=== PATIENT | male | born 1970 | race Caucasian/White ===

== ENCOUNTER 2020-03-27 16:06 | Emergency (ER) | payer OTHER, SELFPAY ==
--- NOTE | ~2020-03-27 | CT_ITS ---
EXAMINATION: CT abdomen pelvis w con EXAM DATE: 03/27/2020 17:38 INDICATION: Epigastric pain. Prostate cancer. TECHNIQUE: Spiral CT of the abdomen and pelvis was performed following intravenous injection of 100 m L Omnipaque 350. Axial, coronal and sagittal images were reviewed. The dose-length product (DLP) fo r this examination was 920.62 mGy-cm. The exposure was tailored according to patient size (auto mA e xposure control), and iterative reconstruction (ASIR) was used as additional dose reduction technique . There is no prior study for comparison. FINDINGS: There is mild inflammation adjacent to the duodenum, most likely peptic ulcer disease. Panc reatitis less likely. Hepatic steatosis, hepatomegaly. Spleen, adrenal glands are unremarkable. Panc reas is unremarkable. Gallbladder is unremarkable. No biliary obstruction. Portal and splenic vein s are patent. Kidneys enhance symmetrically. There is no hydronephrosis. Patient has likely had p rostatectomy. The bladder is unremarkable. There is no retroperitoneal or pelvic lymphadenopathy. There is mild scattered arteriosclerotic disease. The appendix is normal. The stomach and small bowel are unremarkable. There is expected amount of c olonic stool. No free intraperitoneal gas. The heart is normal in size. There are no pericardial or pleural effusions. The lung bases are unremarkable. There are no osteoblastic or osteolytic les ions identified. Corpora implants. IMPRESSION: 1. Mild fat stranding centered around duodenum, probably peptic ulcer disease. No perforation. 2. Hepatomegaly, hepatic steatosis. Reviewed, dictated and finalized at location A.
[2020-03-27 16:08] VITALS: BP 125/86; PULSE 103; RESP 18; TEMP 36.1; O2SAT 100
--- NOTE | 2020-03-27 16:32 | ED.ABDPAIN ---
HPI - Abdominal Pain General Chief Complaint: Abdominal Pain Stated Complaint: abdominal pain Time Seen by Provider: 03/27/20 16:13 Source: RN notes reviewed History of Present Illness HPI narrative: Patient presents emergency department from home for abdominal pain. Patient states that pain began 3 days ago. The pain is located in the upper mid abdomen described as sharp and stabbing associated with nausea and vomiting. Denies any fevers or chills chest pain shortness of breath diarrhea or any other symptoms. States he does have mesh in this area from previous hernia repair. States he did take Advil at home today for pain with minimal relief Related Data Allergies Allergy/AdvReac Type Severity Reaction Status Date / Time No Known Allergies Allergy Unverified 12/26/18 15:49 Review of Systems Review of Systems: Narrative: Gen.: Denies fevers or chills ENT: Denies congestion Respiratory: Denies shortness of breath or cough CV: Denies chest pain or palpitations GI: See HPI denies burning, urgency, frequency or hematuria Musculoskeletal: Denies back pain or muscle pain Neuro: Denies numbness, tingling, weakness or focal weakness Skin: Denies rash Except as documented, all other systems reviewed and negative [facility] Past Medical History Medical History (Updated 03/27/20 @ 18:27 by Felice Mendez DO) Hypertension Prostate cancer Psoriasis Surgical History Surgical History (Updated 03/27/20 @ 16:33 by Felice Mendez DO) History of hernia repair Social History Social History Smoking status: Former smoker Smoking end date: 11/05/11 Exam Narrative: Exam Narrative: APPEARANCE: No acute distress, nontoxic, resting in bed HEENT: Normocephalic, atraumatic, OMM RESPIRATORY: No respiratory distress, clear to auscultation bilaterally with no rhonchi wheezing or rales CARDIOVASCULAR: RRR s murmur ABDOMINAL: Soft, nondistended, tender palpation in epigastric and right upper quadrant, no tenderness left upper quadrant, right lower quadrant left lower quadrant, no rebound or guarding MUSCULOSKELETAl: Moves all extremities. No clubbing, cyanosis or edema. NEURO: Awake and alert. Following commands, speech normal, no focal deficits SKIN:: Warm, dry. Normal Color PSYCHIATRIC: Normal affect/mood Course Course Emergency Course: Discussed with Dr. Rohith Inman presentation work-up agrees with plan for discharge follow-up as an outpatient reason starting patient on Protonix Patient states that they are feeling much better at this time. States abdominal pain has resolved. Repeat abdominal exam shows the patient's abdomen to be soft and nontender. Discussed with patient results of workup and diagnosis. Discussed need for follow-up with primary care physician, reasons to return to the emergency department in proper use of medication. Patient understands and agrees to current treatment plan Vital Signs Vital signs: Vital Signs Temperature 96.9 F L 03/27/20 16:08 Pulse Rate 103 H 03/27/20 16:08 Respiratory Rate 18 03/27/20 16:08 Blood Pressure 125/86 03/27/20 16:08 Pulse Oximetry 100 03/27/20 16:08 Temperature 96.9 F L 03/27/20 16:08 Pulse Rate 70 03/27/20 18:19 Respiratory Rate 15 03/27/20 18:19 Blood Pressure 125/89 03/27/20 18:19 Pulse Oximetry 100 03/27/20 18:19 MDM - Abdominal Pain Lab Data Result diagrams: 03/27/20 16:51 03/27/20 16:51 Labs: Lab Results 03/27/20 03/27/20 03/27/20 Range/Units 16:51 16:51 16:51 WBC 7.4 (4.5-10.0) K/mm3 RBC 3.29 L (4.6-6.20) M/mm3 Hgb 11.6 L (14.0-18.0) g/dL Hct 33.8 L (42.0-52.0) % MCV 102.7 H (80-100) fl MCH 35.3 H (26-34) pg MCHC 34.3 (32-36) g/dl RDW 15.6 H (11.5-14.5) % Plt Count 133 L (150-375) k/mm3 MPV 9.8 (7.4-10.4) fl Immature Gran % (Auto) 0.3 (0-0.5) % Neut % (Auto) 80.1 H (45.5-
[2020-03-27] MEDS: SODIUM CHLORIDE 0.9% IV 1,000 ML 999 ML IV CONT (16:53)
[2020-03-27] MEDS: ONDANSETRON INJ 4 MG/2 ML VIAL IV PUSH (16:54)
[2020-03-27 16:57] LABS: Basophils Percent Auto 0.4 % (0.2-1.2); Eosinophils Percent Auto 0.1 % (0-4.4); Hematocrit 33.8 % (42.0-52.0); Hemoglobin 11.6 g/dL (14.0-18.0); Immature Granulocyte Absolute 0.02 K/mm3 (0.00-0.031); Immature Granulocyte Percent A 0.3 % (0-0.5); Lymphocytes Absolute Auto 0.82 K/mm3 (0.9-3.2); Mean Corpuscular HGB Conc 34.3 g/dl (32-36); Mean Corpuscular Hemoglobin 35.3 pg (26-34); Mean Corpuscular Volume 102.7 fl (80-100); Mean Platelet Volume 9.8 fl (7.4-10.4); Monocytes Absolute Auto 0.6 K/mm3 (0.1-0.6); Monocytes Percent Auto 8.1 % (2.6-8.5); Neutrophils Percent Auto 80.1 % (45.5-73.1); Platelet Count Result 133 k/mm3 (150-375); Red Blood Count 3.29 M/mm3 (4.6-6.20); Red Cell Distribution Width 15.6 % (11.5-14.5); White Blood Count 7.4 K/mm3 (4.5-10.0)
[2020-03-27 17:09] LABS: Lipase 178 U/L (23-300)
[2020-03-27 17:10] LABS: Alanine Aminotransferase 36 U/L (4-50); Albumin Level 4.1 g/dL (3.5-5.1); Alkaline Phosphatase 309 U/L (38-126); Aspartate Amino Transferase 228 U/L (17-59); Bilirubin,Total 2.1 mg/dL (0.2-1.3); Blood Urea Nitrogen 22 mg/dL (9-20); Calcium 9.4 mg/dL (8.4-10.2); Carbon Dioxide 29 mmol/L (22-30); Chloride 102 mmol/L (98-107); Estimated CRCL calculation 68 ml/min; Estimated Glomerular Filt Rate 50; Glucose 106 mg/dL (75-110); Potassium 4.1 mmol/L (3.4-5.0); Sodium 142 mmol/L (137-145)
[2020-03-27 18:19] VITALS: BP 125/89; PULSE 70; RESP 15; O2SAT 100
[2020-03-27 18:26] LABS: Add Urine Microscopic? YES; Appearance Urine Clear (Clear); Bacteria Urine Trace /hpf; Bilirubin Urine 1+ (Negative); Blood Urine Negative (Negative); Color Urine Amber (Yellow); Glucose Urine UA Negative (Negative); Hyaline Casts Urine 20-29 /lpf; Ketones Urine Trace mg/dL (Negative); Leukocyte Esterase Ur Negative LEU/UL (Negative); Mucus Urine Rare /lpf; Nitrate Urine Negative (Negative); Protein Urine 2+ mg/dL (Negative); RBC Urine 0-2 /hpf (0-2); Squamous Epithelial Cell Urine Rare /hpf (Few)
[2020-03-27 18:27] LABS: Specific Grav Ur 1.036 (1.001-1.035)
[2020-03-27] MEDS: PANTOPRAZOLE SODIUM IV 40 MG VIAL IV PUSH (18:28)
== END 2020-03-27 18:56 | disposition home or self-care (01) ==
PROVIDERS: Emergency Provider Emergency Medicine; PCP Emergency Medicine
DX: K29.80 Duodenitis without bleeding (principal); N28.9 Disorder of kidney and ureter, unspecified; I10 Essential (primary) hypertension; Z85.46 Personal history of malignant neoplasm of prostate; Z87.891 Personal history of nicotine dependence; K76.0 Fatty (change of) liver, not elsewhere classified; R16.0 Hepatomegaly, not elsewhere classified
CPT/HCPCS: 36415; 74177; 80053; 81001; 83690; 85025; 96365; 96375; 99284; A9270; C9113; J0131; J2405; J7030; Q9967

== ENCOUNTER 2020-05-15 01:39 | Outpatient (CLI) | payer OTHER, SELFPAY ==
[2020-05-15 18:08] LABS: SARS-CoV-2 RNA PCR Negative
== END 2020-05-15 01:40 | disposition home or self-care (01) ==
LOC: ANHCOVIDDT 01:39
PROVIDERS: PCP Emergency Medicine; Visit Provider Internal Medicine Gastroenterology
DX: Z01.812 Encounter for preprocedural laboratory examination (principal); Z11.59 Encounter for screening for other viral diseases
CPT/HCPCS: 87635; C9803; U0003

== ENCOUNTER 2020-05-18 03:00 | Day surgery (SDC) | payer OTHER, SELFPAY ==
[2020-05-14 13:57] VITALS: BMI 29.0
[2020-05-18 06:16] VITALS: BP 125/82; PULSE 134; RESP 16; TEMP 36.8; O2SAT 98; BMI 28.5
[2020-05-18] MEDS: LACTATED RINGERS 1,000 ML 150 ML IV CONT (06:34)
--- NOTE | 2020-05-18 06:50 | P.PNAN_ITS ---
Anes - Initial Pre Proc Eval Procedure: Operation Date: 05/18/20 07:30 Proposed Procedures p Esophagogastroduodenoscopy & Screening Colonoscopy - Henry Newberry MD Date/Time: 05/18/20 06:50 Surgeon: Henry Vigil MD Pre Op Diagnosis: Ulcer/ Neoplasm Screening Patient Data Age: 50 Gender: M Height: 6 ft 1 in Weight: 98.2 kg Last Vital Signs Temp 36.8 C 05/18/20 06:16 Pulse 134 H 05/18/20 06:16 Resp 16 05/18/20 06:16 BP 125/82 05/18/20 06:16 Pulse Ox 98 05/18/20 06:16 Allergies Allergy/AdvReac Type Severity Reaction Status Date / Time No Known Allergies Allergy Verified 05/18/20 06:15 Home Medications Medication Instructions Recorded Confirmed Type lisinopril 40 mg tablet 40 mg PO DAILY #90 tablet 09/29/19 05/14/20 Rx amlodipine 10 mg tablet 10 mg PO DAILY #90 tablet 02/20/20 05/14/20 Rx pantoprazole 40 mg tablet,delayed 40 mg PO QAM #30 tablet 04/26/20 05/14/20 Rx release peg 3350-electrolytes 236 240 ml PO Q10M #4000 ml 05/12/20 Rx gram-22.74 gram-6.74 gram-5.86 gram solution hydrochlorothiazide 25 mg PO DAILY 05/14/20 05/14/20 History metoprolol succinate 100 mg PO DAILY 05/14/20 05/14/20 History secukinumab [Cosentyx Pen (2 Pens)] 150 mg SUBCUT MONTHLY 05/14/20 05/14/20 History Patient hx anesthesia problems: other (h/o difficult intubation at [facility] and [facility] in 2019-visited by anesthesiologist post-op) Family hx anesthesia problems: none PMFSH Past Medical History Medical History Alcohol abuse Alcoholic liver disease Colon cancer screening Elevated liver enzymes Hypertension Peptic ulcer disease Prostate cancer Psoriasis Surgical History Surgical History History of hernia repair History of penile implant History of prostate surgery Family History Family History Mother Hepatitis Social History Social History Smoking status: Former smoker Smoking end date: 11/05/11 Anes - Eval Final PreProcedure Day of Procedure 05/18/20 06:50 Patient weight: overweight Heart: regular rate and rhythm Lungs: clear to auscultation Airway: Mallampati scale class III Neurological: alert and oriented Last oral intake: >/= 8 hours ASA classification: III Emergent: no Anesthetic plan: proceed Anesthesia type and monitoring: general GIVS and standard monitoring Informed Consent: The patient's anesthetic plan and its attendant risks and benefits were discussed with the patient/family/POA. Questions were solicited and answers provided to the satisfaction of the patient/family/POA.
--- NOTE | 2020-05-18 07:39 | PM.HPGS ---
History of Present Illness History of Present Illness Consent: Risks, benefits, and alternatives have been discussed and questions answered. Patient agrees to proceed with procedure. Chief complaint: Ulcer/ Neoplasm Screening Narrative: Ken Aquino is a 50 year old male with abnormal duodenum by ct scan, also screening colon cancer Review of Systems Constitutional: Constitutional: Denies headache(s) and Denies weakness Eyes: Eyes: Denies blurry vision ENT: Reports Normal hearing present, Denies headache(s) and Denies neck pain Cardiovascular: Cardiovascular: Denies chest pain and Denies dyspnea Respiratory: Respiratory: Denies dyspnea Gastrointestinal: Gastrointestinal: Reports no additional gastrointestinal complaints Genitourinary: Genitourinary: Denies dysuria Musculoskeletal: Musculoskeletal: Denies neck pain Integumentary/Breasts: Skin/Breast: Denies dry skin Neurologic: Reports Normal hearing present, Denies headache(s) and Denies weakness Psychiatric: Psychiatric: Denies anxiety Endocrine: Endocrine: Denies change in body appearance Hematologic/Lymphatic: Hematologic/Lymphatic: Denies easy bleeding Allergic/Immunologic: Allergic/Immunologic: Denies urticaria PMFSH Past Medical History Medical History Alcohol abuse Alcoholic liver disease Colon cancer screening Elevated liver enzymes Hypertension Peptic ulcer disease Prostate cancer Psoriasis Surgical History Surgical History History of hernia repair History of penile implant History of prostate surgery Family History Family History Mother Hepatitis Social History Social History Smoking status: Former smoker Smoking end date: 11/05/11 Meds Home Medications and Allergies Home Medications Medication Instructions Recorded Confirmed Type lisinopril 40 mg tablet 40 mg PO DAILY #90 tablet 09/29/19 05/14/20 Rx amlodipine 10 mg tablet 10 mg PO DAILY #90 tablet 02/20/20 05/14/20 Rx pantoprazole 40 mg tablet,delayed 40 mg PO QAM #30 tablet 04/26/20 05/14/20 Rx release peg 3350-electrolytes 236 240 ml PO Q10M #4000 ml 05/12/20 Rx gram-22.74 gram-6.74 gram-5.86 gram solution hydrochlorothiazide 25 mg PO DAILY 05/14/20 05/14/20 History metoprolol succinate 100 mg PO DAILY 05/14/20 05/14/20 History secukinumab [Cosentyx Pen (2 Pens)] 150 mg SUBCUT MONTHLY 05/14/20 05/14/20 History Allergies Allergy/AdvReac Type Severity Reaction Status Date / Time No Known Allergies Allergy Verified 05/18/20 06:15 Vital Signs Vital Signs - 24 hr 05/18/20 06:16 Temperature 98.2 F Pulse Rate 134 H Respiratory Rate 16 Blood Pressure 125/82 Pulse Oximetry 98 Exam Const: General: comfortable and no acute distress HENMT: General nose exam: Normal nares present Eyes: General: appearance normal, both eyes and all related structures Neck: Neck: no JVD Resp: Auscultation: clear to auscultation bilaterally Cardio: Rate: regular rate Rhythm: regular rhythm GI: Inspection: non-distended GI Palp: Yes Soft to palpation Skin: General skin exam: normal color Neuro: General: gait normal Speech: normal speech Extrem: General: normal to inspection Psych: Mental Status: mental status grossly normal Assessment and Plan Assessment and plan (1) Peptic ulcer disease: Code(s): K27.9 - Peptic ulcer, site unspecified, unspecified as acute or chronic, without hemorrhage or perforation Status: Acute Assessment and Plan: will assess with egd, consider bx, better with ppi (2) Alcohol abuse: Code(s): F10.10 - Alcohol abuse, uncomplicated Status: Acute (3) Elevated liver enzymes: Code(s): R74.8 - Abnormal levels of other serum enzymes Status: Acute (4) Colon
[2020-05-18] MEDS: BENZOCAINE (*SP) 60 ML SPRAY CAN (HURRICAINE) 1 SPRAY MUCOUS MEM (07:41)
[2020-05-18 08:21] VITALS: BP 111/79; PULSE 104; RESP 23; O2SAT 99
[2020-05-18 08:31] VITALS: BP 125/83; PULSE 106; RESP 23; O2SAT 99
[2020-05-18 08:44] VITALS: BP 126/92; PULSE 103; RESP 23; O2SAT 99
== END 2020-05-18 09:04 | disposition home or self-care (01) ==
PROVIDERS: PCP Emergency Medicine; Visit Provider Internal Medicine Gastroenterology
PROC: 0DJ08ZZ Inspection of Upper Intestinal Tract, Via Natural or Artificial Opening Endoscopic (ICD-10-PCS; CPT 43235; principal; 2020-05-18 07:30)
DX: Z12.11 Encounter for screening for malignant neoplasm of colon (principal); D12.2 Benign neoplasm of ascending colon; D12.4 Benign neoplasm of descending colon; D12.3 Benign neoplasm of transverse colon; K63.5 Polyp of colon; K64.8 Other hemorrhoids; K64.4 Residual hemorrhoidal skin tags; K29.50 Unspecified chronic gastritis without bleeding; Z87.11 Personal history of peptic ulcer disease; K70.9 Alcoholic liver disease, unspecified; F10.10 Alcohol abuse, uncomplicated; I10 Essential (primary) hypertension; L40.9 Psoriasis, unspecified; Z85.46 Personal history of malignant neoplasm of prostate; Z87.891 Personal history of nicotine dependence
CPT/HCPCS: 45380; 45385; 45381; 43239; 87635; 88305; C9803; J2704; J7120; U0003

== ENCOUNTER 2020-12-01 17:22 | Inpatient (IN) | payer BC, SELFPAY ==
[2020-12-01] VITALS (19 sets, daily range): BP systolic 103–123; BP diastolic 46–64; PULSE 97–114; RESP 16–27; TEMP 36.1–37.1; O2SAT 97–100; BMI 29.6; BMI 29.5
--- NOTE | ~2020-12-01 | XR_ITS ---
XR chest 2V DATE: 12/01/2020 17:58 INDICATION: Hypotension, weakness TECHNIQUE: AP and lateral views COMPARISON: 12/26/2018 CT pulmonary scan 12/26/2018 portable AP chest FINDINGS: Normal heart size. No hilar or mediastinal enlargement. No pulmonary infiltrate or consolid ation, pleural effusion or pulmonary vascular congestion or pneumothorax. IMPRESSION: No active cardiopulmonary disease Reviewed, dictated and finalized at location A. 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
--- NOTE | 2020-12-01 17:30 | ECG_ITS ---
Measurements Intervals [place] Rate: 100 P: 20 OH: 158 QRS: 19 QRSD: 104 T: 29 QT: 409 QTc: 528 Interpretive Statements SINUS TACHYCARDIA INCOMPLETE RIGHT BUNDLE BRANCH BLOCK DELAYED PRECORDIAL R/S TRANSITION BORDERLINE T WAVE ABNORMALITY- INFERIOR LEADS BORDERLINE ECG Electronically Signed On 12-01-2020 18:21:58 [employer] SUPERINTENDENT by Darren Carson D.O.
--- NOTE | 2020-12-01 17:35 | ED.WEAKNESS ---
HPI - Weakness General Chief complaint: Weakness Stated complaint: low BP Time Seen by Provider: 12/01/20 17:35 History of Present Illness HPI Narrative: 50 yo male w/ h/o alcoholic liver disease, duodenal ulcer presents to the ED for light headedness. He has been feeling light headed continuously for the past 2 days. worse upon standing. Associated with low blood pressure. 90s/40s at home. He is on blood pressure medications. He has noted occasional dark stools, no shan blood. No fever, chills, chest pain, palpitations. Related Data Allergies Allergy/AdvReac Type Severity Reaction Status Date / Time No Known Allergies Allergy Verified 12/01/20 17:29 Review of Systems Review of Systems: All systems reviewed & are unremarkable except as noted in HPI and below Constitutional: Constitutional: Denies chills, Reports fatigue, Denies fever(s) and Reports weakness ENT: Denies dizziness Cardiovascular: Cardiovascular: Denies chest pain Respiratory: Respiratory: Denies dyspnea Gastrointestinal: Gastrointestinal: Denies abdominal pain, Denies diarrhea, Denies nausea and Denies vomiting Musculoskeletal: Musculoskeletal: Denies back pain Neurologic: Reports dizziness, Denies syncope and Denies focal weakness [facility] Past Medical History Medical History Alcohol abuse Alcoholic liver disease Colon cancer screening Elevated liver enzymes Gastritis History of colon polyps Hypertension Peptic ulcer disease Prostate cancer Psoriasis Surgical History Surgical History History of hernia repair History of penile implant History of prostate surgery Family History Family History Mother Hepatitis Social History Social History Smoking status: Former smoker Smoking end date: 11/05/11 Gender identity (if verbalized by the patient): Male Exam Const: General: no acute distress, alert and ill appearing Orientation/consciousness: patient oriented x3 HENMT: Head: normal to inspection Eyes: Conjunctivae: conjunctival abnormality bilateral conjunctival icterus Resp: Effort & Inspection: normal respiratory effort Auscultation: clear to auscultation bilaterally Cardio: Rate: tachycardic Rhythm: regular rhythm GI: GI Palp: Yes Soft to palpation and No Tenderness to palpation present (GI) Skin: General skin exam: jaundice and pallor Neuro: General: patient oriented x3, moves all extremities, no focal motor deficits and CN's II-XI intact bilaterally Speech: normal speech Extrem: General: normal to inspection and no edema Course Vital Signs Vital signs: Vital Signs Temperature 36.4 C 12/01/20 17:26 Pulse Rate 105 H 12/01/20 17:26 Respiratory Rate 16 12/01/20 17:26 Blood Pressure 103/46 L 12/01/20 17:26 Pulse Oximetry 99 12/01/20 17:26 Temperature 36.4 C 12/01/20 17:26 Pulse Rate 105 H 12/01/20 17:26 Respiratory Rate 16 12/01/20 17:26 Blood Pressure 103/46 L 12/01/20 17:26 Pulse Oximetry 99 12/01/20 17:26 MDM - Weakness MDM Narrative Medical decision making narrative: H/H very low. Most likely upper GI bleed. Case discussed with Dr. Em. He will consult on the patient and likely do EGD tomorrow. Differential Diagnosis Differential diagnosis: Likely anemia, dehydration and other (upper GI bleed) Medical Records Attestation: I reviewed the patient's medical records. Lab Data Attestation: I reviewed the patient's lab results. Result diagrams: 12/01/20 17:38 12/01/20 17:38 Labs: Lab Results 12/01/20 12/01/20 12/01/20 Range/Units 17:37 17:37 17:38 WBC 7.6 (4.5-10.0) K/mm3 RBC 2.02 L (4.6-6.20) M/mm3 Hgb 4.0 L* D (14.0-18.0) g/dL Hct 14.3 L* (42.0-52.0) % MCV 70.8 L (80-100) fl M
[2020-12-01 17:45] LABS: Basophils Percent Auto 0.1 % (0.2-1.2); Eosinophils Absolute Auto 0.1 K/mm3 (0-0.3); Eosinophils Percent Auto 0.9 % (0-4.4); Immature Granulocyte Absolute 0.07 K/mm3 (0.00-0.031); Immature Granulocyte Percent A 0.9 % (0-0.5); Lymphocytes Absolute Auto 1.04 K/mm3 (0.9-3.2); Lymphocytes Percent Auto 13.8 % (18.3-44.2); Mean Corpuscular Hemoglobin 19.8 pg (26-34); Mean Corpuscular Volume 70.8 fl (80-100); Mean Platelet Volume 9.4 fl (7.4-10.4); Monocytes Absolute Auto 0.6 K/mm3 (0.1-0.6); Monocytes Percent Auto 8.1 % (2.6-8.5); Neutrophils Absolute Auto 5.8 K/mm3 (1.3-6.7); Neutrophils Percent Auto 76.2 % (45.5-73.1); Platelet Count Result 247 k/mm3 (150-375); Red Blood Count 2.02 M/mm3 (4.6-6.20); Red Cell Distribution Width 18.3 % (11.5-14.5); White Blood Count 7.6 K/mm3 (4.5-10.0)
[2020-12-01 17:51] LABS: Hematocrit 14.3 % (42.0-52.0)
[2020-12-01 17:52] LABS: Hypochromasia 2+ (NORMAL); Platelet Estimate Adequate (Adequate)
[2020-12-01 17:53] LABS: Ovalocytes 1+ (NORMAL); Target Cells 1+ (NORMAL); Tear Drop Cells 1+ (NORMAL)
[2020-12-01 17:56] LABS: Alanine Aminotransferase 14 U/L (4-50); Albumin Level 3.4 g/dL (3.5-5.1); Alkaline Phosphatase 130 U/L (38-126); Anion Gap 7 mmol/L (8-16); Aspartate Amino Transferase 52 U/L (17-59); Bilirubin,Total 0.6 mg/dL (0.2-1.3); Blood Urea Nitrogen 19 mg/dL (9-20); Calcium 8.3 mg/dL (8.4-10.2); Carbon Dioxide 24 mmol/L (22-30); Chloride 105 mmol/L (98-107); Estimated CRCL calculation 89 ml/min; Estimated Glomerular Filt Rate > 60; Glucose 135 mg/dL (75-110); Sodium 136 mmol/L (137-145)
[2020-12-01 18:07] LABS: INR 1.3; Prothrombin Time 16.8 Seconds (11.1-14.7)
[2020-12-01] MEDS: SODIUM CHLORIDE 0.9% IV 1,000 ML 999 ML IV CONT (18:07)
[2020-12-01] MEDS: PANTOPRAZOLE SODIUM IV 40 MG VIAL IV PUSH (18:07)
[2020-12-01 18:08] LABS: Partial Thromboplastin Time 37.1 SECONDS (22.3-36.8)
[2020-12-01 18:31] LABS: Ammonia < 9 umol/L (9-30)
[2020-12-01 18:35] LABS: Lactic Acid Reflex 2.7 mmol/L (0.7-2.1)
[2020-12-01] MEDS: SODIUM CHLORIDE 0.9% IV 250 ML 30 ML IV CONT (18:50)
--- NOTE | 2020-12-01 19:28 | PC.NURSE ---
Report received from Emily Driscoll RN, to continue care. Pt has 1st unit PRBC's infusing. Pt reports is comfortable and denies needs at present. Urinal given in attempt to void. Awaiting bed assignment.
[2020-12-01] MEDS: LACTATED RINGERS 1,000 ML 125 ML IV CONT (20:23)
--- NOTE | 2020-12-01 21:04 | ADMGEN ---
This patient, Ken Aquino, was admitted to IMU Room 206-01, pt arrived at approximately 2103. Patient/family oriented to hospital policies and general routines including ID bracelet, bed and alarms, visiting hours, pain management, procedures, bathroom and other care routines, personal items, smoking policy, room service/diet, and visiting hours. Information on how to activate the Rapid Response Team has been discussed. Patient/Family are encouraged to report perceived risks to care and to ask questions if they do not understand what they are told or what they should do. Received report from WALTER Rutledge.
[2020-12-01 21:18] LABS: Reflex Lactic Acid Yes or No Add Lactic
[2020-12-01 21:31] LABS: Add Urine Microscopic? NO; Appearance Urine Clear (Clear); Bilirubin Urine Negative (Negative); Blood Urine Negative (Negative); Color Urine Straw (Yellow); Glucose Urine UA Negative (Negative); Ketones Urine Negative (Negative); Leukocyte Esterase Ur Negative LEU/UL (Negative); Nitrate Urine Negative (Negative); Protein Urine Negative (Negative); Urobilinogen Urine Negative mg/dL (<2.0)
--- NOTE | 2020-12-01 21:51 | PM.IMHP ---
H&P: HPI History of Present Illness Date/Time: 12/01/20 23:15 Chief Complaint: lightheaded and low blood pressures Narrative: Ken Aquino is a 50 year old male with a past medical history of alcohol abuse, gastritis and alcoholic hepatitis who presented to the ER due to feeling lightheaded for 2 days the patient reports that he is more lightheaded with standing. He denies dizziness He did note some low blood pressures at home as low as 90/40. He has noted some dark stools but no hematemesis or hematochezia. He denies any hematuria. he has noticed that his stools have been darker in color for the last several days. He denies obvious melena. He denies any abdominal pain. He has been short of breath the noticing is heart rate increasing slightly with activity. He denies any palpitations, orthopnea or lower extremity edema. He reports eating a iron rich diet. He reports that he quit drinking alcohol 5-6 months ago. Prior to quitting he drank a half of a 5th a day. he does occasionally have some hematuria ever since he had his prostatectomy in 2011. Usually his hematuria self limited. He has not had any hematuria in quite some time. Review of Systems Review of Systems: Narrative: 12 systems were reviewed with pertinent positives and negatives per HPI. Except as documented in the HPI, all other systems were reviewed and are negative. [facility] Past Medical History Medical History (Updated 12/02/20 @ 07:38 by Malena Amador DO) Alcohol abuse Alcoholic liver disease Gastritis Hearing loss Left ear started December 2018 History of colon polyps Hypertension Peptic ulcer disease Prostate cancer Psoriasis Psoriatic arthritis Surgical History Surgical History (Updated 12/01/20 @ 22:07 by Malena Amador DO) History of colonoscopy 05/2020 internal external hemorrhoids noted History of esophagogastroduodenoscopy (EGD) Performed by Dr. Vigil 05/2020 demonstrated, NO VARICES History of hernia repair History of penile implant Performed by Dr. Lucero June 2019 History of radical prostatectomy July 2012 in [place] due to prostate cancer with positive pelvic lymph nodes followed by radiation therapy and 3 years of Lupron completed in 2014 Family History Family History (Updated 12/02/20 @ 07:32 by Malena Amador DO) Mother Hepatitis A In good health Father In good health Dementia Sibling In good health Social History Social History (Updated 12/02/20 @ 07:36 by Malena Amador DO) Social History: He is . He has 1 daughter. He has a 20 pack per year smoking history and quit smoking at age 42. He lives in a multi generation home with his mother father and brother. Primary care physician: Dr. Yousif Mixon Code status: Full code Smoking packs per day: 1 Smoking cigarettes per day: 20.0 Years smoked: 20 Smoking pack-years: 20.00 Smoking status: Former smoker Tobacco type: cigarettes Smoking end date: 11/05/11 Alcohol intake: never Substance use: never Gender identity (if verbalized by the patient): Male Spiritual care concerns: No Meds Home Medications and Allergies Home Medications Medication Instructions Recorded Confirmed Type amlodipine 10 mg tablet 10 mg PO DAILY #90 tablet 07/13/20 12/01/20 Rx lisinopril 40 mg tablet 40 mg PO DAILY #90 tablet 07/13/20 12/01/20 Rx hydrochlorothiazide 25 mg PO DAILY 12/01/20 12/01/20 History metoprolol succinate 100 mg PO DAILY 12/01/20 12/01/20 History pantoprazole 40 mg PO DAILY 12/01/20 12/01/20 History Allergies Allergy/AdvReac Type Severity Reaction Status Date / Time No Known Allergies Allergy Verified 12/01/20 17:29 Vital Signs Vital Signs - 24 hr 12/01/20 17:26 12/01/20 18:52 12/01/20 18:53 Temperature 97.6 F 98.5 F Pulse Rate 105 H 97 98 Respiratory Rate 16 22 H 20 Blood Pressure 103/46 L 104/58 L Pulse Oximetry 99 100 100 12/01/20 19:10 12/01
[2020-12-01 22:01] LABS: Lactic Acid 1.7 mmol/L (0.7-2.1)
[2020-12-01] MEDS: TUBING, BLOOD PLUM PUMP TUBING 1 EACH XX (23:47)
[2020-12-01] MEDS: SODIUM CHLORIDE 0.9% IV 250 ML 50 ML (23:47)
[2020-12-02] VITALS (24 sets, daily range): BP systolic 89–124; BP diastolic 45–74; PULSE 87–107; RESP 12–20; TEMP 36–36.9; O2SAT 97–100; BMI 30.3
[2020-12-02] MEDS: diphenhydrAMINE HCl INJ 50 MG/ML VIAL 25 MG IV PUSH (02:00)
[2020-12-02] MEDS: LACTATED RINGERS 1,000 ML 125 ML IV CONT ×4 (02:05→14:00)
[2020-12-02 04:01] LABS: Hematocrit 21.9 % (42.0-52.0); Mean Corpuscular HGB Conc 30.6 g/dl (32-36); Mean Corpuscular Hemoglobin 22.9 pg (26-34); Mean Platelet Volume 9.1 fl (7.4-10.4); Platelet Count Result 213 k/mm3 (150-375); Red Blood Count 2.92 M/mm3 (4.6-6.20); Red Cell Distribution Width 19.9 % (11.5-14.5); White Blood Count 7.8 K/mm3 (4.5-10.0)
[2020-12-02 04:21] LABS: Anion Gap 5 mmol/L (8-16); Blood Urea Nitrogen 12 mg/dL (9-20); Calcium 8.5 mg/dL (8.4-10.2); Carbon Dioxide 24 mmol/L (22-30); Chloride 108 mmol/L (98-107); Estimated CRCL calculation 110 ml/min; Estimated Glomerular Filt Rate > 60; Glucose 121 mg/dL (75-110); Magnesium 1.9 mg/dL (1.6-2.3); Potassium 3.6 mmol/L (3.4-5.0); Sodium 137 mmol/L (137-145)
[2020-12-02 04:26] LABS: Hemoglobin 6.7 g/dL (14.0-18.0)
[2020-12-02] MEDS: TUBING, BLOOD PLUM PUMP TUBING 1 EACH XX (06:38)
[2020-12-02] MEDS: SODIUM CHLORIDE 0.9% IV 250 ML 30 ML IV CONT (06:38)
--- NOTE | 2020-12-02 08:36 | PM.IMPN ---
Progress Note: A&P Assessment and Plan (1) Anemia: Qualifiers: Other causes of anemia: acute posthemorrhagic Code(s): D64.9 - Anemia, unspecified Status: Acute Assessment and Plan: Profound anemia upon arrival; now Hgb 6.7 and receiving his 4th u pRBC. Likely due to upper GI bleed. No reports of hematochezia or melena since arrival. Dr. Inman has been consulted and patient notes he may go for scope around noon today. The patient does have a history of moderate gastritis noted on EGD May 2020. He does not have a history of esophageal varices. Trend H&H Transfuse PRN Await EGD results Await further rec from GI Monitor closely (2) QT prolongation: Code(s): R94.31 - Abnormal electrocardiogram [ECG] [EKG] Status: Acute Assessment and Plan: The patient's EKG in December of 2018 demonstrated a QTC of 479. His QTC currently is 528. He is not on any medications that could cause QT prolongation. He is being monitored on telemetry Will consider repeat EKG later in hospital course (3) Alcoholic liver disease: Code(s): K70.9 - Alcoholic liver disease, unspecified Status: Acute Assessment and Plan: Patient's LFTs have normalized since he has quit drinking. Monitor Subjective Date/time seen: 12/02/20 08:36 Interval history: Patient is a 50 year old male with a past medical history of alcohol abuse, gastritis and alcoholic hepatitis who is seen in follow up for profound blood loss anemia assumed to be due to upper GI bleed. Patient states he feels somewhat better today noting, I'd feel better if I'd get some sleep and something to eat . His SOB and dizziness has improved. Notes some mild diffuse abd cramping. Otherwise no complaints. Denies f/c/s, cp/palpitations, cough, n/v, current hematochezia/melena, dysuria, hematuria, cloudy urine, calf pain/swelling. Review of Systems Review of Systems: All systems reviewed & are unremarkable except as noted in HPI and below Exam Narrative: Exam Narrative: General: Patient resting on left side in bed in no acute distress; initially sleeping, but easily arousable with verbal stimuli. HEENT: Normocephalic, EOMI, oral mucosa dry Cardiovascular: Rate and rhythm are regular. No notable murmur, rub, or gallop. Respiratory: Lungs clear to auscultation all wiley. Non-labored breathing. Abdomen: Soft, non-tender, non-distended, bowel sounds present. Extremities: Peripheral pulses intact. No edema. NTTP b/l calves Neuro: No focal neurological deficits. Speech is clear. Objective Data Vital Signs Vital Signs: Last Vital Signs Temp 98.5 F 12/02/20 07:27 Pulse 102 H 12/02/20 07:27 Resp 20 12/02/20 07:27 BP 114/60 12/02/20 07:27 Pulse Ox 97 12/02/20 07:27 Intake/Output Intake/Output: Intake & Output 11/29/20 11/30/20 12/01/20 12/02/20 23:59 23:59 23:59 23:59 Intake Total 1600 2350 Output Total 800 1750 Balance 800 600 Meds/Results Medications: Active Medications Generic Name Dose Route Start Last Admin Trade Name Freq PRN Reason Stop Dose Admin Lactated Ringer's 1,000 mls @ 125 mls/hr 12/01/20 18:30 12/02/20 06:37 Lr - Lactated Ringers Iv IV CONT 125 mls/hr .Q8H SUZAN Administration Sodium Chloride 250 mls @ 30 mls/hr 12/02/20 04:44 12/02/20 06:38 Normal Saline Iv IV CONT 12/02/20 13:03 30 mls/hr .[id number] STA Administration Lisinopril 40 mg 12/02/20 09:00 Lisinopril 20 Mg Tablet PO DAILY SUZAN Metoprolol Succinate 100 mg 12/02/20 09:00 Metoprolol Succinate Ext Rel 100 Mg Tabcr PO DAILY SUZAN Pantoprazole Sodium 40 mg 12/02/20 09:00 Pantoprazole Sodium Iv 40 Mg Vial IV PUSH BID [facility] Radiology Results: ITS Impressions Chest X-Ray 12/01/20 18:01 IMPRESSION: No active cardiopulmonary disease
[2020-12-02] MEDS: METOPROLOL SUCCINATE EXT REL 100 MG TABCR PO (09:25)
--- NOTE | 2020-12-02 09:42 | WPDGICN ---
Assessment and Plan Assessment and plan (1) Acute upper GI bleed: Code(s): K92.2 - Gastrointestinal hemorrhage, unspecified Status: Acute Assessment and Plan: will proceed with EGD, he has been using nsaid's because arthritis pain continue with iv protonix probably bleeding ulcer but also history of liver disease however last egd did not find varices (2) Melena: Code(s): K92.1 - Melena Status: Acute Assessment and Plan: with upper gib and symptomatic anemia blood transfusion, egd today (3) Acute blood loss anemia: Code(s): D62 - Acute posthemorrhagic anemia Status: Acute Assessment and Plan: he is getting blood now, monitor hb (4) Alcoholic liver disease: Code(s): K70.9 - Alcoholic liver disease, unspecified Status: Acute Assessment and Plan: he is not longer drinking alcohol liver enzymes normal today probably cirrhosis (phg in recent egd) (5) Psoriasis: Code(s): L40.9 - Psoriasis, unspecified Status: Acute Assessment and Plan: using biologics but also pain, has been using nsaid's (6) NSAID long-term use: Code(s): Z79.1 - intermediate (current) use of non-steroidal anti-inflammatories (NSAID) Status: Acute Assessment and Plan: probably contributing to his gib GI Consult Note Consult date/time: 12/02/20 09:42 Reason for consult: gib, melena HPI: Ken Aquino is a 50 year old male who alcohol abuse and alcoholic liver disease (claims that he has been abstinent for few months) who is known to me, EGD showed moderate PHG without varices using pantoprazole, no ulcers and colonoscopy with large TA polyp removed after submucosal injection and hemorrhoids with recommendations to repeat in 3 years. He also had prostate cancer with radical prostatectomy and radiation therapy, and psoriasis arthritis using skyrizi but last few weeks has been taking nsaid's in daily basis because arthritis pain. He is here after noted dark stools, feeling lightheaded with generalized fatigue. Blood work showed anemia with hb 4 (last year 11.5), inr 1.3, liver enzymes normal. Admitted to floor and given 4 units of blood transfusion. Denies vomiting. Review of Systems Constitutional: Constitutional: Reports fatigue and Reports lethargy Eyes: Eyes: Reports no additional eye complaints ENT: Reports system reviewed and no additional complaints, except as documented Cardiovascular: Cardiovascular: Reports lightheadedness Respiratory: Respiratory: Denies cough Gastrointestinal: Gastrointestinal: Reports melena Genitourinary: Genitourinary: Denies urinary incontinence Musculoskeletal: Musculoskeletal: Reports arthralgias Integumentary/Breasts: Skin/Breast: Reports rash (psoriasis on treatment) Neurologic: Denies confusion Psychiatric: Psychiatric: Denies behavioral changes [facility] Past Medical History Medical History (Updated 12/02/20 @ 09:55 by Henry Vigil MD) Acute blood loss anemia Alcohol abuse Alcoholic liver disease Gastritis Hearing loss Left ear started December 2018 History of colon polyps Hypertension Melena NSAID long-term use Peptic ulcer disease Prostate cancer Psoriasis Psoriatic arthritis Surgical History Surgical History (Updated 12/01/20 @ 22:07 by Malena Amador DO) History of colonoscopy 05/2020 internal external hemorrhoids noted History of esophagogastroduodenoscopy (EGD) Performed by Dr. Vigil 05/2020 demonstrated, NO VARICES History of hernia repair History of penile implant Performed by Dr. Lucero June 2019 History of radical prostatectomy July 2012 in [place] due to prostate cancer with positive pelvic lymph nodes followed by radiation therapy and 3 years of Lupron completed in 2014 Family History Family History (Updated 12/02/20 @ 07:32 by Malena Amador DO) Mother Hepatitis A In good health Father In good health Dementia Si
--- NOTE | 2020-12-02 10:59 | WPDANESEPP ---
Anes - Eval Pre Procedure Procedure: Operation Date: 12/02/20 15:00 Proposed Procedures p Esophagogastroduodenoscopy - Henry Vigil MD Date/Time: 12/02/20 10:59 Pre Op Diagnosis: Upper GI bleed, Anemia Patient Data Age: 50 Gender: M Height: 1.85 m Weight: 104.3 kg Last Vital Signs Temp 36.9 C 12/02/20 10:13 Pulse 90 12/02/20 10:13 Resp 20 12/02/20 10:13 BP 122/72 12/02/20 10:13 Pulse Ox 98 12/02/20 10:13 Allergies Allergy/AdvReac Type Severity Reaction Status Date / Time No Known Allergies Allergy Verified 12/02/20 10:08 Home Medications Medication Instructions Recorded Confirmed Type amlodipine 10 mg tablet 10 mg PO DAILY #90 tablet 07/13/20 12/01/20 Rx lisinopril 40 mg tablet 40 mg PO DAILY #90 tablet 07/13/20 12/01/20 Rx hydrochlorothiazide 25 mg PO DAILY 12/01/20 12/01/20 History metoprolol succinate 100 mg PO DAILY 12/01/20 12/01/20 History pantoprazole 40 mg PO DAILY 12/01/20 12/01/20 History Laboratory Tests 12/01/20 12/01/20 12/01/20 17:37 17:37 17:38 WBC 7.6 K/mm3 K/mm3 (4.5-10.0) RBC 2.02 M/mm3 L M/mm3 (4.6-6.20) Hgb 4.0 g/dL L* D g/dL (14.0-18.0) Hct 14.3 % L* % (42.0-52.0) MCV 70.8 fl L fl (80-100) MCH 19.8 pg L pg (26-34) MCHC 28.0 g/dl L g/dl (32-36) RDW 18.3 % H % (11.5-14.5) Plt Count 247 k/mm3 D k/mm3 (150-375) MPV 9.4 fl fl (7.4-10.4) Immature Gran % (Auto) 0.9 % H % (0-0.5) Neut % (Auto) 76.2 % H % (45.5-73.1) Lymph % (Auto) 13.8 % L % (18.3-44.2) [place] % (Auto) 8.1 % % (2.6-8.5) Eos % (Auto) 0.9 % % (0-4.4) Baso % (Auto) 0.1 % L % (0.2-1.2) Lymph # (Auto) 1.04 K/mm3 K/mm3 (0.9-3.2) [place] # (Auto) 0.6 K/mm3 K/mm3 (0.1-0.6) Eos # (Auto) 0.1 K/mm3 K/mm3 (0-0.3) Baso # (Auto) 0.0 K/mm3 K/mm3 (0.0-0.1) Abs Immat Gran (auto) 0.07 K/mm3 H K/mm3 (0.00-0.031) Absolute Neuts (auto) 5.8 K/mm3 K/mm3 (1.3-6.7) Absolute Nucleated RBC 0.0 K/mm3 K/mm3 (0.0-0.012) Nucleated RBC % 0.0 % % (0.0-0.2) Platelet Estimate Adequate (Adequate) Hypochromasia 2+ (NORMAL) Target Cells 1+ (NORMAL) Tear Drop Cells 1+ (NORMAL) Ovalocytes 1+ (NORMAL) PT 16.8 Seconds H Seconds (11.1-14.7) INR 1.3 APTT 37.1 SECONDS H SECONDS (22.3-36.8) Sodium Potassium Chloride Carbon Dioxide Anion Gap BUN Creatinine Estim Creat Clear Calc Estimated GFR Glucose Lactic Acid Calcium Magnesium Total Bilirubin AST ALT Alkaline Phosphatase Ammonia Total Protein Albumin Urine Color Urine Appearance Urine pH Ur Specific [place] Urine Protein Urine Glucose (UA) Urine Ketones Ur Blood (Man) Urine Nitrate Urine Bilirubin Urine Urobilinogen Leukocyte Esterase Rfl Blood Type A Positive Antibody Screen Negative Crossmatch See Detail 12/01/20 12/01/20 12/01/20 17:38 18:06 18:12 WBC RBC Hgb Hct MCV MCH MCHC RDW Plt Count MPV Immature Gran % (Auto) Neut % (Auto) Lymph % (Auto) [place] % (Auto) Eos % (Auto) Baso % (Auto) Lymph # (Auto) [place] # (Auto) Eos # (Auto) Bas
--- NOTE | 2020-12-02 11:12 | WPDANESEPPF ---
Anes - Initial Pre Proc Eval Procedure: Operation Date: 12/02/20 15:00 Proposed Procedures p Esophagogastroduodenoscopy - Henry Vigil MD Date/Time: 12/02/20 11:12 Surgeon: Juan Diego Cunningham PA-C Pre Op Diagnosis: Upper GI bleed, Anemia Patient Data Age: 50 Gender: M Height: 6 ft 1 in Weight: 104.3 kg Last Vital Signs Temp 98.5 F 12/02/20 10:13 Pulse 90 12/02/20 10:13 Resp 20 12/02/20 10:13 BP 122/72 12/02/20 10:13 Pulse Ox 98 12/02/20 10:13 Allergies Allergy/AdvReac Type Severity Reaction Status Date / Time No Known Allergies Allergy Verified 12/02/20 10:08 Home Medications Medication Instructions Recorded Confirmed Type amlodipine 10 mg tablet 10 mg PO DAILY #90 tablet 07/13/20 12/01/20 Rx lisinopril 40 mg tablet 40 mg PO DAILY #90 tablet 07/13/20 12/01/20 Rx hydrochlorothiazide 25 mg PO DAILY 12/01/20 12/01/20 History metoprolol succinate 100 mg PO DAILY 12/01/20 12/01/20 History pantoprazole 40 mg PO DAILY 12/01/20 12/01/20 History Laboratory Tests 12/01/20 12/01/20 12/01/20 17:37 17:37 17:38 WBC 7.6 K/mm3 K/mm3 (4.5-10.0) RBC 2.02 M/mm3 L M/mm3 (4.6-6.20) Hgb 4.0 g/dL L* D g/dL (14.0-18.0) Hct 14.3 % L* % (42.0-52.0) MCV 70.8 fl L fl (80-100) MCH 19.8 pg L pg (26-34) MCHC 28.0 g/dl L g/dl (32-36) RDW 18.3 % H % (11.5-14.5) Plt Count 247 k/mm3 D k/mm3 (150-375) MPV 9.4 fl fl (7.4-10.4) Immature Gran % (Auto) 0.9 % H % (0-0.5) Neut % (Auto) 76.2 % H % (45.5-73.1) Lymph % (Auto) 13.8 % L % (18.3-44.2) [place] % (Auto) 8.1 % % (2.6-8.5) Eos % (Auto) 0.9 % % (0-4.4) Baso % (Auto) 0.1 % L % (0.2-1.2) Lymph # (Auto) 1.04 K/mm3 K/mm3 (0.9-3.2) [place] # (Auto) 0.6 K/mm3 K/mm3 (0.1-0.6) Eos # (Auto) 0.1 K/mm3 K/mm3 (0-0.3) Baso # (Auto) 0.0 K/mm3 K/mm3 (0.0-0.1) Abs Immat Gran (auto) 0.07 K/mm3 H K/mm3 (0.00-0.031) Absolute Neuts (auto) 5.8 K/mm3 K/mm3 (1.3-6.7) Absolute Nucleated RBC 0.0 K/mm3 K/mm3 (0.0-0.012) Nucleated RBC % 0.0 % % (0.0-0.2) Platelet Estimate Adequate (Adequate) Hypochromasia 2+ (NORMAL) Target Cells 1+ (NORMAL) Tear Drop Cells 1+ (NORMAL) Ovalocytes 1+ (NORMAL) PT 16.8 Seconds H Seconds (11.1-14.7) INR 1.3 APTT 37.1 SECONDS H SECONDS (22.3-36.8) Sodium Potassium Chloride Carbon Dioxide Anion Gap BUN Creatinine Estim Creat Clear Calc Estimated GFR Glucose Lactic Acid Calcium Magnesium Total Bilirubin AST ALT Alkaline Phosphatase Ammonia Total Protein Albumin Urine Color Urine Appearance Urine pH Ur Specific [place] Urine Protein Urine Glucose (UA) Urine Ketones Ur Blood (Man) Urine Nitrate Urine Bilirubin Urine Urobilinogen Leukocyte Esterase Rfl Blood Type A Positive Antibody Screen Negative Crossmatch See Detail 12/01/20 12/01/20 12/01/20 17:38 18:06 18:12 WBC RBC Hgb Hct MCV MCH MCHC RDW Plt Count MPV Immature Gran % (Auto) Neut % (Auto) Lymph % (Auto) [place] % (Auto) Eos % (Auto) Baso % (Auto) Lymph # (Auto) [place] # (Auto)
[2020-12-02] MEDS: BENZOCAINE (*SP) 60 ML SPRAY CAN (HURRICAINE) 1 SPRAY MUCOUS MEM (11:41)
[2020-12-02 13:22] LABS: Hematocrit 24.9 % (42.0-52.0); Hemoglobin 7.7 g/dL (14.0-18.0)
[2020-12-02 17:55] LABS: Hematocrit 25.8 % (42.0-52.0)
[2020-12-02] MEDS: PANTOPRAZOLE SODIUM IV 40 MG VIAL IV PUSH (18:23)
[2020-12-03] VITALS: PULSE 103
[2020-12-03 00:36] VITALS: PULSE 102
[2020-12-03] MEDS: LACTATED RINGERS 1,000 ML 125 ML IV CONT (01:14)
[2020-12-03 04:00] VITALS: PULSE 97
[2020-12-03 04:01] VITALS: BP 114/62; PULSE 96; RESP 18; TEMP 36.8; O2SAT 97
[2020-12-03 04:55] LABS: Hematocrit 23.6 % (42.0-52.0); Hemoglobin 7.2 g/dL (14.0-18.0); Mean Corpuscular HGB Conc 30.5 g/dl (32-36); Mean Corpuscular Volume 75.4 fl (80-100); Mean Platelet Volume 9.3 fl (7.4-10.4); Platelet Count Result 221 k/mm3 (150-375); Red Blood Count 3.13 M/mm3 (4.6-6.20); Red Cell Distribution Width 19.9 % (11.5-14.5); White Blood Count 7.6 K/mm3 (4.5-10.0)
[2020-12-03 05:15] LABS: Anion Gap 1 mmol/L (8-16); Blood Urea Nitrogen 11 mg/dL (9-20); Calcium 8.4 mg/dL (8.4-10.2); Carbon Dioxide 24 mmol/L (22-30); Chloride 113 mmol/L (98-107); Estimated CRCL calculation 123 ml/min; Estimated Glomerular Filt Rate > 60; Glucose 86 mg/dL (75-110); Magnesium 1.8 mg/dL (1.6-2.3); Potassium 3.8 mmol/L (3.4-5.0); Sodium 138 mmol/L (137-145)
[2020-12-03 08:00] VITALS: BP 131/79; PULSE 106; PULSE 110; RESP 20; TEMP 36.4; O2SAT 100
--- NOTE | 2020-12-03 08:09 | WPDGIPROGNO ---
Progress Note: A&P Assessment and Plan (1) Acute blood loss anemia: Code(s): D62 - Acute posthemorrhagic anemia Status: Acute Assessment and Plan: hb 7.2, denies any more blood transfusion I wonder if PHG can explain ongoing anemia but also will set up a small bowel capsule endoscopy as outpatient to make sure no other source of bleeding start on non-selective b-kristi and consider to repeat EGD in about 3 months to reassess again (2) Melena: Code(s): K92.1 - Melena Status: Acute Assessment and Plan: denies any now, try to avoid nsaid's (3) Alcoholic liver disease: Code(s): K70.9 - Alcoholic liver disease, unspecified Status: Acute Assessment and Plan: denies any more alcohol (4) Elevated liver enzymes: Code(s): R74.8 - Abnormal levels of other serum enzymes Status: Acute (5) Portal hypertensive gastropathy: Code(s): K76.6 - Portal hypertension; K31.89 - Other diseases of stomach and duodenum Status: Acute Assessment and Plan: found by egd Subjective Date/time seen: 12/03/20 08:09 Interval history: denies any more melena, no abdominal pain and feeling better after blood transfusion Review of Systems Review of Systems: All systems reviewed & are unremarkable except as noted in HPI and below Exam Const: General: comfortable and no acute distress HENMT: General nose exam: Normal nares present Eyes: General: appearance normal, both eyes and all related structures Neck: Neck: no JVD Resp: Auscultation: clear to auscultation bilaterally Cardio: Rate: regular rate Rhythm: regular rhythm GI: Inspection: non-distended GI Palp: Yes Soft to palpation Skin: General skin exam: normal color Neuro: General: gait normal Speech: normal speech Extrem: General: normal to inspection Psych: Mental Status: mental status grossly normal Objective Data Vital Signs Vital Signs: Vital Signs - 24 hr 12/02/20 09:18 12/02/20 09:25 12/02/20 10:00 Temperature 98.1 F Pulse Rate 103 H 103 H 94 Respiratory Rate 16 Blood Pressure 116/74 Pulse Oximetry 98 12/02/20 10:13 12/02/20 11:51 12/02/20 12:00 Temperature 98.5 F Pulse Rate 90 91 Respiratory Rate 20 15 Blood Pressure 122/72 89/45 L Pulse Oximetry 98 99 98 12/02/20 12:01 12/02/20 12:11 12/02/20 12:21 Temperature Pulse Rate 87 91 91 Respiratory Rate 19 19 19 Blood Pressure 94/55 L 104/62 102/61 Pulse Oximetry 98 99 99 12/02/20 13:47 12/02/20 14:00 12/02/20 16:00 Temperature 97.7 F Pulse Rate 90 96 97 Respiratory Rate 12 Blood Pressure 114/65 Pulse Oximetry 100 98 12/02/20 18:00 12/02/20 20:00 12/02/20 20:49 Temperature 97.2 F L Pulse Rate 106 H 90 97 Respiratory Rate 18 Blood Pressure 124/65 Pulse Oximetry 100 12/03/20 00:00 12/03/20 00:36 12/03/20 04:00 Temperature Pulse Rate 103 H 102 H 97 Respiratory Rate Blood Pressure Pulse Oximetry 12/03/20 04:01 Temperature 98.2 F Pulse Rate 96 Respiratory Rate 18 Blood Pressure 114/62 Pulse Oximetry 97 Intake/Output Intake/Output: Intake & Output 11/30/20 12/01/20 12/02/20 12/03/20 23:59 23:59 23:59 23:59 Intake Total 1600 5240 616 Output Total 800 2975 675 Balance 800 2265 -59 Meds/Results Medications: Active Medications Generic Name Dose Route Start Last Admin Trade Name Freq PRN Reason Stop Dose Admin Lactated Ringer's 1,000 mls @ 125 mls/hr 12/02/20 17:25 12/03/20 04:48 Lr - Lactated Ringers Iv IV CONT 125 mls/hr .Q8H SUZAN Infusion Lisinopril 40 mg 12/02/20 09:00 12/02/20 09:23 Lisinopril 20 Mg Tablet PO Not Given DAILY SUZAN Nadolol 20 mg 12/03/20 09:00 Nadolol 20 Mg Tablet PO QAM SUZAN Pantoprazole Sodium 40 mg 12/02/20 09:00 12/02/20 18:23 Pantoprazole Sodium Iv 40 Mg Vial IV PUSH 40 mg BID SUZAN Administration Radiology Results: ITS Impressions Chest X-Ray
[2020-12-03 08:16] VITALS: PULSE 105
[2020-12-03] MEDS: lisinopriL 20 MG TABLET 40 MG PO (08:16)
[2020-12-03] MEDS: nadoloL 20 MG TABLET PO (08:16)
[2020-12-03] MEDS: PANTOPRAZOLE SODIUM IV 40 MG VIAL IV PUSH (08:16)
[2020-12-03] MEDS: ACETAMINOPHEN 325 MG TABLET 650 MG PO (08:23)
--- NOTE | 2020-12-03 08:38 | PM.DS ---
DS: Admitting Diagnosis Admitting Diagnosis Admitting Diagnosis: profound anemia, suspected GIB DS: Discharge Diagnosis Discharge Diagnosis (1) Anemia: Qualifiers: Other causes of anemia: acute posthemorrhagic Code(s): D64.9 - Anemia, unspecified Status: Acute Assessment and Plan: Profound anemia upon arrival; now Hgb 7.2 after receiving his 4 u pRBC since arrival; stable. Likely due to upper GI bleed. No reports of hematochezia or melena since arrival. Dr. Inman has been consulted; EGD on 12/02 showed phg and possible watermelon stomach but no signs of active bleeding. Okay for discharge from GI standpoint. The patient does have a history of moderate gastritis noted on EGD May 2020. He does not have a history of esophageal varices. Trend H&H on 12/06 as an outpatient Discharge home today Protonix BID Avoid NSAIDS F/u with Dr. Inman in 3 months for repeat EGD (2) QT prolongation: Code(s): R94.31 - Abnormal electrocardiogram [ECG] [EKG] Status: Acute Assessment and Plan: The patient's EKG in December of 2018 demonstrated a QTC of 479. His QTC currently is 528. He is not on any medications that could cause QT prolongation. he was monitored on Tele. No electrolyte abnormalities Discharge today with f/u with PCP (3) Alcoholic liver disease: Code(s): K70.9 - Alcoholic liver disease, unspecified Status: Acute Assessment and Plan: Patient's LFTs have normalized since he has quit drinking. F/u with GI/PCP DS: Summary Hospital Course Reason for hospitalization: Anemia likely 2/2 upper GIB Hospital Course: Date of arrival: 12/01/20 Date of discharge: 12/03/20 Patient is a 50 year old male with a past medical history of alcohol abuse, gastritis and alcoholic hepatitis who presented to the ER on 12/01 due to feeling lightheaded for 2 days the patient reports that he is more lightheaded with standing. While in the ED, Hgb was found to be 4.0. He had [address] Vigil was consulted from the ED. GIB was suspected. Patient admitted under this setting. Please see H&P for further details. Patient was admitted to the hospitalist service for further management/treatment. Patient was transfused 4 u pRBC total overnight and Hgb karin to 7.7 and was relatively stable at 7.2 on day of discharge. He was started on BID PPI. He underwent an EGD on 12/[address] Inman which showed findings suggestive of portal hypertensive gastropathy with possible watermelon stomach; no signs of active bleeding. He was okay for discharge from GI standpoint after his beta kristi was changed to nadolol. He was given script for BID protonix. NSAIDs and alcohol were to be avoided. He was to have EGD in 3 months to reassess. Incidentally, he was found to have evidence of QT prolongation on EKG on arrival to hospital; he was not on any medications that induces QT prolongation and he was to follow up with his PCP in regards to this. He was to follow up with his PCP and GI after discharge. He was to repeat his H&H on 12/06 to trend his hemoglobin. Patient agreeable and comfortable with plan for discharge. Patient hemodynamically stable and in improved condition for discharge on 12/03 Status at Discharge Overall status at discharge: patient is progressing back to baseline Time Spent with Patient Time attestation: Total time spent providing and/or coordinating discharge services: Time spent: Greater than 30 minutes Exam Narrative: Exam Narrative: General: Patient resting on left side in bed in no acute distress; initially sleeping, but easily arousable with verbal stimuli. HEENT: Normocephalic, EOMI, oral mucosa moist Cardiovascular: tachycardic and rhythm is regular. No notable murmur, rub, or gallop. Sinus rhythm on Tele, appear
--- NOTE | 2020-12-03 09:20 | WPDANESPN ---
Anes - Prog Note Post-Op Date/Time: 12/03/20 09:20 Cardiovascular status: normal Respiratory status: normal Airway patency: baseline Mental status: baseline Vital Signs: Last Vital Signs Temp 36.4 C 12/03/20 08:00 Pulse 105 H 12/03/20 08:16 Resp 20 12/03/20 08:00 BP 131/79 12/03/20 08:00 Pulse Ox 100 12/03/20 08:00 Pain Score (VAS): 0 I/O: Intake & Output 12/02/20 12/03/20 12/03/20 23:59 07:59 15:59 Intake Total 1240 616 240 Output Total 825 675 Balance 415 -59 240 Laboratory Tests 12/03/20 04:23 12/03/20 04:23 12/02/20 12/02/20 12/03/20 13:17 17:46 04:23 WBC 7.6 RBC 3.13 L Hgb 7.7 L 8.0 L 7.2 L Hct 24.9 L 25.8 L 23.6 L MCV 75.4 L MCH 23.0 L MCHC 30.5 L RDW 19.9 H Plt Count 221 MPV 9.3 Sodium Potassium Chloride Carbon Dioxide Anion Gap BUN Creatinine Estim Creat Clear Calc Estimated GFR Glucose Calcium Magnesium 12/03/20 04:23 WBC RBC Hgb Hct MCV MCH MCHC RDW Plt Count MPV Sodium 138 Potassium 3.8 Chloride 113 H Carbon Dioxide 24 Anion Gap 1 L BUN 11 Creatinine 0.80 Estim Creat Clear Calc 123 Estimated GFR > 60 Glucose 86 Calcium 8.4 Magnesium 1.8 Post-procedural complaints: none Patient Feedback: Patient satisfied with anesthetic care.
== END 2020-12-03 09:58 | disposition home or self-care (01) | DRG 378 ==
LOC: ANHED 18:18 → ANHIMU 23:30
PROVIDERS: Internal Medicine; Internal Medicine Gastroenterology; Physician Assistant; Admitting Provider Family Medicine; Emergency Provider Emergency Medicine; PCP Emergency Medicine; Visit Provider Physician Assistant
PROC: 0DJ08ZZ Inspection of Upper Intestinal Tract, Via Natural or Artificial Opening Endoscopic (ICD-10-PCS; CPT 43235; principal; 2020-12-02 15:00)
DX: K92.1 Melena (principal); D62 Acute posthemorrhagic anemia; K76.6 Portal hypertension; K31.89 Other diseases of stomach and duodenum; K29.70 Gastritis, unspecified, without bleeding; K70.10 Alcoholic hepatitis without ascites; K70.9 Alcoholic liver disease, unspecified; F10.11 Alcohol abuse, in remission; R94.31 Abnormal electrocardiogram [ECG] [EKG]; R74.8 Abnormal levels of other serum enzymes; G47.33 Obstructive sleep apnea (adult) (pediatric); I10 Essential (primary) hypertension; L40.50 Arthropathic psoriasis, unspecified; H91.90 Unspecified hearing loss, unspecified ear; Z79.1 Long term (current) use of non-steroidal anti-inflammatories (NSAID); Z79.899 Other long term (current) drug therapy; Z85.46 Personal history of malignant neoplasm of prostate; Z86.010 Personal history of colon polyps; Z87.891 Personal history of nicotine dependence
CPT/HCPCS: 36415; 36430; 71046; 80048; 80053; 81003; 82140; 83605; 83735; 85014; 85018; 85025; 85027; 85610; 85730; 86850; 86900; 86901; 86923; 93005; 96374; 99285; A9270; C9113; J1200; J2704; J3480; J7030; J7050; J7120; P9016

== ENCOUNTER 2020-12-06 11:44 | Outpatient (CLI) | payer BC, SELFPAY ==
[2020-12-06 12:33] LABS: Hematocrit 25.4 % (42.0-52.0); Hemoglobin 7.6 g/dL (14.0-18.0)
== END 2020-12-06 11:45 | disposition home or self-care (01) ==
LOC: ANHLAB 11:45
PROVIDERS: PCP Emergency Medicine; Visit Provider Physician Assistant
DX: D64.9 Anemia, unspecified (principal)
CPT/HCPCS: 36415; 85014; 85018

== ENCOUNTER 2020-12-29 06:07 | Outpatient (CLI) | payer BC, SELFPAY ==
--- NOTE | 2020-12-29 06:31 | SUR.OPER ---
Patient brought to GI Lab. Instructions for patient undergoing Capsule Endoscopy reviewed with patient. Consent form signed. Sensor array applied to patient's abdomen and connected to recorded. Patient swallowed capsule with 8 ozs of water infused with Simethicone. Patient instructed they may have clear liquids at 8:30 this AM and eat or drink at 10:30 this AM. Patient instructed to return to GI Lab at 1500 this afternoon for removal of recording device and to call [phone] or to return to the hospital if any nausea and vomiting or abdominal pain is experienced.
== END 2020-12-29 06:08 | disposition home or self-care (01) ==
LOC: ANHENDO 06:08
PROVIDERS: PCP Emergency Medicine; Visit Provider Internal Medicine Gastroenterology
PROC: 0DJ07ZZ Inspection of Upper Intestinal Tract, Via Natural or Artificial Opening (ICD-10-PCS; CPT 91110; principal; 2020-12-29 07:00)
DX: K92.2 Gastrointestinal hemorrhage, unspecified (principal)
CPT/HCPCS: 91110

== ENCOUNTER 2021-01-18 13:50 | Observation (INO) | payer BC, SELFPAY ==
[2021-01-18] VITALS (11 sets, daily range): BP systolic 100–123; BP diastolic 50–69; PULSE 90–102; RESP 16–18; TEMP 36.2–36.4; O2SAT 96–100; BMI 28.0
--- NOTE | ~2021-01-18 | US_ITS ---
EXAMINATION: US abdomen limited EXAM DATE: 01/19/2021 09:09 INDICATION: Hepatomegaly and hepatic steatosis on prior CT 2019. Evaluate liver and spleen. Prostate cancer. TECHNIQUE: Multiple grayscale and Doppler images of the abdomen right upper quadrant were obtained (b y a technologist who performed the scan) and subsequently reviewed. Correlation is made to CT abdomen pelvis from 03/27/2020. FINDINGS: The pancreatic head and body are normal in appearance. The pancreatic tail is not visualized. A jesica er measurement of 21.5 cm was obtained, enlarged. There is mildly lobular liver contour which could i ndicate cirrhosis. There are no focal liver lesions identified. There is no evidence of intrahepat ic biliary duct dilation. Portal venous flow was seen in the hepatopedal, normal direction and has n ormal Doppler waveform. No right-sided hydronephrosis. Common bile duct measures 5-6 mm, which is normal. The gallbladder wall is normal in thickness, with expected amount of distention. No sonographic evidence of pericholecystic fluid. There is cholelith iasis. The gallbladder is contracted which probably is causing the wall to be mildly thickened. The re are multiple small gallstones. Spleen measures 19.2 x 5.9 cm, moderately enlarged. IMPRESSION: 1. Hepatosplenomegaly. Probable cirrhosis. 2. Normal portal venous flow direction. Reviewed, dictated and finalized at location A.
[2021-01-18 14:28] LABS: Basophils Percent Auto 0.5 % (0.2-1.2); Eosinophils Absolute Auto 0.1 K/mm3 (0-0.3); Hematocrit 22.1 % (42.0-52.0); Immature Granulocyte Absolute 0.03 K/mm3 (0.00-0.031); Immature Granulocyte Percent A 0.5 % (0-0.5); Lymphocytes Absolute Auto 1.27 K/mm3 (0.9-3.2); Mean Corpuscular HGB Conc 29.4 g/dl (32-36); Mean Corpuscular Hemoglobin 22.3 pg (26-34); Mean Corpuscular Volume 75.7 fl (80-100); Mean Platelet Volume 8.4 fl (7.4-10.4); Monocytes Absolute Auto 0.4 K/mm3 (0.1-0.6); Monocytes Percent Auto 5.8 % (2.6-8.5); Neutrophils Absolute Auto 4.3 K/mm3 (1.3-6.7); Neutrophils Percent Auto 70.2 % (45.5-73.1); Platelet Count Result 242 k/mm3 (150-375); Red Blood Count 2.92 M/mm3 (4.6-6.20); White Blood Count 6.1 K/mm3 (4.5-10.0)
[2021-01-18 14:38] LABS: INR 1.3; Partial Thromboplastin Time 39.5 SECONDS (22.3-36.8); Prothrombin Time 16.4 Seconds (11.1-14.7)
[2021-01-18 14:43] LABS: Alanine Aminotransferase 15 U/L (4-50); Albumin Level 3.9 g/dL (3.5-5.1); Alkaline Phosphatase 119 U/L (38-126); Anion Gap 10 mmol/L (8-16); Aspartate Amino Transferase 51 U/L (17-59); Bilirubin,Total 0.6 mg/dL (0.2-1.3); Blood Urea Nitrogen 15 mg/dL (9-20); Calcium 9.2 mg/dL (8.4-10.2); Carbon Dioxide 23 mmol/L (22-30); Chloride 109 mmol/L (98-107); Estimated CRCL calculation 124 ml/min; Estimated Glomerular Filt Rate > 60; Glucose 140 mg/dL (75-110); Potassium 3.7 mmol/L (3.4-5.0); Sodium 142 mmol/L (137-145)
[2021-01-18 14:51] LABS: Hemoglobin 6.5 g/dL (14.0-18.0)
[2021-01-18 14:52] LABS: Anisocytosis 1+ (NORMAL); Hypochromasia 1+ (NORMAL); Platelet Estimate Adequate (Adequate)
[2021-01-18 14:53] LABS: Ovalocytes 1+ (NORMAL); Target Cells 1+ (NORMAL)
--- NOTE | 2021-01-18 16:38 | ED.GENADULT ---
HPI - General Adult General Chief complaint: Recheck/Abnormal Lab/Rx Stated complaint: abnormal h&h Time Seen by Provider: 01/18/21 16:18 Source: patient Mode of arrival: ambulatory Limitations: no limitations History of Present Illness HPI narrative: 50-year-old with a history of hypertension, prostate CA , water melon stomach which was diagnosed on 221 by capsule endoscopy by Dr. Inman here with complaints of low hemoglobin. Patient states that he was seen his primary doctor glucose lab work was called this morning to go to the emergency room as his hemoglobin was 6.7 patient presently complains of weakness. He denies any chest pain, shortness of breath. He has occasional bright red blood per rectum. Onset (ago): day(s) (1) Related Data Home Medications Medication Instructions Recorded Confirmed hydrochlorothiazide 25 mg PO DAILY 12/01/20 12/01/20 Allergies Allergy/AdvReac Type Severity Reaction Status Date / Time No Known Allergies Allergy Verified 12/02/20 10:08 Review of Systems Review of Systems: All systems reviewed & are unremarkable except as noted in HPI and below Constitutional: Constitutional: Reports no additional constitutional complaints Eyes: Eyes: Reports no additional eye complaints ENT: Reports system reviewed and no additional complaints, except as documented Cardiovascular: Cardiovascular: Reports no additional cardiovascular complaints Respiratory: Respiratory: Reports no additional respiratory complaints Gastrointestinal: Gastrointestinal: Reports as per HPI Musculoskeletal: Musculoskeletal: Reports no additional musculoskeletal complaints Neurologic: Reports system reviewed and no additional complaints, except as documented [facility] Past Medical History Medical History Acute blood loss anemia Alcohol abuse Alcoholic liver disease Gastritis Hearing loss Left ear started December 2018 History of colon polyps HLD (hyperlipidemia) Hypertension Melena NSAID long-term use DEBRA (obstructive sleep apnea) Peptic ulcer disease Portal hypertensive gastropathy Prostate cancer Psoriasis Psoriatic arthritis Surgical History Surgical History History of colonoscopy 05/2020 internal external hemorrhoids noted History of esophagogastroduodenoscopy (EGD) Performed by Dr. Vigil 05/2020 demonstrated, NO VARICES History of hernia repair History of penile implant Performed by Dr. Lucero June 2019 History of radical prostatectomy July 2012 in [place] due to prostate cancer with positive pelvic lymph nodes followed by radiation therapy and 3 years of Lupron completed in 2014 Family History Family History Mother Hepatitis A In good health Father In good health Dementia Sibling In good health Social History Social History Social History: He is . He has 1 daughter. He has a 20 pack per year smoking history and quit smoking at age 42. He lives in a multi generation home with his mother father and brother. Primary care physician: Dr. Yousif Mixon Code status: Full code Smoking packs per day: 1 Smoking cigarettes per day: 20.0 Years smoked: 20 Smoking pack-years: 20.00 Smoking status: Former smoker Tobacco type: cigarettes Smoking end date: 11/05/11 Alcohol intake: never Substance use: never Gender identity (if verbalized by the patient): Male Spiritual care concerns: No Exam Narrative: Exam Narrative: GENERAL: Well-appearing, well-nourished, and in no acute distress. HEAD: Normocephalic, atraumatic. EYES: PERRLA and EOMI. NECK: Supple. CHEST: Clear to auscultation. No respiratory distress. HEART: Regular rate and rhythm. No murmur heard. Normal peripheral pulses. ABDOMEN: Soft, nontender,
--- NOTE | 2021-01-18 18:03 | ADMGEN ---
This patient, Ken Aquino, was admitted to Medical Room 341-01. Patient/family oriented to hospital policies and general routines including ID bracelet, bed and alarms, visiting hours, pain management, procedures, bathroom and other care routines, personal items, smoking policy, room service/diet, and visiting hours. Information on how to activate the Rapid Response Team has been discussed. Patient/Family are encouraged to report perceived risks to care and to ask questions if they do not understand what they are told or what they should do.
[2021-01-18] MEDS: SODIUM CHLORIDE 0.9% IV 250 ML 30 ML IV CONT ×2 (18:07→23:11)
[2021-01-18] MEDS: SODIUM CHLORIDE 0.9% IV 1,000 ML 75 ML IV CONT (18:08)
--- NOTE | 2021-01-18 20:06 | PM.IMHP ---
H&P: HPI History of Present Illness Date/Time: 01/18/21 20:06 Chief Complaint: anemia Narrative: 50-year-old with a history of hypertension, prostate CA s/p prostatectomy and hormonal therapy presents from PCP office with abnormal labs noting severe anemia down to 6.5. He reports no symptoms rleated to this. no blood in stool no nausea, vomiing, abodminal pain, fever, chills. He was in here with smilar symptoms last month and had EGD, colonosocpy and capsule study done. He was noted to have water melon stomach. Dr. Inman was consulted at that time. NO sob, chest pain. Review of Systems Constitutional: Constitutional: Denies excessive sweating, Denies fatigue, Denies headache(s) and Denies weakness ENT: Denies headache(s), Denies lip swelling, Denies epistaxis, Denies nasal congestion, Denies nasal discharge and Denies neck pain Cardiovascular: Cardiovascular: Denies chest pain, Denies diaphoresis, Denies lightheadedness, Denies palpitations, Denies dyspnea and Denies dyspnea on exertion Respiratory: Respiratory: Denies cough, Denies dyspnea and Denies dyspnea on exertion Gastrointestinal: Gastrointestinal: Denies abdominal pain, Denies constipation, Denies diarrhea, Denies nausea and Denies vomiting Genitourinary: Genitourinary: Denies dysuria, Denies flank pain and Denies nocturia Musculoskeletal: Musculoskeletal: Denies abnormal gait, Denies back pain and Denies neck pain Integumentary/Breasts: Skin/Breast: Denies dry skin and Denies rash Neurologic: Denies Abnormal speech present, Denies abnormal gait, Denies behavioral changes, Denies confusion, Denies headache(s) and Denies weakness Psychiatric: Psychiatric: Denies anxiety, Denies behavioral changes and Denies confusion Endocrine: Endocrine: Denies cold intolerance, Denies excessive sweating, Denies fatigue, Denies heat intolerance and Denies palpitations Hematologic/Lymphatic: Hematologic/Lymphatic: Denies easy bleeding and Denies lymphadenopathy Allergic/Immunologic: Allergic/Immunologic: Denies urticaria and Denies lip swelling PMFSH Past Medical History Medical History Acute blood loss anemia Alcohol abuse Alcoholic liver disease Gastritis Hearing loss Left ear started December 2018 History of colon polyps HLD (hyperlipidemia) Hypertension Melena NSAID long-term use DEBRA (obstructive sleep apnea) Peptic ulcer disease Portal hypertensive gastropathy Prostate cancer Psoriasis Psoriatic arthritis Surgical History Surgical History History of colonoscopy 05/2020 internal external hemorrhoids noted History of esophagogastroduodenoscopy (EGD) Performed by Dr. Vigil 05/2020 demonstrated, NO VARICES History of hernia repair History of penile implant Performed by Dr. Lucero June 2019 History of radical prostatectomy July 2012 in [place] due to prostate cancer with positive pelvic lymph nodes followed by radiation therapy and 3 years of Lupron completed in 2014 Family History Family History Mother Hepatitis A In good health Father In good health Dementia Sibling In good health Social History Social History Social History: He is . He has 1 daughter. He has a 20 pack per year smoking history and quit smoking at age 42. He lives in a multi generation home with his mother father and brother. Primary care physician: Dr. Yousif Mixon Code status: Full code Smoking packs per day: 1 Smoking cigarettes per day: 20.0 Years smoked: 20 Smoking pack-years: 20.00 Smoking status: Former smoker Alcohol intake: never Substance use: never Gender identity (if verbalized by the patient): Male Spiritual care concerns: No Meds Home Medications and Allergies Home Medications Medi
[2021-01-18] MEDS: oxyCODONE/ACETAMINOPHEN (*CRX) 5-325 MG TABLET 1 TABLET PO (20:50)
[2021-01-18] MEDS: LACTATED RINGERS 1,000 ML 75 ML IV CONT (20:51)
[2021-01-18 21:45] LABS: Hematocrit 22.9 % (42.0-52.0)
[2021-01-18 21:47] LABS: Hemoglobin 6.7 g/dL (14.0-18.0)
[2021-01-19] VITALS (12 sets, daily range): BP systolic 93–121; BP diastolic 22–76; PULSE 89–105; RESP 16–20; TEMP 36.1–36.7; O2SAT 96–100
[2021-01-19 04:09] LABS: Basophils Percent Auto 0.4 % (0.2-1.2); Eosinophils Absolute Auto 0.3 K/mm3 (0-0.3); Eosinophils Percent Auto 3.1 % (0-4.4); Hematocrit 23.4 % (42.0-52.0); Hemoglobin 7.2 g/dL (14.0-18.0); Lymphocytes Absolute Auto 1.98 K/mm3 (0.9-3.2); Lymphocytes Percent Auto 19.1 % (18.3-44.2); Mean Corpuscular HGB Conc 30.8 g/dl (32-36); Mean Corpuscular Hemoglobin 24.4 pg (26-34); Mean Corpuscular Volume 79.3 fl (80-100); Mean Platelet Volume 8.4 fl (7.4-10.4); Monocytes Absolute Auto 0.9 K/mm3 (0.1-0.6); Neutrophils Percent Auto 67.4 % (45.5-73.1); Platelet Count Result 207 k/mm3 (150-375); Red Blood Count 2.95 M/mm3 (4.6-6.20); Red Cell Distribution Width 20.1 % (11.5-14.5); White Blood Count 10.4 K/mm3 (4.5-10.0)
[2021-01-19 04:23] LABS: Anion Gap 6 mmol/L (8-16); Blood Urea Nitrogen 19 mg/dL (9-20); Calcium 8.2 mg/dL (8.4-10.2); Carbon Dioxide 23 mmol/L (22-30); Chloride 110 mmol/L (98-107); Estimated CRCL calculation 110 ml/min; Estimated Glomerular Filt Rate > 60; Glucose 98 mg/dL (75-110); Potassium 4.2 mmol/L (3.4-5.0); Sodium 139 mmol/L (137-145)
[2021-01-19 04:39] LABS: Anisocytosis 2+ (NORMAL); Hypochromasia 2+ (NORMAL); Platelet Estimate Adequate (Adequate)
[2021-01-19 04:40] LABS: Atypical Lymphocytes Present
--- NOTE | 2021-01-19 08:52 | WPDANESEPPF ---
Anes - Initial Pre Proc Eval Procedure: Operation Date: 01/19/21 15:30 Proposed Procedures p Esophagogastroduodenoscopy - Henry Vigil MD Date/Time: 01/19/21 08:52 Surgeon: Cornelio Waddell MD Pre Op Diagnosis: GI loss Anemia Patient Data Age: 50 Gender: M Height: 1.85 m Weight: 96.5 kg Last Vital Signs Temp 36.2 C L 01/19/21 08:00 Pulse 92 01/19/21 08:00 Resp 20 01/19/21 08:00 BP 106/61 01/19/21 08:00 Pulse Ox 97 01/19/21 08:00 Allergies Allergy/AdvReac Type Severity Reaction Status Date / Time No Known Allergies Allergy Verified 01/19/21 14:16 Home Medications Medication Instructions Recorded Confirmed Type amlodipine 10 mg tablet 10 mg PO DAILY #90 tablet 07/13/20 01/18/21 Rx lisinopril 40 mg tablet 40 mg PO DAILY #90 tablet 07/13/20 01/18/21 Rx hydrochlorothiazide 25 mg PO DAILY 12/01/20 01/18/21 History pantoprazole 40 mg PO Q12H #60 tablet 12/03/20 01/18/21 Rx oxycodone-acetaminophen 5 mg-325 1 tablet PO Q6H PRN #30 tablet 12/17/20 01/18/21 Rx mg tablet nadolol 20 mg tablet See Rx Instructions .ROUTE 01/17/21 01/18/21 Rx .COMPLEX #90 tablet Laboratory Tests 01/18/21 01/18/21 01/18/21 14:14 14:14 14:14 WBC 6.1 K/mm3 K/mm3 (4.5-10.0) RBC 2.92 M/mm3 L M/mm3 (4.6-6.20) Hgb 6.5 g/dL L* g/dL (14.0-18.0) Hct 22.1 % L % (42.0-52.0) MCV 75.7 fl L fl (80-100) MCH 22.3 pg L pg (26-34) MCHC 29.4 g/dl L g/dl (32-36) RDW 21.0 % H % (11.5-14.5) Plt Count 242 k/mm3 k/mm3 (150-375) MPV 8.4 fl fl (7.4-10.4) Immature Gran % (Auto) 0.5 % % (0-0.5) Neut % (Auto) 70.2 % % (45.5-73.1) Lymph % (Auto) 21.0 % % (18.3-44.2) Ferry % (Auto) 5.8 % % (2.6-8.5) Eos % (Auto) 2.0 % % (0-4.4) Baso % (Auto) 0.5 % % (0.2-1.2) Lymph # (Auto) 1.27 K/mm3 K/mm3 (0.9-3.2) Ferry # (Auto) 0.4 K/mm3 K/mm3 (0.1-0.6) Eos # (Auto) 0.1 K/mm3 K/mm3 (0-0.3) Baso # (Auto) 0.0 K/mm3 K/mm3 (0.0-0.1) Abs Immat Gran (auto) 0.03 K/mm3 K/mm3 (0.00-0.031) Absolute Neuts (auto) 4.3 K/mm3 K/mm3 (1.3-6.7) Absolute Nucleated RBC 0.0 K/mm3 K/mm3 (0.0-0.012) Nucleated RBC % 0.0 % % (0.0-0.2) Atypical Lymphocytes Platelet Estimate Adequate (Adequate) Hypochromasia 1+ (NORMAL) Anisocytosis 1+ (NORMAL) Target Cells 1+ (NORMAL) Ovalocytes 1+ (NORMAL) PT 16.4 Seconds H Seconds (11.1-14.7) INR 1.3 APTT 39.5 SECONDS H SECONDS (22.3-36.8) Sodium 142 mmol/L mmol/L (137-145) Potassium 3.7 mmol/L mmol/L (3.4-5.0) Chloride 109 mmol/L H mmol/L (98-107) Carbon Dioxide 23 mmol/L mmol/L (22-30) Anion Gap 10 mmol/L mmol/L (8-16) BUN 15 mg/dL mg/dL (9-20) Creatinine 0.70 mg/dL mg/dL (0.7-1.3) Estim Creat Clear Calc 124 ml/min ml/min Estimated GFR > 60 (59 - ) Glucose 140 mg/dL H mg/dL (75-110) Calcium 9.2 mg/dL mg/dL (8.4-10.2) Total Bilirubin 0.6 mg/dL mg/dL (0.2-1.3) AST 51 U/L U/L (17-59) ALT 15 U/L U/L (4-50) Alkaline Phosphatase 119 U/L U/L (38-126) Total Protein 7.0 g/dL g/dL (6.3-8.2) Albumin 3.9 g/dL g/dL (3.5-5.1) Blood Type Antibody Screen Crossmatch 01/18/21 01/18/21 01/19/21 14:14 21:37 03:58 WBC 10.4 K/mm3 H K/mm3 (4.5-10.0) RBC 2.95 M/mm3 L M/mm3 (4.6-6.20) Hgb 6.7 g/dL L* g/dL 7.2 g/dL L g/dL (14.0-18.0) (14.0-18.0) Hct 22.9 % L % 23.4 % L % (42.0-52.0) (42.0-52.0) MCV 79.3 fl L fl (80-100) MCH 24.4 pg L D pg (26
--- NOTE | 2021-01-19 12:40 | PM.IMPN ---
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 of non-steroidal anti-inflammatories (NSAID) Status: Acute Assessment and Plan: Avoid NSAID use (4) Alcohol abuse: Code(s): F10.10 - Alcohol abuse, uncomplicated Status: Acute Assessment and Plan: The patient has been abstinent Continue to encourage abstinence (5) Alcoholic liver disease: Code(s): K70.9 - Alcoholic liver disease, unspecified Status: Acute Assessment and Plan: Continue to monitor No alcohol intake recently (6) Elevated liver enzymes: Code(s): R74.8 - Abnormal levels of other serum enzymes Status: Acute Assessment and Plan: Likely secondary to chronic liver disease secondary to alcohol abuse Continue to monitor (7) Hypertension: Code(s): I10 - Essential (primary) hypertension Status: Acute Assessment and Plan: On the lower side as patient presented with severe anemia Hold in antihypertensive medications for the time being Resume as needed needed Subjective Date/time seen: 01/19/21 12:40 I FEEL JUST FINE Review of Systems Review of Systems: Narrative: Patient presented to emergency room after he was found to have abnormal hemoglobin level on routine lab work that was done through his primary care physician's office he was found to have a hemoglobin level of 6.5 and was told to come to emergency room. Constitutional: Comments: Weight loss intentional of roughly 45 pounds Cardiovascular: Comments: No chest pain, no PND, no orthopnea, no leg swelling. Respiratory: Comments: No cough no sputum production no shortness of breath no hemoptysis Gastrointestinal: Comments: No nausea, no vomiting, no diarrhea, no abdominal pain, no hematemesis, no hematochezia, no melena. Musculoskeletal: Comments: No muscle or joint pain Integumentary/Breasts: Comments: Generalized pallor Neurologic: Comments: No sensorimotor deficit Hematologic/Lymphatic: Comments: No bruising, no petechiae, no purpura. Exam Narrative: Exam Narrative: Lying in bed in no acute distress Const: General: cooperative, healthy appearing, comfortable, alert, awake and Physically active Nutritional Appearance: well nourished Orientation/consciousness: patient oriented x3 HENMT: Head: normal to inspection and normocephalic Ears: hearing grossly normal bilaterally General nose exam: Normal external nose present Face and sinus: normal facial exam Eyes: General: appearance normal, both eyes and all related structures Pupils: Equal, round and reactive pupils present EOM: EOMs intact bilaterally Neck: Neck: no lymphadenopathy, supple and no JVD Resp: Effort & Inspection: normal respiratory effort and able to speak in complete sentences Auscultation: clear to auscultation bilaterally Cardio: Jugular venous distension: no JVD Rate: regular rate Rhythm: regular rhythm GI: Inspection: normal to inspection GI Palp: Yes Soft to palpation and Yes No hepatosplenomegaly present Skin: Lesions: no lesions Rashes: no rashes Neuro: General: patient oriented x3 and CN's II-XI intact bilaterally Cranial nerves: Yes CN's II-XII intact bilaterally and Yes Equal, round and reactive pupils present Cognition (Neuro): normal cognition Speech: normal speech Gait exam (Neuro): Normal gait present Motor exam (neuro): 5/5 motor strength present throughout Extrem: General: no joint enlargement and no pedal edema Objective Data Vital Signs Vital Signs: Vital Signs -
[2021-01-19] MEDS: LACTATED RINGERS 1,000 ML 75 ML IV CONT (13:51)
[2021-01-19] MEDS: LACTATED RINGERS 1,000 ML 150 ML IV CONT (14:23)
--- NOTE | 2021-01-19 15:58 | WPDGICN ---
Assessment and Plan Assessment and plan (1) Gastric antral vascular ectasia (watermelon stomach): Code(s): K31.819 - Angiodysplasia of stomach and duodenum without bleeding Status: Acute Assessment and Plan: probably cause of gib, will proceed with egd now and probably will need treatment monitor for signs of bleeding (2) Portal hypertensive gastropathy: Code(s): K76.6 - Portal hypertension; K31.89 - Other diseases of stomach and duodenum Status: Acute (3) Acute blood loss anemia: Code(s): D62 - Acute posthemorrhagic anemia Status: Acute Assessment and Plan: transfuse and monitor cbc (4) Acute upper GI bleed: Code(s): K92.2 - Gastrointestinal hemorrhage, unspecified Status: Acute Assessment and Plan: medical treatment, more recommendations after egd (5) Alcoholic liver disease: Code(s): K70.9 - Alcoholic liver disease, unspecified Status: Acute Assessment and Plan: he is not longer drinking GI Consult Note Consult date/time: 01/19/21 15:58 Reason for consult: acute blood loss anemia, cirrhosis HPI: Ken Aquino is a 50 year old male who is known to me, former alcoholic with cirrhosis, previous EGD showed moderate PHG without varices using pantoprazole, no ulcers and colonoscopy with large TA polyp removed after submucosal injection and hemorrhoids with recommendations to repeat in 3 years. He also had prostate cancer with radical prostatectomy and radiation therapy, and psoriasis arthritis using skyrizi. Recent hospitalization with acute anemia that required blood transfusion, EGD showed possible watermelon stomach then had a recent capsule endoscopy as outpatient that found hematin in stomach consistent with upper gib, I called patient to discuss findings and we were going to set up EGD as outpatient however he denies any more melena or signs of bleeding but had repeat blood work by his pcp that showed again hb 6.5, admitted to hospital for blood transfusion and egd evaluation. Review of Systems Constitutional: Constitutional: Denies headache(s) and Denies weakness Eyes: Eyes: Denies blurry vision ENT: Reports Normal hearing present, Denies headache(s) and Denies neck pain Cardiovascular: Cardiovascular: Denies chest pain and Denies dyspnea Respiratory: Respiratory: Denies dyspnea Gastrointestinal: Gastrointestinal: Reports no additional gastrointestinal complaints Genitourinary: Genitourinary: Denies dysuria Musculoskeletal: Musculoskeletal: Denies neck pain Integumentary/Breasts: Skin/Breast: Denies dry skin Neurologic: Reports Normal hearing present, Denies headache(s) and Denies weakness Psychiatric: Psychiatric: Denies anxiety Endocrine: Endocrine: Denies change in body appearance Hematologic/Lymphatic: Hematologic/Lymphatic: Denies easy bleeding Allergic/Immunologic: Allergic/Immunologic: Denies urticaria PMFSH Past Medical History Medical History Acute blood loss anemia Alcohol abuse Alcoholic liver disease Gastritis Hearing loss Left ear started December 2018 History of colon polyps HLD (hyperlipidemia) Hypertension Melena NSAID long-term use DEBRA (obstructive sleep apnea) Peptic ulcer disease Portal hypertensive gastropathy Prostate cancer Psoriasis Psoriatic arthritis Surgical History Surgical History History of colonoscopy 05/2020 internal external hemorrhoids noted History of esophagogastroduodenoscopy (EGD) Performed by Dr. Vigil 05/2020 demonstrated, NO VARICES History of hernia repair History of penile implant Performed by Dr. Lucero June 2019 History of radical prostatectomy July 2012 in [place] due to prostate cancer with positive pelvic lymph nodes followed by radiation therapy and 3 years of Lupron completed in 2014 Family History Family History (Reviewe
[2021-01-19] MEDS: BENZOCAINE (*SP) 60 ML SPRAY CAN (HURRICAINE) 1 SPRAY MUCOUS MEM (16:01)
--- NOTE | 2021-01-19 16:45 | PC.NURSE ---
Pt returned from GI lab per cindy.
[2021-01-19] MEDS: nadoloL 20 MG TABLET PO (17:06)
[2021-01-19] MEDS: amLODIPine BESYLATE 5 MG TABLET 10 MG PO (17:07)
--- NOTE | 2021-01-19 17:12 | PM.DS ---
DS: Admitting Diagnosis Admitting Diagnosis Admitting Diagnosis: 1) Portal hypertensive gastropathy: (2) Acute blood loss anemia: (3) History of colon polyps: (4) Alcohol abuse: DS: Discharge Diagnosis Discharge Diagnosis (1) Portal hypertensive gastropathy: Code(s): K76.6 - Portal hypertension; K31.89 - Other diseases of stomach and duodenum Status: Acute Assessment and Plan: On Nadolol (2) NSAID long-term use: Code(s): Z79.1 - MCC (current) use of non-steroidal anti-inflammatories (NSAID) Status: Acute Assessment and Plan: Stopped (3) Acute blood loss anemia: Code(s): D62 - Acute posthemorrhagic anemia Status: Acute Assessment and Plan: S/p EGD (4) Alcohol abuse: Code(s): F10.10 - Alcohol abuse, uncomplicated Status: Acute Assessment and Plan: Abstinent (5) Alcoholic liver disease: Code(s): K70.9 - Alcoholic liver disease, unspecified Status: Acute Assessment and Plan: Follow up in the outpatient setting. DS: Summary Hospital Course Reason for hospitalization: Abnormal lab. Hospital Course: 50-year-old with a past medical history of portal hypertension, prostate CA s/p prostatectomy and hormonal therapy presented from PCP office with abnormal labs noting severe anemia down to 6.5. He denied any symptoms was in his usual state of health. no blood in stool no nausea, vomiting, abdominal pain, fever, chills, no BRBPR, no melena, no hematemesis. He had an EGD just about a week ago. Patient was admitted for observation to [facility]. Received 1 unit of PRBC's Consults: 1-GI Procedures: EGD Non significant findings when compared to previous recently done EGD. Patient was discharged home, will follow up in the outpatient setting. Time Spent with Patient Time attestation: Total time spent providing and/or coordinating discharge services: Exam Narrative: Exam Narrative: Lying in bed Const: General: healthy appearing, comfortable, alert and awake Nutritional Appearance: well nourished Orientation/consciousness: patient oriented x3 HENMT: Head: normocephalic Ears: hearing grossly normal bilaterally General nose exam: Normal external nose present Face and sinus: normal facial exam Eyes: General: appearance normal, both eyes and all related structures Pupils: Equal, round and reactive pupils present EOM: EOMs intact bilaterally Neck: Neck: no lymphadenopathy, supple and no JVD Resp: Effort & Inspection: normal respiratory effort and able to speak in complete sentences Auscultation: clear to auscultation bilaterally Cardio: Jugular venous distension: no JVD Rate: regular rate Rhythm: regular rhythm GI: GI Palp: Yes Soft to palpation and Yes No hepatosplenomegaly present Skin: General skin exam: pallor Rashes: no rashes Neuro: General: patient oriented x3 and CN's II-XI intact bilaterally Cranial nerves: Yes CN's II-XII intact bilaterally and Yes Equal, round and reactive pupils present Cognition (Neuro): normal cognition Speech: normal speech Motor exam (neuro): 5/5 motor strength present throughout Extrem: General: no pedal edema DS: Data Data Completed and Pending Labs on day of discharge: Labs from last 24 hours 01/19/21 01/19/21 01/18/21 03:58 03:58 21:37 WBC 10.4 H RBC 2.95 L Hgb 7.2 L 6.7 L* Hct 23.4 L 22.9 L MCV 79.3 L MCH 24.4 L D MCHC 30.8 L RDW 20.1 H Plt Count 207 MPV 8.4 Immature Gran % (Auto) 1.0 H Neut % (Auto) 67.4 Lymph % (Auto) 19.1 Long % (Auto) 9.0 H Eos % (Auto) 3.1 Baso % (Auto) 0.4 Lymph # (Auto) 1.98 Long # (Auto) 0.9 H Eos # (Auto) 0.3 Baso # (Auto) 0.0 Abs Immat Gran (auto) 0.10 H Absolute Neuts (auto) 7.0 H Absolute Nucleated RBC 0.0 Nucleated RBC % 0.0 Atypical Lymphocytes Present Platelet Estimate Adequate Hypochromasia 2+ Anisoc
--- NOTE | 2021-01-19 18:38 | PC.NURSE ---
Pt had drove himself to hospital, advised to have someone pick him at discharge due to the EGD that he had earlier in the day.
== END 2021-01-19 18:40 | disposition home or self-care (01) ==
LOC: ANHED 16:43 → ANH3MED 20:12
PROVIDERS: Emergency Medicine; Internal Medicine; Internal Medicine Gastroenterology; Admitting Provider Family Medicine; Emergency Provider Family Medicine; PCP Emergency Medicine; Visit Provider Internal Medicine
PROC: 0DJ08ZZ Inspection of Upper Intestinal Tract, Via Natural or Artificial Opening Endoscopic (ICD-10-PCS; CPT 43235; principal; 2021-01-19 15:30)
DX: K76.6 Portal hypertension (principal); K31.89 Other diseases of stomach and duodenum; K92.2 Gastrointestinal hemorrhage, unspecified; D62 Acute posthemorrhagic anemia; K70.9 Alcoholic liver disease, unspecified; K31.819 Angiodysplasia of stomach and duodenum without bleeding; F10.10 Alcohol abuse, uncomplicated; G47.33 Obstructive sleep apnea (adult) (pediatric); I10 Essential (primary) hypertension; R16.2 Hepatomegaly with splenomegaly, not elsewhere classified; R74.8 Abnormal levels of other serum enzymes; Z79.1 Long term (current) use of non-steroidal anti-inflammatories (NSAID); Z90.79 Acquired absence of other genital organ(s); Z85.46 Personal history of malignant neoplasm of prostate; Z87.891 Personal history of nicotine dependence
CPT/HCPCS: 43270; 36415; 36430; 76705; 80048; 80053; 85014; 85018; 85025; 85610; 85730; 86850; 86900; 86901; 86923; 96361; 96365; 96366; 99285; A9270; C9113; G0378; G0379; J2704; J7030; J7050; J7060; J7120; P9016

== ENCOUNTER 2021-02-02 07:35 | Outpatient (RCR) | payer BC, SELFPAY ==
[2021-02-01 10:56] LABS: Hematocrit 26.3 % (42.0-52.0); Hemoglobin 7.7 g/dL (14.0-18.0)
[2021-02-02] VITALS (10 sets, daily range): BP systolic 94–108; BP diastolic 60–66; PULSE 85–98; RESP 16–18; TEMP 36–36.5; O2SAT 99–100
[2021-02-02] MEDS: diphenhydrAMINE HCl CAP 25 MG CAPSULE PO (08:04)
[2021-02-02] MEDS: FUROSEMIDE INJ 40 MG/4 ML VIAL 20 MG IV PUSH ×2 (11:05→14:25)
== END 2021-05-02 23:59 | disposition home or self-care (01) ==
LOC: ANHCPCTRAN 07:35
PROVIDERS: PCP Emergency Medicine; Visit Provider Emergency Medicine
DX: D62 Acute posthemorrhagic anemia (principal); K92.2 Gastrointestinal hemorrhage, unspecified
CPT/HCPCS: 36415; 36430; 85014; 85018; 86850; 86900; 86901; 86923; 96374; A9270; J1940; P9016

== ENCOUNTER 2021-02-28 13:44 | Outpatient (CLI) | payer BC, SELFPAY ==
[2021-02-28 14:49] LABS: Hematocrit 31.3 % (42.0-52.0); Hemoglobin 9.5 g/dL (14.0-18.0); Mean Corpuscular HGB Conc 30.4 g/dl (32-36); Mean Corpuscular Hemoglobin 25.6 pg (26-34); Mean Corpuscular Volume 84.4 fl (80-100); Platelet Count Result 218 k/mm3 (150-375); Red Blood Count 3.71 M/mm3 (4.6-6.20); Red Cell Distribution Width 19.6 % (11.5-14.5); White Blood Count 5.6 K/mm3 (4.5-10.0)
[2021-02-28 14:58] LABS: INR 1.3; Prothrombin Time 16.5 Seconds (11.1-14.7)
[2021-02-28 15:01] LABS: Alanine Aminotransferase 15 U/L (4-50); Albumin Level 4.1 g/dL (3.5-5.1); Alkaline Phosphatase 111 U/L (38-126); Anion Gap 8 mmol/L (8-16); Aspartate Amino Transferase 56 U/L (17-59); Bilirubin,Total 0.5 mg/dL (0.2-1.3); Blood Urea Nitrogen 26 mg/dL (9-20); Calcium 9.4 mg/dL (8.4-10.2); Carbon Dioxide 22 mmol/L (22-30); Chloride 111 mmol/L (98-107); Estimated Glomerular Filt Rate > 60; Glucose 111 mg/dL (75-110); Potassium 3.9 mmol/L (3.4-5.0); Sodium 141 mmol/L (137-145)
== END 2021-02-28 13:45 | disposition home or self-care (01) ==
PROVIDERS: PCP Emergency Medicine; Visit Provider Internal Medicine Gastroenterology
DX: K70.9 Alcoholic liver disease, unspecified (principal); R74.8 Abnormal levels of other serum enzymes
CPT/HCPCS: 36415; 80053; 85027; 85610

== ENCOUNTER → 2021-03-05 01:43 | Outpatient (CLI) | payer BC, SELFPAY ==
[2021-03-05 19:17] LABS: SARS-CoV-2 RNA PCR Negative
== END ==
PROVIDERS: PCP Emergency Medicine; Visit Provider Internal Medicine Gastroenterology
DX: Z01.812 Encounter for preprocedural laboratory examination (principal); Z20.822 Contact with and (suspected) exposure to COVID-19
CPT/HCPCS: C9803; U0003; U0005

== ENCOUNTER 2021-03-09 00:43 | Day surgery (SDC) | payer BC, SELFPAY ==
[2021-02-24 15:06] VITALS: BMI 28.4
[2021-03-09 07:57] VITALS: BP 107/63; PULSE 83; RESP 18; TEMP 36.5; O2SAT 100
[2021-03-09] MEDS: LACTATED RINGERS 1,000 ML 150 ML IV CONT (08:01)
--- NOTE | 2021-03-09 08:13 | WPDANESEPPF ---
Anes - Initial Pre Proc Eval Procedure: Operation Date: 03/09/21 09:15 Proposed Procedures p Esophagogastroduodenoscopy - Henry Vigil MD Date/Time: 03/09/21 08:13 Surgeon: Henry Vigil MD Pre Op Diagnosis: anemia Patient Data Age: 51 Gender: M Height: 6 ft 1 in Weight: 102.4 kg Last Vital Signs Temp 36.5 C 03/09/21 07:57 Pulse 83 03/09/21 07:57 Resp 18 03/09/21 07:57 BP 107/63 03/09/21 07:57 Pulse Ox 100 03/09/21 07:57 Allergies Allergy/AdvReac Type Severity Reaction Status Date / Time No Known Allergies Allergy Verified 03/09/21 07:55 Home Medications Medication Instructions Recorded Confirmed Type lisinopril 40 mg tablet 40 mg PO DAILY #90 tablet 07/13/20 03/09/21 Rx amlodipine 10 mg tablet 10 mg PO DAILY #90 tablet 01/25/21 03/09/21 Rx hydrochlorothiazide 25 mg tablet 25 mg PO DAILY #90 tablet 01/25/21 03/09/21 Rx pantoprazole 40 mg tablet,delayed See Rx Instructions .ROUTE 02/15/21 03/09/21 Rx release .COMPLEX #90 tablet nadolol [Corgard] See Rx Instructions .ROUTE .COMPLEX 02/24/21 03/09/21 History Patient hx anesthesia problems: none Family hx anesthesia problems: none PMFSH Past Medical History Medical History Acute blood loss anemia Alcohol abuse Alcoholic liver disease Gastric antral vascular ectasia (watermelon stomach) Gastritis Hearing loss Left ear started December 2018 History of colon polyps HLD (hyperlipidemia) Hypertension Melena NSAID long-term use DEBRA (obstructive sleep apnea) Peptic ulcer disease Portal hypertensive gastropathy Prostate cancer Psoriasis Psoriatic arthritis Surgical History Surgical History History of colonoscopy 05/2020 internal external hemorrhoids noted History of esophagogastroduodenoscopy (EGD) Performed by Dr. Vigil 05/2020 demonstrated, NO VARICES History of hernia repair History of penile implant Performed by Dr. Lucero June 2019 History of radical prostatectomy July 2012 in [place] due to prostate cancer with positive pelvic lymph nodes followed by radiation therapy and 3 years of Lupron completed in 2015 Family History Family History Mother Hepatitis A In good health Father In good health Dementia Sibling In good health Social History Social History Social History: He is . He has 1 daughter. He has a 20 pack per year smoking history and quit smoking at age 42. He lives in a multi generation home with his mother father and brother. Primary care physician: Dr. Yousif Mixon Code status: Full code Smoking packs per day: 1 Smoking cigarettes per day: 20.0 Years smoked: 20 Smoking pack-years: 20.00 Smoking status: Former smoker Alcohol intake: never Substance use: never Substance use type: does not use Living arrangements: with family Gender identity (if verbalized by the patient): Male Spiritual care concerns: No Anes - Eval Final PreProcedure Day of Procedure 03/09/21 08:13 Patient weight: overweight Heart: regular rate and rhythm Lungs: clear to auscultation Airway: Mallampati scale class II Neurological: alert and oriented Last oral intake: >/= 8 hours ASA classification: III Emergent: no Anesthetic plan: proceed Anesthesia type and monitoring: general GIVS and standard monitoring Informed Consent: The patient's anesthetic plan and its attendant risks and benefits were discussed with the patient/family/POA. Questions were solicited and answers provided to the satisfaction of the patient/family/POA.
--- NOTE | 2021-03-09 08:38 | WPDHPUPDATE1 ---
History and Physical Update Update Date/Time: 03/09/21 08:38 History and Physical has been reviewed, including an updated exam of the patient. There are NO changes in the patient's condition. Risks, benefits, and alternatives have been discussed and questions answered. Patient agrees to proceed with procedure.
[2021-03-09 08:57] VITALS: BP 81/51; PULSE 79; RESP 18; O2SAT 100
[2021-03-09 09:07] VITALS: BP 99/58; PULSE 81; RESP 18; O2SAT 100
[2021-03-09 09:16] VITALS: BP 100/65; PULSE 76; RESP 18; O2SAT 100
== END 2021-03-09 09:34 | disposition home or self-care (01) ==
PROVIDERS: PCP Emergency Medicine; Visit Provider Internal Medicine Gastroenterology
PROC: 0DJ08ZZ Inspection of Upper Intestinal Tract, Via Natural or Artificial Opening Endoscopic (ICD-10-PCS; CPT 43235; principal; 2021-03-09 09:15)
DX: D50.0 Iron deficiency anemia secondary to blood loss (chronic) (principal); K31.819 Angiodysplasia of stomach and duodenum without bleeding; K29.70 Gastritis, unspecified, without bleeding; K76.6 Portal hypertension; K70.9 Alcoholic liver disease, unspecified; K31.89 Other diseases of stomach and duodenum; I10 Essential (primary) hypertension; E78.5 Hyperlipidemia, unspecified; G47.33 Obstructive sleep apnea (adult) (pediatric); L40.50 Arthropathic psoriasis, unspecified; L40.9 Psoriasis, unspecified; Z87.11 Personal history of peptic ulcer disease; Z79.1 Long term (current) use of non-steroidal anti-inflammatories (NSAID); Z85.46 Personal history of malignant neoplasm of prostate; Z85.89 Personal history of malignant neoplasm of other organs and systems; Z92.3 Personal history of irradiation; Z87.891 Personal history of nicotine dependence
CPT/HCPCS: 43270; J2704; J7120

== ENCOUNTER → 2021-05-26 10:30 | Outpatient (CLI) | payer BC, SELFPAY ==
--- NOTE | ~2021-05-26 | XR_ITS ---
XR pelvis 1-2V DATE: 05/26/2021 11:49 INDICATION: Low back pain TECHNIQUE: AP pelvis COMPARISON: None FINDINGS: Status post ventral abdominal wall mesh repair. Degenerative disc disease of moderately severe degree is noted at L3-4. Limited evaluation of the lum bar spine. No pelvic fracture or bone destruction. The pubic symphysis and sacroiliac joints are intact. Implantable penile prosthesis. IMPRESSION: No pelvic fracture or bone destruction Degenerative disc disease of moderately severe degree is noted at L3-4. Limited evaluation of the lum bar spine. Reviewed, dictated and finalized at location [facility]. IMPRESSION: No pelvic fracture or bone destruction Degenerative disc disease of moderately severe degree is noted at L3-4. Limited evaluation of the lumbar spine.
--- NOTE | ~2021-05-26 | XR_ITS ---
XR_CERV2-3V_CR DATE: 05/26/2021 11:49 INDICATION: Neck pain TECHNIQUE: Standing AP, open-mouth, odontoid, lateral views COMPARISON: 01/14/2019 cervical spine FINDINGS: There is straightening of the cervical spine. C1 and C2 are normally aligned and the odontoid process is intact. No fracture, locked facet or prevertebral soft tissue swelling. There is 4.7 mm anterolisthesis at C4-5. There is moderate prominent loss of interspace height and mild anterior spurring at C5-6. There is mild loss of interspace height at C4-5 and mild loss of interspace height and anterior spurr ing at C6-7. There is uncovertebral joint spurring at C4-5, C5-6 and C6-7. IMPRESSION: Straightening of the cervical spine. 4.7 mm anterolisthesis at C4-5, compared to 2 mm on 01/14/2019 Moderate degenerative disc disease at C5-6 and to a lesser extent C4-5 and C6-7 Uncovertebral joint spurring at C4-5 through C6-7 Reviewed, dictated and finalized at [facility]. Reviewed, dictated and finalized at location [facility].
== END ==
PROVIDERS: PCP Family Medicine; Visit Provider Family Medicine
DX: C61 Malignant neoplasm of prostate (principal); M51.36 Other intervertebral disc degeneration, lumbar region; M50.323 Other cervical disc degeneration at C6-C7 level; M50.322 Other cervical disc degeneration at C5-C6 level
CPT/HCPCS: 72040; 72170

== ENCOUNTER 2021-06-15 07:03 | Day surgery (SDC) | payer BC, SELFPAY ==
[2021-06-15 09:47] VITALS: BP 126/64; PULSE 100; RESP 20; TEMP 36.2; O2SAT 100; BMI 31.1
[2021-06-15] MEDS: LACTATED RINGERS 1,000 ML 150 ML IV CONT (10:04)
--- NOTE | 2021-06-15 10:17 | WPDANESEPPF ---
Anes - Initial Pre Proc Eval Procedure: Operation Date: 06/15/21 11:00 Proposed Procedures p Esophagogastroduodenoscopy - Henry Vigil MD Date/Time: 06/15/21 10:17 Surgeon: Henry Vigil MD Pre Op Diagnosis: gastric angiodysplasia Patient Data Age: 51 Gender: M Height: 1.85 m Weight: 106.9 kg Last Vital Signs Temp 36.2 C L 06/15/21 09:47 Pulse 100 06/15/21 09:47 Resp 20 06/15/21 09:47 BP 126/64 06/15/21 09:47 Pulse Ox 100 06/15/21 09:47 Allergies Allergy/AdvReac Type Severity Reaction Status Date / Time No Known Allergies Allergy Verified 06/15/21 09:45 Home Medications Medication Instructions Recorded Confirmed Type lisinopril 40 mg tablet 40 mg PO DAILY #90 tablet 07/13/20 06/02/21 Rx amlodipine 10 mg tablet 10 mg PO DAILY #90 tablet 01/25/21 06/02/21 Rx hydrochlorothiazide 25 mg tablet 25 mg PO DAILY #90 tablet 01/25/21 06/02/21 Rx pantoprazole 40 mg tablet,delayed See Rx Instructions .ROUTE 02/15/21 06/02/21 Rx release .COMPLEX #90 tablet nadolol [Corgard] See Rx Instructions .ROUTE .COMPLEX 02/24/21 06/02/21 History oxycodone 5 mg tablet 5 mg PO Q6H PRN #100 tablet 05/24/21 06/02/21 Rx risankizumab-rzaa 150 mg/mL 150 mg SUBCUT ONCE 05/24/21 06/02/21 History subcutaneous pen injector Patient hx anesthesia problems: none Family hx anesthesia problems: none PMFSH Past Medical History Medical History Acute blood loss anemia Alcohol abuse Alcoholic liver disease Gastric antral vascular ectasia (watermelon stomach) Gastritis Hearing loss Left ear started December 2018 History of colon polyps HLD (hyperlipidemia) Hypertension Melena NSAID long-term use DEBRA (obstructive sleep apnea) Peptic ulcer disease Portal hypertensive gastropathy Prostate cancer Psoriasis Psoriatic arthritis Psoriatic arthritis Watermelon stomach Surgical History Surgical History History of colonoscopy 05/2020 internal external hemorrhoids noted History of esophagogastroduodenoscopy (EGD) Performed by Dr. Vigil 05/2020 demonstrated, NO VARICES History of hernia repair History of penile implant Performed by Dr. Lucero June 2019 History of radical prostatectomy July 2012 in [place] due to prostate cancer with positive pelvic lymph nodes followed by radiation therapy and 3 years of Lupron completed in 2014 Family History Family History Mother Hepatitis A In good health Father In good health Dementia Sibling In good health Social History Social History Social History: He is . He has 1 daughter. He has a 20 pack per year smoking history and quit smoking at age 42. He lives in a multi generation home with his mother father and brother. Smoking packs per day: 1 Smoking cigarettes per day: 20.0 Years smoked: 20 Smoking pack-years: 20.00 Smoking status: Former smoker Tobacco type: cigarettes Second hand tobacco smoke exposure: No Alcohol intake: former Alcohol use details: no alcohol x 1 year Substance use: never Substance use type: does not use Gender identity (if verbalized by the patient): Male Spiritual care concerns: No Anes - Eval Final PreProcedure Day of Procedure 06/15/21 10:17 Patient weight: obese Heart: regular rate and rhythm Lungs: clear to auscultation Airway: Mallampati scale class II Neurological: alert and oriented Last oral intake: >/= 8 hours ASA classification: III Emergent: no Anesthetic plan: proceed Anesthesia type and monitoring: general GIVS and standard monitoring Informed Consent: The patient's anesthetic plan and its attendant risks and benefits were discussed with the patient/family/POA. Questions were solicited and answers provided to
--- NOTE | 2021-06-15 10:53 | PM.HPGS ---
History of Present Illness History of Present Illness Consent: Risks, benefits, and alternatives have been discussed and questions answered. Patient agrees to proceed with procedure. Chief complaint: gastric angiodysplasia Narrative: Ken Aquino is a 51 year old male with nodular GAVE and LORI, treated 3 months ago with APC, here to reassess Review of Systems Constitutional: Constitutional: Denies headache(s) and Denies weakness Eyes: Eyes: Denies blurry vision ENT: Reports Normal hearing present, Denies headache(s) and Denies neck pain Cardiovascular: Cardiovascular: Denies chest pain and Denies dyspnea Respiratory: Respiratory: Denies dyspnea Gastrointestinal: Gastrointestinal: Reports no additional gastrointestinal complaints Genitourinary: Genitourinary: Denies dysuria Musculoskeletal: Musculoskeletal: Denies neck pain Integumentary/Breasts: Skin/Breast: Denies dry skin Neurologic: Reports Normal hearing present, Denies headache(s) and Denies weakness Psychiatric: Psychiatric: Denies anxiety Endocrine: Endocrine: Denies change in body appearance Hematologic/Lymphatic: Hematologic/Lymphatic: Denies easy bleeding Allergic/Immunologic: Allergic/Immunologic: Denies urticaria PMF Past Medical History Medical History Acute blood loss anemia Alcohol abuse Alcoholic liver disease Gastric antral vascular ectasia (watermelon stomach) Gastritis Hearing loss Left ear started December 2018 History of colon polyps HLD (hyperlipidemia) Hypertension Melena NSAID long-term use DEBRA (obstructive sleep apnea) Peptic ulcer disease Portal hypertensive gastropathy Prostate cancer Psoriasis Psoriatic arthritis Psoriatic arthritis Watermelon stomach Surgical History Surgical History History of colonoscopy 05/2020 internal external hemorrhoids noted History of esophagogastroduodenoscopy (EGD) Performed by Dr. Vigil 05/2020 demonstrated, NO VARICES History of hernia repair History of penile implant Performed by Dr. Lucero June 2019 History of radical prostatectomy July 2012 in [place] due to prostate cancer with positive pelvic lymph nodes followed by radiation therapy and 3 years of Lupron completed in 2014 Family History Family History Mother Hepatitis A In good health Father In good health Dementia Sibling In good health Social History Social History Social History: He is . He has 1 daughter. He has a 20 pack per year smoking history and quit smoking at age 42. He lives in a multi generation home with his mother father and brother. Smoking packs per day: 1 Smoking cigarettes per day: 20.0 Years smoked: 20 Smoking pack-years: 20.00 Smoking status: Former smoker Tobacco type: cigarettes Second hand tobacco smoke exposure: No Alcohol intake: former Alcohol use details: no alcohol x 1 year Substance use: never Substance use type: does not use Gender identity (if verbalized by the patient): Male Spiritual care concerns: No Meds Home Medications and Allergies Home Medications Medication Instructions Recorded Confirmed Type lisinopril 40 mg tablet 40 mg PO DAILY #90 tablet 07/13/20 06/02/21 Rx amlodipine 10 mg tablet 10 mg PO DAILY #90 tablet 01/25/21 06/02/21 Rx hydrochlorothiazide 25 mg tablet 25 mg PO DAILY #90 tablet 01/25/21 06/02/21 Rx pantoprazole 40 mg tablet,delayed See Rx Instructions .ROUTE 02/15/21 06/02/21 Rx release .COMPLEX #90 tablet nadolol [Corgard] See Rx Instructions .ROUTE .COMPLEX 02/24/21 06/02/21 History oxycodone 5 mg tablet 5 mg PO Q6H PRN #100 tablet 05/24/21 06/02/21 Rx risankizumab-rzaa 150 mg/mL 150 mg SUBCUT ONCE 05/24/21 06/02/21 History subcutaneous pen injector Conner
[2021-06-15 11:10] VITALS: BP 98/56; PULSE 86; RESP 18; O2SAT 100
[2021-06-15 11:20] VITALS: BP 98/61; PULSE 86; RESP 18; O2SAT 100
[2021-06-15 11:30] VITALS: BP 106/70; PULSE 84; RESP 16; O2SAT 100
== END 2021-06-15 11:48 | disposition home or self-care (01) ==
PROVIDERS: PCP Family Medicine; Visit Provider Internal Medicine Gastroenterology
PROC: 0DJ08ZZ Inspection of Upper Intestinal Tract, Via Natural or Artificial Opening Endoscopic (ICD-10-PCS; CPT 43235; principal; 2021-06-15 11:00)
DX: K31.819 Angiodysplasia of stomach and duodenum without bleeding (principal); D50.0 Iron deficiency anemia secondary to blood loss (chronic); K76.6 Portal hypertension; K31.89 Other diseases of stomach and duodenum; I10 Essential (primary) hypertension; E78.5 Hyperlipidemia, unspecified; G47.33 Obstructive sleep apnea (adult) (pediatric); K70.9 Alcoholic liver disease, unspecified; K27.9 Peptic ulcer, site unspecified, unspecified as acute or chronic, without hemorrhage or perforation; L40.9 Psoriasis, unspecified; Z85.46 Personal history of malignant neoplasm of prostate; Z87.891 Personal history of nicotine dependence
CPT/HCPCS: 43270; J2704; J7120

== ENCOUNTER 2021-09-16 01:49 | Day surgery (SDC) | payer BC, SELFPAY ==
[2021-09-01 14:06] VITALS: BMI 30.5
[2021-09-16 07:02] VITALS: BP 111/53; PULSE 95; RESP 16; TEMP 36.9; O2SAT 100; BMI 30.7
[2021-09-16] MEDS: LACTATED RINGERS 1,000 ML 150 ML IV CONT (07:17)
--- NOTE | 2021-09-16 07:36 | WPDANESEPPF ---
Anes - Initial Pre Proc Eval Procedure: Operation Date: 09/16/21 08:00 Proposed Procedures p Esophagogastroduodenoscopy - Henry Vigil MD Date/Time: 09/16/21 07:36 Surgeon: Henry Vigil MD Pre Op Diagnosis: gastric angioectasia K31.819 Patient Data Age: 51 Gender: M Height: 1.85 m Weight: 105.6 kg Last Vital Signs Temp 36.9 C 09/16/21 07:02 Pulse 95 09/16/21 07:02 Resp 16 09/16/21 07:02 BP 111/53 L 09/16/21 07:02 Pulse Ox 100 09/16/21 07:02 Allergies Allergy/AdvReac Type Severity Reaction Status Date / Time No Known Allergies Allergy Verified 09/16/21 07:01 Home Medications Medication Instructions Recorded Confirmed Type amlodipine 10 mg tablet 10 mg PO DAILY #90 tablet 01/25/21 09/16/21 Rx nadolol [Corgard] See Rx Instructions .ROUTE .COMPLEX 02/24/21 09/16/21 History risankizumab-rzaa 150 mg/mL 150 mg SUBCUT ONCE 05/24/21 09/16/21 History subcutaneous pen injector pantoprazole 40 mg tablet,delayed See Rx Instructions .ROUTE 08/12/21 09/16/21 Rx release .COMPLEX #90 tablet hydrochlorothiazide 25 mg PO EVERY OTHER DAY 09/01/21 09/16/21 History lisinopril 10 mg PO DAILY 09/01/21 09/16/21 History Patient hx anesthesia problems: none Family hx anesthesia problems: none Results Review: All pre-operative results and documents have been reviewed as part of the pre-operative evaluation. [facility] Past Medical History Medical History Acute blood loss anemia Alcohol abuse Alcoholic liver disease Gastric antral vascular ectasia (watermelon stomach) Gastritis Hearing loss Left ear started December 2018 History of colon polyps HLD (hyperlipidemia) Hypertension Melena NSAID long-term use DEBRA (obstructive sleep apnea) Peptic ulcer disease Portal hypertensive gastropathy Prostate cancer Psoriasis Psoriatic arthritis Psoriatic arthritis Watermelon stomach Surgical History Surgical History History of colonoscopy 05/2020 internal external hemorrhoids noted History of esophagogastroduodenoscopy (EGD) Performed by Dr. Vigil 05/2020 demonstrated, NO VARICES History of hernia repair History of penile implant Performed by Dr. Lucero June 2019 History of radical prostatectomy July 2012 in [place] due to prostate cancer with positive pelvic lymph nodes followed by radiation therapy and 3 years of Lupron completed in 2014 Family History Family History Mother Hepatitis A In good health Father In good health Dementia Sibling In good health Social History Social History Social History: He is . He has 1 daughter. He has a 20 pack per year smoking history and quit smoking at age 42. He lives in a multi generation home with his mother father and brother. Smoking packs per day: 1 Smoking cigarettes per day: 20.0 Years smoked: 20 Smoking pack-years: 20.00 Tobacco type: cigarettes Second hand tobacco smoke exposure: No Alcohol intake: former Alcohol use details: no alcohol x 1 year Substance use: never Substance use type: does not use Living arrangements: with family Gender identity (if verbalized by the patient): Male Sexual Orientation (if Verbalized by the Patient): Straight or Heterosexual Spiritual care concerns: No Anes - Eval Final PreProcedure Day of Procedure 09/16/21 07:36 Patient weight: obese Heart: regular rate and rhythm Lungs: clear to auscultation Airway: Mallampati scale class II Neurological: alert and oriented Last oral intake: >/= 8 hours ASA classification: III Emergent: no Anesthetic plan: proceed Anesthesia type and monitoring: general GIVS and standard monitoring Results Review: All pre-operative results and documents have been revie
[2021-09-16 08:10] VITALS: BP 87/54; PULSE 87; RESP 21; O2SAT 97
[2021-09-16 08:20] VITALS: BP 84/56; PULSE 84; RESP 21; O2SAT 99
[2021-09-16 08:30] VITALS: BP 97/58; PULSE 85; RESP 23; O2SAT 98
[2021-09-16 08:40] VITALS: BP 107/61; PULSE 82; RESP 18; O2SAT 98
== END 2021-09-16 08:55 | disposition home or self-care (01) ==
PROVIDERS: PCP Family Medicine; Visit Provider Internal Medicine Gastroenterology
PROC: 0DJ08ZZ Inspection of Upper Intestinal Tract, Via Natural or Artificial Opening Endoscopic (ICD-10-PCS; CPT 43235; principal; 2021-09-16 08:00)
DX: K31.819 Angiodysplasia of stomach and duodenum without bleeding (principal); D50.0 Iron deficiency anemia secondary to blood loss (chronic); L40.9 Psoriasis, unspecified; K76.9 Liver disease, unspecified; K70.9 Alcoholic liver disease, unspecified; K76.6 Portal hypertension; K29.60 Other gastritis without bleeding; E78.5 Hyperlipidemia, unspecified; I10 Essential (primary) hypertension; G47.33 Obstructive sleep apnea (adult) (pediatric); K31.89 Other diseases of stomach and duodenum; F17.210 Nicotine dependence, cigarettes, uncomplicated; E66.9 Obesity, unspecified; Z68.30 Body mass index [BMI] 30.0-30.9, adult
CPT/HCPCS: 43270; J2001; J2704; J7120

== ENCOUNTER 2021-09-23 16:27 | Observation (INO) | payer BC, SELFPAY ==
[2021-09-23] VITALS (11 sets, daily range): BP systolic 118–130; BP diastolic 57–83; PULSE 83–101; RESP 14–22; TEMP 36.7–37.2; O2SAT 97–100; BMI 31.6
[2021-09-23 17:21] LABS: Basophils Percent Auto 0.4 % (0.2-1.2); Eosinophils Absolute Auto 0.1 K/mm3 (0-0.3); Eosinophils Percent Auto 2.7 % (0-4.4); Immature Granulocyte Absolute 0.02 K/mm3 (0.00-0.031); Immature Granulocyte Percent A 0.4 % (0-0.5); Lymphocytes Percent Auto 15.2 % (18.3-44.2); Mean Corpuscular HGB Conc 25.8 g/dl (32-36); Mean Platelet Volume 9.3 fl (7.4-10.4); Monocytes Absolute Auto 0.5 K/mm3 (0.1-0.6); Monocytes Percent Auto 9.5 % (2.6-8.5); Neutrophils Absolute Auto 3.8 K/mm3 (1.3-6.7); Neutrophils Percent Auto 71.8 % (45.5-73.1); Platelet Count Result 198 k/mm3 (150-375); Red Cell Distribution Width 20.9 % (11.5-14.5); White Blood Count 5.3 K/mm3 (4.5-10.0)
[2021-09-23 17:32] LABS: Alanine Aminotransferase 11 U/L (4-50); Albumin Level 3.9 g/dL (3.5-5.1); Alkaline Phosphatase 108 U/L (38-126); Anion Gap 10 mmol/L (8-16); Aspartate Amino Transferase 31 U/L (17-59); Bilirubin,Total 0.4 mg/dL (0.2-1.3); Blood Urea Nitrogen 17 mg/dL (9-20); Calcium 9.1 mg/dL (8.4-10.2); Carbon Dioxide 22 mmol/L (22-30); Chloride 109 mmol/L (98-107); Estimated CRCL calculation 111 ml/min; Estimated Glomerular Filt Rate > 60; Glucose 111 mg/dL (65-110); INR 1.3; Partial Thromboplastin Time 36.1 SECONDS (22.3-36.8); Potassium 3.8 mmol/L (3.4-5.0); Prothrombin Time 16.1 Seconds (11.1-14.7); Sodium 141 mmol/L (137-145)
--- NOTE | 2021-09-23 17:32 | ED.RECABL ---
HPI - Recheck/Abnormal Lab/Rx General Chief Complaint: Recheck/Abnormal Lab/Rx Stated Complaint: low hemoglobin Time Seen by Provider: 09/23/21 17:16 Source: patient Mode of arrival: ambulatory Limitations: no limitations History of Present Illness HPI narrative: Patient is a 51-year-old male due to low hemoglobin, 5.1 . Patient states that he has a history of anemia due to upper GI bleed secondary to gastric angiodysplasia. 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 Inman this past Sunday, had an upper endoscopy done with cauterization. Patient states that his hemoglobin 5 to 6 weeks ago was 6.9 and was rechecked this past Sunday by his produce service team member was down to 5.1 and that is why he was sent here. Patient denies any chest pain, shortness of breath, abdominal pain, nausea, vomiting or diarrhea. Patient denies any blood in his stool. Patient denies any hematemesis. Patient currently has no symptoms at this time. Patient states that he is mildly short of breath on exertion at times but it is nothing new. Related Data Home Medications Medication Instructions Recorded Confirmed nadolol [Corgard] See Rx Instructions .ROUTE .COMPLEX 02/24/21 09/16/21 risankizumab-rzaa 150 mg/mL 150 mg SUBCUT ONCE 05/24/21 09/16/21 subcutaneous pen injector hydrochlorothiazide 25 mg PO EVERY OTHER DAY 09/01/21 09/16/21 lisinopril 10 mg PO DAILY 09/01/21 09/16/21 amlodipine 09/23/21 09/23/21 lisinopril 09/23/21 nadolol 09/23/21 pantoprazole PO 09/23/21 Allergies Allergy/AdvReac Type Severity Reaction Status Date / Time No Known Allergies Allergy Verified 09/16/21 07:01 Review of Systems Review of Systems: All systems reviewed & are unremarkable except as noted in HPI and below Constitutional: Constitutional: Denies body ache(s), Denies chills, Denies excessive sweating, Denies fatigue, Denies fever(s), Denies headache(s), Denies lethargy, Denies malaise, Denies weakness and Denies weight loss Eyes: Eyes: Denies blurry vision, Denies change in vision and Denies loss of vision ENT: Denies dizziness, Denies ear discharge, Denies headache(s), Denies lip swelling, Denies epistaxis, Denies nasal congestion, Denies neck pain, Denies throat swelling and Denies tongue swelling Cardiovascular: Cardiovascular: Denies chest pain, Denies chest pain at rest, Denies chest pain with activity, Denies diaphoresis, Denies rapid heart rate, Denies edema, Denies irregular heart rhythm, Denies lightheadedness, Denies palpitations, Denies dyspnea and Denies dyspnea on exertion Respiratory: Respiratory: Denies chest congestion, Denies cough, Denies hemoptysis, Denies dyspnea and Denies dyspnea on exertion Gastrointestinal: Gastrointestinal: Denies abdominal pain, Denies melena, Denies hematochezia, Denies diarrhea, Denies nausea, Denies vomiting and Denies hematemesis Musculoskeletal: Musculoskeletal: Denies abnormal gait, Denies deformity, Denies joint swelling, Denies limited range of motion, Denies neck pain and Denies numbness Neurologic: Denies Abnormal speech present, Denies abnormal gait, Denies confusion, Denies dizziness, Denies headache(s), Denies focal weakness, Denies loss of vision, Denies numbness, Denies Other visual disturbances, Denies Sensory deficit (Neuro) and Denies weakness Psychiatric: Psychiatric: Denies confusion, Denies depression, Denies auditory hallucinations, Denies homicidal ideation and Denies suicidal ideation Endocrine: Endocrine: Denies cold intolerance, Denies excessive sweating, Denies fatigue, Denies heat intolerance and Denies palpitations Hematologic/Lymphatic: Hematologic/Lymphatic: Denies easy bleeding and Denies easy bruising Allergic/Immunologic: Allergic/Immunologic: Denies lip swelling, Denies throat swelling and Denies tongue swelling PMFSH Past Medical History Medical History Acute blood loss anemia Alcohol abuse Alcoholic liver dise
[2021-09-23 17:44] LABS: Hemoglobin 4.8 g/dL (14.0-18.0)
[2021-09-23 17:45] LABS: Hematocrit 18.6 % (42.0-52.0)
[2021-09-23 17:46] LABS: Platelet Estimate Adequate (Adequate)
[2021-09-23 17:50] LABS: Hypochromasia 2+ (NORMAL)
[2021-09-23 17:51] LABS: Ovalocytes 1+ (NORMAL)
[2021-09-23 17:53] LABS: Anisocytosis 3+ (NORMAL)
[2021-09-23 17:54] LABS: Acanthocytes 1+ (NORMAL)
[2021-09-23] MEDS: diphenhydrAMINE HCl INJ 50 MG/ML VIAL 25 MG IV PUSH (19:31)
[2021-09-23] MEDS: ACETAMINOPHEN 325 MG TABLET 650 MG PO (19:31)
[2021-09-23] MEDS: SODIUM CHLORIDE 0.9% IV 250 ML 30 ML IV CONT (19:33)
--- NOTE | 2021-09-23 20:30 | ADMGEN ---
This patient, Ken Aquino, was admitted to 2 Medical Room 260-. Patient/family oriented to hospital policies and general routines including ID bracelet, bed and alarms, visiting hours, pain management, procedures, bathroom and other care routines, personal items, smoking policy, room service/diet, and visiting hours. Information on how to activate the Rapid Response Team has been discussed. Patient/Family are encouraged to report perceived risks to care and to ask questions if they do not understand what they are told or what they should do.
[2021-09-23] MEDS: SODIUM CHLORIDE 0.9% IV 250 ML 30 ML (21:50)
--- NOTE | 2021-09-23 21:54 | PM.IMHP ---
H&P: HPI History of Present Illness Date/Time: 09/23/21 21:54 This is a 51-year-old male patient who is a recovering alcoholic. The patient stated he has not drink any alcohol in the last 18 months. The patient has a history of alcoholic liver disease and he has had several EGDs performed by Dr. Inman for gave with APC cauterization. Patient's hemoglobin is typically somewhere between 6 and 7. He has had low iron studies. He was referred to Hematology/Oncology for iron infusions that he has not followed up with them as of yet. The patient denies any nausea vomiting. He has not noticed any black stool or had any hematemesis. Patient has worked all week and has not had any complaints. He continues to take his pantoprazole. He continues to take his nadolol daily for Phg. The patient had an EGD on 09/16/2021 the patient was found have multiple angio ectasias that were present in the atrium and there was oozing noted from 1 lesions. the visualization was consistent with nodular Gave watermelon stomach APC treatment was successful. Dr. Inman was notified that the patient was in the emergency room. It was reported to the ED provider that the patient may be able to be discharged to home after his 2nd transfusion. I had this discussion with the patient and I explained that he may be discharged if his hemoglobin is above . today's H&H is 4.8 and 18.6. the patient was typed and cross-matched and 2 units of packed red blood cells have been ordered. The patient stated that he is mildly short of breath with exertion but that is nothing new to him. He does not feel any dizziness or any chest pain. The patient was given Benadryl and Tylenol prior to his transfusion. The patient is being admitted for short-stay summary. The patient will be discharged if his hemoglobin is greater than 7. This is a short stay summary on the date of service of 09/23/2029. Chief Complaint: Abnormal lab work low hemoglobin Review of Systems Review of Systems: All systems reviewed & are unremarkable except as noted in HPI and below Constitutional: Constitutional: Reports as per HPI and Reports no additional constitutional complaints Eyes: Eyes: Reports as per HPI and Reports no additional eye complaints ENT: Reports system reviewed and no additional complaints, except as documented and Reports Normal hearing present Cardiovascular: Cardiovascular: Reports no additional cardiovascular complaints Respiratory: Respiratory: Reports no additional respiratory complaints and Reports no additional respiratory complaints Gastrointestinal: Gastrointestinal: Reports as per HPI and Reports no additional gastrointestinal complaints Musculoskeletal: Musculoskeletal: Reports no additional musculoskeletal complaints Integumentary/Breasts: Skin/Breast: Reports system reviewed and no additional complaints, except as docu and Reports as per HPI Neurologic: Reports system reviewed and no additional complaints, except as documented, Reports as per HPI and Reports Normal hearing present Psychiatric: Psychiatric: Reports no additional psychiatric complaints and Reports as per HPI Endocrine: Endocrine: Reports no additional endocrine complaints Hematologic/Lymphatic: Hematologic/Lymphatic: Reports no additional hematologic/lymphatic complaints Allergic/Immunologic: Allergic/Immunologic: Reports no additional allergic/immunologic complaints [facility] Past Medical History Medical History (Updated 09/23/21 @ 22:07 by Janee Pastor NP) Acute blood loss anemia Alcohol abuse Alcoholic liver disease 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 DEBRA (obstructive sleep apnea) P
[2021-09-23] MEDS: amLODIPine BESYLATE 5 MG TABLET 10 MG PO (22:47)
[2021-09-23] MEDS: nadoloL 20 MG TABLET PO (22:47)
[2021-09-24] VITALS: PULSE 92
[2021-09-24 00:10] VITALS: BP 113/64; PULSE 92; RESP 20; TEMP 36.9; O2SAT 98
[2021-09-24 01:22] LABS: Hematocrit 26.3 % (42.0-52.0)
[2021-09-24 01:29] LABS: Hemoglobin 7.2 g/dL (14.0-18.0)
== END 2021-09-24 01:45 | disposition home or self-care (01) ==
LOC: ANHED 18:38 → ANH2MED 19:49
PROVIDERS: Nurse Practitioner; Admitting Provider Family Medicine; Emergency Provider Emergency Medicine; PCP Family Medicine; Visit Provider Family Medicine
DX: D64.9 Anemia, unspecified (principal); K31.819 Angiodysplasia of stomach and duodenum without bleeding; K70.9 Alcoholic liver disease, unspecified; I10 Essential (primary) hypertension; G47.33 Obstructive sleep apnea (adult) (pediatric); L40.50 Arthropathic psoriasis, unspecified; E78.5 Hyperlipidemia, unspecified; K76.6 Portal hypertension; K31.89 Other diseases of stomach and duodenum; Z85.46 Personal history of malignant neoplasm of prostate; Z92.3 Personal history of irradiation; Z87.891 Personal history of nicotine dependence; F10.21 Alcohol dependence, in remission
CPT/HCPCS: 36415; 36430; 80053; 85014; 85018; 85025; 85610; 85730; 86850; 86900; 86901; 86920; 96374; 99285; A9270; G0378; J1200; J7050; P9016

== ENCOUNTER 2021-10-11 07:56 | Outpatient (CLI) | payer BC, SELFPAY ==
--- NOTE | ~2021-10-11 | US_ITS ---
EXAMINATION: US right upper quadrant DATE: 10/11/2021 08:19 INDICATION: Alcoholic liver disease TECHNIQUE: Multiple grayscale and Doppler ultrasound images of the abdomen were obtained. COMPARISON: 01/19/2021 FINDINGS: Bowel gas obscures visualization of the pancreas. The visualized portions of the pancreas a re unremarkable. The liver demonstrates increased echogenicity and heterogeneous echotexture. There i s subtle nodularity of the liver surface. Hepatomegaly is noted. Normal hepatopetal flow in the main portal vein. The gallbladder is normal with no abnormal wall thickening, pericholecystic fluid or sto eboni. The normal common bile duct measures 6 mm. There was no sonographic Starks sign. IMPRESSION: 1. Subtle nodularity of the liver surface, consistent with cirrhosis. Reviewed, dictated and finalized at location A. N OPERATOR
== END 2021-10-11 07:57 | disposition home or self-care (01) ==
LOC: ANHIMG 07:59
PROVIDERS: PCP Family Medicine; Visit Provider Nurse Practitioner Family
DX: K70.9 Alcoholic liver disease, unspecified (principal)
CPT/HCPCS: 76705

== ENCOUNTER 2021-11-12 11:34 | Outpatient (CLI) | payer BC, SELFPAY ==
[2021-11-12 11:55] LABS: Basophils Percent Auto 0.6 % (0.2-1.2); Eosinophils Absolute Auto 0.2 K/mm3 (0-0.3); Eosinophils Percent Auto 2.9 % (0-4.4); Hematocrit 25.6 % (42.0-52.0); Immature Granulocyte Absolute 0.01 K/mm3 (0.00-0.031); Immature Granulocyte Percent A 0.2 % (0-0.5); Lymphocytes Absolute Auto 0.74 K/mm3 (0.9-3.2); Lymphocytes Percent Auto 14.1 % (18.3-44.2); Mean Corpuscular Hemoglobin 17.8 pg (26-34); Monocytes Absolute Auto 0.5 K/mm3 (0.1-0.6); Monocytes Percent Auto 9.4 % (2.6-8.5); Neutrophils Absolute Auto 3.8 K/mm3 (1.3-6.7); Neutrophils Percent Auto 72.8 % (45.5-73.1); Platelet Count Result 226 k/mm3 (150-375); Red Blood Count 3.88 M/mm3 (4.6-6.20); Red Cell Distribution Width 23.6 % (11.5-14.5); White Blood Count 5.2 K/mm3 (4.5-10.0)
[2021-11-12 12:05] LABS: Alanine Aminotransferase 12 U/L (4-50); Albumin Level 4.3 g/dL (3.5-5.1); Alkaline Phosphatase 124 U/L (38-126); Anion Gap 12 mmol/L (8-16); Aspartate Amino Transferase 34 U/L (17-59); Bilirubin,Total 0.7 mg/dL (0.2-1.3); Blood Urea Nitrogen 15 mg/dL (9-20); Calcium 9.3 mg/dL (8.4-10.2); Carbon Dioxide 22 mmol/L (22-30); Chloride 106 mmol/L (98-107); Estimated Glomerular Filt Rate > 60; Glucose 118 mg/dL (65-110); Potassium 4.4 mmol/L (3.4-5.0); Sodium 140 mmol/L (137-145); Uric Acid 7.4 mg/dL (3.5-8.5)
[2021-11-12 12:17] LABS: Iron 27 ug/dL (49-181)
[2021-11-12 12:25] LABS: Hemoglobin 6.9 g/dL (14.0-18.0)
[2021-11-12 12:26] LABS: Percent Iron Saturation 6 % (20-50)
[2021-11-12 12:57] LABS: Vitamin B12 > 1000.0 pg/mL (239-931)
== END 2021-11-12 11:35 | disposition home or self-care (01) ==
PROVIDERS: PCP Family Medicine; Visit Provider Nurse Practitioner Gerontology
DX: D50.0 Iron deficiency anemia secondary to blood loss (chronic) (principal); G89.29 Other chronic pain; M54.50 Low back pain, unspecified
CPT/HCPCS: 36415; 80053; 82607; 83540; 83550; 84550; 85025

== ENCOUNTER 2021-11-19 11:21 | Outpatient (CLI) | payer BC, SELFPAY ==
[2021-11-19 12:39] LABS: Basophils Percent Auto 0.6 % (0.2-1.2); Eosinophils Absolute Auto 0.1 K/mm3 (0-0.3); Eosinophils Percent Auto 2.4 % (0-4.4); Immature Granulocyte Absolute 0.01 K/mm3 (0.00-0.031); Immature Granulocyte Percent A 0.2 % (0-0.5); Immature Platelet Fraction Pct 2.7 % (0.9-11.2); Lymphocytes Absolute Auto 0.87 K/mm3 (0.9-3.2); Lymphocytes Percent Auto 16.2 % (18.3-44.2); Mean Corpuscular HGB Conc 26.4 g/dl (32-36); Mean Corpuscular Hemoglobin 17.4 pg (26-34); Monocytes Absolute Auto 0.6 K/mm3 (0.1-0.6); Monocytes Percent Auto 10.4 % (2.6-8.5); Neutrophils Absolute Auto 3.8 K/mm3 (1.3-6.7); Neutrophils Percent Auto 70.2 % (45.5-73.1); Platelet Count Result 271 k/mm3 (150-375); Red Blood Count 3.79 M/mm3 (4.6-6.20); Red Cell Distribution Width 22.6 % (11.5-14.5); Reticulocyte Hemoglobin Conten 16.6 pg (28.2-35.7); Reticulocyte Percent 1.02 % (0.7-4.3); Reticulocytes Absolute 0.04 B/L (32.2-175.7); White Blood Count 5.4 K/mm3 (4.5-10.0)
[2021-11-19 12:59] LABS: Iron 16 ug/dL (49-181)
[2021-11-19 13:01] LABS: Alanine Aminotransferase 11 U/L (4-50); Albumin Level 4.2 g/dL (3.5-5.1); Alkaline Phosphatase 113 U/L (38-126); Anion Gap 10 mmol/L (8-16); Aspartate Amino Transferase 33 U/L (17-59); Bilirubin,Total 0.5 mg/dL (0.2-1.3); Blood Urea Nitrogen 15 mg/dL (9-20); Calcium 9.1 mg/dL (8.4-10.2); Carbon Dioxide 23 mmol/L (22-30); Chloride 106 mmol/L (98-107); Estimated Glomerular Filt Rate > 60; Glucose 103 mg/dL (65-110); Lactate Dehydrogenase 428 U/L (313-618); Potassium 4.2 mmol/L (3.4-5.0); Sodium 139 mmol/L (137-145)
[2021-11-19 13:08] LABS: Percent Iron Saturation 4 % (20-50)
[2021-11-19 13:28] LABS: Hemoglobin 6.6 g/dL (14.0-18.0)
[2021-11-19 13:31] LABS: Hypochromasia 2+ (NORMAL); Platelet Estimate Adequate (Adequate)
[2021-11-19 13:35] LABS: Ferritin 4.09 ng/mL (11.1-264)
[2021-11-19 13:54] LABS: Vitamin B12 > 1000.0 pg/mL (239-931)
[2021-11-24 10:18] LABS: Methylmalonic Acid 127 nmol/L (87-318)
== END 2021-11-19 11:22 | disposition home or self-care (01) ==
PROVIDERS: PCP Family Medicine; Visit Provider Internal Medicine Hematology & Oncology
DX: D64.9 Anemia, unspecified (principal)
CPT/HCPCS: 36415; 80053; 82607; 82728; 83540; 83550; 83615; 83921; 85025; 85046; 85055

== ENCOUNTER 2022-03-25 12:00 | Outpatient (CLI) | payer BC, SELFPAY ==
[2022-03-25 13:15] LABS: Hemoglobin A1C 5.7 % (<5.7)
[2022-03-25 13:44] LABS: Prostate Specific Antigen 1.2 ng/mL (< OR = 4.0)
== END 2022-03-25 12:01 | disposition home or self-care (01) ==
LOC: ANHLAB 12:03
PROVIDERS: PCP Family Medicine; Visit Provider Urology
DX: C61 Malignant neoplasm of prostate (principal)
CPT/HCPCS: 36415; 83036; 84153

== ENCOUNTER 2022-04-04 11:11 | Outpatient (CLI) | payer BC, SELFPAY ==
[2022-04-04 12:34] LABS: Hematocrit 24.8 % (42.0-52.0)
[2022-04-04 13:21] LABS: Hemoglobin 6.8 g/dL (14.0-18.0)
== END 2022-04-04 11:12 | disposition home or self-care (01) ==
LOC: ANHLAB 11:13
PROVIDERS: PCP Family Medicine; Visit Provider Urology
DX: C61 Malignant neoplasm of prostate (principal)
CPT/HCPCS: 36415; 85014; 85018

== ENCOUNTER 2022-05-05 07:54 | Outpatient (RCR) | payer BC, SELFPAY ==
[2022-05-05] VITALS (8 sets, daily range): BP systolic 122–136; BP diastolic 68–77; PULSE 82–94; RESP 16–18; TEMP 36.6–36.8; O2SAT 92–97
[2022-05-05] MEDS: ACETAMINOPHEN 325 MG TABLET 650 MG PO (08:33)
[2022-05-05] MEDS: SODIUM CHLORIDE 0.9% IV 250 ML 30 ML IV CONT (08:45)
[2022-05-05] MEDS: FUROSEMIDE INJ 40 MG/4 ML VIAL 20 MG IV PUSH (11:31)
== END 2022-08-03 23:59 | disposition home or self-care (01) ==
LOC: ANHCPCTRAN 07:54
PROVIDERS: PCP Family Medicine; Visit Provider Internal Medicine Hematology & Oncology
DX: D64.9 Anemia, unspecified (principal)
CPT/HCPCS: 36415; 36430; 86850; 86900; 86901; 86920; 96374; A9270; J1940; J7050; P9016

== ENCOUNTER 2022-09-08 15:50 | Outpatient (CLI) | payer BC, SELFPAY ==
[2022-09-08 16:13] LABS: Basophils Percent Auto 0.8 % (0.2-1.2); Eosinophils Absolute Auto 0.1 K/mm3 (0-0.3); Eosinophils Percent Auto 1.7 % (0-4.4); Hematocrit 37.8 % (42.0-52.0); Hemoglobin 12.3 g/dL (14.0-18.0); Immature Granulocyte Absolute 0.02 K/mm3 (0.00-0.031); Immature Granulocyte Percent A 0.4 % (0-0.5); Lymphocytes Absolute Auto 0.78 K/mm3 (0.9-3.2); Lymphocytes Percent Auto 14.9 % (18.3-44.2); Mean Corpuscular HGB Conc 32.5 g/dl (32-36); Mean Corpuscular Hemoglobin 27.4 pg (26-34); Mean Corpuscular Volume 84.2 fl (80-100); Mean Platelet Volume 9.1 fl (7.4-10.4); Monocytes Absolute Auto 0.6 K/mm3 (0.1-0.6); Monocytes Percent Auto 10.5 % (2.6-8.5); Neutrophils Absolute Auto 3.8 K/mm3 (1.3-6.7); Neutrophils Percent Auto 71.7 % (45.5-73.1); Platelet Count Result 154 k/mm3 (150-375); Red Blood Count 4.49 M/mm3 (4.6-6.20); Red Cell Distribution Width 15.9 % (11.5-14.5); White Blood Count 5.3 K/mm3 (4.5-10.0)
[2022-09-08 16:24] LABS: Alanine Aminotransferase 23 U/L (6-50); Albumin Level 4.5 g/dL (3.5-5.1); Alkaline Phosphatase 144 U/L (38-126); Anion Gap 11 mmol/L (8-16); Aspartate Amino Transferase 64 U/L (17-59); Bilirubin,Total 0.7 mg/dL (0.2-1.3); Blood Urea Nitrogen 22 mg/dL (9-20); Calcium 8.7 mg/dL (8.4-10.2); Carbon Dioxide 27 mmol/L (22-30); Chloride 101 mmol/L (98-107); Cholesterol 238 mg/dL (0-200); Estimated Glomerular Filt Rate > 60; Glucose 117 mg/dL (65-110); HDL Direct 50 mg/dL; Potassium 4.1 mmol/L (3.4-5.0); Sodium 139 mmol/L (137-145); Triglycerides 177 mg/dL (<150)
[2022-09-08 16:35] LABS: LDL Cholesterol Direct 139 mg/dL
[2022-09-08 17:08] LABS: Iron 46 ug/dL (49-181)
[2022-09-08 17:19] LABS: Percent Iron Saturation 10 % (20-50)
== END 2022-09-08 15:51 | disposition home or self-care (01) ==
LOC: ANHLAB 15:52
PROVIDERS: PCP Family Medicine; Visit Provider Nurse Practitioner Gerontology
DX: K31.819 Angiodysplasia of stomach and duodenum without bleeding (principal); I10 Essential (primary) hypertension; D63.8 Anemia in other chronic diseases classified elsewhere
CPT/HCPCS: 36415; 80053; 80061; 83540; 83550; 85025

== ENCOUNTER 2022-11-22 09:14 | Outpatient (CLI) | payer OTHER, SELFPAY ==
[2022-11-22 10:42] LABS: Basophils Absolute Auto 0.1 K/mm3 (0.0-0.1); Basophils Percent Auto 0.7 % (0.2-1.2); Eosinophils Absolute Auto 0.1 K/mm3 (0-0.3); Eosinophils Percent Auto 0.7 % (0-4.4); Hemoglobin 10.7 g/dL (14.0-18.0); Immature Granulocyte Absolute 0.02 K/mm3 (0.00-0.031); Immature Granulocyte Percent A 0.3 % (0-0.5); Lymphocytes Absolute Auto 0.77 K/mm3 (0.9-3.2); Mean Corpuscular HGB Conc 29.7 g/dl (32-36); Mean Corpuscular Hemoglobin 24.2 pg (26-34); Mean Corpuscular Volume 81.3 fl (80-100); Monocytes Absolute Auto 0.6 K/mm3 (0.1-0.6); Monocytes Percent Auto 8.3 % (2.6-8.5); Neutrophils Absolute Auto 5.5 K/mm3 (1.3-6.7); Nucleated Red Blood Cells Perc 0.4 % (0.0-0.2); Platelet Count Result 172 k/mm3 (150-375); Red Blood Count 4.43 M/mm3 (4.6-6.20)
[2022-11-22 10:56] LABS: Alanine Aminotransferase 43 U/L (6-50); Albumin Level 4.6 g/dL (3.5-5.1); Alkaline Phosphatase 154 U/L (38-126); Anion Gap 9 mmol/L (8-16); Aspartate Amino Transferase 165 U/L (17-59); Bilirubin,Total 1.6 mg/dL (0.2-1.3); Blood Urea Nitrogen 17 mg/dL (9-20); Calcium 9.4 mg/dL (8.4-10.2); Carbon Dioxide 27 mmol/L (22-30); Chloride 100 mmol/L (98-107); Estimated Glomerular Filt Rate > 60; Glucose 107 mg/dL (65-110); Potassium 4.2 mmol/L (3.4-5.0); Sodium 136 mmol/L (137-145)
== END 2022-11-22 09:15 | disposition home or self-care (01) ==
LOC: ANHLAB 09:15
PROVIDERS: PCP Family Medicine; Visit Provider Nurse Practitioner Gerontology
DX: R50.9 Fever, unspecified (principal); D64.9 Anemia, unspecified
CPT/HCPCS: 36415; 80053; 84443; 85025

== ENCOUNTER 2022-11-24 17:09 | Outpatient (CLI) | payer OTHER, SELFPAY ==
--- NOTE | ~2022-11-24 | CT_ITS ---
EXAMINATION: CT abdomen pelvis wo con DATE: 11/24/2022 17:38 INDICATION: Fever. Abdominal distention. Jaundice. TECHNIQUE: Computed tomography (CT) of the abdomen and pelvis was performed without intravenous contr ast. Automated exposure control and iterative reconstruction technique were employed. The dose-length product was 1249.19 mGy-cm. COMPARISON: CT abdomen and pelvis 03/27/2020 FINDINGS: The visualized portions of the lung bases demonstrate minimal atelectasis. No pleural effus ion. The heart size is normal. No pericardial effusion. The liver demonstrates surface nodularity, co nsistent with cirrhosis. There are gallstones in the gallbladder, which is normal in size. There is m ild splenomegaly. There is a splenorenal portacaval shunt. The pancreas, adrenal glands, and left kid rony are normal. There is a 2.3 cm cyst in right kidney. There are changes of ventral hernia repair. A penile prosthesis is noted. There is diverticulosis of the colon without evidence of diverticulitis. The appendix is normal. There are no dilated loops of bowel. There are paraumbilical and paraesophag eal varices. There are no pathologically enlarged lymph nodes. There is no free intraperitoneal fluid . There is severe lumbar spondylosis. IMPRESSION: 1. Cirrhosis of the liver with portal venous hypertension. Reviewed, dictated and finalized at location A. LE CATCHER
== END 2022-11-24 17:10 | disposition home or self-care (01) ==
PROVIDERS: PCP Family Medicine; Visit Provider Nurse Practitioner Gerontology
DX: R50.9 Fever, unspecified (principal); R74.8 Abnormal levels of other serum enzymes; R14.0 Abdominal distension (gaseous); R63.0 Anorexia; K31.819 Angiodysplasia of stomach and duodenum without bleeding; D64.9 Anemia, unspecified; K74.69 Other cirrhosis of liver; K76.6 Portal hypertension
CPT/HCPCS: 74176

== ENCOUNTER 2022-11-30 09:49 | Day surgery (SDC) | payer OTHER, SELFPAY ==
--- NOTE | 2022-11-30 10:25 | SUR.PREOP ---
Yi from the office said that his insurance does not need pre authorization for the change in doctors- from [facility] to [facility].
[2022-11-30 10:40] VITALS: BP 113/65; PULSE 72; RESP 18; TEMP 36.2; O2SAT 99; BMI 31.4
--- NOTE | 2022-11-30 10:57 | PM.HPGS ---
History of Present Illness History of Present Illness Consent: Risks, benefits, and alternatives have been discussed and questions answered. Patient agrees to proceed with procedure. Chief complaint: angioectasia Narrative: Ken Aquino is a 52 year old male was referred for EGD because of anemia thought to be due to blood loss. His hemoglobin was down to 6.6 this past summer but had come up to 12.3 in September. Is now 10.7. He has a history of alcohol abuse And recently was found to have cirrhosis on CT scan. Also, he was found on endoscopy 2 years ago to have gastric antral vascular Ectasia. He was advised to come back in 3 months for follow-up treatment but never did so. Also he had been seeing Hematology but had not followed up with them for a while.. 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 DEBRA (obstructive sleep apnea) Peptic ulcer disease Portal hypertensive gastropathy Prostate cancer Psoriasis Psoriatic arthritis Psoriatic arthritis Watermelon stomach Surgical History Surgical History H/O rectal polypectomy History of colonoscopy 05/2020 internal external hemorrhoids noted History of esophagogastroduodenoscopy (EGD) Performed by Dr. Vigil 05/2020 demonstrated, NO VARICES History of hernia repair History of penile implant Performed by Dr. Lucero June 2019 History of radical prostatectomy July 2012 in [place] due to prostate cancer with positive pelvic lymph nodes followed by radiation therapy and 3 years of Lupron completed in 2014 Family History Family History Mother In good health Hepatitis A Hypertension Father In good health Dementia Sibling In good health Social History Social History Social History: He is . He has 1 daughter. He has a 20 pack per year smoking history and quit smoking at age 42. He lives in a multi generation home with his mother father and brother. 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 the patient does not have a durable power document review attorney for healthcare. code status full code Smoking packs per day: 1 Smoking cigarettes per day: 20.0 Years smoked: 20 Smoking pack-years: 20.00 Smoking status: Current every day smoker Tobacco type: e-cigarettes/vaping Second hand tobacco smoke exposure: No Alcohol intake: former Alcohol use details: socially Substance use: never Substance use type: does not use Living arrangements: alone Occupation/Education: occupation Gender identity (if verbalized by the patient): Male Sexual Orientation (if Verbalized by the Patient): Straight or Heterosexual Spiritual care concerns: No Meds Home Medications and Allergies Home Medications Medication Instructions Recorded Confirmed Type risankizumab-rzaa 150 mg/mL See Rx Instructions .Route .COMPLEX 05/24/21 11/30/22 History subcutaneous pen injector (Jolanta) pantoprazole 40 mg tablet,delayed 40 mg PO DAILY 09/23/21 11/30/22 History release amlodipine 10 mg tablet 10 mg PO DAILY #90 tabs 08/28/22 11/30/22 Rx hydrochlorothiazide 25 mg tablet 25 mg PO QAM #90 tabs 10/12/22 11/30/22 Rx lisin
[2022-11-30] MEDS: LACTATED RINGERS 1,000 ML 150 ML IV CONT (11:00)
--- NOTE | 2022-11-30 11:03 | WPDANESEPPF ---
Anes - Initial Pre Proc Eval Procedure: Operation Date: 11/30/22 11:30 Proposed Procedures p Esophagogastroduodenoscopy - eGoff Blount MD Date/Time: 11/30/22 11:03 Surgeon: Geoff Blount MD Pre Op Diagnosis: angioectasia Patient Data Age: 52 Gender: M Height: 1.85 m Weight: 108.1 kg Last Vital Signs Temp 97.2 F L 11/30/22 10:40 Pulse 72 11/30/22 10:40 Resp 18 11/30/22 10:40 BP 113/65 11/30/22 10:40 Pulse Ox 99 11/30/22 10:40 O2 Del Method Room Air 11/30/22 10:40 Allergies Allergy/AdvReac Type Severity Reaction Status Date / Time No Known Allergies Allergy Verified 11/30/22 10:47 Home Medications Medication Instructions Recorded Confirmed Type risankizumab-rzaa 150 mg/mL See Rx Instructions .Route .COMPLEX 05/24/21 11/30/22 History subcutaneous pen injector (Jolanta) pantoprazole 40 mg tablet,delayed 40 mg PO DAILY 09/23/21 11/30/22 History release amlodipine 10 mg tablet 10 mg PO DAILY #90 tabs 08/28/22 11/30/22 Rx hydrochlorothiazide 25 mg tablet 25 mg PO QAM #90 tabs 10/12/22 11/30/22 Rx lisinopril 10 mg tablet 10 mg PO DAILY #90 tabs 10/12/22 11/30/22 Rx nadolol 20 mg tablet 20 mg PO DAILY 11/21/22 11/30/22 History oxycodone 5 mg tablet 5 mg PO Q6H PRN pain #90 tabs 11/25/22 11/30/22 Rx Patient hx anesthesia problems: none Family hx anesthesia problems: none Results Review: All pre-operative results and documents have been reviewed as part of the pre-operative evaluation. 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 DEBRA (obstructive sleep apnea) Peptic ulcer disease Portal hypertensive gastropathy Prostate cancer Psoriasis Psoriatic arthritis Psoriatic arthritis Watermelon stomach Surgical History Surgical History H/O rectal polypectomy History of colonoscopy 05/2020 internal external hemorrhoids noted History of esophagogastroduodenoscopy (EGD) Performed by Dr. Vigil 05/2020 demonstrated, NO VARICES History of hernia repair History of penile implant Performed by Dr. Lucero June 2019 History of radical prostatectomy July 2012 in [place] due to prostate cancer with positive pelvic lymph nodes followed by radiation therapy and 3 years of Lupron completed in 2014 Family History Family History Mother In good health Hepatitis A Hypertension Father In good health Dementia Sibling In good health Social History Social History Social History: He is . He has 1 daughter. He has a 20 pack per year smoking history and quit smoking at age 42. He lives in a multi generation home with his mother father and brother. 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 the patient does not have a durable power compliance attorney for healthcare. code status full code Smoking packs per day: 1 Smoking cigarettes per day: 20.0 Years smoked: 20 Smoking pack-years: 20.00 Smoking status: Current every day smoker Tobacco type: e-cigarettes/vaping Second hand tobacco smoke exposure: No Alcohol intake: former Alcohol use details: socially Substance use: never Substance use type: does not use Living arrangements: alone Occupation/Education: occupation Gender identity (if verbalized by the patient): Male Sexual Orientation (if Verbalized by t
[2022-11-30 11:50] VITALS: BP 82/49; PULSE 74; RESP 15; O2SAT 96
[2022-11-30 12:00] VITALS: BP 104/66; PULSE 84; RESP 17; O2SAT 96
[2022-11-30 12:10] VITALS: BP 116/76; PULSE 75; RESP 17; O2SAT 98
== END 2022-11-30 12:25 | disposition home or self-care (01) ==
LOC: ANHENDO 12:34
PROVIDERS: PCP Family Medicine; Visit Provider Internal Medicine Gastroenterology
PROC: 0DJ08ZZ Inspection of Upper Intestinal Tract, Via Natural or Artificial Opening Endoscopic (ICD-10-PCS; CPT 43235; principal; 2022-11-30 11:30)
DX: D50.9 Iron deficiency anemia, unspecified (principal); K31.819 Angiodysplasia of stomach and duodenum without bleeding; K31.7 Polyp of stomach and duodenum; K70.9 Alcoholic liver disease, unspecified; I10 Essential (primary) hypertension; E78.5 Hyperlipidemia, unspecified; K76.6 Portal hypertension; K31.89 Other diseases of stomach and duodenum; L40.50 Arthropathic psoriasis, unspecified; G47.33 Obstructive sleep apnea (adult) (pediatric); Z87.11 Personal history of peptic ulcer disease; Z79.891 Long term (current) use of opiate analgesic; Z85.46 Personal history of malignant neoplasm of prostate; Z92.3 Personal history of irradiation; F17.290 Nicotine dependence, other tobacco product, uncomplicated
CPT/HCPCS: 43239; 43270; 43251; 87081; 88305; J2704; J7120

== ENCOUNTER 2023-03-03 07:44 | Outpatient (CLI) | payer OTHER, SELFPAY ==
[2023-03-03 08:11] LABS: Basophils Percent Auto 0.7 % (0.2-1.2); Eosinophils Absolute Auto 0.1 K/mm3 (0-0.3); Eosinophils Percent Auto 1.8 % (0-4.4); Hematocrit 31.6 % (42.0-52.0); Hemoglobin 9.6 g/dL (14.0-18.0); Immature Granulocyte Absolute 0.01 K/mm3 (0.00-0.031); Immature Granulocyte Percent A 0.2 % (0-0.5); Lymphocytes Absolute Auto 0.71 K/mm3 (0.9-3.2); Lymphocytes Percent Auto 15.6 % (18.3-44.2); Mean Corpuscular HGB Conc 30.4 g/dl (32-36); Mean Corpuscular Hemoglobin 21.7 pg (26-34); Mean Corpuscular Volume 71.3 fl (80-100); Mean Platelet Volume 9.3 fl (7.4-10.4); Monocytes Absolute Auto 0.4 K/mm3 (0.1-0.6); Neutrophils Absolute Auto 3.3 K/mm3 (1.3-6.7); Neutrophils Percent Auto 72.7 % (45.5-73.1); Platelet Count Result 140 k/mm3 (150-375); Red Blood Count 4.43 M/mm3 (4.6-6.20); Red Cell Distribution Width 19.3 % (11.5-14.5); White Blood Count 4.6 K/mm3 (4.5-10.0)
[2023-03-03 08:30] LABS: Alanine Aminotransferase 42 U/L (6-50); Albumin Level 4.3 g/dL (3.5-5.1); Alkaline Phosphatase 151 U/L (38-126); Anion Gap 10 mmol/L (8-16); Aspartate Amino Transferase 172 U/L (17-59); Bilirubin,Total 0.9 mg/dL (0.2-1.3); Blood Urea Nitrogen 13 mg/dL (9-20); Calcium 9.1 mg/dL (8.4-10.2); Carbon Dioxide 24 mmol/L (22-30); Chloride 103 mmol/L (98-107); Estimated Glomerular Filt Rate > 60; Glucose 111 mg/dL (65-110); Potassium 3.6 mmol/L (3.4-5.0); Sodium 137 mmol/L (137-145)
[2023-03-03 08:49] LABS: Influenza A QL RT-PCR Negative (Negative); Influenza B QL RT-PCR Negative (Negative); RSV RNA, RT-PCR Negative (Negative); SARS-CoV-2 RNA PCR Negative (Negative)
[2023-03-03 09:55] LABS: Anisocytosis 1+ (NORMAL); Ovalocytes 1+ (NORMAL); Platelet Estimate Decreased (Adequate); Schistocytes None Seen (NORMAL)
== END 2023-03-03 07:45 | disposition home or self-care (01) ==
LOC: ANHLAB 07:45
PROVIDERS: PCP Family Medicine; Referring Provider Physician Assistant; Visit Provider Family Medicine
DX: D64.9 Anemia, unspecified (principal); K31.819 Angiodysplasia of stomach and duodenum without bleeding; K74.60 Unspecified cirrhosis of liver; R74.8 Abnormal levels of other serum enzymes; D50.9 Iron deficiency anemia, unspecified; J02.9 Acute pharyngitis, unspecified; Z20.822 Contact with and (suspected) exposure to COVID-19
CPT/HCPCS: 36415; 80053; 85025; 87637

== ENCOUNTER 2023-03-16 07:58 | Emergency (ER) | payer OTHER, SELFPAY ==
[2023-03-16] VITALS (23 sets, daily range): BP systolic 103–143; BP diastolic 65–89; PULSE 87–98; RESP 15–28; TEMP 36.9; O2SAT 94–100
--- NOTE | ~2023-03-16 | CT_ITS ---
EXAMINATION: CT brain wo con DATE: 03/16/2023 09:39 INDICATION: History of cancer. Dizziness and lightheadedness. TECHNIQUE: Computed tomography (CT) of the head was performed without intravenous contrast. The dose- length product was 681.00 mGy-cm. Automated exposure control and iterative reconstruction technique w ere employed. COMPARISON: None FINDINGS: There is a 1.2 x 1.0 cm hyperdense mass, likely extra-axial in the right parietal location, image 42. No ventriculomegaly or midline shift. Basilar cisterns are patent. Normal marin-white diffe rentiation. There is mucosal thickening of the maxillary sinuses, left greater than right. Mastoids a re pneumatized. No depressed skull fractures. IMPRESSION: 1. Hyperdense 1.2 cm right parietal mass, likely extra-axial. Differential diagnosis includes meningi duane and metastatic disease. Primary malignancy less favored. Recommend correlation with CT or MRI wit hout and with contrast. Reviewed, dictated and finalized at location B. IMPRESSION: 1. Hyperdense 1.2 cm right parietal mass, likely extra-axial. Differential diag nosis includes meningioma and metastatic disease. Primary malignancy less favor ed. Recommend correlation with CT or MRI without and with contrast.
--- NOTE | ~2023-03-16 | CT_ITS ---
EXAMINATION: CTA brain DATE: 03/16/2023 11:00 INDICATION: 1.2 cm right parietal mass TECHNIQUE: Computed tomographic angiography (CTA) of the head was performed with 100 mL Omnipaque-350 intravenous contrast. Volume-rendered and maximum intensity projection 3D reconstructions of the int racranial arteries were created by the technologist on a separate workstation. Automated exposure con trol and iterative reconstruction technique were employed. The dose-length product was 630.69 mGy-cm. COMPARISON: None. FINDINGS: Small amount of nonhemodynamically significant atherosclerotic plaque at the bilateral carotid siphon s. There is no hemodynamically significant stenosis in the vertebral, basilar and internal carotid ar teries. Vertebral arteries are codominant. There are no aneurysms identified. Both A1 and P1 segment s are patent. Cerebral arborization appears symmetric. There is enhancement of the previous noted 1.2 cm relatively high attenuation extra-axial mass in the right parietal region. No evident feeding ves jacqui identified. No other abnormally enhancing brain lesions. IMPRESSION: 1. 1.2 cm enhancing extra-axial mass in the right parietal lesion with relatively high attenuation on precontrast imaging which would be most consistent with and statistically most likely to represent a meningioma. If the patient has a known known history of prior cancer, the differential would also in clude metastatic disease. 2. Normal CT angiogram of the cerebral arteries with no evident aneurysm or hemodynamically significa nt stenosis. Reviewed, dictated and finalized at location A. IMPRESSION: 1. 1.2 cm enhancing extra-axial mass in the right parietal lesion with relative ly high attenuation on precontrast imaging which would be most consistent with and statistically most likely to represent a meningioma. If the patient has a k nown known history of prior cancer, the differential would also include metasta tic disease. 2. Normal CT angiogram of the cerebral arteries with no evident aneurysm or hem odynamically significant stenosis.
--- NOTE | 2023-03-16 08:29 | ECG_ITS ---
Measurements Intervals [place] Rate: 89 P: 24 NC: 159 QRS: 11 QRSD: 89 T: 12 QT: 376 QTc: 458 Interpretive Statements SINUS RHYTHM BORDERLINE T WAVE ABNORMALITY- INFERIOR LEADS BORDERLINE ECG COMPARED TO ECG 12/01/2020 17:40:27 SINUS RHYTHM NOW PRESENT Electronically Signed On 03-16-2023 8:33:52 CDT by Darren Carson D.O.
[2023-03-16 09:04] LABS: Basophils Percent Auto 0.5 % (0.2-1.2); Eosinophils Absolute Auto 0.1 K/mm3 (0-0.3); Eosinophils Percent Auto 0.7 % (0-4.4); Hematocrit 32.3 % (42.0-52.0); Hemoglobin 9.7 g/dL (14.0-18.0); Immature Granulocyte Absolute 0.02 K/mm3 (0.00-0.031); Immature Granulocyte Percent A 0.3 % (0-0.5); Lymphocytes Absolute Auto 0.61 K/mm3 (0.9-3.2); Lymphocytes Percent Auto 8.1 % (18.3-44.2); Mean Corpuscular Volume 69.8 fl (80-100); Mean Platelet Volume 9.1 fl (7.4-10.4); Monocytes Absolute Auto 0.7 K/mm3 (0.1-0.6); Neutrophils Absolute Auto 6.1 K/mm3 (1.3-6.7); Neutrophils Percent Auto 81.4 % (45.5-73.1); Platelet Count Result 178 k/mm3 (150-375); Red Blood Count 4.63 M/mm3 (4.6-6.20); Red Cell Distribution Width 19.6 % (11.5-14.5); White Blood Count 7.5 K/mm3 (4.5-10.0)
[2023-03-16] MEDS: SODIUM CHLORIDE 0.9% IV 1,000 ML 999 ML IV CONT ×2 (09:09→12:38)
[2023-03-16 09:11] LABS: Alanine Aminotransferase 46 U/L (6-50); Albumin Level 4.4 g/dL (3.5-5.1); Alkaline Phosphatase 172 U/L (38-126); Anion Gap 11 mmol/L (8-16); Aspartate Amino Transferase 182 U/L (17-59); Bilirubin,Total 1.6 mg/dL (0.2-1.3); Blood Urea Nitrogen 10 mg/dL (9-20); Calcium 9.2 mg/dL (8.4-10.2); Carbon Dioxide 25 mmol/L (22-30); Chloride 98 mmol/L (98-107); Estimated CRCL calculation 137 ml/min; Estimated Glomerular Filt Rate > 60; Glucose 127 mg/dL (65-110); Lactic Acid Reflex 1.6 mmol/L (0.7-2.0); Lipase 206 U/L (23-300); Potassium 3.8 mmol/L (3.4-5.0); Sodium 134 mmol/L (137-145)
--- NOTE | 2023-03-16 09:36 | ED.GENADULT ---
HPI - General Adult General Chief complaint: Dizziness Stated complaint: lightheaded/tingling Time Seen by Provider: 03/16/23 08:02 History of Present Illness HPI narrative: 53-year-old male presented to the emergency department for evaluation of lightheaded and dizziness. Patient states symptoms have been ongoing for the last few days. Patient states he has been working hard the last few days and suspects he may be dehydrated. Patient denies any current chest pain or shortness of breath. Patient denies any abdominal pain nausea vomiting or diarrhea. Patient denies any blood in the stool denies any pain with urination. Patient does have a prior history of prostate cancer approximately 11 years ago. Related Data Home Medications Medication Instructions Recorded Confirmed risankizumab-rzaa 150 mg/mL See Rx Instructions .Route .COMPLEX 05/24/21 01/23/23 subcutaneous pen injector (Skyrizi) pantoprazole 40 mg tablet,delayed 40 mg PO DAILY 09/23/21 01/23/23 release Allergies Allergy/AdvReac Type Severity Reaction Status Date / Time No Known Allergies Allergy Verified 03/16/23 08:43 Review of Systems Review of Systems: All systems reviewed & are unremarkable except as noted in HPI and below PMFSH Past Medical History Medical History Acute blood loss anemia Alcohol abuse Alcoholic liver disease 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 DEBRA (obstructive sleep apnea) Peptic ulcer disease Portal hypertensive gastropathy Prostate cancer Psoriasis Psoriatic arthritis Psoriatic arthritis Watermelon stomach Surgical History Surgical History H/O rectal polypectomy History of colonoscopy 05/2020 internal external hemorrhoids noted History of esophagogastroduodenoscopy (EGD) Performed by Dr. Vigil 05/2020 demonstrated, NO VARICES History of hernia repair History of penile implant Performed by Dr. Lucero June 2019 History of radical prostatectomy July 2012 in [place] due to prostate cancer with positive pelvic lymph nodes followed by radiation therapy and 3 years of Lupron completed in 2014 Family History Family History Mother In good health Hepatitis A Hypertension Father In good health Dementia Sibling In good health Social History Social History Social History: He is . He has 1 daughter. He has a 20 pack per year smoking history and quit smoking at age 42. He lives in a multi generation home with his mother father and brother. 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 the patient does not have a durable power real estate associate attorney for healthcare. code status full code Smoking packs per day: 1 Smoking cigarettes per day: 20.0 Years smoked: 20 Smoking pack-years: 20.00 Smoking status: Former smoker Tobacco type: cigarettes Second hand tobacco smoke exposure: No Smoking end date: 08/04/11 Alcohol intake: former Substance use: never Substance use type: does not use Lack of Transportation: No Lack of Food: Never True Current Housing: I Have Housing Concerned About Future Housing: No Difficulty Paying Gas/Electric Bills: No Difficulty Paying for Meds: No Currently Unemployed: No Education: Decline to Answer Difficulty w/ Childcare or Family Care: No Living arrangements: with family Additional living arrangements comments: Pt daughter lives with him. Occupation/Education: occupation
[2023-03-16 09:47] LABS: Anisocytosis 1+ (NORMAL); Hypochromasia 1+ (NORMAL); Ovalocytes 1+ (NORMAL); Platelet Estimate Adequate (Adequate); Schistocytes None Seen (NORMAL)
[2023-03-16 10:27] LABS: Appearance Urine Clear (Clear); Bilirubin Urine Negative (Negative); Blood Urine Negative (Negative); Color Urine Dark Yellow (Yellow); Glucose Urine UA Negative (Negative); Ketones Urine 1+ mg/dL (Negative); Leukocyte Esterase Ur Negative LEU/UL (Negative); Nitrate Urine Negative (Negative); Protein Urine Negative (Negative); Specific Grav Ur 1.016 (1.001-1.035); pH Urine 7.5 (5.0-9.0)
[2023-03-16 10:30] LABS: Add Urine Microscopic? NO
--- NOTE | 2023-03-16 11:10 | PC.NURSE ---
Report received from Sabine WATSON at this time
== END 2023-03-16 13:46 | disposition home or self-care (01) ==
PROVIDERS: Emergency Provider Emergency Medicine; PCP Family Medicine
DX: E86.0 Dehydration (principal); R42 Dizziness and giddiness; E78.5 Hyperlipidemia, unspecified; I10 Essential (primary) hypertension; G47.33 Obstructive sleep apnea (adult) (pediatric); Z87.11 Personal history of peptic ulcer disease; L40.50 Arthropathic psoriasis, unspecified; K31.819 Angiodysplasia of stomach and duodenum without bleeding; K76.6 Portal hypertension; K70.9 Alcoholic liver disease, unspecified; K31.89 Other diseases of stomach and duodenum; Z85.46 Personal history of malignant neoplasm of prostate; Z90.79 Acquired absence of other genital organ(s); Z92.3 Personal history of irradiation; Z87.891 Personal history of nicotine dependence; R94.31 Abnormal electrocardiogram [ECG] [EKG]; G93.9 Disorder of brain, unspecified
CPT/HCPCS: 36415; 70450; 70496; 80053; 81003; 83605; 83690; 85025; 93005; 96360; 96361; 99284; J7030; Q9967

== ENCOUNTER 2023-04-16 07:55 | Outpatient (CLI) | payer OTHER, SELFPAY ==
--- NOTE | ~2023-04-16 | US_ITS ---
US abdomen limited INDICATION: Abnormal laboratory studies. PROCEDURE: Realtime right upper abdominal ultrasound. COMPARISON: CT dated 11/24/2022 and ultrasound dated 10/11/2021 FINDINGS: The pancreas is normal without focal mass or pancreatic ductal dilation. Liver echotexture is increased and diffusely heterogeneous. Liver surface is nodular, compatible with cirrhosis. Ther e is normal directional flow in the portal vein. There is gallbladder sludge. Common bile duct measures 5 mm. No sonographic Starks's sign. IMPRESSION: 1: Gallbladder sludge. 2: Cirrhosis of the liver. Reviewed, dictated and finalized at location []
== END 2023-04-16 07:56 | disposition home or self-care (01) ==
LOC: ANHIMG 07:57
PROVIDERS: PCP Family Medicine; Visit Provider Nurse Practitioner
DX: R79.89 Other specified abnormal findings of blood chemistry (principal); K74.60 Unspecified cirrhosis of liver; R74.8 Abnormal levels of other serum enzymes; D50.9 Iron deficiency anemia, unspecified
CPT/HCPCS: 76705

== ENCOUNTER 2023-04-24 00:38 | Day surgery (SDC) | payer OTHER, SELFPAY ==
[2023-04-19 09:30] VITALS: BMI 31.1
[2023-04-24 10:36] VITALS: BMI 30.1
[2023-04-24 10:39] VITALS: BP 104/62; PULSE 103; RESP 20; TEMP 36.5; O2SAT 97
[2023-04-24] MEDS: LACTATED RINGERS 1,000 ML 150 ML IV CONT (10:50)
--- NOTE | 2023-04-24 10:56 | PM.HPGS ---
History of Present Illness History of Present Illness Consent: Risks, benefits, and alternatives have been discussed and questions answered. Patient agrees to proceed with procedure. Chief complaint: hx colon polyps,Unspecified cirrhosis of liver Narrative: Ken Aquino is a 53 year old male with cirrhosis and known karma with nodular GAVE that has required several EGD with apc treatment, last colonoscopy 2019 with several polyps. Review of Systems Constitutional: Constitutional: Denies headache(s) and Denies weakness Eyes: Eyes: Denies blurry vision ENT: Reports Normal hearing present, Denies headache(s) and Denies neck pain Cardiovascular: Cardiovascular: Denies chest pain and Denies dyspnea Respiratory: Respiratory: Denies dyspnea Gastrointestinal: Gastrointestinal: Reports no additional gastrointestinal complaints Genitourinary: Genitourinary: Denies dysuria Musculoskeletal: Musculoskeletal: Denies neck pain Integumentary/Breasts: Skin/Breast: Denies dry skin Neurologic: Reports Normal hearing present, Denies headache(s) and Denies weakness Psychiatric: Psychiatric: Denies anxiety Endocrine: Endocrine: Denies change in body appearance Hematologic/Lymphatic: Hematologic/Lymphatic: Denies easy bleeding Allergic/Immunologic: Allergic/Immunologic: Denies urticaria PMFSH Past Medical History Medical History (Updated 03/21/23 @ 12:54 by Marleny Cat APRN) Acute blood loss anemia Alcohol abuse Alcoholic liver disease Elevated LFTs 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 DEBRA (obstructive sleep apnea) Peptic ulcer disease Portal hypertension Portal hypertensive gastropathy Prostate cancer Psoriasis Psoriatic arthritis Psoriatic arthritis Watermelon stomach Surgical History Surgical History H/O rectal polypectomy History of colonoscopy 05/2020 internal external hemorrhoids noted History of esophagogastroduodenoscopy (EGD) Performed by Dr. Vigil 05/2020 demonstrated, NO VARICES History of hernia repair History of penile implant Performed by Dr. Lucero June 2019 History of radical prostatectomy July 2012 in [place] due to prostate cancer with positive pelvic lymph nodes followed by radiation therapy and 3 years of Lupron completed in 2014 Family History Family History Mother In good health Hepatitis A Hypertension Father In good health Dementia Sibling In good health Social History Social History Social History: He is . He has 1 daughter. He has a 20 pack per year smoking history and quit smoking at age 42. He lives in a multi generation home with his mother father and brother. 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 the patient does not have a durable power ip technology transactions attorney for healthcare. code status full code Smoking packs per day: 1 Smoking cigarettes per day: 20.0 Years smoked: 20 Smoking pack-years: 20.00 Smoking status: Former smoker Tobacco type: cigarettes Second hand tobacco smoke exposure: No Smoking end date: 08/04/11 Alcohol intake: former Substance use: never Substance use type: does not use Lack of Transportation: No Lack of Food: Never True Current Housing: I Have Housing Concerned About Future Housing: No Difficulty Paying Gas/Electric Bills: No Difficulty Paying for Meds: No Currently Unemployed: No Education: Decline to Answer Difficulty w/ Childcare or Family Care: No Beatrice
--- NOTE | 2023-04-24 10:59 | WPDANESEPPF ---
Anes - Initial Pre Proc Eval Procedure: Operation Date: 04/24/23 12:30 Proposed Procedures p Esophagogastroduodenoscopy & Colonoscopy - Henry Vigil MD Date/Time: 04/24/23 10:59 Surgeon: Henry Vigil MD Pre Op Diagnosis: hx colon polyps,Unspecified cirrhosis of liver Patient Data Age: 53 Gender: M Height: 1.85 m Weight: 103.6 kg Last Vital Signs Temp 97.7 F 04/24/23 10:39 Pulse 103 H 04/24/23 10:39 Resp 20 04/24/23 10:39 BP 104/62 04/24/23 10:39 Pulse Ox 97 04/24/23 10:39 O2 Del Method Room Air 04/24/23 10:39 Allergies Allergy/AdvReac Type Severity Reaction Status Date / Time No Known Allergies Allergy Verified 04/19/23 09:29 Home Medications Medication Instructions Recorded Confirmed Type risankizumab-rzaa 150 mg/mL See Rx Instructions .Route .COMPLEX 05/24/21 04/24/23 History subcutaneous pen injector (Jolanta) pantoprazole 40 mg tablet,delayed 40 mg PO DAILY 09/23/21 04/24/23 History release amlodipine 10 mg tablet 10 mg PO DAILY #90 tabs 01/12/23 04/24/23 Rx hydrochlorothiazide 25 mg tablet 25 mg PO QAM #90 tabs 01/12/23 04/24/23 Rx lisinopril 10 mg tablet 10 mg PO DAILY #90 tabs 01/23/23 04/24/23 Rx nadolol 20 mg tablet 20 mg PO DAILY #90 tabs 01/23/23 04/24/23 Rx oxycodone 5 mg tablet 5 mg PO Q6H PRN pain #90 tabs 04/17/23 04/24/23 Rx Patient hx anesthesia problems: none Family hx anesthesia problems: none Results Review: All pre-operative results and documents have been reviewed as part of the pre-operative evaluation. 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 DEBRA (obstructive sleep apnea) Peptic ulcer disease Portal hypertension Portal hypertensive gastropathy Prostate cancer Psoriasis Psoriatic arthritis Psoriatic arthritis Watermelon stomach Surgical History Surgical History H/O rectal polypectomy History of colonoscopy 05/2020 internal external hemorrhoids noted History of esophagogastroduodenoscopy (EGD) Performed by Dr. Vigil 05/2020 demonstrated, NO VARICES History of hernia repair History of penile implant Performed by Dr. Lucero June 2019 History of radical prostatectomy July 2012 in [place] due to prostate cancer with positive pelvic lymph nodes followed by radiation therapy and 3 years of Lupron completed in 2014 Family History Family History Mother In good health Hepatitis A Hypertension Father In good health Dementia Sibling In good health Social History Social History Social History: He is . He has 1 daughter. He has a 20 pack per year smoking history and quit smoking at age 42. He lives in a multi generation home with his mother father and brother. 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 the patient does not have a durable power corporate attorney for healthcare. code status full code Smoking packs per day: 1 Smoking cigarettes per day: 20.0 Years smoked: 20 Smoking pack-years: 20.00 Smoking status: Former smoker Tobacco type: cigarettes Second hand tobacco smoke exposure: No Smoking end date: 08/04/11 Alcohol intake: former Substance use: never Substance use type: does not use Lack of Transportation: No Lack of Food: Never True Current Housing:
[2023-04-24] MEDS: BENZOCAINE (*SP) 60 ML SPRAY CAN (HURRICAINE) 1 SPRAY MUCOUS MEM (11:14)
--- NOTE | 2023-04-24 11:15 | SUR.OPER ---
EGD end 1111 COLONOSCOPY START 1114
[2023-04-24 11:36] VITALS: BP 102/59; PULSE 85; RESP 17; O2SAT 98
[2023-04-24 11:46] VITALS: BP 114/67; PULSE 89; RESP 16; O2SAT 98
[2023-04-24 11:56] VITALS: BP 115/69; PULSE 87; RESP 18; O2SAT 97
== END 2023-04-24 12:14 | disposition home or self-care (01) ==
PROVIDERS: PCP Family Medicine; Visit Provider Internal Medicine Gastroenterology
PROC: 0DJ08ZZ Inspection of Upper Intestinal Tract, Via Natural or Artificial Opening Endoscopic (ICD-10-PCS; CPT 43235; principal; 2023-04-24 12:30)
DX: Z12.11 Encounter for screening for malignant neoplasm of colon (principal); D17.5 Benign lipomatous neoplasm of intra-abdominal organs; Z86.010 Personal history of colon polyps; K70.30 Alcoholic cirrhosis of liver without ascites; K31.819 Angiodysplasia of stomach and duodenum without bleeding; D50.9 Iron deficiency anemia, unspecified; I10 Essential (primary) hypertension; E78.5 Hyperlipidemia, unspecified; G47.33 Obstructive sleep apnea (adult) (pediatric); L40.50 Arthropathic psoriasis, unspecified; L40.9 Psoriasis, unspecified; D49.89 Neoplasm of unspecified behavior of other specified sites; K76.6 Portal hypertension; K31.89 Other diseases of stomach and duodenum; Z79.620 Long term (current) use of immunosuppressive biologic; Z79.891 Long term (current) use of opiate analgesic; Z85.46 Personal history of malignant neoplasm of prostate; Z92.3 Personal history of irradiation; Z87.891 Personal history of nicotine dependence; E66.9 Obesity, unspecified; Z68.30 Body mass index [BMI] 30.0-30.9, adult
CPT/HCPCS: 45378; J2704; J7120

== ENCOUNTER 2023-07-24 07:44 | Outpatient (CLI) | payer OTHER, SELFPAY ==
[2023-07-24 08:21] LABS: Basophils Percent Auto 0.9 % (0.2-1.2); Eosinophils Absolute Auto 0.1 K/mm3 (0-0.3); Eosinophils Percent Auto 2.7 % (0-4.4); Hematocrit 35.1 % (42.0-52.0); Immature Granulocyte Absolute 0.01 K/mm3 (0.00-0.031); Immature Granulocyte Percent A 0.2 % (0-0.5); Lymphocytes Absolute Auto 0.94 K/mm3 (0.9-3.2); Lymphocytes Percent Auto 21.3 % (18.3-44.2); Mean Corpuscular HGB Conc 31.3 g/dl (32-36); Mean Corpuscular Hemoglobin 23.2 pg (26-34); Mean Corpuscular Volume 73.9 fl (80-100); Mean Platelet Volume 9.8 fl (7.4-10.4); Monocytes Absolute Auto 0.4 K/mm3 (0.1-0.6); Monocytes Percent Auto 9.3 % (2.6-8.5); Neutrophils Absolute Auto 2.9 K/mm3 (1.3-6.7); Neutrophils Percent Auto 65.6 % (45.5-73.1); Platelet Count Result 187 k/mm3 (150-375); Red Blood Count 4.75 M/mm3 (4.6-6.20); Red Cell Distribution Width 20.2 % (11.5-14.5); White Blood Count 4.4 K/mm3 (4.5-10.0)
[2023-07-24 08:23] LABS: Appearance Urine Clear (Clear); Bilirubin Urine Negative (Negative); Blood Urine Negative (Negative); Color Urine Yellow (Yellow); Glucose Urine UA Negative (Negative); Ketones Urine Negative (Negative); Leukocyte Esterase Ur Negative LEU/UL (Negative); Nitrate Urine Negative (Negative); Protein Urine Negative (Negative); Specific Grav Ur 1.019 (1.001-1.035); pH Urine 6.5 (5.0-9.0)
[2023-07-24 08:39] LABS: Add Urine Microscopic? NO
[2023-07-24 08:43] LABS: Alanine Aminotransferase 19 U/L (6-50); Albumin Level 4.2 g/dL (3.5-5.1); Alkaline Phosphatase 98 U/L (38-126); Anion Gap 9 mmol/L (8-16); Aspartate Amino Transferase 48 U/L (17-59); Bilirubin,Total 0.8 mg/dL (0.2-1.3); Blood Urea Nitrogen 15 mg/dL (9-20); Calcium 9.3 mg/dL (8.4-10.2); Carbon Dioxide 27 mmol/L (22-30); Chloride 102 mmol/L (98-107); Estimated Glomerular Filt Rate > 60; Glucose 108 mg/dL (65-110); Potassium 3.1 mmol/L (3.4-5.0); Sodium 138 mmol/L (137-145)
[2023-07-24 08:57] LABS: Iron 53 ug/dL (49-181)
[2023-07-24 09:01] LABS: Anisocytosis 1+ (NORMAL); Hypochromasia 1+ (NORMAL); Microcytosis 1+ (NORMAL); Platelet Estimate Adequate (Adequate); Schistocytes None Seen (NORMAL)
[2023-07-24 09:07] LABS: Percent Iron Saturation 12 % (20-50)
== END 2023-07-24 07:45 | disposition home or self-care (01) ==
LOC: ANHLAB 07:45
PROVIDERS: PCP Family Medicine; Visit Provider Physician Assistant
DX: K55.20 Angiodysplasia of colon without hemorrhage (principal); D64.9 Anemia, unspecified; K31.819 Angiodysplasia of stomach and duodenum without bleeding; R35.0 Frequency of micturition
CPT/HCPCS: 36415; 80053; 81003; 82607; 83540; 83550; 85025

== ENCOUNTER 2023-10-02 02:40 | Day surgery (SDC) | payer OTHER, SELFPAY ==
[2023-09-12 15:10] VITALS: BMI 28.5
--- NOTE | 2023-10-01 09:29 | SUR.PREOP ---
Patient called regarding upcoming procedure. Reviewed preop instructions, appointment times, and procedure prep.
[2023-10-02 11:30] VITALS: BP 124/74; PULSE 80; RESP 18; TEMP 36.2; O2SAT 99
[2023-10-02] MEDS: LACTATED RINGERS 1,000 ML 150 ML IV CONT (11:39)
--- NOTE | 2023-10-02 11:44 | WPDANESEPPF ---
Anes - Initial Pre Proc Eval Procedure: Operation Date: 10/02/23 13:00 Proposed Procedures p Esophagogastroduodenoscopy EGD - Henry Vigil MD Date/Time: 10/02/23 11:44 Surgeon: Henry Vigil MD Pre Op Diagnosis: GAVE (watermelon stomach) Patient Data Age: 53 Gender: M Height: 1.85 m Weight: 104.8 kg Last Vital Signs Temp 97.1 F L 10/02/23 11:30 Pulse 80 10/02/23 11:30 Resp 18 10/02/23 11:30 BP 124/74 10/02/23 11:30 Pulse Ox 99 10/02/23 11:30 O2 Del Method Room Air 10/02/23 11:30 Allergies Allergy/AdvReac Type Severity Reaction Status Date / Time No Known Allergies Allergy Verified 10/02/23 11:28 Home Medications Medication Instructions Recorded Confirmed Type risankizumab-rzaa 150 mg/mL See Rx Instructions .Route .COMPLEX 05/24/21 09/17/23 History subcutaneous pen injector (Jolanta) nadolol 20 mg tablet 20 mg PO DAILY #90 tabs 01/23/23 09/17/23 Rx amlodipine 10 mg tablet 10 mg PO DAILY #90 tabs 07/23/23 09/17/23 Rx hydrochlorothiazide 25 mg tablet 25 mg PO QAM #90 tabs 07/23/23 09/17/23 Rx lisinopril 10 mg tablet 10 mg PO DAILY #90 tabs 08/23/23 09/17/23 Rx oxycodone 5 mg tablet 5 mg PO Q6H PRN pain #90 tabs 08/27/23 09/17/23 Rx cetirizine 10 mg tablet (Zyrtec) 10 mg PO DAILY 09/12/23 09/17/23 History Patient hx anesthesia problems: none Family hx anesthesia problems: none Results Review: All pre-operative results and documents have been reviewed as part of the pre-operative evaluation. 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 DEBRA (obstructive sleep apnea) Peptic ulcer disease Portal hypertension Portal hypertensive gastropathy Prostate cancer Psoriasis Psoriatic arthritis Psoriatic arthritis Watermelon stomach Surgical History Surgical History H/O rectal polypectomy History of colonoscopy 05/2020 internal external hemorrhoids noted History of esophagogastroduodenoscopy (EGD) Performed by Dr. Vigil 05/2020 demonstrated, NO VARICES History of hernia repair History of penile implant Performed by Dr. Lucero June 2019 History of radical prostatectomy July 2012 in [place] due to prostate cancer with positive pelvic lymph nodes followed by radiation therapy and 3 years of Lupron completed in 2014 Family History Family History Mother In good health Hepatitis A Hypertension Father In good health Dementia Sibling In good health Social History Social History Social History: He is . He has 1 daughter. He has a 20 pack per year smoking history and quit smoking at age 42. He lives in a multi generation home with his mother father and brother. 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 code status full code Smoking packs per day: 1 Smoking cigarettes per day: 20.0 Years smoked: 20 Smoking pack-years: 20.00 Smoking status: Former smoker Tobacco type: cigarettes Second hand tobacco smoke exposure: No Smoking end date: 08/04/11 Alcohol intake: former Substance use: never Substance use type: marijuana Lack of Transportation: No Lack of Food: Never True Current Housing: I Have Housing
--- NOTE | 2023-10-02 12:23 | PM.HPGS ---
History of Present Illness History of Present Illness Consent: Risks, benefits, and alternatives have been discussed and questions answered. Patient agrees to proceed with procedure. Chief complaint: GAVE (watermelon stomach) Narrative: Ken Aquino is a 53 year old male with cirrhosis and chronic anemia with GAVE treated in the past multiple times with APC, h/h stable Review of Systems Constitutional: Constitutional: Denies headache(s) and Denies weakness Eyes: Eyes: Denies blurry vision ENT: Reports Normal hearing present, Denies headache(s) and Denies neck pain Cardiovascular: Cardiovascular: Denies chest pain and Denies dyspnea Respiratory: Respiratory: Denies dyspnea Gastrointestinal: Gastrointestinal: Reports no additional gastrointestinal complaints Genitourinary: Genitourinary: Denies dysuria Musculoskeletal: Musculoskeletal: Denies neck pain Integumentary/Breasts: Skin/Breast: Denies dry skin Neurologic: Reports Normal hearing present, Denies headache(s) and Denies weakness Psychiatric: Psychiatric: Denies anxiety Endocrine: Endocrine: Denies change in body appearance Hematologic/Lymphatic: Hematologic/Lymphatic: Denies easy bleeding Allergic/Immunologic: Allergic/Immunologic: Denies urticaria PMFSH Past Medical History Medical History (Updated 09/17/23 @ 10:16 by Marleny Cat APRN) Acute blood loss anemia Alcohol abuse Alcoholic liver disease Elevated LFTs Gallbladder sludge 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 DEBRA (obstructive sleep apnea) Peptic ulcer disease Portal hypertension Portal hypertensive gastropathy Prostate cancer Psoriasis Psoriatic arthritis Psoriatic arthritis Watermelon stomach Surgical History Surgical History H/O rectal polypectomy History of colonoscopy 05/2020 internal external hemorrhoids noted History of esophagogastroduodenoscopy (EGD) Performed by Dr. Vigil 05/2020 demonstrated, NO VARICES History of hernia repair History of penile implant Performed by Dr. Lucero June 2019 History of radical prostatectomy July 2012 in [place] due to prostate cancer with positive pelvic lymph nodes followed by radiation therapy and 3 years of Lupron completed in 2014 Family History Family History Mother In good health Hepatitis A Hypertension Father In good health Dementia Sibling In good health Social History Social History Social History: He is . He has 1 daughter. He has a 20 pack per year smoking history and quit smoking at age 42. He lives in a multi generation home with his mother father and brother. 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 the patient does not have a durable power criminal attorney for healthcare. code status full code Smoking packs per day: 1 Smoking cigarettes per day: 20.0 Years smoked: 20 Smoking pack-years: 20.00 Smoking status: Former smoker Tobacco type: cigarettes Second hand tobacco smoke exposure: No Smoking end date: 08/04/11 Alcohol intake: former Substance use: never Substance use type: marijuana Lack of Transportation: No Lack of Food: Never True Current Housing: I Have Housing Concerned About Future Housing: No Difficulty Paying Gas/Electric Bills: No Difficulty Paying for Meds: No Currently Unemployed: No Education: Decline to Answer Difficulty w/ Childcare or Family Care: No Living arrangements: with family
[2023-10-02] MEDS: BENZOCAINE (*SP) 60 ML SPRAY CAN (HURRICAINE) 1 SPRAY MUCOUS MEM (12:26)
[2023-10-02 12:36] VITALS: BP 98/62; PULSE 76; RESP 17; O2SAT 97
[2023-10-02 12:46] VITALS: BP 99/68; PULSE 78; RESP 19; O2SAT 96
[2023-10-02 13:01] VITALS: BP 99/68; PULSE 76; RESP 17; O2SAT 95
== END 2023-10-02 13:05 | disposition home or self-care (01) ==
PROVIDERS: PCP Family Medicine; Visit Provider Internal Medicine Gastroenterology
PROC: 0DJ08ZZ Inspection of Upper Intestinal Tract, Via Natural or Artificial Opening Endoscopic (ICD-10-PCS; CPT 43235; principal; 2023-10-02 13:00)
DX: K31.819 Angiodysplasia of stomach and duodenum without bleeding (principal); E78.5 Hyperlipidemia, unspecified; I10 Essential (primary) hypertension; D64.9 Anemia, unspecified; G47.33 Obstructive sleep apnea (adult) (pediatric); K74.60 Unspecified cirrhosis of liver; L40.9 Psoriasis, unspecified; E66.9 Obesity, unspecified; Z68.30 Body mass index [BMI] 30.0-30.9, adult; F12.90 Cannabis use, unspecified, uncomplicated; Z87.891 Personal history of nicotine dependence; Z79.891 Long term (current) use of opiate analgesic; Z79.85 Long-term (current) use of injectable non-insulin antidiabetic drugs; Z86.010 Personal history of colon polyps; Z85.46 Personal history of malignant neoplasm of prostate
CPT/HCPCS: 43255; J2704; J7120

== ENCOUNTER 2023-10-11 09:56 | Outpatient (CLI) | payer OTHER, SELFPAY ==
--- NOTE | ~2023-10-11 | US_ITS ---
US abdomen limited INDICATION: Anemia. Cirrhosis. PROCEDURE: Realtime right upper abdominal ultrasound. COMPARISON: No prior studies for comparison. FINDINGS: The pancreas is normal without focal mass or pancreatic ductal dilation. Liver echotexture is increased and somewhat heterogeneous, consistent with fatty infiltration. There is nodularity to the liver surface, compatible with cirrhosis No focal hepatic masses. There is reversal flow in the portal vein, suspicious for portal hypertension. There are gallstones. Mild gallbladder wall thickening. Common bile duct measures 4 mm. No sonograp hic Starks's sign. IMPRESSION: 1: Cirrhosis of the liver with reversal of portal venous flow, consistent with portal hypertension. 2: Gallstones with gallbladder wall thickening. Reviewed, dictated and finalized at location L. ART DIRECTOR
== END 2023-10-11 09:57 | disposition home or self-care (01) ==
LOC: ANHIMG 09:58
PROVIDERS: PCP Family Medicine; Visit Provider Nurse Practitioner
DX: K55.20 Angiodysplasia of colon without hemorrhage (principal); R79.89 Other specified abnormal findings of blood chemistry; K74.60 Unspecified cirrhosis of liver; D64.9 Anemia, unspecified; K82.4 Cholesterolosis of gallbladder
CPT/HCPCS: 76705

== ENCOUNTER 2023-11-29 09:15 | Outpatient (CLI) | payer OTHER, SELFPAY ==
[2023-11-29 09:48] LABS: Hematocrit 42.5 % (42.0-52.0); Hemoglobin 13.6 g/dL (14.0-18.0); Mean Corpuscular Hemoglobin 27.9 pg (26-34); Mean Corpuscular Volume 87.1 fl (80-100); Mean Platelet Volume 9.8 fl (7.4-10.4); Platelet Count Result 124 k/mm3 (150-375); Red Blood Count 4.88 M/mm3 (4.6-6.20); Red Cell Distribution Width 18.6 % (11.5-14.5); White Blood Count 4.8 K/mm3 (4.5-10.0)
[2023-11-29 09:58] LABS: Alanine Aminotransferase 29 U/L (6-50); Albumin Level 3.8 g/dL (3.5-5.1); Alkaline Phosphatase 143 U/L (38-126); Anion Gap 9 mmol/L (8-16); Aspartate Amino Transferase 117 U/L (17-59); Bilirubin,Total 1.7 mg/dL (0.2-1.3); Blood Urea Nitrogen 13 mg/dL (9-20); Calcium 8.7 mg/dL (8.4-10.2); Carbon Dioxide 24 mmol/L (22-30); Chloride 107 mmol/L (98-107); Cholesterol 172 mg/dL (0-200); Estimated Glomerular Filt Rate > 60; Glucose 103 mg/dL (65-110); HDL Direct 39 mg/dL; Potassium 4.2 mmol/L (3.4-5.0); Sodium 140 mmol/L (137-145); Triglycerides 67 mg/dL (<150)
[2023-11-29 10:02] LABS: Iron 67 ug/dL (49-181)
[2023-11-29 10:09] LABS: LDL Cholesterol Direct 112 mg/dL
[2023-11-29 10:12] LABS: Percent Iron Saturation 19 % (20-50)
== END 2023-11-29 09:16 | disposition home or self-care (01) ==
PROVIDERS: PCP Family Medicine; Referring Provider Internal Medicine Hematology & Oncology; Visit Provider Family Medicine
DX: E78.2 Mixed hyperlipidemia (principal); I10 Essential (primary) hypertension; D50.9 Iron deficiency anemia, unspecified; K55.20 Angiodysplasia of colon without hemorrhage; D64.9 Anemia, unspecified
CPT/HCPCS: 36415; 80053; 80061; 82728; 83540; 83550; 85027

== ENCOUNTER 2024-02-22 10:46 | Outpatient (CLI) | payer OTHER, SELFPAY ==
--- NOTE | ~2024-02-22 | US_ITS ---
EXAMINATION: US soft tissue groin RT DATE: 02/22/2024 11:53 INDICATION: Right inguinal mass with pain. TECHNIQUE: Multiple grayscale and Doppler ultrasound images of the right groin were obtained. COMPARISON: None FINDINGS: There is a small right inguinal hernia. IMPRESSION: 1. Small right inguinal hernia. Reviewed, dictated and finalized at location E.
== END 2024-02-22 10:47 ==
PROVIDERS: PCP Family Medicine; Visit Provider Family Medicine
DX: K40.90 Unilateral inguinal hernia, without obstruction or gangrene, not specified as recurrent (principal)
CPT/HCPCS: 76882

== ENCOUNTER 2024-02-22 10:49 | Outpatient (CLI) | payer OTHER, SELFPAY ==
--- NOTE | ~2024-02-22 | US_ITS ---
Limited Abdominal Sonogram: Real-time sonographic imaging of the right upper quadrant was performed. Clinical History: Hepatic cirrhosis Findings: The liver appears heterogeneous, with no evidence of mass lesion or bile duct dilatation. Main portal vein demonstrates hepatofugal flow. The gallbladder is well distended, and contains tiny layering gallstones. The common bile duct measures 4 mm. The visualized pancreas, aorta, and IVC are unremarkable. Impression: Heterogeneous hepatic echotexture could reflect fatty infiltration or other chronic liver disease. Hepatofugal flow in the main portal vein is indicative of underlying portal hypertension. Cholelithiasis. Reviewed, dictated and finalized at location . Impression: Heterogeneous hepatic echotexture could reflect fatty infiltration or other chr onic liver disease. Hepatofugal flow in the main portal vein is indicative of underlying portal hyp ertension. Cholelithiasis.
== END 2024-02-22 10:50 ==
PROVIDERS: PCP Family Medicine; Visit Provider Nurse Practitioner
DX: K74.60 Unspecified cirrhosis of liver (principal); K80.20 Calculus of gallbladder without cholecystitis without obstruction
CPT/HCPCS: 76705

== ENCOUNTER 2024-02-22 11:47 | Outpatient (CLI) | payer OTHER, SELFPAY ==
[2024-02-22 12:43] LABS: Basophils Percent Auto 0.6 % (0.2-1.2); Eosinophils Absolute Auto 0.1 K/mm3 (0-0.3); Hematocrit 43.1 % (42.0-52.0); Hemoglobin 14.7 g/dL (14.0-18.0); Immature Granulocyte Absolute 0.01 K/mm3 (0.00-0.031); Immature Granulocyte Percent A 0.2 % (0-0.5); Lymphocytes Absolute Auto 0.62 K/mm3 (0.9-3.2); Lymphocytes Percent Auto 12.8 % (18.3-44.2); Mean Corpuscular HGB Conc 34.1 g/dl (32-36); Mean Corpuscular Hemoglobin 30.9 pg (26-34); Mean Corpuscular Volume 90.7 fl (80-100); Mean Platelet Volume 10.1 fl (7.4-10.4); Monocytes Absolute Auto 0.4 K/mm3 (0.1-0.6); Monocytes Percent Auto 8.4 % (2.6-8.5); Neutrophils Absolute Auto 3.7 K/mm3 (1.3-6.7); Platelet Count Result 146 k/mm3 (150-375); Red Blood Count 4.75 M/mm3 (4.6-6.20); Red Cell Distribution Width 16.5 % (11.5-14.5); White Blood Count 4.9 K/mm3 (4.5-10.0)
[2024-02-22 12:54] LABS: Alanine Aminotransferase 62 U/L (6-50); Albumin Level 4.3 g/dL (3.5-5.1); Alkaline Phosphatase 147 U/L (38-126); Anion Gap 9 mmol/L (4-12); Aspartate Amino Transferase 205 U/L (17-59); Blood Urea Nitrogen 10 mg/dL (9-20); Calcium 9.1 mg/dL (8.4-10.2); Carbon Dioxide 22 mmol/L (22-30); Chloride 110 mmol/L (98-107); Estimated Glomerular Filt Rate > 60; Glucose 102 mg/dL (65-110); INR 1.3; Potassium 4.1 mmol/L (3.4-5.0); Sodium 141 mmol/L (137-145)
[2024-02-25 07:39] LABS: Alpha Fetoprotein Tumor Marker 4.1 ng/mL (<6.1)
== END 2024-02-22 11:48 | disposition home or self-care (01) ==
LOC: ANHLAB 11:50
PROVIDERS: PCP Family Medicine; Visit Provider Nurse Practitioner
DX: K74.60 Unspecified cirrhosis of liver (principal)
CPT/HCPCS: 36415; 80053; 82105; 85025; 85610; 86480

== ENCOUNTER 2024-02-22 11:52 | Outpatient (CLI) | payer OTHER, SELFPAY ==
[2024-02-26 13:44] LABS: NIL 0.01 IU/mL; Quantiferon TB Plus, 1T NEGATIVE (NEGATIVE)
== END 2024-02-22 11:53 | disposition home or self-care (01) ==
LOC: ANHLAB 11:53
PROVIDERS: PCP Family Medicine; Visit Provider Dermatology
DX: L40.0 Psoriasis vulgaris (principal)
CPT/HCPCS: 36415; 86480

== ENCOUNTER 2024-03-15 11:21 | Outpatient (CLI) | payer OTHER, SELFPAY ==
[2024-03-15 12:05] LABS: INR 1.3; Prothrombin Time 16.4 Seconds (11.1-14.7)
[2024-03-15 12:06] LABS: Partial Thromboplastin Time 35.7 Seconds (22.3-36.8)
== END 2024-03-15 11:22 | disposition home or self-care (01) ==
LOC: ANHLAB 11:23
PROVIDERS: PCP Family Medicine; Visit Provider Anesthesiology
DX: K70.30 Alcoholic cirrhosis of liver without ascites (principal); Z01.818 Encounter for other preprocedural examination
CPT/HCPCS: 36415; 85610; 85730

== ENCOUNTER 2024-03-17 01:44 | Day surgery (SDC) | payer OTHER, SELFPAY ==
[2024-03-14 10:22] VITALS: BMI 28.4
--- NOTE | 2024-03-14 10:30 | PC.NURSE ---
Report to the Outpatient Waiting Room, entrance under the green pavilion located off [facility], at time _1000_ on date _[id number]_. Planned Procedure Time: _1200_. Time changes happen often and if your time is changed the preop area will call you the afternoon before. - You and your visitor will be asked to self-screen and do not enter if you have any COVID symptoms. - A mask is optional within the hospital at this time. Patients may have clear liquids (water, carbonated beverages, clear teas, apple juice) until 3 hours prior to surgery with a maximum of 20 ounces. - No food from midnight until time of surgery Take the following medications with a SIP of water the morning of surgery: __Amlodipine and Nadolol__If needed may use pain medication____ DO NOT STOP ANY OF YOUR OTHER PRESCRIPTION MEDICATIONS PRIOR TO SURGERY ?EXCEPT THE FOLLOWING Medications to discontinue per physician None Date to take last dose Please no make-up, nail nigerien, hairspray, perfume, deodorant, or body powder the day of surgery. No jewelry (including any body piercings) or valuables the day of surgery, leave them at home. Please take a shower or bath the night before, or the morning of, surgery with an antibacterial soap. Wear comfortable, loose fitting clothing. - Jewelry must be removed prior to entering the operating room. Rings and piercings that are not removed may be cut off. - The hospital will not accept responsibility for valuables. - Please leave all valuables, including medications, at home the day of surgery. If you are going home after surgery, a licensed local [place] truck driver must drive you home. - NO public transportation without another adult if you receive anesthesia. - We recommend that an adult stay with you for 24 hours following discharge. - We also recommend that you do not drive, make important decision, drink alcoholic beverages, or take any drugs that were not prescribed by your health care provider for at least 24 hours after your discharge time. Follow any additional instructions given to you from your surgeon. If you or anyone in your household have experienced Covid symptoms in the past week, please notify your surgeon or the nurse liaison at the phone number below for possible testing. Telephone instructions given to ___Darren__and asked if any additional questions and then verbalized understanding. Patient advised to call surgeon office or pre surgery nurse liaison [phone] if any additional questions.
[2024-03-17] VITALS (10 sets, daily range): BP systolic 126–155; BP diastolic 68–98; PULSE 68–82; RESP 12–20; TEMP 36.4–36.9; O2SAT 92–100
[2024-03-17] MEDS: KETOROLAC 15 MG/ML VIAL (*BKC) IV PUSH ×2 (11:16→13:34)
[2024-03-17] MEDS: ACETAMINOPHEN 500 MG TABLET 1000 MG PO (11:16)
--- NOTE | 2024-03-17 11:24 | WPDHPUPDATE1 ---
History and Physical Update Update Date/Time: 03/17/24 11:24 History and Physical has been reviewed, including an updated exam of the patient. There are NO changes in the patient's condition. Risks, benefits, and alternatives have been discussed and questions answered. Patient agrees to proceed with procedure.
--- NOTE | 2024-03-17 11:43 | WPDANESEPPF ---
Anes - Initial Pre Proc Eval Procedure: Operation Date: 03/17/24 12:00 Proposed Procedures p Open Right Inguinal Hernia Repair with Mesh - Ruel Platt MD Date/Time: 03/17/24 11:43 Surgeon: Ruel Platt MD Pre Op Diagnosis: Reducible right Inguinal Hernia Patient Data Age: 54 Gender: M Height: 1.85 m Weight: 97 kg Last Vital Signs Temp 98.4 F 03/17/24 10:30 Pulse 80 03/17/24 10:30 Resp 18 03/17/24 10:30 BP 136/83 03/17/24 10:30 Pulse Ox 100 03/17/24 10:30 O2 Del Method Room Air 03/17/24 10:30 Allergies Allergy/AdvReac Type Severity Reaction Status Date / Time No Known Allergies Allergy Verified 03/17/24 11:15 Home Medications Medication Instructions Recorded Confirmed Type amlodipine 10 mg tablet 10 mg PO DAILY #90 tabs 07/23/23 03/17/24 Rx cetirizine 10 mg tablet (Zyrtec) 10 mg PO DAILY 09/12/23 03/17/24 History lisinopril 10 mg tablet 10 mg PO DAILY #90 tabs 01/15/24 03/17/24 Rx nadolol 20 mg tablet 20 mg PO DAILY #90 tabs 01/15/24 03/17/24 Rx guselkumab 100 mg/mL subcutaneous 100 mg subcut ONCE 02/19/24 03/17/24 History auto-injector (Tremfya) oxycodone 5 mg tablet 5 mg PO Q6H PRN pain #90 tabs 03/04/24 03/17/24 Rx Patient hx anesthesia problems: none Family hx anesthesia problems: none Results Review: All pre-operative results and documents have been reviewed as part of the pre-operative evaluation. 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 DEBRA (obstructive sleep apnea) Peptic ulcer disease Portal hypertension Portal hypertensive gastropathy Prostate cancer Psoriasis Psoriatic arthritis Psoriatic arthritis Watermelon stomach Surgical History Surgical History (Updated 03/05/24 @ 15:15 by Priyanka Cunha [facility]) H/O rectal polypectomy History of colonoscopy 05/2020 internal external hemorrhoids noted History of esophagogastroduodenoscopy (EGD) Performed by Dr. Vigil 05/2020 demonstrated, NO VARICES History of hernia repair History of penile implant Performed by Dr. Lucero June 2019 History of radical prostatectomy July 2012 in [place] due to prostate cancer with positive pelvic lymph nodes followed by radiation therapy and 3 years of Lupron completed in 2014 Family History Family History Mother In good health Hepatitis A Hypertension Father In good health Dementia Sibling In good health Social History Social History (Updated 03/05/24 @ 14:32 by Maribeth Suresh MA) Social History: He is . He has 1 daughter. He has a 20 pack per year smoking history and quit smoking at age 42. He lives in a multi generation home with his mother father and brother. 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 code status full code Smoking packs per day: 1 Smoking cigarettes per day: 20.0 Years smoked: 20 Smoking pack-years: 20.00 Smoking status: Former smoker Tobacco type: cigarettes and e-cigarettes/vaping Second hand tobacco smoke exposure: No Smoking end date: 03/14/12 Alcohol intake: current Drinks per week: 7 Substance use: never Substance use type: marijuana Other substance usage details: gummies cbd to sleep Do You Feel Safe in your Home?: Yes Lack of Transportation: No Lack of Food: Never True Sanam
[2024-03-17] MEDS: ceFAZolin 2 GM/D5W 50 ML 2 GM/50 ML BAG IVPB (12:04)
[2024-03-17] MEDS: BUPivacaine HCL 0.5% PF 30 ML VIAL 20 ML INFILTRATE (13:09)
[2024-03-17] MEDS: LIDO 1%/EPINEPHRINE 1:100,000 20 ML VIAL INFILTRATE (13:10)
[2024-03-17] MEDS: LACTATED RINGERS 1,000 ML 30 ML IV CONT (14:04)
--- NOTE | 2024-03-17 14:10 | W.PM.PROC2 ---
Procedure Note - Detailed Date of Procedure 03/17/24 Pre-op Diagnosis Reducible right Inguinal Hernia Post-op Diagnosis Same Procedure Performed Open right inguinal hernia repair with [facility] mesh Surgeon Ruel Platt MD Heart Nurse [facility] Anest[facility] General Indications Patient is a 54-year-old gentleman who presents with pain in the right groin region associated the right groin bulge. On examination he has a reducible right inguinal hernia. Presents now for an elective open right inguinal hernia repair with mesh. Findings Moderate-sized reducible indirect right inguinal hernia. Description of Procedure After informed consent was obtained patient brought to the operating room placed supine position and general LMA anesthesia was administered. The bilateral abdomen and lower groin regions were then prepped and draped usual sterile fashion. Time-out was then performed correctly identifying the patient as well as procedure to be performed. Site marking was verified he was given perioperative IV antibiotics. I then made a transverse incision just about 2 fingerbreadths above the right pubic tubercle. Dissection then carried down through subcu tissue electrocautery and the Beatriz's fascia was then divided electrocautery. The external oblique aponeurosis was encountered the external ring was identified. Subcutaneous tissue was dissected off the external oblique aponeurosis. I then incised the external oblique aponeurosis along the direction of his fibers. This done with a scalpel. Then utilizing electrocautery I opened the external oblique aponeurosis and out through the external ring. I further the external oblique aponeurosis from the surrounding cremasteric muscle fibers with blunt finger and electrocautery dissection. I then encircled the spermatic cord at the pubic tubercle blunt finger dissection and placed a [place] drain around it to aid with retraction. I then further divided cremasteric muscle fibers of further mobilized the cord. Looking at the floor of the inguinal canal there is no evidence of direct inguinal defect. I then explored the cord by dividing some of the cremasteric muscle fibers and identified an indirect inguinal hernia sac. The hernia sac was dissected free of the surrounding structures and the vas deferens and testicular vessels were preserved without injury. Hernia sac was then dissected all the little of the internal ring and then reduced back into the preperitoneal space. With retractors in the dilated internal ring I dissected out the home myopectineal orifice deep to the inferior epigastric vessels. I then chose a large piece of Ultrapro hernia system mesh for the repair. The underlay portion of mesh was placed to the dilated internal ring into the preperitoneal space deep to the inferior epigastric vessels. Delay patch was then spread out to cover the whole pectineal orifice. The connecting cylindrical portion of mesh came out through the dilated internal ring and then the overlay patch was secured over the floor of the inguinal canal. There was a patch was secured to the tissues at the pubic tubercle with interrupted 2-0 Vicryl sutures. A slit was then cut nearly passed a common cord structures and the edge of the patch were reapproximated around the cord lies interrupted 2-0 Vicryl sutures. Additional interrupted 2-0 Vicryl sutures were then used to secure the medial edge of the overlay patch to the internal oblique muscle fibers. Laterally the overlay patch secured to the shelving edge of the external oblique aponeurosis utilizing interrupted 2-0 Vicryl sutures. The anal canal was irrigated sterile saline solution hemostasis was excellent. The only passed in a very nicely without any tension. I then closed the external oblique aponeurosis utilizing a running 3-0 Vicryl suture. The external ring was recreated left widely patent. I irrigated incision 1 last time and then injected with 1% lidoca
[2024-03-17] MEDS: oxyCODONE HCL (*CRX) 5 MG TAB IR PO (15:17)
== END 2024-03-17 17:00 | disposition home or self-care (01) ==
PROVIDERS: PCP Family Medicine; Visit Provider Surgery
PROC: (CPT 49505; principal; 2024-03-17 12:00)
DX: K40.90 Unilateral inguinal hernia, without obstruction or gangrene, not specified as recurrent (principal); I10 Essential (primary) hypertension; E78.5 Hyperlipidemia, unspecified; D62 Acute posthemorrhagic anemia; G47.33 Obstructive sleep apnea (adult) (pediatric); K70.30 Alcoholic cirrhosis of liver without ascites; F10.10 Alcohol abuse, uncomplicated; K31.819 Angiodysplasia of stomach and duodenum without bleeding; Z79.891 Long term (current) use of opiate analgesic; Z98.890 Other specified postprocedural states; Z96.0 Presence of urogenital implants; Z87.891 Personal history of nicotine dependence; Z86.010 Personal history of colon polyps; Z92.3 Personal history of irradiation; Z85.46 Personal history of malignant neoplasm of prostate
CPT/HCPCS: 49505; 36415; 85610; 85730; A9270; C1781; J0690; J1100; J1885; J2250; J3010; J7120

== ENCOUNTER 2024-08-20 08:29 | Outpatient (CLI) | payer OTHER, SELFPAY ==
[2024-08-20 09:43] LABS: Basophils Percent Auto 0.5 % (0.2-1.2); Eosinophils Absolute Auto 0.1 K/mm3 (0-0.3); Eosinophils Percent Auto 2.3 % (0-4.4); Hematocrit 41.2 % (42.0-52.0); Hemoglobin 14.4 g/dL (14.0-18.0); Immature Granulocyte Absolute 0.02 K/mm3 (0.00-0.031); Immature Granulocyte Percent A 0.3 % (0-0.5); Lymphocytes Absolute Auto 1.19 K/mm3 (0.9-3.2); Lymphocytes Percent Auto 19.4 % (18.3-44.2); Mean Corpuscular Hemoglobin 30.4 pg (26-34); Mean Corpuscular Volume 87.1 fl (80-100); Mean Platelet Volume 10.5 fl (7.4-10.4); Monocytes Absolute Auto 0.4 K/mm3 (0.1-0.6); Monocytes Percent Auto 7.2 % (2.6-8.5); Neutrophils Absolute Auto 4.3 K/mm3 (1.3-6.7); Neutrophils Percent Auto 70.3 % (45.5-73.1); Platelet Count Result 166 k/mm3 (150-375); Red Blood Count 4.73 M/mm3 (4.6-6.20); Red Cell Distribution Width 14.1 % (11.5-14.5); White Blood Count 6.1 K/mm3 (4.5-10.0)
[2024-08-20 09:52] LABS: INR 1.3; Prothrombin Time 16.6 Seconds (11.1-14.7)
[2024-08-20 10:23] LABS: Alanine Aminotransferase 15 U/L (6-50); Albumin Level 3.7 g/dL (3.5-5.1); Alkaline Phosphatase 90 U/L (38-126); Anion Gap 9 mmol/L (4-12); Aspartate Amino Transferase 43 U/L (17-59); Bilirubin,Total 0.7 mg/dL (0.2-1.3); Blood Urea Nitrogen 14 mg/dL (9-20); Calcium 9.4 mg/dL (8.4-10.2); Carbon Dioxide 22 mmol/L (22-30); Chloride 110 mmol/L (98-107); Estimated Glomerular Filt Rate > 60; Glucose 95 mg/dL (65-110); Potassium 3.9 mmol/L (3.4-5.0); Sodium 141 mmol/L (137-145)
[2024-08-22 10:54] LABS: Alpha Fetoprotein Tumor Marker 2.9 ng/mL (<6.1)
== END 2024-08-20 08:30 | disposition home or self-care (01) ==
LOC: ANHLAB 08:34
PROVIDERS: PCP Family Medicine; Visit Provider Nurse Practitioner
DX: K74.60 Unspecified cirrhosis of liver (principal)
CPT/HCPCS: 36415; 80053; 82105; 85025; 85610

== ENCOUNTER 2024-09-04 09:45 | Outpatient (CLI) | payer OTHER, SELFPAY ==
[2024-09-04 10:58] LABS: Alanine Aminotransferase 19 U/L (6-50); Alkaline Phosphatase 90 U/L (38-126); Aspartate Amino Transferase 56 U/L (17-59); Bilirubin,Total 1.2 mg/dL (0.2-1.3)
[2024-09-08 15:29] LABS: PSA, Free >17.0 ng/mL; PSA, Total 46.7 ng/mL (< OR = 4.0); Percent Free Prostate Spec Ag NOT CALCULATED % (calc) (>25)
== END 2024-09-04 09:46 | disposition home or self-care (01) ==
PROVIDERS: PCP Family Medicine
DX: K74.60 Unspecified cirrhosis of liver (principal); C61 Malignant neoplasm of prostate; C77.2 Secondary and unspecified malignant neoplasm of intra-abdominal lymph nodes
CPT/HCPCS: 36415; 80076; 84153; 84154

== ENCOUNTER 2024-12-06 09:32 | Outpatient (CLI) | payer OTHER, SELFPAY ==
--- OUTSIDE RECORDS SUMMARY | 2024-12-06 09:39 | XMS_ITS | Clinical Summary ---
Author Organization [facility] Address [address] [place] [address] Care Team Providers Care Boring Machine Set Up Operator Jig Name Role Phone Felice Schmitt MD Unavailable [phone] Jesse Griggs MD Unavailable [phone] Unknown, Notinfile Primary Care Provider Unavail able Allergies No known active allergies Medications amLODIPine (NORVASC) 10 mg tablet daily. Active calcium carbonate-vit palacios D3 1,500 mg (600mg elemental) -800 unit per tablet daily Active lisinopril (PRINIVIL,ZES TRIL) 40 mg tablet daily. Active cyanocobalami n, vitamin B-12, 1,000 mcg tablet extended release daily Active vitamin E (AQUASOL E) 400 unit capsule daily Active metoprolol (LOPRESSOR) 50 mg tablet Take 1 tablet (50 mg total) by mouth daily Active cetirizine (ZyrTEC) 10 mg tablet Take 1 tablet (10 mg total) by mouth as needed Active oxyCODONE (ROXICODONE) 5 mg immediate release tabletIndicat ions:Pain Take 1 tablet (5 mg total) by mouth every 4 (four) hours as needed for pain 20 tablet 019 Active COSENTYX PEN, 2 PENS, pen injector INJECT TWO PENS SUBCUTANEOUSLY EVERY 4 WEEKS. REFRIGERATE. ALLOW 15 TO30 MINUTES AT ROOM TEMP PRIOR TO ADMINISTRATION. 2 pen 3 019 Active nadoloL (CORGARD) 20 mg tablet Take 1 tablet (20 mg total) by mouth every morning 021 Active bimekizumab-b kzx (BIMZELX SUBQ) Inject 150 mg under the skin Active enzalutamide (XTANDI) 80 mg tabletIndicat ions:Primary malignant neoplasm of prostate (HCC) Take 2 tablets (160 mg total) by mouth daily Take with or without food at the same time each day. Do not crush, break, or dissolve. Swallow tablet whole. 60 tablet 5 025 2024 Active risankizumab- rzaa (Skyrizi) 150 mg/mL pen injector Inject under the skin Active hydroCHLOROth iazide (HYDRODIURIL) 25 mg tablet daily 2024 Discontinued(T herapy completed) sulfamethoxaz ole-trimethop rim (BACTRIM,Jul) 400-80 mg per tablet Take 1 tablet by mouth daily 7 tablet 019 2024 Discontinued oxyCODONE-santiago taminophen (PERCOCET) 5-325 mg per tablet Take by mouth every 6 (six) hours as needed [address] (PROTONIX) 40 mg EC tablet Take 1 tablet (40 mg total) by mouth every morning 021 2024 Discontinued bicalutamide (CASODEX) 50 mg tablet Take 1 tablet (50 mg total) by mouth daily To start day after PET scan 30 tablet 024 2024 Discontinued Active Problems Problem Noted Date Diagnosed Date Renal mass 11/18/2024 Umbilical hernia without obstruction and without gangrene 05/10/2019 Meningioma 05/06/2019 Brain mass 05/06/2019 Sudden left hearing loss 01/31/2019 Assessment & Plan (01/31/2019 10:49 AM CDT): Check MRI to r/o retrocochlear pathology. IT dex done once- just outside typical window. RTC 2 mos with repeat audio- briefly discussed BAHA, CROS, CI. Gross hematuria 04/29/2018 Hypertension 03/21/2017 ED (erectile dysfunction) of organic origin 03/05 Primary malignant neoplasm of prostate 7 Cancer Staging:Pathologic stage from 09/30/2024:Stage IV(T3b, N1, cM0, PSA: 20 or greater, Jia 8-10) - Signed by Jesse Griggs MD on 09/30/2024 Psoriatic arthritis 03/07/2017 Resolved Problems Problem Noted Date Diagnosed Date Resolved Date Post-operative state 07/22/2019 019 Erectile dysfunction due to diseases classified elsewhere 05/26/2019 09/09/2019 Overview (05/26/2019): Added automatically from request for surgery [id number] IRINEO (acute kidney injury) 10/23/2018 Acute renal failure superimp osed on chronic kidney disease 04/29/2018 09/09/2019 Encounters Date Type Department Care Team Description 12/04/2024 Orders Only [facility] [address] [place] [address] Office [facility] [address] [place] [phone] Felice Schmitt MD Gross hematuria (Primary Dx); Prostate cancer (HCC) 11/18/2024 Telephone [facility] [address] [place] [address] [place] [phone] Peyton Hauser 11/13/2024 2:00 PM DEPUTY CLERK OF COURT Office Visit [facility] [address] [place] [phone] Jesse Griggs MD Primary malignant neoplasm of prostate (HCC); Prostate cancer (HCC) 11/13/2024 1:15 PM DEPUTY CLERK OF COURT Lab [facility] - Lab Collection [address] [facility] Floor 5 [place] [address] Primary malignant neoplasm of prostate (HCC); Prostate cancer (HCC) 11/13/2024 1:00 PM DEPUTY CLERK OF COURT Lab [facility] Lab [facility] [address] [place] [address] Primary malignant neoplasm of prostate (HCC); Prostate cancer (HCC) 11/11/2024 Telephone [facility] [address] [place] [address] Jany Powell RMA 11/06/2024 Telephone [facility] [address] [place] [address] Deya Powell CPhT 11/04/2024 Orders Only [facility] [address] [place] [phone] Jerri Jones Primary malignant neoplasm of prostate (HCC) (Primary Dx) 11/03/2024 Orders Only [facility] [address] [place] [phone] Jesse Griggs MD 10/23/2024 2:00 PM DEPUTY CLERK OF COURT Infusion [facility]fusion [address] [facility] [address] [place] [address] Primary malignant neoplasm of prostate (HCC) (Primary Dx) 10/17/2024 Orders Only [facility] [address] [place] [phone] Jesse Griggs MD 10/07/2024 12:39 PM DEPUTY CLERK OF COURT - 10/07/2024 11:59 PM DEPUTY CLERK OF COURT Hospital Encounter [facility] [address] [place] [phone] Discharge Disposition: Discharge to home or self care 10/07/2024 12:39 PM DEPUTY CLERK OF COURT - 10/07/2024 11:59 PM DEPUTY CLERK OF COURT Hospital Encounter [facility]) [address] [place] [phone] Prostate cancer (HCC) Discharge Disposition: Discharge to home or self care 09/30/2024 2:00 PM DEPUTY CLERK OF COURT Lab [address] [address] Primary malignant neoplasm of prostate (HCC); Prostate cancer (HCC) 09/30/2024 1:00 PM DEPUTY CLERK OF COURT Office Visit [facility] [address] [place] [phone] Jesse Griggs MD Primary malignant neoplasm of prostate (HCC) (Primary Dx); Prostate cancer (HCC) 09/26/2024 Orders Only [facility] [address] [facility] Medical Office Building [address] [place] [address] Felice Schmitt MD Prostate cancer (HCC) (Primary Dx) 09/23/2024 Telephone [facility] [address] [facility] 11th [place] [address] [place] [address] Junior Wetzel 09/19/2024 7:07 PM DEPUTY CLERK OF COURT - 09/19/2024 11:59 PM DEPUTY CLERK OF COURT Hospital Encounter [facility] [address] [place] [address] Diagnosis unknown Discharge Disposition: Discharge to home or self care 09/17/2024 9:00 AM DEPUTY CLERK OF COURT Office Visit [facility] [address] [facility] 11th [place] [address] [place] [address] Felice Schmitt MD Prostate cancer (HCC) (Primary Dx); Elevated PSA 09/16/2024 Orders Only [facility] Felice Schmitt MD from Last 3 Months Immunizations Name Administration Dates Next Due Hep A, Adult 04/15/2007,06/02/2006 Gigit (J&J) SARS-CoV-2 Vaccination 01/11/2021 Surgical History Surgery Date Site/Laterality Comments PROSTATE SURGERY PROSTATECTOMY with removal of 35 lymph nodes Medical History Medical History Date Comments Hypertension Psoriasis Psoriatic arthritis (HCC) Sleep apnea Umbilical hernia Prostate cancer, primary, wi th metastasis from prostate to other site (HCC) lymph nodes Hx of radiation therapy Brain mass Hearing loss left IRINEO (acute kidney injury) (HCC) recovered Family History Medical History Relation Name Comments No Known Problems Father Liver cancer Maternal Grandfather Family history of liver cancer - (Added by TW Conv) Hypertension Mother Relation Name Status Comments Father Alive Maternal Grandfather Mother Alive Social History Tobacco Use Types Packs/Day Years Used Date Smoking Tobacco: Former Cigarettes Q uit: 06/24/2012 Passive Smoke Exposure: Past Smokeless Tobacco: Current Snuff Tobacco Cessation:Ready to Q uit: Not Asked; Counseling Given: Not Answered Alcohol Use Standard Drinks/Week Comments Not Currently 0 (1 standard drink = 0.6 oz pur e alcohol) Sex and Gender Information Value Date Recorded Sex Assigned at Not on file Legal Sex Male 1:35 PM CDT Gender Identity Not on file Sexual Orientation Not on file Obstetrics History Last Filed Vital Signs Vital Sign Reading Time Taken Comments Blood Pressure 118/73 11/13/2024 1:47 PM DEPUTY CLERK OF COURT Pulse 71 11/13/2024 1:47 PM DEPUTY CLERK OF COURT Temperature 36 ??C (96.8 ??F) 11/13/2024 1:47 PM DEPUTY CLERK OF COURT Respiratory Rate 16 11/13/2024 1:47 PM DEPUTY CLERK OF COURT Oxygen Saturation 98% 11/13/2024 1:47 PM DEPUTY CLERK OF COURT Inhaled Oxygen Concentration - - Weight 103.5 kg (228 lb 3.2 oz) 11/13/2024 1:47 PM DEPUTY CLERK OF COURT Height 181 cm (5' 11.26 ) 09/30/2024 12 :46 PM DEPUTY CLERK OF COURT Body Mass Index 31.6 09/30/2024 12:46 PM DEPUTY CLERK OF COURT Plan of Treatment Upcoming Encounters Date Type Department Care Team (Late st Contact Info) Description 12/23/2024 7:30 AM DEPUTY CLERK OF COURT Hospital Encounter [facility] Operating Room [address] [place] [phone] Felice Schmitt MD [id number] [facility] [place] [address] 12/23/2024 7:30 AM DEPUTY CLERK OF COURT - 12/23/2024 12:25 PM DEPUTY CLERK OF COURT Surgery [facility] Operating Room [address] [place] [address] Felice Schmitt MD [id number] [facility] [place] [address] XI PARTIAL NEPHRECTOMY - LAPAROSCOPIC ROBOTIC ASSISTED-RETROPERITO JONG Scheduled Procedures Name Priority Associated Diagnoses Date/Ti me XI PARTIAL NEPHRECTOMY - LAPAROSCOPIC ROBOTIC ASSISTED Renal mass 12/23/2024 7:30 AM DEPUTY CLERK OF COURT Health Maintenance Due Date Last Done Comments Colon Cancer Screening-Colonoscopy 1971 Depression Screening 1971 Pneumococcal vaccine <65 (1 of 2 - PCV) 1977 DTaP/Tdap/Td Vaccine (1 - Tdap) 1982 Hepatitis B Screening 1989 Regular Well Visit/Exam 18-64 1989 Zoster Vaccine (1 of 2) 1990 Covid-19 Vaccine (2 - Homero risk series) 02/08/2021 01/11/2021 Influenza Vaccine (#1) 2024 Prostate Cancer Screening-PSA 11/13/2026 11/13/2024, 09/30/2024 Hepatitis C Screening Completed 03/07/2017 Medical Devices Implanted Type Area Plant Controls Specialist Device Identifier Shelf Expiration Date Model / Serial / Lot [employer] Inc/C R Bard [id number] Ventralight St Sepra 4.5in Uncoated Monofilament Lightweight - [id number] Implanted:Qty: 1 on 06/30/2019 by Carlos Lucero MD at [facility] Mesh N/A: Umbilical [employer]/C R Bard 12/02/2020 [id number] / / [id number] [employer] [id number] Ams 700 Kit Accessory Penile Prosthesis - [id number] Implanted:Qty: 1 on 06/30/2019 by Carlos Lucero MD at [facility] N/A: Penis [employer] [id number] 04/12/2024 [id number] / / [id number] [employer] [id number] Ams Spectra 1.5cm Concealable Rear Tip Quality Control Lab Technician Snapcone - [id number] Implanted:Qty: 1 on 06/30/2019 by Carlos Lucero MD at [facility] N/A: Penis [employer] [id number] 01/22/2024 [id number] / / [id number] [employer] [id number] Ams 700 Lgx Ms Pump 18cm 3 Piece Inflatable Preconnect Infrapubic - [id number] Implanted:Qty: 1 on 06/30/2019 by Carlos Lucero MD at [facility] N/A: Penis [employer] [id number] 09/10/2020 [id number] / / [id number] [employer] [id number] Ams 700 Ms Pump Preconnect Inflatable [place] Prosthesis 65ml - [id number] Implanted:Qty: 1 on 06/30/2019 by Carlos Lucero MD at [facility] N/A: Abdomen [employer] [id number] 05/14/2021 [id number] / / [id number] Procedures Procedure Name Priority Date/Time Associated Diagnosis Comments EGFR Routine 11/13/2024 1:20 PM DEPUTY CLERK OF COURT Primary malignant neoplasm of prostate (HCC) Prostate cancer (HCC) DIFFERENTIAL AUTO Routine 11/13/2024 1:2 0 PM DEPUTY CLERK OF COURT Primary malignant neoplasm of prostate (HCC) Prostate cancer (HCC) COMPREHENSIVE METABOLIC PANEL Routine 11/13/2024 1:20 PM DEPUTY CLERK OF COURT Primary malignant neoplasm of prostate (HCC) Prostate cancer (HCC) PSA DIAGNOSTIC Routine 11/13/2024 1:20 PM DEPUTY CLERK OF COURT Primary malignant neoplasm of prostate (HCC) Prostate cancer (HCC) TOTAL TESTOSTERONE Routine 11/13/2024 1: 20 PM DEPUTY CLERK OF COURT Primary malignant neoplasm of prostate (HCC) Prostate cancer (HCC) CBC WITH AUTO DIFFERENTIAL Routine 11/13/2024 1:20 PM DEPUTY CLERK OF COURT Primary malignant neoplasm of prostate (HCC) Prostate cancer (HCC) PET/CT PROSTATE CANCER PSMA SKULL TO THIGH Schedule Routine, Read Routine (OP Routine) 10/07/2024 4:24 PM DEPUTY CLERK OF COURT Prostate cancer (HCC) EGFR Routine 09/30/2024 2:27 PM DEPUTY CLERK OF COURT Primary malignant neoplasm of prostate (HCC) Prostate cancer (HCC) DIFFERENTIAL AUTO Routine 09/30/2024 2:2 7 PM DEPUTY CLERK OF COURT Primary malignant neoplasm of prostate (HCC) Prostate cancer (HCC) PSA DIAGNOSTIC Routine 09/30/2024 2:27 PM DEPUTY CLERK OF COURT Primary malignant neoplasm of prostate (HCC) Prostate cancer (HCC) TOTAL TESTOSTERONE Routine 09/30/2024 2: 27 PM DEPUTY CLERK OF COURT Primary malignant neoplasm of prostate (HCC) Prostate cancer (HCC) CBC WITH AUTO DIFFERENTIAL Routine 09/30/2024 2:27 PM DEPUTY CLERK OF COURT Primary malignant neoplasm of prostate (HCC) Prostate cancer (HCC) COMPREHENSIVE METABOLIC PANEL Routine 09/30/2024 2:27 PM DEPUTY CLERK OF COURT Primary malignant neoplasm of prostate (HCC) Prostate cancer (HCC) TEMPUS XG HEREDITARY CANCER NGS PANEL Routine 09/30/2024 2:18 PM DEPUTY CLERK OF COURT Primary malignant neoplasm of prostate (HCC) Prostate cancer (HCC) MR BODY OUTSIDE CONSULT Routine 09/19/2024 7:07 PM DEPUTY CLERK OF COURT Diagnosis unknown SCAN - LABS 09/16/2024 HEPATITIS C ANTIBODY Routine Gen Lab 03/07/2017 9:12 AM CDT from Last 3 Months or Most Recently Relevant to Health Maintenance Results * eGFR (11/13/2024 1:20 PM DEPUTY CLERK OF COURT) eGFR >90 >=60 mL/min/1. 73 m2 Comment: Interpretive Data Reference Interval Normal ?>/= 90 mL/min/1.73m2 Mildly decreased* ? 60 - 89 mL/min/1.73m2 Mildly to moderately decreased ?45 - 59 mL/min/1.73m2 Moderately to severely decreased ??30 - 44 mL/min/1.73m2 Severely decreased ?15 - 29 mL/min/1.73m2 Kidney Failure ?< 15 ??mL/min/1.73m2 *Relative to young adult level Estimated glomerular filtration rate is determined by the 2020 CKD-EPI equation recommended by the National Kidney Foundation (A Unifying Approach to GFR Estimation: Recommendations of the NKF-ASK Task Force on Reassessing the Inclusion of Race in Diagnosing Kidney Disease, JASN 2020). The CKD-EPI equation should not be used for patients with unstable renal function and has not been validated in children and those over 70. Current interpretive data was last reviewed 2021. Blood 11/13/2024 1:20 PM DEPUTY CLERK OF COURT 11/13/2024 1:23 PM DEPUTY CLERK OF COURT us Jesse Griggs MD LAB BLOOD ORDERABLES Fin al Result [facility] Department [place] [address] * Differential, auto (11/13/2024 1:20 PM DEPUTY CLERK OF COURT) Neutrophil abs 4.1 1.5 - 6.5 K/cumm Comment:Testing performed by : [facility], [address] [place] [phone] Lymphocyte abs 1.0 0.8 - 3.3 K/cumm [facility] Comment:Testing performed by : [facility], [address] [place] [phone] Monocyte abs 0.5 0.2 - 0.8 K/cumm [facility] Comment:Testing performed by : [facility], [address] [place] [phone] Eosinophil abs 0.2 0.0 - 0.5 K/cumm [facility] Comment:Testing performed by : [facility], [address] [place] [phone] Basophil abs 0.0 0.0 - 0.1 K/cumm [facility] Comment:Testing performed by : [facility], [address] [place] [phone] Neutrophil pct 71.2 % [facility] Comment: Interpretive Data Percent cell count reference ranges are not reported, since discordance with absolute values may lead to misinterpretation of CBC data. Current Interpretive Data was last revised on 2018. Testing performed by: [facility], [address] [place] [phone] Lymphocyte pct 17.1 % [facility] Comment: Interpretive Data Percent cell count reference ranges are not reported, since discordance with absolute values may lead to misinterpretation of CBC data. Current Interpretive Data was last revised on 2018. Testing performed by: [facility], [address] [place] [phone] Monocyte pct 8.3 % [facility] Comment: Interpretive Data Percent cell count reference ranges are not reported, since discordance with absolute values may lead to misinterpretation of CBC data. Current Interpretive Data was last revised on 2018. Testing performed by: [facility], [address] [place] [phone] Eosinophil pct 2.8 % [facility] Comment: Interpretive Data Percent cell count reference ranges are not reported, since discordance with absolute values may lead to misinterpretation of CBC data. Current Interpretive Data was last revised on 2018. Testing performed by: [facility], [address] [place] [phone] Basophil pct 0.6 % [facility] Comment: Interpretive Data Percent cell count reference ranges are not reported, since discordance with absolute values may lead to misinterpretation of CBC data. Current Interpretive Data was last revised on 2018. Testing performed by: [facility], [address] [place] [phone] Blood 11/13/2024 1:20 PM DEPUTY CLERK OF COURT 11/13/2024 1:21 PM DEPUTY CLERK OF COURT us Jesse Griggs MD LAB BLOOD ORDERABLES Fin al Result [facility] Department [place] [address] * CBC with auto differential (11/13/2024 1:20 PM DEPUTY CLERK OF COURT) WBC 5.8 3.8 - 9.9 K/cumm Comment:Testing performed by : [facility], [address] [place] [phone] Hgb 15.2 13.0 - 17.5 g/dL [facility] Comment:Testing performed by : [facility], [address] [place] [address] Hct 44.6 38.9 - 50.3 % [facility] Comment:Testing performed by : [facility], [address] [place] [address] Plt 189 150 - 400 K/cumm [facility] Comment:Testing performed by : [facility], [address] [place] [address] MPV 8.3 6.8 - 10.4 fL [facility] Comment:Testing performed by : [facility], [address] [place] [address] RBC 5.18 4.30 - 5.80 M/cumm [facility] Comment:Testing performed by : [facility], [address] [place] [address] MCV 86.2 81.3 - 96.4 fL [facility] Comment:Testing performed by : [facility], [address] [place] [address] MCH 29.5 27.1 - 33.3 pg [facility]J Comment:Testing performed by : [facility], [address] [place] [address] MCHC 34.2 32.3 - 35.7 g/dL [facility] Comment:Testing performed by : [facility], [address] [place] [address] RDW CV 14.8 11.1 - 14.9 % [facility] Comment:Testing performed by : [facility], [address] [place] [address] NRBC abs 0.00 0.00 - 0.01 K/cumm [facility] Comment:Testing performed by : [facility], [address] [place] [address] Blood 11/13/2024 1:20 PM DEPUTY CLERK OF COURT 11/13/2024 1:21 PM DEPUTY CLERK OF COURT us Jesse Griggs MD LAB BLOOD ORDERABLES Fin al Result [facility] Department [place] [address] * (ABNORMAL) Total testosterone (11/13/2024 1:20 PM DEPUTY CLERK OF COURT) Testosterone 188.0(L) 193.0 - 740.0 ng/dL Blood 11/13/2024 1:20 PM DEPUTY CLERK OF COURT 11/13/2024 1:50 PM DEPUTY CLERK OF COURT Jesse Griggs MD LAB BLOOD ORDERABLES Fin al Result [facility] One [facility] [place] [address] * PSA diagnostic (11/13/2024 1:20 PM DEPUTY CLERK OF COURT) PSA-Total 1.88 <=3.90 ng/mL Comment: Interpretive Data ?AGE ? SEX ?REFERENCE INTERVAL 0 minutes-150 years ?Female ?None 0 minutes-49 years ? Male ?None ? 50-59 years ? Male ?0-3.90 ? 60-69 years ? Male ?0-5.40 ? 70-79 years ? Male ?0-6.20 ? 80-150 years ?Male ?0-6.20 The Gilbert PSA Total assay procedure was used. Results from different manufacturers or methods may not be comparable. Serial testing should be performed using the same method. Current interpretive data last revised 22. Blood 11/13/2024 1:20 PM DEPUTY CLERK OF COURT 11/13/2024 1:23 PM DEPUTY CLERK OF COURT us Jesse Griggs MD LAB BLOOD ORDERABLES Fin al Result [facility] Department [place] [address] * (ABNORMAL) Comprehensive metabolic panel (11/13/2024 1:20 PM DEPUTY CLERK OF COURT) Sodium 144 135 - 145 mmol/L Potassium, pl 4.5 3.3 - 4.9 mmol/L [facility] Comment:Hemolyzed; Potassium value may be falsely elevated by as much as 0.3-0.5 mmol/L. Suggest redraw and reanalysis. Chloride 107 97 - 110 mmol/L [facility] CO2 29 22 - 32 mmol/L [facility] Anion gap 8 2 - 15 mmol/L [facility] BUN 14 6 - 25 mg/dL [facility] Creatinine 0.69(L) 0.80 - 1.30 mg/dL [facility] Glucose 97 70 - 199 mg/dL [facility] Comment: Interpretive Data Fasting glucose >/= 126 mg/dl is diagnostic for diabetes. ?? Fasting is defined as no caloric intake for at least 8 hours. Fasting glucose between 100 mg/dl to 125 mg/dl is diagnostic of prediabetes. In a patient with classic symptoms of hyperglycemia or hyperglycemic crisis, a random glucose >/= 200 mg/dl is diagnostic for diabetes. In the absence of unequivocal hyperglycemia, results should be confirmed by repeat testing. The classification and Diagnosis of Diabetes Diabetes Care 202; 46: S19-S40. Current interpretive data was last revised 2022. Calcium 10.0 8.5 - 10.3 mg/dL [facility] Bilirubin, total 1.2 0.1 - 1.2 mg/dL [facility] Protein, pl 7.6 6.5 - 8.5 g/dL [facility] Albumin 4.0 3.5 - 5.0 g/dL [facility] Alk phos 125 40 - 130 Units/L [facility] ALT 13 7 - 55 Units/L [facility] AST 51(H) 10 - 50 Units/L [facility] Comment:Hemolyzed; result ma y be falsely elevated Blood 11/13/2024 1:20 PM DEPUTY CLERK OF COURT 11/13/2024 1:23 [address] DEPUTY CLERK OF COURT us Jesse Griggs MD LAB BLOOD ORDERABLES Fin al Result [facility] Department [place] [address] * PET/CT Prostate Cancer PSMA Skull to Thigh (10/07/2024 4:24 PM DEPUTY CLERK OF COURT) Anatomical Region Laterality Modality N/A Positron Emissio n Tomography (PET) 10/08/2024 11:4 2 AM DEPUTY CLERK OF COURT Impressions 10/08/2024 12:24 PM DEPUTY CLERK OF COURT 1. ??Widespread regional and distant tom and osseous metastatic disease. 2. ??Indeterminate multiple bilateral mild to moderately hypermetabolic subcentimeter pulmonary nodules, which are suspicious for sites of visceral metastatic disease. Consider high-resolution chest CT for further evaluation. Dictated by: Manuelito Padilla M.D. The radiology attending physician has personally reviewed this study, and had reviewed and/or edited this written report and agrees with it. Electronically signed by: Dariana Eaton M.D. Narrative 10/08/2024 12:[address] CLERK OF COURT EXAMINATION: ??PSMA-PET/CT DATE OF STUDY: 10/07/2024 SCANNER: [facility] PET Vision (NV1). ??This is a high-resolution scanner, which can result in higher SUVs (and even detection of new small lesions) compared to older scanners. RADIOPHARMACEUTICAL: ??9.94 mCi F-18 DCFPyL (Piflufolastat) i.v. ?? Injection site: Right antecubital HISTORY: ??54-year-old man with prostate cancer diagnosed in 2011. The patient underwent radical prostatectomy with tom dissection on 08/02/2012, with pathology demonstrating Hammond 4+5 disease and 10/25 lymph nodes involved. ??The patient received adjuvant radiation therapy in December 2012 and completed 3 years of leuprolide in 2015. 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 ??Additionally, extensive retroperitoneal adenopathy was noted concerning prostate cancer recurrence, given his rising PSA. ??The most recently obtained PSA on 09/30/2024 ??is 64.7 ng/mL. ??The study is requested for restaging of documented biochemically recurrent prostate cancer. Subsequent treatment strategy. TECHNIQUE: ??After intravenous administration of tracer, noncontrast CT images were obtained for attenuation correction and for fusion with emission PET images to allow for anatomical localization of PET findings. ??Emission PET images were then obtained. ??The study was interpreted on the Enerpulse workstation. ?? The total scanned area was mid thighs to skull vertex. Images of the body were obtained starting 68 minutes after injection of tracer. Second scanned area: Skull vertex to thoracic inlet. ??Images were obtained starting 94 minutes after injection of tracer. REFERENCE TISSUE MAXIMUM SUVs: ??Parotid gland 12.8; Liver 7.3; Blood pool 2.3 Focal PSMA tracer uptake is graded as follows: * ??Faint: above background to blood pool * ??Mild: above blood pool to liver * ??Moderate: above liver to salivary glands * ??Intense: similar to or above salivary glands COMPARISON: F-18 Fluciclovine PET/CT 05/21/2019 FINDINGS: ?? Prostate/Prostate bed: ??No abnormal tracer uptake was seen. Regional lymph nodes: There are several bilateral intensely tracer-avid regional lymph nodes; for reference, a left external iliac lymph node measuring 9 mm with SUV 22.9 (slice 289). Extra-pelvic lymph nodes: There are numerous intensely tracer-avid common iliac, periaortic, mesenteric, portacaval, aortocaval, retrocrural, bilateral hilar, paraesophageal, mediastinal, left axillary left supraclavicular and bilateral cervical lymph node station lymph nodes and lymph node conglomerates. For reference, an aortocaval lymph node conglomerate measuring 6.8 x 3.0 cm and has an SUV of 65.4 (slice 230). Bone: There are numerous intensely tracer-avid sclerotic osseous foci including the bilateral proximal femurs, left pubic bone, right ischium, right acetabulum, bilateral iliac wings, bilateral sacral ala, left iliac crest, C2, T8, T10 and L2 vertebral bodies, multiple bilateral ribs, bilateral scapulae, right humerus, the skull base, temporal, parietal and occipital bones. Of note, no definite extension of vertebral lesions into the spinal canal exists. For reference, there is a sclerotic lesion in the proximal right humeral shaft with a SUV of 72.9 (slice 94). Visceral: Multiple bilateral upper lung-predominant mild to moderately tracer-avid subcentimeter pulmonary nodules. For reference, a subcentimeter pulmonary nodule in the right upper lobe with SUV of 8.8 (slice 137). Additional CT findings: Minimal tracer uptake in the presumed meningioma along the right frontal convexity (slice 30). Exophytic 4.3 cm right lower pole renal mass with mild tracer uptake corresponding to the lesion characterized as likely representing a clear cell renal cell carcinoma on MRI from 09/19/2024. ??Coronary artery calcifications. Cholelithiasis. Left upper pole renal cyst. Atherosclerosis of the abdominal aorta. Abdominal wall hernia repair. Penile prosthesis. Multilevel degenerative changes of the spine. Procedure Note Dariana Eaton MD - 10/08/2024 EXAMINATION: PSMA-PET/CT DATE OF STUDY: 10/07/2024 SCANNER: [facility] ArcMail (NV1). This is a high-resolution scanner, which can result in higher SUVs (and even detection of new small lesions) compared to older scanners. RADIOPHARMACEUTICAL: 9.94 mCi F-18 DCFPyL (Piflufolastat) i.v. Injection site: Right antecubital HISTORY: 54-year-old man with prostate cancer diagnosed in 2011. The patient underwent radical prostatectomy with tom dissection on 08/02/2012, with pathology demonstrating Hammond 4+5 disease and 12/21 lymph nodes involved. The patient received adjuvant radiation therapy in December 2012 and completed 3 years of leuprolide in 2016. 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 Additionally, extensive retroperitoneal adenopathy was noted concerning prostate cancer recurrence, given his rising PSA. The most recently obtained PSA on 09/30/2024 is 64.7 ng/mL. The study is requested for restaging of documented biochemically recurrent prostate cancer. Subsequent treatment strategy. TECHNIQUE: After intravenous administration of tracer, noncontrast CT images were obtained for attenuation correction and for fusion with emission PET images to allow for anatomical localization of PET findings. Emission PET images were then obtained. The study was interpreted on the Ener[employer] workstation. The total scanned area was mid thighs to skull vertex. Images of the body were obtained starting 68 minutes after injection of tracer. Second scanned area: Skull vertex to thoracic inlet. Images were obtained starting 94 minutes after injection of tracer. REFERENCE TISSUE MAXIMUM SUVs: Parotid gland 12.8; Liver 7.3; Blood pool 2.3 Focal PSMA tracer uptake is graded as follows: * Faint: above background to blood pool * Mild: above blood pool to liver * Moderate: above liver to salivary glands * Intense: similar to or above salivary glands COMPARISON: F-18 Fluciclovine PET/CT 05/21/2019 FINDINGS: Prostate/Prostate bed: No abnormal tracer uptake was seen. Regional lymph nodes: There are several bilateral intensely tracer-avid regional lymph nodes; for reference, a left external iliac lymph node measuring 9 mm with SUV 22.9 (slice 289). Extra-pelvic lymph nodes: There are numerous intensely tracer-avid common iliac, periaortic, mesenteric, portacaval, aortocaval, retrocrural, bilateral hilar, paraesophageal, mediastinal, left axillary left supraclavicular and bilateral cervical lymph node station lymph nodes and lymph node conglomerates. For reference, an aortocaval lymph node conglomerate measuring 6.8 x 3.0 cm and has an SUV of 65.4 (slice 230). Bone: There are numerous intensely tracer-avid sclerotic osseous foci including the bilateral proximal femurs, left pubic bone, right ischium, right acetabulum, bilateral iliac wings, bilateral sacral ala, left iliac crest, C2, T8, T10 and L2 vertebral bodies, multiple bilateral ribs, bilateral scapulae, right humerus, the skull base, temporal, parietal and occipital bones. Of note, no definite extension of vertebral lesions into the spinal canal exists. For reference, there is a sclerotic lesion in the proximal right humeral shaft with a SUV of 72.9 (slice 94). Visceral: Multiple bilateral upper lung-predominant mild to moderately tracer-avid subcentimeter pulmonary nodules. For reference, a subcentimeter pulmonary nodule in the right upper lobe with SUV of 8.8 (slice 137). Additional CT findings: Minimal tracer uptake in the presumed meningioma along the right frontal convexity (slice 30). Exophytic 4.3 cm right lower pole renal mass with mild tracer uptake corresponding to the lesion characterized as likely representing a clear cell renal cell carcinoma on MRI from 09/19/2024. Coronary artery calcifications. Cholelithiasis. Left upper pole renal cyst. Atherosclerosis of the abdominal aorta. Abdominal wall hernia repair. Penile prosthesis. Multilevel degenerative changes of the spine. IMPRESSION: 1. Widespread regional and distant tom and osseous metastatic disease. 2. Indeterminate multiple bilateral mild to moderately hypermetabolic subcentimeter pulmonary nodules, which are suspicious for sites of visceral metastatic disease. Consider high-resolution chest CT for further evaluation. Dictated by: Manuelito Padilla M.D. The radiology attending physician has personally reviewed this study, and had reviewed and/or edited this written report and agrees with it. Electronically signed by: Dariana Eaton M.D. Felice Schmitt MD IMG PET PROCEDURES Final Result * eGFR (09/30/2024 2:27 PM DEPUTY CLERK OF COURT) eGFR >90 >=60 mL/min/1. 73 m2 Comment: Interpretive Data Reference Interval Normal ?>/= 90 mL/min/1.73m2 Mildly decreased* ? 60 - 89 mL/min/1.73m2 Mildly to moderately decreased ?45 - 59 mL/min/1.73m2 Moderately to severely decreased ??30 - 44 mL/min/1.73m2 Severely decreased ?15 - 29 mL/min/1.73m2 Kidney Failure ?< 15 ??mL/min/1.73m2 *Relative to young adult level Estimated glomerular filtration rate is determined by the 2020 CKD-EPI equation recommended by the National Kidney Foundation (A Unifying Approach to GFR Estimation: Recommendations of the NKF-ASK Task Force on Reassessing the Inclusion of Race in Diagnosing Kidney Disease, JASN 2020). The CKD-EPI equation should not be used for patients with unstable renal function and has not been validated in children and those over 70. Current interpretive data was last reviewed 2021. Blood 09/30/2024 2:27 PM [address] CLERK OF COURT 09/30/2024 2:30 PM DEPUTY CLERK OF COURT us Jesse Griggs MD LAB BLOOD ORDERABLES Fin al Result [facility] Department [place] [address] * Differential, auto (09/30/2024 2:27 PM DEPUTY CLERK OF COURT) Neutrophil abs 3.8 1.5 - 6.5 K/cumm Comment:Testing performed by : [facility], [address] [place] [id number] Imm gran abs 0.0 0.0 - 0.1 K/cumm [facility] Lymphocyte abs 1.0 0.8 - 3.3 K/cumm [facility] Monocyte abs 0.6 0.2 - 0.8 K/cumm [facility] Eosinophil abs 0.1 0.0 - 0.5 K/cumm [facility] Basophil abs 0.0 0.0 - 0.1 K/cumm [facility] Neutrophil pct 68.9 % [facility] Comment: Interpretive Data Percent cell count reference ranges are not reported, since discordance with absolute values may lead to misinterpretation of CBC data. Current Interpretive Data was last revised on 2018. Imm gran pct 0.2 % [facility] Comment: Interpretive Data Percent cell count reference ranges are not reported, since discordance with absolute values may lead to misinterpretation of CBC data. Current Interpretive Data was last revised on 2018. Lymphocyte pct 18.2 % [facility] Comment: Interpretive Data Percent cell count reference ranges are not reported, since discordance with absolute values may lead to misinterpretation of CBC data. Current Interpretive Data was last revised on 2018. Monocyte pct 9.9 % [facility] Comment: Interpretive Data Percent cell count reference ranges are not reported, since discordance with absolute values may lead to misinterpretation of CBC data. Current Interpretive Data was last revised on 2018. Eosinophil pct 2.3 % [facility] Comment: Interpretive Data Percent cell count reference ranges are not reported, since discordance with absolute values may lead to misinterpretation of CBC data. Current Interpretive Data was last revised on 2018. Basophil pct 0.5 % [facility] Comment: Interpretive Data Percent cell count reference ranges are not reported, since discordance with absolute values may lead to misinterpretation of CBC data. Current Interpretive Data was last revised on 2018. Blood 09/30/2024 2:27 PM DEPUTY CLERK OF COURT 09/30/2024 2:30 PM DEPUTY CLERK OF COURT us Jesse Griggs MD LAB BLOOD ORDERABLES Fin al Result [facility] Department [place] [address] * (ABNORMAL) CBC with auto differential (09/30/2024 2:27 PM DEPUTY CLERK OF COURT) WBC 5.6 3.8 - 9.9 K/cumm Comment:Testing performed by : [address] [address] Hgb 14.2 13.0 - 17.5 g/dL [facility] Comment:Testing performed by : [address] [address] Hct 40.6 38.9 - 50.3 % [facility] Comment:Testing performed by : [address] [address] Plt 144(L) 150 - 400 K/cumm [facility] Comment:Testing performed by : [address] [address] MPV 9.6 9.1 - 12.3 fL [facility] RBC 4.90 4.30 - 5.80 M/cumm [facility] MCV 82.9 81.3 - 96.4 fL [facility] MCH 29.0 27.1 - 33.3 pg [facility] MCHC 35.0 32.3 - 35.7 g/dL [facility] RDW CV 13.5 11.1 - 14.9 % [facility] RDW SD 40.6 35.7 - 48.1 fL [facility] NRBC abs 0.00 0.00 - 0.01 K/cumm [facility] Blood 09/30/2024 2:27 PM [address] CLERK OF COURT 09/30/2024 2:30 [address] CLERK OF COURT Jesse Griggs MD LAB BLOOD ORDERABLES Fin al Result Performing Organization Address [facility] de Phone Number [facility] [place] [address] * Total testosterone (09/30/2024 2:27 PM DEPUTY CLERK OF COURT) Pathologist [facility] Testosterone 520.0 193.0 - 740.0 ng/dL Blood 09/30/2024 2:27 PM DEPUTY CLERK OF COURT 09/30/2024 6:31 PM DEPUTY CLERK OF COURT Jesse Griggs MD LAB BLOOD ORDERABLES Fin al Result Performing Organization Address [facility] de Phone Number [facility] [place] [address] * (ABNORMAL) PSA diagnostic (09/30/2024 2:27 PM DEPUTY CLERK OF COURT) PSA-Total 64.70(H) <=3.90 ng/mL Comment: Interpretive Data ?AGE ? SEX ?REFERENCE INTERVAL 0 minutes-150 years ?Female ?None 0 minutes-49 years ? Male ?None ? 50-59 years ? Male ?0-3.90 ? 60-69 years ? Male ?0-5.40 ? 70-79 years ? Male ?0-6.20 ? 80-150 years ?Male ?0-6.20 The [employer] PSA Total assay procedure was used. Results from different manufacturers or methods may not be comparable. Serial testing should be performed using the same method. Current interpretive data last revised 22. Blood 09/30/2024 2:27 PM [address]PUT[address] CLERK OF COURT 09/30/2024 6:31 PM DEPUTY CLERK OF COURT us Jesse Griggs MD LAB BLOOD ORDERABLES Fin al Result Performing Organization Address City/State/[facility] Co de Phone Number [facility] [place] [address] * (ABNORMAL) Comprehensive metabolic panel (09/30/2024 2:27 PM DEPUTY CLERK OF COURT) [facility] Sodium 141 135 - 145 mmol/L Comment:Testing performed by : [facility], [address] [place] [id number] Potassium, pl 3.9 3.3 - 4.9 mmol/L [facility] Chloride 109 97 - 110 mmol/L [facility] CO2 27 22 - 32 mmol/L [facility] Anion gap 5 2 - 15 mmol/L [facility] BUN 11 6 - 25 mg/dL [facility] Creatinine 0.65(L) 0.80 - 1.30 mg/dL [facility] Glucose 96 70 - 199 mg/dL [facility] Comment: Interpretive Data Fasting glucose >/= 126 mg/dl is diagnostic for diabetes. ?? Fasting is defined as no caloric intake for at least 8 hours. Fasting glucose between 100 mg/dl to 125 mg/dl is diagnostic of prediabetes. In a patient with classic symptoms of hyperglycemia or hyperglycemic crisis, a random glucose >/= 200 mg/dl is diagnostic for diabetes. In the absence of unequivocal hyperglycemia, results should be confirmed by repeat testing. The classification and Diagnosis of Diabetes Diabetes Care 2022; 46: S19-S40. Current interpretive data was last revised 2022. Calcium 9.4 8.5 - 10.3 mg/dL [facility] Bilirubin, total 0.6 0.1 - 1.2 mg/dL [facility] Protein, pl 6.7 6.5 - 8.5 g/dL [facility] Albumin 3.8 3.5 - 5.0 g/dL [facility] Alk phos 96 40 - 130 Units/L [facility] ALT 14 7 - 55 Units/L [facility] AST 40 10 - 50 Units/L [facility] Blood 09/30/2024 2:27 PM DEPUTY CLERK OF COURT 09/30/2024 2:30 [address] DEPUTY CLERK OF COURT Jesse Griggs MD LAB BLOOD ORDERABLES Fin al Result Performing Organization Address City/[facility]/ZIP Co de Phone Number [facility] [place] [address] * [facility] Hereditary Cancer NGS Panel, Blood (09/30/2024 2:18 PM DEPUTY CLERK OF COURT) [facility] Please review the PDF for results. 10/14/2024 9:34 PM DEPUTY CLERK OF COURT [facility] Comment:[facility] link Blood specimen (specimen) 09/30/2024 2:18 PM DEPUTY CLERK OF COURT 10/14/2024 9:36 PM DEPUTY CLERK OF COURT Jesse Griggs MD LAB GENETIC TESTING Yamila l Result [facility] [address], [address] [place], [place] [id number] [place] [address] [facility] [address], [address] [place] [address] * MR Body Outside Consult (09/19/2024 7:07 PM DEPUTY CLERK OF COURT) Anatomical Region Laterality Modality Body N/A Magnetic Resonan ce 09/20/2024 10:0 4 AM DEPUTY CLERK OF COURT Impressions 09/20/2024 10:04 AM DEPUTY CLERK OF COURT 1. ??4 cm right lower pole renal mass likely representing a clear cell renal cell carcinoma (clear cell likelihood score of 4), abutting Gerota's fascia. 2. ??Extensive retroperitoneal lymphadenopathy, which would be atypical for local regional tom metastases from a renal cell carcinoma, and could be due to a different etiology such as a lymphoproliferative disorder. ??CT-guided biopsy is recommended for diagnosis. 3. ??Cirrhosis with trace perihepatic ascites, small esophageal varices and splenomegaly indicating portal hypertension. ??No suspicious liver lesions. The findings, conclusions and recommendations within this report do not replace the initial findings, conclusions ??and recommendations made at the facility where the study was performed based upon the imaging and clinical condition at that time. ??Comparison with the prior report and clinical history is necessary. ??The provided images may or may not represent the [place] source data set and thus may contain changes that may lower the accuracy of this second-opinion interpretation. Electronically signed by: Rickey Meza M.D. Narrative 09/20/2024 10:04 AM DEPUTY CLERK OF COURT EXAMINATION: RADIOLOGY CONSULTATION ON OUTSIDE IMAGING STUDY STUDY INITIALLY PERFORMED: 08/22/2024 at [facility]. TYPE OF STUDY: Multiple MR images of the abdomen with and without intravenous contrast are provided at the time of this interpretation. CONTRAST ROUTE: Contrast was administered via the intravenous route. The protocol was adequate to address the clinical question. The outside final report was available at the time of this second opinion interpretation. TYPE OF CONSULTATION: Consult on outside imaging study with images submitted through Outside Image Sharing Service DATE OF CONSULTATION: 09/20/2024 9:54 AM HISTORY: Renal mass COMPARISON: None available. FINDINGS: Liver: Cirrhosis without steatosis or abnormal iron deposition. - Bile ducts: Normal - Focal liver lesions: None - Vasculature: Hepatic arterial anatomy is conventional. ??The portal veins are diminutive. ??The hepatic veins are patent. ??There are small esophageal varices. ??The renal veins are patent. Gallbladder: Normal Pancreas: Normal Spleen: Enlarged to approximately 16 cm craniocaudal Adrenals: Normal Kidneys: There are simple bilateral renal cysts without hydronephrosis. In the lower pole of the right kidney, a posterior partially exophytic renal mass exhibits intermediate T2 signal intensity, no microscopic fat, mild diffusion restriction, intense cortical medullary phase enhancement, and no segmental enhancement inversion, consistent with a clear cell likelihood score of 4 (likely clear cell renal cell carcinoma). ??The mass measures 4.1 x 4 cm on series 17 image 30, abutting Gerota's fascia. ??No renal vascular invasion. Other Findings: Trace perihepatic ascites. ??No suspicious bone lesions. ??The imaged loops of bowel are normal caliber. There is extensive, bilateral retroperitoneal lymphadenopathy, more extensive than would be typical for local regional lymphadenopathy from a renal cell carcinoma. ??For reference, an aortocaval lymph node measures 3.4 cm in short axis on series 9 image 62, a left para-aortic lymph node measures 3 cm on series 9 image 68. ??No other sites of lymphadenopathy are identified within the imaged abdomen. Procedure Note Rickey Meza MD - 09/20/2024 EXAMINATION: RADIOLOGY CONSULTATION ON OUTSIDE IMAGING STUDY STUDY INITIALLY PERFORMED: 08/22/2024 at [facility]. TYPE OF STUDY: Multiple MR images of the abdomen with and without intravenous contrast are provided at the time of this interpretation. CONTRAST ROUTE: Contrast was administered via the intravenous route. The protocol was adequate to address the clinical question. The outside final report was available at the time of this second opinion interpretation. TYPE OF CONSULTATION: Consult on outside imaging study with images submitted through Outside Image Sharing Service DATE OF CONSULTATION: 09/20/2024 9:54 AM HISTORY: Renal mass COMPARISON: None available. FINDINGS: Liver: Cirrhosis without steatosis or abnormal iron deposition. - Bile ducts: Normal - Focal liver lesions: None - Vasculature: Hepatic arterial anatomy is conventional. The portal veins are diminutive. The hepatic veins are patent. There are small esophageal varices. The renal veins are patent. Gallbladder: Normal Pancreas: Normal Spleen: Enlarged to approximately 16 cm craniocaudal Adrenals: Normal Kidneys: There are simple bilateral renal cysts without hydronephrosis. In the lower pole of the right kidney, a posterior partially exophytic renal mass exhibits intermediate T2 signal intensity, no microscopic fat, mild diffusion restriction, intense cortical medullary phase enhancement, and no segmental enhancement inversion, consistent with a clear cell likelihood score of 4 (likely clear cell renal cell carcinoma). The mass measures 4.1 x 4 cm on series 17 image 30, abutting Gerota's fascia. No renal vascular invasion. Other Findings: Trace perihepatic ascites. No suspicious bone lesions. The imaged loops of bowel are normal caliber. There is extensive, bilateral retroperitoneal lymphadenopathy, more extensive than would be typical for local regional lymphadenopathy from a renal cell carcinoma. For reference, an aortocaval lymph node measures 3.4 cm in short axis on series 9 image 62, a left para-aortic lymph node measures 3 cm on series 9 image 68. No other sites of lymphadenopathy are identified within the imaged abdomen. IMPRESSION: 1. 4 cm right lower pole renal mass likely representing a clear cell renal cell carcinoma (clear cell likelihood score of 4), abutting Gerota's fascia. 2. Extensive retroperitoneal lymphadenopathy, which would be atypical for local regional tom metastases from a renal cell carcinoma, and could be due to a different etiology such as a lymphoproliferative disorder. CT-guided biopsy is recommended for diagnosis. 3. Cirrhosis with trace perihepatic ascites, small esophageal varices and splenomegaly indicating portal hypertension. No suspicious liver lesions. The findings, conclusions and recommendations within this report do not replace the initial findings, conclusions and recommendations made at the facility where the study was performed based upon the imaging and clinical condition at that time. Comparison with the prior report and clinical history is necessary. The provided images may or may not represent the [place] source data set and thus may contain changes that may lower the accuracy of this second-opinion interpretation. Electronically signed by: Rickey Meza M.D. Felice Schmitt MD IMG MRI PROCEDURES Final Result * SCAN - LABS (09/16/2024) Felice Schmitt MD Final Res ult * Hepatitis C antibody (03/07/2017 9:12 AM CDT) Hep C Ab Nonreactive Nonreactive [facility]Y TRAN Comment: Interpretive Data Positive results should be confirmed by a molecular method. If positive, a second separately collected sample should be submitted for Hepatitis C Virus (HCV) RNA Detection and Quantitation by Real-Time [employer]-PCR (RT-PCR). Current interpretive data was last revised on 2016. Blood specimen (specimen) 03/07/2017 9:12 AM CDT 03/07/2017 11:41 AM CDT Dariana tee MD LAB MICROBIOLOGY - GENERAL ORDERABLES Edited Result - Final [facility] Department [place] [address] from Last 3 Months or Most Recently Relevant to Health Maintenance Insurance [facility] HMO HEALTH [facility] HMO/PPO Address: [address] [place] [address] [facility] CHOICE [employer] [facility] H[facility]/PPO Address: [address] [address] [place] [address] CHO[place] [facility] HMO Advance Directives For more information, please contact: [phone] * Full Code (Latest Code Status on File) Date Activated Date Inactivated Comments 06/30/2019 5:36 PM 07/01/2019 11:48 PM Care Teams Boring Machine Set Up Operator Jig Relationship Specialty Start Date End Date Unknown, Notinfile PCP - General 10/21/24 Felice Schmitt MD [address] [place] [address] Consulting Physician Urology 09/19/24 Jesse Griggs MD [address] DIV IM MEDICAL ONCOLOGY, [address] [place] [address] Medical Oncology 09/19/24
--- OUTSIDE RECORDS SUMMARY | 2024-12-06 09:39 | XMS_ITS | Patient Health Summary ---
Author Organization [facility] [employer] Address [address] [place] [address] Care Team Providers Care Bathhouse Keeper Name Role Phone Eneida Kelly MD Primary Care Provider U reubenailrosemary Note from [facility],non-owned Affiliates and Associated Physician Practices is amultiple site organization consisting of ambulatory clinics and hospital sitesin [place], [place], [place] and [place]. This disclosure is being madepursuant to the Care Everywhere program and may not contain all information available regarding this patient. Last updated 18.[facility] [employer] Allergies No known active allergies Medications * Be aware that medications may not be up to date on this document. Alwaysverify current medications with the patient. * amLODIPine (Norvasc) 10 MG tablet(Started 04/20/2023) Take 1 (one) tablet by mouth once daily * lisinopril (Prinivil; Zestril) 10 MG tablet(Started 04/20/2023) Take 1 (one) tablet by mouth once daily * nadolol (Corgard) 20 MG tablet(Started 04/23/2023) Take 1 (one) tablet by mouth at bedtime * oxyCODONE, immediate release, (Roxicodone) 5 MG tablet(Started 04/17/2023) Take 1 (one) tablet by mouth every 6 hours as needed pain * cetirizine (ZyrTEC ALLERGY) 10 MG gel capsule Take 1 (one) capsule by mouth once daily * Bimekizumab-bkzx (Bimzelx) 160 MG/ML SOAJ Inject 1 Pen. subcutaneously Every 8 Weeks Currently taking starter doses Active Problems Problem Noted Date Diagnosed Date History of prostate cancer 05/04/202205/15 Iron deficiency anemia 11/14/2021 Social History Tobacco Use Types Packs/Day Years Used Date Smoking Tobacco: Former Cigarettes 1 2011 Smokeless Tobacco: Current Tobacco Cessation:Ready to Q uit: Not Asked; Counseling Given: No Comments:Dip daily use Alcohol Use Standard Drinks/Week Comments Not Currently 0 (1 standard drink = 0.6 oz pure alcohol) Hasn't drink in several months, non alcoholic cocktail Sex and Gender Information Value Date Recorded Sex Assigned at Male 09/02/2024 3:32 PM CDT Gender Identity Male 09/02/2024 3:32 PM CDT Sexual Orientation Not on file Last Filed Vital Signs Vital Sign Reading Time Taken Comments Blood Pressure 112/72 08/29/2024 8:49 AM CDT Pulse 73 08/29/2024 8:49 AM CDT Temperature 36.7 ??C (98.1 ??F) 08/29/2024 8:49 AM CD T Respiratory Rate 18 01/24/2024 1:30 PM CDT Oxygen Saturation 97% 08/29/2024 8:49 AM CDT Inhaled Oxygen Concentration - - Weight 106.1 kg (234 lb) 08/29/2024 8:49 AM CDT Height 185.4 cm (6' 1 ) 08/29/2024 8:49 AM CDT Body Mass Index 30.87 08/29/2024 8:49 AM CDT Medical Devices Implanted Type Area Olericulture Professor Device Identifier Shelf Expiration Date Model / Serial / Lot Ams 700 Penile Implant- [id number] Implanted:06/06 (Quantity not on file) Prosthesis MESI Procedures * MRI ABDOMEN WWO CONTRAST(Performed 08/22/2024) Performed for Right kidney mass * CREATININE - POCT INTERFACED(Performed 08/22/2024) * US ABDOMEN LIMITED(Performed 08/08/2024) Performed for Hepatic cirrhosis, unspecified hepatic cirrhosis type, unspecified whether ascites present (HCC) * PT-INR [facility](Performed 05/15/2023) Performed for Hepatic cirrhosis, unspecified hepatic cirrhosis type, unspecified whether ascites present (HCC), History of alcohol use disorder, Polyp of colon, unspecified part of colon, unspecifiedtype * COMPREHENSIVE METABOLIC PANEL(Performed 05/15/2023) Performed for Hepatic cirrhosis, unspecified hepatic cirrhosis type, unspecified whether ascites present (HCC), History of alcohol use disorder, Polyp of colon, unspecified part of colon, unspecifiedtype * CBC W/O DIFFERENTIAL(Performed 05/15/2023) Performed for Hepatic cirrhosis, unspecified hepatic cirrhosis type, unspecified whether ascites present (HCC), History of alcohol use disorder, Polyp of colon, unspecified part of colon, unspecifiedtype * ALPHA FETOPROTEIN BLOOD TUMOR MARKER(Performed 05/15/2023) Performed for Hepatic cirrhosis, unspecified hepatic cirrhosis type, unspecified whether ascites present (HCC), History of alcohol use disorder, Polyp of colon, unspecified part of colon, unspecifiedtype * PHOSPHATIDYLETHANOL (PETH)(Performed 05/15/2023) Performed for Hepatic cirrhosis, unspecified hepatic cirrhosis type, unspecified whether ascites present (HCC), History of alcohol use disorder, Polyp of colon, unspecified part of colon, unspecifiedtype * IRON + TRANSFERRIN PANEL(Performed 05/15/2023) Performed for Hepatic cirrhosis, unspecified hepatic cirrhosis type, unspecified whether ascites present (HCC), History of alcohol use disorder, Polyp of colon, unspecified part of colon, unspecifiedtype * FERRITIN(Performed 05/15/2023) Performed for Hepatic cirrhosis, unspecified hepatic cirrhosis type, unspecified whether ascites present (HCC), History of alcohol use disorder, Polyp of colon, unspecified part of colon, unspecifiedtype * [id number] BLOOD PHENOTYPING PANEL(Performed 05/15/2023) Performed for Hepatic cirrhosis, unspecified hepatic cirrhosis type, unspecified whether ascites present (HCC), History of alcohol use disorder, Polyp of colon, unspecified part of colon, unspecifiedtype * CERULOPLASMIN(Performed 05/15/2023) Performed for Hepatic cirrhosis, unspecified hepatic cirrhosis type, unspecified whether ascites present (HCC), History of alcohol use disorder, Polyp of colon, unspecified part of colon, unspecifiedtype * IGM BLOOD(Performed 05/15/2023) Performed for Hepatic cirrhosis, unspecified hepatic cirrhosis type, unspecified whether ascites present (HCC), History of alcohol use disorder, Polyp of colon, unspecified part of colon, unspecifiedtype * IGG BLOOD(Performed 05/15/2023) Performed for Hepatic cirrhosis, unspecified hepatic cirrhosis type, unspecified whether ascites present (HCC), History of alcohol use disorder, Polyp of colon, unspecified part of colon, unspecifiedtype * MITOCHONDRIAL ANTIBODY SCREEN(Performed 05/15/2023) Performed for Hepatic cirrhosis, unspecified hepatic cirrhosis type, unspecified whether ascites present (HCC), History of alcohol use disorder, Polyp of colon, unspecified part of colon, unspecifiedtype * SMOOTH MUSCLE ANTIBODY W REFLEX TITER(Performed 05/15/2023) Performed for Hepatic cirrhosis, unspecified hepatic cirrhosis type, unspecified whether ascites present (HCC), History of alcohol use disorder, Polyp of colon, unspecified part of colon, unspecifiedtype * CHANCE BLOOD SCREEN W/REFLEX TITER(Performed 05/15/2023) Performed for Hepatic cirrhosis, unspecified hepatic cirrhosis type, unspecified whether ascites present (HCC), History of alcohol use disorder, Polyp of colon, unspecified part of colon, unspecifiedtype * HEPATITIS C ANTIBODY(Performed 05/15/2023) Performed for Hepatic cirrhosis, unspecified hepatic cirrhosis type, unspecified whether ascites present (HCC), History of alcohol use disorder, Polyp of colon, unspecified part of colon, unspecifiedtype * HEPATITIS B CORE ANTIBODY TOTAL(Performed 05/15/2023) Performed for Hepatic cirrhosis, unspecified hepatic cirrhosis type, unspecified whether ascites present (HCC), History of alcohol use disorder, Polyp of colon, unspecified part of colon, unspecifiedtype * HEPATITIS B SURFACE ANTIBODY(Performed 05/15/2023) Performed for Hepatic cirrhosis, unspecified hepatic cirrhosis type, unspecified whether ascites present (HCC), History of alcohol use disorder, Polyp of colon, unspecified part of colon, unspecifiedtype * HEPATITIS B SURFACE ANTIGEN W RFLX CONFIRMATION(Performed 05/15/2023) Performed for Hepatic cirrhosis, unspecified hepatic cirrhosis type, unspecified whether ascites present (HCC), History of alcohol use disorder, Polyp of colon, unspecified part of colon, unspecifiedtype * HEPATITIS A ANTIBODY(Performed 05/15/2023) Performed for Hepatic cirrhosis, unspecified hepatic cirrhosis type, unspecified whether ascites present (HCC), History of alcohol use disorder, Polyp of colon, unspecified part of colon, unspecifiedtype Results * MRI Abdomen Wwo Contrast (08/22/2024 5:19 PM CDT) Anatomical Region Laterality Modality Abdomen Magnetic Resonan ce 08/23/2024 9:58 PM CDT Impressions 08/24/2024 10:55 AM CDT Impression: 1.Liver: Cirrhosis with features of portal hypertension. No arterial hyperenhancing or nonhyperenhancing hepatic observations identified. 2.Kidneys: Approximately 4.6 cm exophytic mass from the posterior cortex of the interpolar region of the right kidney with features suggestive of renal cell carcinoma. No suggestion of invasion of the renal sinus or renal vein. 3.Others: Multiple discrete and conglomerate retroperitoneal lymph nodes reaching up to the aortic bifurcation. Metastatic lymph node from the renal tumor is a possibility; however, the imaging findings are more suggestive of a different etiology, like a second primary tumor, possibly lymphoma or chronic lymphocytic leukemia or mets for other unknow primary. Biopsy is recommended. > Interpreting Provider: Nighat Ortiz MD on 08/24/2024 10:55 AM Narrative 08/24/2024 10:55 AM CDT PROCEDURE: ??MRI ABDOMEN WWO CONTRAST, DATE/TIME OF EXAM: ??08/22/2024 5:19 PM, LOCATION ??[facility] INDICATION: N28.89: Right kidney mass ADDITIONAL CLINICAL INFORMATION: Ordering Provider Reason For Exam: ??3.5 cm right kidney mass Technologist Note: Additional: COMPARISON: None. TECHNIQUE: Noncontrast followed by multiphasic contrast-enhanced MRI examination of was performed using routine multiplanar sequences. MRCP: None. CONTRAST: 20 mL of MultiHance was used as intravenous contrast. No procedure related complications seen. IMAGE QUALITY: Average diagnostic quality. Findings: Lower Chest: Lung bases are clear. No pleural effusion seen. Hepatobiliary system Liver morphology: Nodular outline with the fibrosis and distortion of the liver parenchyma architecture consistent with cirrhosis. Steatosis: None. Iron: None. Varices: Gastroesophageal upper abdominal collaterals are seen. Large perisplenic collaterals with splenorenal shunt Spleen: Enlarged, measuring 15 cm anteroposteriorly. Normal splenic signal intensity. Ascites: None. Focal liver observations No arterial hyperenhancing or nonhyperenhancing hepatic observations as seen. Hepatic vasculature Portal and hepatic veins: Suggestion of chronic intrahepatic portal venous thrombosis with recannulization in the right and left lobes. Main portal vein is attenuated. Hepatic veins are patent. Arterial anatomy: Hepatic arteries from superior mesenteric artery. Biliary system: Gallbladder: Normal. Intrahepatic bile ducts: Mild dilation of right intrahepatic bile ducts. Extrahepatic bile ducts: CBD is normal caliber and course. ?? Common bile duct measures: 3 mm. Ductal stones or obstructing lesions: None. Pancreas: ??Pancreas is normal morphology and signal intensity. No focal lesions seen. ??Pancreatic duct: Pancreatic duct is nondilated. Retroperitoneum Adrenals: Unremarkable. Kidneys: An approximately 4.2 x 4.6 x 3.5 cm exophytic findings mass is noted from the posterior cortex of the interpolar region of the right kidney. The lesion is noted invading the renal sinus or renal vein. Tumor capsule is intact and adjacent perinephric fat is within normal limits. The mass is intermediate iso to hyperintense in T2-weighted sequence, hypointense in T1 and moderate enhancement in the arterial phase with persistent patchy enhancement the venous and delayed phases. Minimal diffusion restriction is also seen. Imaging findings are suggestive of renal cell carcinoma. A few simple cyst in the right kidney, largest one measures 3 cm in the upper pole are seen. No renal stones or hydronephrosis. Left kidney is normal morphology. No mass lesions. No stones or hydronephrosis. Small cysts noted in the kidney. Lymph nodes: There are multiple discrete and conglomerate lymph nodes in the retroperitoneum on both sides. Inferiorly the enlarged lymph nodes are reaching up to the aortic bifurcation. An approximately 3.8 x 3.0 cm left para-aortic lymph node in image 16 and series 9 and 4.5 x 3.5 cm lymph node in the aortocaval region image 63 series 9. The lymph nodes shows slightly less enhancement in the arterial and venous phases and DWI sequence (as compared to the right renal mass). No significantly enlarged lymph nodes are seen in the small bowel mesentery. Blood vessels: Aorta and inferior vena cava are unremarkable. Gastrointestinal: Stomach and visualized small bowel loops and colon are unremarkable. Other findings: None. Procedure Note Nighat Ortiz MD - 08/24/2024 PROCEDURE: MRI ABDOMEN WWO CONTRAST, DATE/TIME OF EXAM: :19 PM, LOCATION [facility] INDICATION: N28.89: Right kidney mass ADDITIONAL CLINICAL INFORMATION: Ordering Provider Reason For Exam: 3.5 cm right kidney mass Technologist Note: Additional: COMPARISON: None. TECHNIQUE: Noncontrast followed by multiphasic contrast-enhanced MRI examination of was performed using routine multiplanar sequences. MRCP: None. CONTRAST: 20 mL of MultiHance was used as intravenous contrast. No procedurerelated complications seen. IMAGE QUALITY: Average diagnostic quality. Findings: Lower Chest: Lung bases are clear. No pleural effusion seen. Hepatobiliary system Liver morphology: Nodular outline with the fibrosis and distortion ofthe liver parenchyma architecture consistent with cirrhosis. Steatosis: None. Iron: None. Varices: Gastroesophageal upper abdominal collaterals are seen. Large perisplenic collaterals with splenorenal shunt Spleen: Enlarged, measuring 15 cm anteroposteriorly. Normal splenicsignal intensity. Ascites: None. Focal liver observations No arterial hyperenhancing or nonhyperenhancing hepatic observations as seen. Hepatic vasculature Portal and hepatic veins: Suggestion of chronic intrahepatic portalvenous thrombosis with recannulization in the right and left lobes. Main portal vein is attenuated. Hepatic veins are patent. Arterial anatomy: Hepatic arteries from superior mesenteric artery. Biliary system: Gallbladder: Normal. Intrahepatic bile ducts: Mild dilation of right intrahepatic bile ducts. Extrahepatic bile ducts: CBD is normal caliber and course. Common bile duct measures: 3 mm. Ductal stones or obstructing lesions: None. Pancreas: Pancreas is normal morphology and signal intensity. No focal lesions seen. Pancreatic duct: Pancreatic duct is nondilated. Retroperitoneum Adrenals: Unremarkable. Kidneys: An approximately 4.2 x 4.6 x 3.5 cm exophytic findings mass is noted from the posterior cortex of the interpolar region of the right kidney. The lesion is noted invading the renal sinus or renal vein.Tumor capsule is intact and adjacent perinephric fat is within normal limits.The mass is intermediate iso to hyperintense in T2-weighted sequence, hypointense in T1 and moderate enhancement in the arterial phase with persistent patchy enhancement the venous and delayed phases. Minimal diffusion restriction is also seen. Imaging findings are suggestive of renal cell carcinoma. A few simple cyst in the right kidney, largest one measures 3 cm in the upper pole are seen. No renal stones or hydronephrosis. Left kidney is normal morphology. No mass lesions. No stones or hydronephrosis. Small cysts noted in the kidney. Lymph nodes: There are multiple discrete and conglomerate lymph nodes in the retroperitoneum on both sides. Inferiorly the enlarged lymph nodesare reaching up to the aortic bifurcation. An approximately 3.8 x 3.0 cmleft para-aortic lymph node in image 16 and series 9 and 4.5 x 3.5 cm lymphnode in the aortocaval region image 63 series 9. The lymph nodes showsslightly less enhancement in the arterial and venous phases and DWI sequence (as compared to the right renal mass). No significantly enlarged lymph nodes are seen in the small bowel mesentery. Blood vessels: Aorta and inferior vena cava are unremarkable. Gastrointestinal: Stomach and visualized small bowel loops and colon are unremarkable. Other findings: None. Impression: 1.Liver: Cirrhosis with features of portal hypertension. No arterial hyperenhancing or nonhyperenhancing hepatic observations identified. 2.Kidneys: Approximately 4.6 cm exophytic mass from the posterior cortexof the interpolar region of the right kidney with features suggestive ofrenal cell carcinoma. No suggestion of invasion of the renal sinus or renalvein. 3.Others: Multiple discrete and conglomerate retroperitoneal lymph nodes reaching up to the aortic bifurcation. Metastatic lymph node from therenal tumor is a possibility; however, the imaging findings are moresuggestive of a different etiology, like a second primary tumor, possibly lymphomaor chronic lymphocytic leukemia or mets for other unknow primary. Biopsy is recommended. > Interpreting Provider: Nighat Ortiz MD on 410:55 AM Iman Fry APRN-PATRICIA MR ORDERABL ES * CREATININE - POCT INTERFACED (08/22/2024 4:45 PM CDT) Creatinine POCT 0.52 0.30 - 1.30 mg/dL 08/22/2024 4:[address] [facility] Comment:Range ok for MRI eGFR >90 >=90 mL/min/1.7 3 m2 08/22/2024 4:[address] [facility] Blood BLOOD SPECIMEN / Unknown 08/22/2024 4:45 PM CDT 08/22/2024 4:47 PM CDT Iman Fry APRN-DEBURRING AND TOOLING MACHINE OPERATOR LAB - POINT OF CARE ORDERABLES [facility] [address] [place] [address], [facility] [phone] * US ABDOMEN LIMITED (08/08/2024 10:08 AM CDT) Anatomical Region Laterality Modality Abdomen Ultrasound 08/08/2024 10:2 2 AM CDT Impressions 08/08/2024 11:52 AM CDT IMPRESSION: 1.Hepatic cirrhosis with sequela of portal hypertension without discrete hepatic lesion. 2.3.5 x 3.5 x 3.9 cm solid kidney mass may represent malignancy, recommend MRI with contrast or renal protocol CT for further characterization. 3.No evidence of cholelithiasis or acute cholecystitis. > Dictated by Dante Bland MD, (presidential helicopter crew chief). I, Nighat Ortiz MD have personally reviewed and interpreted this examination/study. > Interpreting Provider: Nighat Ortiz MD on 08/08/2024 11:52 AM Narrative 08/08/2024 11:52 AM CDT PROCEDURE: ??US ABDOMEN LIMITED, DATE/TIME OF EXAM: ??08/08/2024 10:08 AM, LOCATION ??[facility] INDICATION: K74.60: Hepatic cirrhosis, unspecified hepatic cirrhosis type, unspecified whether ascites present (HCC) ADDITIONAL CLINICAL INFORMATION: Ordering Provider Reason For Exam: ??HCC screening Technologist Note: Additional: COMPARISON: None. FINDINGS: The liver has a coarse echotexture and nodular surface, consistent with cirrhosis. No discrete hepatic mass or intrahepatic biliary dilatation is seen. Color Doppler evaluation demonstrates patency of the hepatic and portal veins. There is reversal of flow of the main portal vein. No gallstones or pericholecystic fluid is seen. The gallbladder wall is normal in thickness, measuring 2.5 mm. Sonographic Starks's sign is negative. The common bile duct is nondilated, measuring 5.8 mm. The right kidney measures 13.1 x 5.8 x 6.6 cm. There is a 3.5 x 3.5 x 3.9 cm hypoechoic vascular solid mass in the right kidney. There is a 2.7 x 3.1 x 2.0 cm cyst which may represent exophytic kidney cyst versus adrenal cyst. Limited views of the right kidney reveal no evidence of nephrolithiasis or hydronephrosis. The spleen is enlarged and measures 17 cm in length. The visible pancreas is normal in echogenicity. No ascites is present. Procedure Note Nighat Ortiz MD - 08/08/2024 PROCEDURE: US ABDOMEN LIMITED, DATE/TIME OF EXAM: 08/08/2024 10:08 AM, LOCATION [facility] INDICATION: K74.60: Hepatic cirrhosis, unspecified hepatic cirrhosis type,unspecified whether ascites present (HCC) ADDITIONAL CLINICAL INFORMATION: Ordering Provider Reason For Exam: HCC screening Technologist Note: Additional: COMPARISON: None. FINDINGS: The liver has a coarse echotexture and nodular surface, consistent with cirrhosis. No discrete hepatic mass or intrahepatic biliary dilatationis seen. Color Doppler evaluation demonstrates patency of the hepatic and portal veins. There is reversal of flow of the main portal vein. No gallstones or pericholecystic fluid is seen. The gallbladder wall is normal in thickness, measuring 2.5 mm. Sonographic Starks's sign is negative. The common bile duct is nondilated, measuring 5.8 mm. The right kidney measures 13.1 x 5.8 x 6.6 cm. There is a 3.5 x 3.5 x3.9 cm hypoechoic vascular solid mass in the right kidney. There is a 2.7 x3.1 x 2.0 cm cyst which may represent exophytic kidney cyst versus adrenal cyst. Limited views of the right kidney reveal no evidence of nephrolithiasis or hydronephrosis. The spleen is enlarged and measures 17 cm in length. The visiblepancreas is normal in echogenicity. No ascites is present. IMPRESSION: 1.Hepatic cirrhosis with sequela of portal hypertension without discrete hepatic lesion. 2.3.5 x 3.5 x 3.9 cm solid kidney mass may represent malignancy,recommend MRI with contrast or renal protocol CT for further characterization. 3.No evidence of cholelithiasis or acute cholecystitis. > Dictated by Dante Bland MD, (presidential helicopter crew chief). I, Nighat Ortiz MD have personally reviewed and interpreted this examination/study. > Interpreting Provider: Nighat Ortiz MD on 411:52 AM Iman Fry INJURY PREVENTION COORDINATOR-DEBURRING AND TOOLING MACHINE OPERATOR US ORDERABL ES * (ABNORMAL) PT-INR [facility] (05/15/2023 11:43 AM CDT) PT 16.1(H) 12.1 - 14.8 Seconds 05/15/2023 12:27 PM CDT [facility] INR 1.3 See Comment 05/15/2023 12:27 PM CDT [facility] Comment:The suggested therap eutic range for standard coumadin (warfarin) therapy is an INR of 2.0-3.0. For high-risk patients (Mechanical Mitral Valve Prosthesis, etc.), the suggested prophylactic therapeutic range is an INR of 2.5-3.5. Blood BLOOD SPECIMEN / Unknown Lab Venipuncture / Unknown 05/15/2023 11:43 AM CDT 05/15/2023 11:56 AM CDT Cathryn Zepeda MD LAB - COAGULATION OR DERABLES Performing Organization Address City/State/[facility] Co de Phone Number [facility] [address] [place] [id number], [facility] [phone] * PHOSPHATIDYLETHANOL (PETH) (05/15/2023 11:43 AM CDT) PEth 16:0/18.1 (POPEth) 19 ng/mL 05/17/2023 5:34 PM CDT [facility] ([facility]) Comment: INTERPRETIVE INFORMATION:Phosphatidylethanol (PEth), Whole Blood Phosphatidylethanol (PEth) homologues Result Interpretation PEth 16:0/18:1 (POPEth) ? Less than 10 ng/mL............Not detected Less than 20 ng/mL............Abstinence or light alcohol ?consumption 20 - 200 ng/mL................Moderate alcohol consumption Greater than 200 ng/mL........Heavy alcohol consumption or ?chronic alcohol use PEth 16:0/18:2 (PLPEth).......Reference ranges are not well ?established. (Reference: Fabio Forrest and Donna Chisholm 2018 J. Forensic Sci) Phosphatidylethanol (PEth) is a group of phospholipids formed in the presence of ethanol, phospholipase D and phosphatidylcholine. PEth is known to be a direct alcohol biomarker. The predominant PEth homologues are PEth 16:0/18:1 (POPEth) and PEth 16:0/18:2 (PLPEth), which account for 37-46% and 26-28% of the total PEth homologues, respectively. PEth is incorporated into the phospholipid membrane of red blood cells and has a general half-life of 4-10 days and a window of detection of 2-4 weeks. However, the window of detection is longer in individuals who chronically or excessively consume alcohol. The limit of quantification is 10 ng/mL. Serial monitoring of PEth may be helpful in monitoring alcohol abstinence over time. PEth results should be interpreted in the context of the patient's clinical and behavioral history. Patients with advanced liver disease may have falsely elevated PEth concentrations (Laxmi MERA et al 2018, Alcoholism Clinical & Experimental Research). This test was developed and its performance characteristics determined by [employer]. It has not been cleared or approved by the U.[place]. Food and Drug Administration. This test was performed in a CLIA-certified laboratory and is intended for clinical purposes. PEth 16:0/18.2 (PLPEth) <10 ng/mL 05/17/2023 5:34 PM CDT [facility] ([facility]) EER Peth See Note 05/17/2023 5:34 PM CDT [facility] ([facility]) Comment: Authorized individuals can access the [facility] Enhanced Report using the following link: [email or web address] Performed By: [facility] [address] [place] [address] Mental Health Tech: Kurt Grant MD, PhD Blood BLOOD SPECIMEN / Unknown Lab Venipuncture / Unknown 05/15/2023 11:43 AM CDT 05/15/2023 11:58 AM CDT Cathryn Zepeda MD LAB - CHEMISTRY MOHAN VARELA [facility] ([facility]) [address] [place] [address], [facility] * SMOOTH MUSCLE ANTIBODY W REFLEX TITER (05/15/2023 11:43 AM CDT) F-Actin Antibody IgG 14 0 - 19 Units 05/17/2023 3:36 AM CDT [facility] ([facility]) Comment: If F-Actin (Smooth Muscle) Antibody, IgG is negative, the Smooth Muscle Antibody titer by IFA is not performed. REFERENCE INTERVAL: F-Actin (Smooth Muscle) Antibody, IgG by ?GORGE ??19 Units or less ....... Negative ??20 - 30 Units .......... Weak Positive-Suggest repeat ? testing in two to three weeks ? with fresh specimen. ??31 Units or greater..... Positive-Suggestive of ? autoimmune hepatitis type 1 ? or chronic active hepatitis. F-actin IgG antibodies have been shown to have increased sensitivity for autoimmune hepatitis (AIH) but lower specificity than smooth muscle antibodies (SMA). F-actin IgG antibodies can also be seen in SMA-negative disease controls (non-AIH), especially in patients with primary biliary cirrhosis and chronic hepatitis C infections. Some patients with AIH may be SMA-positive but negative for F-actin IgG. Consider testing for SMA by IFA if suspicion for AIH is strong. Performed By: [facility] [address] [place] [address] Mental Health Tech: Kurt Grant MD, PhD Blood BLOOD SPECIMEN / Unknown Lab Venipuncture / Unknown 05/15/2023 11:43 AM CDT 05/15/2023 11:56 AM CDT Cathryn Zepeda MD LAB - SEROLOGY ORDER [facility]) [address] [place] [address] * MITOCHONDRIAL ANTIBODY SCREEN (05/15/2023 11:43 AM CDT) Mitochondrial M2 Antibody 19.4 0.0 - 24.9 Units 05/17/2023 3:36 AM CDT [facility] ([facility]) Comment: REFERENCE INTERVAL: Mitochondrial (M2) Antibody, IgG ?20.0 Units or less ......... Negative ??20.1 - 24.9 Units........... Equivocal ??25.0 Units or greater....... Positive Anti-mitochondrial antibodies (AMA) are thought to be present in 90-95% of patients with primary biliary cholangitis (PBC). However, the frequency of detected antibodies may be cohort or assay dependent, as lower sensitivities have been reported. Not all PBC patients are positive for AMA; some patients may be positive for SP100 and/or GP210 antibodies. A negative result does not rule out PBC. Performed By: [facility] [address] [place] [address] Mental Health Tech: Kurt Grant MD, PhD Blood BLOOD SPECIMEN / Unknown Lab Venipuncture / Unknown 05/15/2023 11:43 AM CDT 05/15/2023 11:56 AM CDT Cathryn Zepeda MD LAB - CHEMISTRY MOHAN VARELA Performing Organization Address [facility] Co de Phone Number [facility]) [address] * HONEN-1-GJIANIMWOHC BLOOD PHENOTYPING PANEL (05/15/2023 11:43 AM CDT) [facility] Vhang-2-Dgmboyelnx n Phenotype M1M2 05/18/2023 6:20 AM CDT [facility] ([facility]) Comment: The patient appears to have a normal phenotype. All M alleles (including subtypes M1, M2, and M3) produce normal serum concentrations of lwzla-3-fgiqpmla inhibitor and are not associated with clinical disease. Caution in interpretation is advised if the patient has been transfused within the previous 21 days. Performed By: [facility] [address] [place] [address] Mental Health Tech: Kurt Grant MD, PhD Ztpje-2-Dsuwirjcbm n 169 90 - 200 mg/dL 05/18/2023 6:20 AM CDT [facility] ([facility]) Comment:To convert to umol/L , multiply mg/dL by 0.185 Blood BLOOD SPECIMEN / Unknown Lab Venipuncture / Unknown 05/15/2023 11:43 AM CDT 05/15/2023 11:56 AM CDT Cathryn Zepeda MD LAB - CHEMISTRY MOHAN VARELA Performing Organization Address [facility] Co de Phone Number [facility] ([facility]) [address] * CHANCE BLOOD SCREEN W/REFLEX TITER (05/15/2023 11:43 AM CDT) [facility] CHANCE IgG None Detected None Detected 05/17/2023 2:40 AM CDT [facility] ([facility]) Comment: If suspicion of connective tissue disease is strong and CHANCE EIA is negative, consider testing for CHANCE by IFA ([id number]). INTERPRETIVE INFORMATION: Anti-Nuclear Antibodies (CHANCE), IgG by GORGE Antinuclear Antibodies (CHANCE), IgG by GORGE: CHANCE specimens are screened using enzyme-linked immunosorbent assay (GORGE) methodology. All GORGE results reported as Detected are further tested by indirect fluorescent assay (IFA) using HEp-2 substrate with an IgG-specific conjugate. The CHANCE GORGE screen is designed to detect antibodies against dsDNA, histones, SS-A (Ro), SS-B (La), [place], [employer], Scl-70, Yamilex-1, centromeric proteins, other antigens extracted from the HEp-2 cell nucleus. CHANCE GORGE assays have been reported to have lower sensitivities than CHANCE IFA for systemic autoimmune rheumatic diseases (SARD). Negative results do not necessarily rule out SARD. Performed By: [place] [address] Mental Health Tech: Kurt Grant MD, PhD Blood BLOOD SPECIMEN / Unknown Lab Venipuncture / Unknown 05/15/2023 11:43 AM CDT 05/15/2023 11:57 AM CDT Cathryn Zepeda MD LAB - CHEMISTRY MOHAN VARELA Performing Organization Address City/[facility]/ZIP Co de Phone Number [facility] ([facility]) [address] [place] [address] * CERULOPLASMIN (05/15/2023 11:43 AM CDT) Pathologist [facility] Ceruloplasmin 24 20 - 60 mg/dL 05/15/2023 12:[address] [facility] Blood BLOOD SPECIMEN / Unknown Lab Venipuncture / Unknown 05/15/2023 11:43 AM CDT 05/15/2023 11:56 AM CDT Cathryn Zepeda MD LAB - CHEMISTRY MOHAN VARELA [address] [address], [facility] [phone] * ALPHA FETOPROTEIN BLOOD TUMOR MARKER (05/15/2023 11:43 AM CDT) Pathologist [facility] Alpha-Fetoprote in Tumor Marker 3.3 <=8.3 ng/mL 05/15/2023 12:[address] [facility] Comment: AFP values will vary depending on testing procedure used. Results are not comparable across different methods. AFP values obtained by [facility] using an Pereyra Alinity Immunoassay. Blood BLOOD SPECIMEN / Unknown Lab Venipuncture / Unknown 05/15/2023 11:43 AM CDT 05/15/2023 12:02 PM CDT Cathryn Zepeda MD LAB - CHEMISTRY MOHAN Douglas Organization Address City/State/ZIP Co de Phone Number [facility] [address] [place] [phone], [facility] [phone] * (ABNORMAL) CBC W/O DIFFERENTIAL (05/15/2023 11:43 AM CDT) WBC 5.3 3.5 - 10.5 10? 3 /uL 05/15/2023 12:15 PM [facility] RBC 4.50 4.30 - 5.70 10? 6 /uL 05/15/2023 12:15 PM [facility] Hemoglobin 9.7(L) 12.0 - 17.6 g/dL 05/15/2023 12:15 PM [facility] Hematocrit 32.1(L) 35.2 - 51.7 % 05/15/2023 12:15 PM [facility] MCV 71.3(L) 80.7 - 98.3 fL 05/15/2023 12:15 PM [facility] MCH 21.6(L) 26.7 - 34.0 pg 05/15/2023 12:15 PM [facility] MCHC 30.2(L) 30.8 - 35.9 g/dL 05/15/2023 12:15 PM [facility] RDW-SD 47.4 36.0 - 50.0 fL 05/15/2023 12:15 PM [facility] RDW-CV 18.6(H) 11.2 - 14.8 % 05/15/2023 12:15 PM [facility] Platelet Count 212 150 - 400 10? 3 /uL 05/15/2023 12:15 PM [facility] MPV 9.3(L) 9.4 - 12.9 fL 05/15/2023 12:15 PM [facility] nRBC Absolute 0.00 0 10? 3 /uL 05/15/2023 12:15 PM [facility] nRBC Auto 0.0 0 /100 WBC 05/15/2023 12:15 PM [facility] Blood BLOOD SPECIMEN / Unknown Lab Venipuncture / Unknown 05/15/2023 11:43 AM CDT 05/15/2023 12:00 PM T Cathryn Zepeda MD LAB - HEMATOLOGY ORD ERABLES [facility] [address] [place] [address], [facility] [phone] * (ABNORMAL) COMPREHENSIVE METABOLIC PANEL (05/15/2023 11:43 AM CDT) BUN 11 7 - 26 mg/dL 05/15/2023 12:32 PM [facility] Creatinine 0.74 0.71 - 1.16 mg/dL 05/15/2023 12:32 PM [facility] Sodium 139 136 - 145 mmol/L 05/15/2023 12:32 PM [facility] Potassium 3.3(L) 3.5 - 4.5 mmol/L 05/15/2023 12:32 PM [facility] Chloride 106 98 - 107 mmol/L 05/15/2023 12:32 PM [facility] CO2 26 22 - 29 mmol/L 05/15/2023 12:32 PM [facility] Glucose 104 70 - 115 mg/dL 05/15/2023 12:32 PM [facility] Calcium 9.5 8.4 - 10.2 mg/dL 05/15/2023 12:32 PM [facility] Protein Total 7.0 6.0 - 8.3 g/dL 05/15/2023 12:32 PM [facility] Albumin 3.5 3.4 - 5.0 g/dL 05/15/2023 12:32 PM [facility] Bilirubin Total 0.6 0.2 - 1.2 mg/dL 05/15/2023 12:32 PM [facility] Alkaline Phosphatase 97 40 - 150 U/L 05/15/2023 12:32 PM [facility] ALT 12 5 - 55 U/L 05/15/2023 12:32 PM [facility] AST 41(H) 5 - 34 U/L 05/15/2023 12:32 PM [facility] Anion Gap 10 8 - 18 05/15/2023 12:32 PM [facility] BUN/Creatinine Ratio 15 7 - 23 05/15/2023 12:32 PM [facility] Osmolality Calculated 288 270 - 300 mOsm/kg 05/15/2023 12:32 PM [facility] Albumin/Globulin Ratio 1.0(L) 1.1 - 2.3 05/15/2023 12:32 PM [facility] eGFR by CKD-EPI >90 >=90 mL/min/1.7 3 m2 05/15/2023 12:32 PM [facility] Blood BLOOD SPECIMEN / Unknown Lab Venipuncture / Unknown 05/15/2023 11:43 AM CDT 05/15/2023 12:03 PM CDT Cathryn Zepeda MD [facility] Organization Address City/State/ZIP Co de Phone Number [facility] [address] [place] [phone], [facility] [phone] * HEPATITIS B SURFACE ANTIBODY (05/15/2023 11:43 AM CDT) Hepatitis B Virus Surface Antibody Non-react aleks Non-react aleks 05/15/2023 12:44 PM [facility] Comment: < 8 mIU/mL Hepatitis B surface Antibody (HBsAb). Nonreactive for HBsAb - individual is considered not immune to Hepatitis B Virus infection. Hepatitis B Surface Antibody Quantitative 0.3 <8.0 mIU/mL 05/15/2023 12:44 PM [facility] Comment: Hepatitis B Surface Antibody Numeric Result Interpretation: ? Nonreactive: ?<8.0 mIU/mL ? Indeterminate: ??8.0 - 12.0 mIU/mL ? Reactive: ?>12.0 mIU/mL ? Blood BLOOD SPECIMEN / Unknown Lab Venipuncture / Unknown 05/15/2023 11:43 AM CDT 05/15/2023 11:56 AM CDT Cathryn Zepeda MD LAB - CHEMISTRY MOHAN VARELA [address] [address], [place] [phone] * HEPATITIS B CORE ANTIBODY TOTAL (05/15/2023 11:43 AM CDT) HBc Antibody Total Non-reacti ve Non-reacti ve 05/15/2023 12:[address] [facility] Blood BLOOD SPECIMEN / Unknown Lab Venipuncture / Unknown 05/15/2023 11:43 AM CDT 05/15/2023 11:56 AM CDT Cathryn Zepeda MD LAB - CHEMISTRY MOHAN VARELA Performing Organization Address [facility]/ZIP Co de Phone Number [address] [address], [place] [phone] * HEPATITIS B SURFACE ANTIGEN W RFLX CONFIRMATION (05/15/2023 11:43 AM CDT) Hepatitis B Virus Surface Antigen Non-reacti ve Non-reacti ve 05/15/2023 12:[address] [facility] Blood BLOOD SPECIMEN / Unknown Lab Venipuncture / Unknown 05/15/2023 11:43 AM CDT 05/15/2023 11:56 AM CDT Cathryn Zepeda MD LAB - CHEMISTRY MOHAN VARELA Performing Organization Address City/[facility]/ZIP Co de Phone Number [address] [address], [place] [phone] * (ABNORMAL) IRON + TRANSFERRIN PANEL (05/15/2023 11:43 AM CDT) Iron 27(L) 50 - 175 ug/dL 05/15/2023 12:[address] [facility] Transferrin 314 174 - 382 mg/dL 05/15/2023 12:[address] [facility] Transferrin Saturation % 7(L) 16 - 50 % 05/15/2023 12:[address] [facility] TIBC Calculated 393 240 - 450 ug/dL 05/15/2023 12:[address] [facility] Blood BLOOD SPECIMEN / Unknown Lab Venipuncture / Unknown 05/15/2023 11:43 AM CDT 05/15/2023 11:56 AM CDT Cathryn Zepeda MD LAB - CHEMISTRY MOHAN VARELA [address] [address], [place] [phone] * (ABNORMAL) IGM BLOOD (05/15/2023 11:43 AM CDT) IgM 321(H) 37 - 286 mg/dL 05/15/2023 12:[address] [facility] Comment:Result obtained by morenita ballard. Blood BLOOD SPECIMEN / Unknown Lab Venipuncture / Unknown 05/15/2023 11:43 AM CDT 05/15/2023 11:56 AM CDT Cathryn Zepeda MD LAB - CHEMISTRY MOHAN VARELA [address] [address], [place] [phone] * IGG BLOOD (05/15/2023 11:43 AM CDT) IgG 1,153 767 - 1,590 mg/dL 05/15/2023 12:[address] [facility] Blood BLOOD SPECIMEN / Unknown Lab Venipuncture / Unknown 05/15/2023 11:43 AM CDT 05/15/2023 11:56 AM CDT Cathryn Zepeda MD LAB - CHEMISTRY MOHAN VARELA Performing Organization Address City/[facility]/ZIP Co de Phone Number [address] [address], [place] [phone] * HEPATITIS C ANTIBODY (05/15/2023 11:43 AM CDT) Pathologist [facility] Hepatitis C Antibody Non-react aleks Non-reac tive 05/15/2023 12:44 PM CDT [facility] Comment:Hepatitis C Antibody screen indicates no serologic evidence of past or current infection with Hepatitis C Virus. Patients with unexplained liver disease who are immunocompromised or suspected of having acute Hepatitis C infection may benefit from Nucleic Acid Test (KAREN) for Hepatitis C Viral RNA to confirm Hepatitis C status. Blood BLOOD SPECIMEN / Unknown Lab Venipuncture / Unknown 05/15/2023 11:43 AM CDT 05/15/2023 11:56 AM CDT Cathryn Zepeda MD LAB - CHEMISTRY MOHAN VARELA Performing Organization Address City/[facility]/ZIP Co de Phone Number [address] [address], [place] [phone] * (ABNORMAL) HEPATITIS A ANTIBODY (05/15/2023 11:43 AM CDT) Pathologist [facility] Hepatitis A Virus Antibody Total Positive( A) Negative 05/17/2023 5:51 PM CDT [facility] ([facility]) Comment: The positive anti-HAV is consistent with recent or remote Hepatitis A infection or antibody response to HAV vaccination. False positive anti-HAV can occur. Performed by [facility], [address] [place] [id number] [email or web address], Kurt Grant MD, PHD, Lab. Director Blood BLOOD SPECIMEN / Unknown Lab Venipuncture / Unknown 05/15/2023 11:43 AM CDT 05/15/2023 11:57 AM CDT Cathryn Zepeda MD LAB - CHEMISTRY MOHAN VARELA [facility] ([facility]) [address] [place] [address], [facility] * (ABNORMAL) FERRITIN (05/15/2023 11:43 AM CDT) Ferritin 9(L) 22 - 275 ng/mL 05/15/2023 12:[address] [facility] Blood BLOOD SPECIMEN / Unknown Lab Venipuncture / Unknown 05/15/2023 11:43 AM CDT 05/15/2023 11:56 AM CDT Cathryn Zepeda MD LAB - CHEMISTRY MOHAN VARELA [facility] [address] [place] [address], [facility] [phone] Care Teams Bathhouse Keeper Relationship Specialty Start Date End Date Eneida Kelly MD [address] [place] [address] PCP - General Family Medicine 03/28/23
--- OUTSIDE RECORDS SUMMARY | 2024-12-06 09:39 | XMS_ITS ---
Author Organization [facility] Address [address] [place] [address] Care Team Providers Care Medical Oncology Physician Name Role Phone Felice Schmitt MD Unavailable Jesse Griggs MD Unavailable [phone] Unknown, Notinfile Primary Care Provider Unavail able Active Problems Problem Noted Date Diagnosed Date Renal mass 11/18/2024 Umbilical hernia without obstruction and without gangrene 05/10/2019 Meningioma 05/06/2019 Brain mass 05/06/2019 Sudden left hearing loss 01/31/2019 Assessment & Plan (01/31/2019 10:49 AM CDT): Check MRI to r/o retrocochlear pathology. IT dex done once- just outside typical window. RTC 2 mos with repeat audio- briefly discussed VALERIA OLMOS, CI. Gross hematuria 04/29/2018 Hypertension 03/21/2017 ED (erectile dysfunction) of organic origin 03/05 Primary malignant neoplasm of prostate 7 Cancer Staging:Pathologic stage from 09/30/2024:Stage IV(T3b, N1, cM0, PSA: 20 or greater, [place] 8-10) - Signed by Jesse Griggs MD on 09/30/2024 Psoriatic arthritis 03/07/2017 Current Oncology Plans Enzalutamide PO 28 Day Cycles - Prostate* Plan Start Date:11/06/2024 Plan Provider:Jesse Griggs MD Linked Problems Primary malignant neoplasm o f prostate (HCC) Treatment Medications Current Day (Day 1, Cycle 2 - Planned for 12/18/2024) enzalutamide (XTANDI) enzalutamide (XTANDI) 80 m g tablet Leuprolide Every 3 Months - Prostate* Plan Start Date:10/23/2024 Plan Provider:Jesse Griggs MD Linked Problems Primary malignant neoplasm o f prostate (HCC) Treatment Medications Current Day (Day 1 , Cycle 2 - Planned for 01/22/2025) Next Day (Day 1, Cycle 3 - Planned for 04/16/2025) leuprolide (3 month) (ELIGARD)leuprolide (ELIGARD) leuprolide (3 month) (ELIGARD) subcutaneous injection 22.5 mg leuprolide (3 month) (ELIGARD) subcutaneous injection 22.5 mg Past Plans No past plan information found. Radiation Treatments * No radiation treatments are documented for this patient in [facility]. Treatments may have been administered in another system. Lifetime Dose Tracking * Chemical Lifetime Dose Automatic Entry Manual Entr y Fluoro Time 1.6 minutes 1.6 minutes 0 minutes Air kerma at the reference point (Ka,r) 0.35 mGy 0 .35 mGy 0 mGy Resolved Problems Problem Noted Date Diagnosed Date Resolved Date Post-operative state 07/22/2019 019 Erectile dysfunction due to diseases classified elsewhere 05/26/2019 09/09/2019 Overview (05/26/2019): Added automatically from request for surgery [id number] IRINEO (acute kidney injury) 10/23/2018 Acute renal failure superimp osed on chronic kidney disease 04/29/2018 09/09/2019
--- OUTSIDE RECORDS SUMMARY | 2024-12-06 09:39 | XMS_ITS | Referral Summary ---
Author Organization [facility] al Address [address] [place] [address] Care Team Providers Care Office Machine Punch Operator Name Role Phone Felice Schmitt MD Unavailable Jesse Griggs MD Unavailable [phone] Unknown, Notinfile Primary Care Provider Unavail able Encounters Date Type Department Care Team Description 12/04/2024 Orders Only [facility] [address] [place] [address] Office [address] [place] [phone] Felice Schmitt MD Gross hematuria (Primary Dx); Prostate cancer (HCC) 11/18/2024 Telephone [facility] [address] [place] [address] Office [facility] [address] [place] [phone] Peyton Hauser 11/13/2024 1:15 PM BURIAL NEEDS SALESPERSON Lab [facility] - Lab Collection [address] [place] [address] Floor 5 [place] [address] Primary malignant neoplasm of prostate (HCC); Prostate cancer (HCC) 11/13/2024 1:00 PM BURIAL NEEDS SALESPERSON Lab [facility] Oncology Lab [address] [place] [address] 5 [place] [address] Primary malignant neoplasm of prostate (HCC); Prostate cancer (HCC) 11/13/2024 2:00 PM BURIAL NEEDS SALESPERSON Office Visit [facility] Oncology [address] [place] [phone] Jesse Griggs MD Primary malignant neoplasm of prostate (HCC); Prostate cancer (HCC) 11/11/2024 Telephone [facility] Oncology [address] [place] [phone] Jany Powell RMA 11/06/2024 Telephone [facility] [address] Floor 6 [place] [address] Deya Powell CPhT 11/04/2024 Orders Only [facility] Oncology [address] [place] [phone] Jerri Jones Primary malignant neoplasm of prostate (HCC) (Primary Dx) 11/03/2024 Orders Only [facility] Oncology [address] [place] [phone] Jesse Griggs MD 10/23/2024 2:00 PM BURIAL NEEDS SALESPERSON Infusion [facility] [address] Floor 5 [place] [address] Primary malignant neoplasm of prostate (HCC) (Primary Dx) 10/17/2024 Orders Only [facility] Oncology [address] [place] [phone] Jesse Griggs MD 10/07/2024 12:39 PM BURIAL NEEDS SALESPERSON - 10/07/2024 11:59 PM BURIAL NEEDS SALESPERSON Hospital Encounter [facility] [address] [place] [phone] Discharge Disposition: Discharge to home or self care 10/07/2024 12:39 PM BURIAL NEEDS SALESPERSON - 10/07/2024 11:59 PM BURIAL NEEDS SALESPERSON Hospital Encounter [facility] [address] [place] [phone] Prostate cancer (HCC) Discharge Disposition: Discharge to home or self care 09/30/2024 2:00 PM BURIAL NEEDS SALESPERSON Lab [address] [address] Primary malignant neoplasm of prostate (HCC); Prostate cancer (HCC) 09/30/2024 1:00 PM BURIAL NEEDS SALESPERSON Office Visit [facility] Oncology [address] [place] [phone] Jesse Griggs MD Primary malignant neoplasm of prostate (HCC) (Primary Dx); Prostate cancer (HCC) 09/26/2024 Orders Only [facility] [address] [facility] Office Building 4 [address] [place] [address] Felice Schmitt MD Prostate cancer (HCC) (Primary Dx) 09/23/2024 Telephone [facility] [address] [facility] [address]th [place] [address] [place] [address] Junior Wetzel 09/19/2024 7:07 PM BURIAL NEEDS SALESPERSON - 09/19/2024 11:59 PM BURIAL NEEDS SALESPERSON Hospital Encounter [facility] [address] [place] [address] Diagnosis unknown Discharge Disposition: Discharge to home or self care 09/17/2024 9:00 AM BURIAL NEEDS SALESPERSON Office Visit [facility] [address] [facility] 11th [place] [address] [place] [address] Felice Schmitt MD Prostate cancer (HCC) (Primary Dx); Elevated PSA 09/16/2024 Orders Only [facility] URO SURGERY Felice Schmitt MD from Last 3 Months Allergies No known active allergies Medications amLODIPine [...] tablet (50 mg total) by mouth daily 019 Active cetirizine (ZyrTEC) 10 mg tablet Take 1 tablet (10 mg total) by mouth as needed Active oxyCODONE (ROXICODONE) 5 mg immediate release tabletIndicat ions:Pain Take 1 tablet (5 mg total) by mouth every 4 (four) hours as needed for pain 20 tablet Active COSENTYX PEN, 2 PENS, pen injector INJECT TWO PENS SUBCUTANEOUSLY EVERY 4 WEEKS. REFRIGERATE. ALLOW 15 TO30 MINUTES AT ROOM TEMP PRIOR TO ADMINISTRATION. 2 pen 3 Active nadoloL (CORGARD) 20 mg tablet Take 1 tablet (20 mg total) by mouth every morning Active bimekizumab-b kzx (BIMZELX SUBQ) Inject 150 [...] 1 tablet by mouth daily 7 tablet 2024 Discontinued oxyCODONE-santiago taminophen (PERCOCET) 5-325 mg per tablet Take by mouth every 6 (six) hours as needed [address] (PROTONIX) 40 mg [...] mos with repeat audio- briefly discussed VALERIA OLMOS CI. Gross hematuria 04/29/2018 Hypertension 03/21/2017 ED [...] (05/26/2019): Added automatically from request for surgery [id number] IRINEO (acute kidney injury) 10/23/2018 Acute renal failure superimp osed on chronic kidney disease 04/29/2018 09/09/2019 Immunizations Name Administration Dates Next Due Hep A, Adult 04/15/2007,06/02/2006 SocialDial (J&J) SARS-CoV-2 Vaccination 01/11/2021 Social History Tobacco Use Types Packs/Day Years [...] on file Sexual Orientation Not on file Last Filed Vital Signs Vital Sign Reading Time Taken Comments Blood Pressure 118/73 11/13/2024 1:47 PM BURIAL NEEDS SALESPERSON Pulse 71 11/13/2024 1:47 PM BURIAL NEEDS SALESPERSON Temperature 36 ??C (96.8 ??F) 11/13/2024 1:47 PM BURIAL NEEDS SALESPERSON Respiratory Rate 16 11/13/2024 1:47 PM BURIAL NEEDS SALESPERSON Oxygen Saturation 98% 11/13/2024 1:47 PM BURIAL NEEDS SALESPERSON Inhaled Oxygen Concentration - - Weight 103.5 kg (228 lb 3.2 oz) 025 1:47 PM BURIAL NEEDS SALESPERSON Height 181 cm (5' 11.26 ) 09/30/2024 12 :46 PM BURIAL NEEDS SALESPERSON Body Mass Index 31.6 09/30/2024 12:46 PM BURIAL NEEDS SALESPERSON Plan of Treatment Upcoming Encounters Date Type Department Care Team (Late st Contact Info) Description 12/23/2024 7:30 AM BURIAL NEEDS SALESPERSON Hospital Encounter [facility] Operating Room 1 [place] [phone] Felice Schmitt MD [address] [facility] [id number] [facility] [place] [address] 12/23/2024 7:30 AM BURIAL NEEDS SALESPERSON - 12/23/2024 12:25 PM BURIAL NEEDS SALESPERSON Surgery [facility] Operating Room 1 [place] [phone] Felice Schmitt MD [address] [facility] [place] [address] XI PARTIAL NEPHRECTOMY - LAPAROSCOPIC ROBOTIC ASSISTED-RETROPERITO JONG Scheduled Procedures Name Priority Associated Diagnoses Date/Ti me XI PARTIAL NEPHRECTOMY - LAPAROSCOPIC ROBOTIC ASSISTED Renal mass 12/23/2024 7:30 AM BURIAL NEEDS SALESPERSON Medical Devices Implanted Type Area Grinding Machine Tender Device Identifier Shelf Expiration Date Model / Serial / Lot [employer] Inc/C R Bard [id number] Ventralight St Sepra 4.5in Uncoated Monofilament Lightweight - [id number] Implanted:Qty: 1 on 06/30/2019 by Carlos Lucero MD at [facility] Mesh N/A: Umbilical [employer] Inc/C R Bard 12/02/2020 [id number] / / [id number] Stem CentRx [id number] Ams 700 Kit Accessory Penile Prosthesis - [id number] Implanted:Qty: 1 on 06/30/2019 by Carlos Lucero MD at [facility] N/A: Penis [place] Nam [id number] 04/12/2024 [id number] / / [id number] Stem CentRx [id number] Ams Spectra 1.5cm Concealable Rear Tip Solar Installation Manager Snapcone - [id number] Implanted:Qty: 1 on 06/30/2019 by Carols Lucero MD at [facility] N/A: Penis [place] [employer] Nam [id number] 01/22/2024 [id number] / / [id number] [employer] [id number] Ams 700 Lgx Ms Pump 18cm 3 Piece Inflatable Preconnect Infrapubic - [id number] Implanted:Qty: 1 on 06/30/2019 by Carlos Lucero MD at [facility] N/A: Penis [place] [employer] Nam [id number] 09/10/2020 [id number] / / [id number] [employer] Inc [id number] Ams 700 Ms Pump Preconnect Inflatable [place] Prosthesis 65ml - [id number] Implanted:Qty: 1 on 06/30/2019 by Carlos Lucero MD at [facility] N/A: Abdomen [place] [employer] Nam [id number] 05/14/2021 [id number] / / [id number] Procedures Procedure Name Priority Date/Time Associated Diagnosis Comments EGFR Routine 11/13/2024 1:20 PM BURIAL NEEDS SALESPERSON Primary malignant neoplasm of prostate (HCC) Prostate cancer (HCC) DIFFERENTIAL AUTO Routine 11/13/2024 1:2 0 PM BURIAL NEEDS SALESPERSON Primary malignant neoplasm of prostate (HCC) Prostate cancer (HCC) COMPREHENSIVE METABOLIC PANEL Routine 11/13/2024 1:20 PM BURIAL NEEDS SALESPERSON Primary malignant neoplasm of prostate (HCC) Prostate cancer (HCC) PSA DIAGNOSTIC Routine 11/13/2024 1:20 PM BURIAL NEEDS SALESPERSON Primary malignant neoplasm of prostate (HCC) Prostate cancer (HCC) TOTAL TESTOSTERONE Routine 11/13/2024 1: 20 PM BURIAL NEEDS SALESPERSON Primary malignant neoplasm of prostate (HCC) Prostate cancer (HCC) CBC WITH AUTO DIFFERENTIAL Routine 11/13/2024 1:20 PM BURIAL NEEDS SALESPERSON Primary malignant neoplasm of prostate (HCC) Prostate cancer (HCC) PET/CT PROSTATE CANCER PSMA SKULL TO THIGH Schedule Routine, Read Routine (OP Routine) 10/07/2024 4:24 PM BURIAL NEEDS SALESPERSON Prostate cancer (HCC) EGFR Routine 09/30/2024 2:27 PM BURIAL NEEDS SALESPERSON Primary malignant neoplasm of prostate (HCC) Prostate cancer (HCC) DIFFERENTIAL AUTO Routine 09/30/2024 2:2 7 PM BURIAL NEEDS SALESPERSON Primary malignant neoplasm of prostate (HCC) Prostate cancer (HCC) PSA DIAGNOSTIC Routine 09/30/2024 2:27 PM BURIAL NEEDS SALESPERSON Primary malignant neoplasm of prostate (HCC) Prostate cancer (HCC) TOTAL TESTOSTERONE Routine 09/30/2024 2: 27 PM BURIAL NEEDS SALESPERSON Primary malignant neoplasm of prostate (HCC) Prostate cancer (HCC) CBC WITH AUTO DIFFERENTIAL Routine 09/30/2024 2:27 PM BURIAL NEEDS SALESPERSON Primary malignant neoplasm of prostate (HCC) Prostate cancer (HCC) COMPREHENSIVE METABOLIC PANEL Routine 09/30/2024 2:27 PM BURIAL NEEDS SALESPERSON Primary malignant neoplasm of prostate (HCC) Prostate cancer (HCC) TEMPUS XG HEREDITARY CANCER NGS PANEL Routine 09/30/2024 2:18 PM BURIAL NEEDS SALESPERSON Primary malignant neoplasm of prostate (HCC) Prostate cancer (HCC) MR BODY OUTSIDE CONSULT Routine 09/19/2024 7:07 PM BURIAL NEEDS SALESPERSON Diagnosis unknown SCAN - LABS 09/16/2024 HEPATITIS C ANTIBODY Routine Gen Lab 03/07/2017 9:12 AM CDT from Last 3 Months or Most Recently Relevant to Health Maintenance Results * eGFR (11/13/2024 1:20 PM BURIAL NEEDS SALESPERSON) eGFR >90 >=60 mL/min/1. 73 m2 Comment: [...] last reviewed 2021. Blood 11/13/2024 1:20 PM BURIAL NEEDS SALESPERSON 11/13/2024 1:23 PM BURIAL NEEDS SALESPERSON us Jesse Griggs MD LAB BLOOD ORDERABLES Fin al Result ALY TRAN [facility] [place] [address] * Differential, auto (11/13/2024 1:20 PM BURIAL NEEDS SALESPERSON) Neutrophil abs 4.1 1.5 - 6.5 K/cumm Comment:Testing performed by : [facility], [facility] [place] [address] Lymphocyte abs 1.0 0.8 - 3.3 K/cumm ALY TRAN Comment:Testing performed by : [facility], [facility] [place] [address] Monocyte abs 0.5 0.2 - 0.8 K/cumm ALY TRAN Comment:Testing performed by : [facility], [facility] [place] [address] Eosinophil abs 0.2 0.0 - 0.5 K/cumm CERNER BJ Comment:Testing performed by : [facility], [address] [place] [phone] Basophil abs 0.0 0.0 - 0.1 K/cumm CERNER [facility] Comment:Testing performed by : [facility], [address] [place] [phone] Neutrophil pct 71.2 % CERNER BJ Comment: Interpretive Data Percent cell count reference ranges are not reported, since discordance with absolute values may lead to misinterpretation of CBC data. Current Interpretive Data was last revised on 2018. Testing performed by: [facility], [address] [place] [phone] Lymphocyte pct 17.1 % CERNER BJ Comment: Interpretive Data Percent cell count reference ranges are not reported, since discordance with absolute values may lead to misinterpretation of CBC data. Current Interpretive Data was last revised on 2018. Testing performed by: [facility], [address] [place] [phone] Monocyte pct 8.3 % CERNER BJ Comment: Interpretive Data Percent cell count reference ranges are not reported, since discordance with absolute values may lead to misinterpretation of CBC data. Current Interpretive Data was last revised on 2018. Testing performed by: [facility], [address] [place] [phone] Eosinophil pct 2.8 % CERNER BJ Comment: Interpretive Data Percent cell count reference ranges are not reported, since discordance with absolute values may lead to misinterpretation of CBC data. Current Interpretive Data was last revised on 2018. Testing performed by: [facility], [address] [place] [phone] Basophil pct 0.6 % CERNER BJ Comment: Interpretive Data Percent cell count reference ranges are not reported, since discordance with absolute values may lead to misinterpretation of CBC data. Current Interpretive Data was last revised on 2018. Testing performed by: [facility], [address] [place] [phone] Blood 11/13/2024 1:20 PM BURIAL NEEDS SALESPERSON 11/13/2024 1:21 PM BURIAL NEEDS SALESPERSON us Jesse Griggs MD LAB BLOOD ORDERABLES Fin al Result ALY TRAN [facility] [place] [address] * CBC with auto differential (11/13/2024 1:20 PM BURIAL NEEDS SALESPERSON) WBC 5.8 3.8 - 9.9 K/cumm Comment:Testing performed by : [facility], [address] [place] [address] Hgb 15.2 13.0 - 17.5 g/dL CERLICHA TRAN Comment:Testing performed by : [facility], [address] [place] [address] Hct 44.6 38.9 - 50.3 % CERLICHA TRAN Comment:Testing performed by : [facility], [address] [place] [address] Plt 189 150 - 400 K/cumm CERLICHA BJ Comment:Testing performed by : [facility], [address] [place] [address] MPV 8.3 6.8 - 10.4 fL CERLICHA BJ Comment:Testing performed by : [facility], [address] [place] [address] RBC 5.18 4.30 - 5.80 M/cumm CERLICHA BJ Comment:Testing performed by : [facility], [address] [place] [address] MCV 86.2 81.3 - 96.4 fL CERLICHA BJ Comment:Testing performed by : [facility], [address] [place] [address] MCH 29.5 27.1 - 33.3 pg CERLICHA BJ Comment:Testing performed by : [facility], [address] [place] [address] MCHC 34.2 32.3 - 35.7 g/dL ALY [facility] Comment:Testing performed by : [facility], [address] [place] [phone] RDW CV 14.8 11.1 - 14.9 % ALY [facility] Comment:Testing performed by : [facility], [address] [place] [phone] NRBC abs 0.00 0.00 - 0.01 K/cumm ALY [facility] Comment:Testing performed by : [facility], [address] [place] [phone] Blood 11/13/2024 1:20 PM BURIAL NEEDS SALESPERSON 11/13/2024 1:21 PM BURIAL NEEDS SALESPERSON Jesse Griggs MD LAB BLOOD ORDERABLES Fin al Result Performing Organization Address [facility] de Phone Number [facility] [place] [address] * (ABNORMAL) Total testosterone (11/13/2024 1:20 PM BURIAL NEEDS SALESPERSON) Testosterone 188.0(L) 193.0 - 740.0 ng/dL Blood 11/13/2024 1:20 PM BURIAL NEEDS SALESPERSON 11/13/2024 1:50 PM BURIAL NEEDS SALESPERSON Jesse Griggs MD LAB BLOOD ORDERABLES Fin al Result Performing Organization Address [facility] de Phone Number [facility] [place] [address] * PSA diagnostic (11/13/2024 1:20 PM BURIAL NEEDS SALESPERSON) PSA-Total 1.88 <=3.90 ng/mL Comment: Interpretive Data [...] last revised 22. Blood 11/13/2024 1:20 PM BURIAL NEEDS SALESPERSON 11/13/2024 1:23 PM BURIAL NEEDS SALESPERSON us Jesse Griggs MD LAB BLOOD ORDERABLES [facility] al Result [facility] [place] [address] * (ABNORMAL) Comprehensive metabolic panel (11/13/2024 1:20 PM BURIAL NEEDS SALESPERSON) Sodium 144 135 - 145 mmol/L Potassium, pl 4.5 3.3 - 4.9 mmol/L [facility] Comment:Hemolyzed; Potassium value may be falsely elevated by as much as 0.3-0.5 mmol/L. Suggest redraw and reanalysis. Chloride 107 97 - 110 mmol/L [facility] CO2 29 22 - 32 mmol/L [facility] Anion gap 8 2 - 15 mmol/L [facility] BUN 14 6 - 25 mg/dL [facility] Creatinine 0.69(L) 0.80 - 1.30 mg/dL [facility] Glucose 97 70 - 199 mg/dL [facility] Comment: Interpretive Data Fasting glucose >/= 126 [...] classification and Diagnosis of Diabetes Diabetes Care 2021; 46: S19-S40. Current interpretive data was last revised 2022. Calcium 10.0 8.5 - 10.3 mg/dL CERNER [facility] Bilirubin, total 1.2 0.1 - 1.2 mg/dL CERNER [facility] Protein, pl 7.6 6.5 - 8.5 g/dL CERNER [facility] Albumin 4.0 3.5 - 5.0 g/dL CERNER [facility] Alk phos 125 40 - 130 Units/L CERNER [facility] ALT 13 7 - 55 Units/L CERNER [facility] AST 51(H) 10 - 50 Units/L CERNER [facility] Comment:Hemolyzed; result ma y be falsely elevated Blood 11/13/2024 1:20 PM BURIAL NEEDS SALESPERSON 11/13/2024 1:23 PM BURIAL NEEDS SALESPERSON us Jesse Griggs MD LAB BLOOD ORDERABLES Fin al Result [facility] [place] [address] * PET/CT Prostate Cancer PSMA Skull to Thigh (10/07/2024 4:24 PM BURIAL NEEDS SALESPERSON) Anatomical Region Laterality Modality N/A Positron Emissio n Tomography (PET) 10/08/2024 11:4 2 AM BURIAL NEEDS SALESPERSON Impressions 10/08/2024 12:24 PM BURIAL NEEDS SALESPERSON 1. ??Widespread regional and distant tom and [...] Dariana Eaton M.D. Narrative 10/08/2024 12:24 PM BURIAL NEEDS SALESPERSON EXAMINATION: ??PSMA-PET/CT DATE OF STUDY: 10/07/2024 SCANNER: [facility] eduPad (NV1). ??This is a high-resolution scanner, which can result in higher SUVs (and even detection of new small lesions) compared to older scanners. RADIOPHARMACEUTICAL: ??9.94 mCi F-18 DCFPyL (Piflufolastat) i.v. ?? Injection site: Right antecubital HISTORY: ??54-year-old man with prostate cancer diagnosed in 2011. The patient underwent radical prostatectomy with tom dissection on 08/02/2012, with pathology demonstrating Cherokee 4+5 disease and 10/25 lymph nodes involved. [...] obtained. ??The study was interpreted on the [employer] workstation. ?? The total scanned area was [...] EXAMINATION: PSMA-PET/CT DATE OF STUDY: 10/07/2024 SCANNER: [facility] eduPad (NV1). This is a high-resolution scanner, which can result in higher SUVs (and even detection of new small lesions) compared to older scanners. RADIOPHARMACEUTICAL: 9.94 mCi F-18 DCFPyL (Piflufolastat) i.v. Injection site: Right antecubital HISTORY: 54-year-old man with prostate cancer diagnosed in 2011. The patient underwent radical prostatectomy with tom dissection on 08/02/2012, with pathology demonstrating Jia 4+5 disease and 12/21 lymph nodes involved. [...] obtained. The study was interpreted on the [employer] workstation. The total scanned area was mid [...] it. Electronically signed by: Dariana Eaton M.D. us Felice Schmitt MD IM PET PROCEDURES Final Result * eGFR (09/30/2024 2:27 PM BURIAL NEEDS SALESPERSON) eGFR >90 >=60 mL/min/1. 73 m2 Comment: [...] last reviewed 2021. Blood 09/30/2024 2:27 PM BURIAL NEEDS SALESPERSON 09/30/2024 2:30 PM BURIAL NEEDS SALESPERSON us Jesse Griggs MD LAB BLOOD ORDERABLES Fin al Result [facility] [place], [place] [id number] * Differential, auto (09/30/2024 2:27 PM BURIAL NEEDS SALESPERSON) Neutrophil abs 3.8 1.5 - 6.5 K/cumm Comment:Testing performed by : [facility], [address] [place] [id number] Imm gran abs 0.0 0.0 - 0.1 K/cumm ALY [facility] Lymphocyte abs 1.0 0.8 - 3.3 K/cumm ALY [facility] Monocyte abs 0.6 0.2 - 0.8 K/cumm [facility] Eosinophil abs 0.1 0.0 - 0.5 K/cumm [facility] Basophil abs 0.0 0.0 - 0.1 K/cumm [facility] Neutrophil pct 68.9 % [facility] Comment: Interpretive Data Percent cell count reference ranges are not reported, since discordance with absolute values may lead to misinterpretation of CBC data. Current Interpretive Data was last revised on 2018. Imm gran pct 0.2 % [facility] Comment: Interpretive Data Percent cell count reference ranges are not reported, since discordance with absolute values may lead to misinterpretation of CBC data. Current Interpretive Data was last revised on 2018. Lymphocyte pct 18.2 % [facility] Comment: Interpretive Data Percent cell count reference ranges are not reported, since discordance with absolute values may lead to misinterpretation of CBC data. Current Interpretive Data was last revised on 2018. Monocyte pct 9.9 % [facility] Comment: Interpretive Data Percent cell count reference ranges are not reported, since discordance with absolute values may lead to misinterpretation of CBC data. Current Interpretive Data was last revised on 2018. Eosinophil pct 2.3 % [facility] Comment: Interpretive Data Percent cell count reference ranges are not reported, since discordance with absolute values may lead to misinterpretation of CBC data. Current Interpretive Data was last revised on 2018. Basophil pct 0.5 % [facility] Comment: Interpretive Data Percent cell count reference ranges are not reported, since discordance with absolute values may lead to misinterpretation of CBC data. Current Interpretive Data was last revised on 2018. Blood 09/30/2024 2:27 PM BURIAL NEEDS SALESPERSON 09/30/2024 2:30 PM BURIAL NEEDS SALESPERSON us Jesse Griggs MD LAB BLOOD ORDERABLES Fin al Result [facility] Department [place] [address] * (ABNORMAL) CBC with auto differential (09/30/2024 2:27 PM BURIAL NEEDS SALESPERSON) WBC 5.6 3.8 - 9.9 K/cumm Comment:Testing performed by : [address] [address] Hgb 14.2 13.0 - 17.5 g/dL [facility] Comment:Testing performed by : [address] [address] Hct 40.6 38.9 - 50.3 % [facility] Comment:Testing performed by : [address] [address] Plt 144(L) 150 - 400 K/cumm [facility] Comment:Testing performed by : [address] [address] MPV 9.6 9.1 - 12.3 fL [facility] RBC 4.90 4.30 - 5.80 M/cumm [facility] MCV 82.9 81.3 - 96.4 fL [facility] MCH 29.0 27.1 - 33.3 pg [facility] MCHC 35.0 32.3 - 35.7 g/dL [facility] RDW CV 13.5 11.1 - 14.9 % [facility] RDW SD 40.6 35.7 - 48.1 fL [facility] NRBC abs 0.00 0.00 - 0.01 K/cumm [facility] Blood 09/30/2024 2:27 PM BURIAL NEEDS SALESPERSON 09/30/2024 2:30 PM BURIAL NEEDS SALESPERSON Jesse Griggs MD LAB BLOOD ORDERABLES Fin al Result [facility] [place] [address] * Total testosterone (09/30/2024 2:27 PM BURIAL NEEDS SALESPERSON) [facility] Testosterone 520.0 193.0 - 740.0 ng/dL Blood 09/30/2024 2:27 PM BURIAL NEEDS SALESPERSON 09/30/2024 6:31 PM BURIAL NEEDS SALESPERSON Jesse Griggs MD LAB BLOOD ORDERABLES Fin al Result Performing Organization Address City/[facility]/ZIP Co de Phone Number ALY TRAN [facility] [place] [address] * (ABNORMAL) PSA diagnostic (09/30/2024 2:27 PM BURIAL NEEDS SALESPERSON) PSA-Total 64.70(H) <=3.90 ng/mL Comment: Interpretive Data [...] last revised 22. Blood 09/30/2024 2:27 PM BURIAL NEEDS SALESPERSON 09/30/2024 6:31 PM BURIAL NEEDS SALESPERSON Jesse Griggs MD LAB BLOOD ORDERABLES Fin al Result Performing Organization Address City/[facility]/ZIP Co de Phone Number ALY TRAN [facility] [place] [address] * (ABNORMAL) Comprehensive metabolic panel (09/30/2024 2:27 PM BURIAL NEEDS SALESPERSON) [facility] Sodium 141 135 - 145 mmol/L Comment:Testing performed by : [facility], [address] [facility] [address] Potassium, pl 3.9 3.3 - 4.9 mmol/L [facility] Chloride 109 97 - 110 mmol/L [facility] CO2 27 22 - 32 mmol/L [facility] Anion gap 5 2 - 15 mmol/L [facility] BUN 11 6 - 25 mg/dL [facility] Creatinine 0.65(L) 0.80 - 1.30 mg/dL [facility] Glucose 96 70 - 199 mg/dL [facility] Comment: Interpretive Data Fasting glucose >/= 126 [...] 2022. Calcium 9.4 8.5 - 10.3 mg/dL [facility] Bilirubin, total 0.6 0.1 - 1.2 mg/dL [facility] Protein, pl 6.7 6.5 - 8.5 g/dL [facility] Albumin 3.8 3.5 - 5.0 g/dL [facility] Alk phos 96 40 - 130 Units/L [facility] ALT 14 7 - 55 Units/L [facility] AST 40 10 - 50 Units/L [facility] Blood 09/30/2024 2:27 PM BURIAL NEEDS SALESPERSON 09/30/2024 2:30 PM BURIAL NEEDS SALESPERSON us Jesse Griggs MD LAB BLOOD ORDERABLES Fin al Result [facility] [place] [address] * [facility] Hereditary Cancer NGS Panel, Blood (09/30/2024 2:18 PM BURIAL NEEDS SALESPERSON) [facility] Please review the PDF for results. 10/14/2024 9:34 PM BURIAL NEEDS SALESPERSON [facility] Comment:[facility] link Blood specimen (specimen) 09/30/2024 2:18 PM BURIAL NEEDS SALESPERSON 10/14/2024 9:36 PM BURIAL NEEDS SALESPERSON us Jesse Griggs MD LAB GENETIC TESTING Yamila jamel Result [facility] [address], [address] [phone] [facility] [address] [place] [address] * MR Body Outside Consult (09/19/2024 7:07 PM BURIAL NEEDS SALESPERSON) Anatomical Region Laterality Modality Body N/A Magnetic Resonan ce 09/20/2024 10:0 4 AM BURIAL NEEDS SALESPERSON Impressions 09/20/2024 10:04 AM BURIAL NEEDS SALESPERSON 1. ??4 cm right lower pole renal [...] images may or may not represent the mi'kmaq source data set and thus may contain changes that may lower the accuracy of this second-opinion interpretation. Electronically signed by: Rickey Meza M.D. Narrative 09/20/2024 10:04 AM BURIAL NEEDS SALESPERSON EXAMINATION: RADIOLOGY CONSULTATION ON OUTSIDE IMAGING STUDY STUDY INITIALLY PERFORMED: 08/22/2024 at [facility]. TYPE OF STUDY: Multiple MR images of [...] IMAGING STUDY STUDY INITIALLY PERFORMED: 08/22/2024 at [facility]. TYPE OF STUDY: Multiple MR images of [...] images may or may not represent the mi'kmaq source data set and thus may contain changes that may lower the accuracy of this second-opinion interpretation. Electronically signed by: Rickey Meza M.D. Felice Schmitt MD IMG MRI PROCEDURES Final Result * SCAN - LABS (09/16/2024) Felice Schmitt MD Final Res ult * Hepatitis C antibody (03/07/2017 9:12 AM CDT) Hep C Ab Nonreactive Nonreactive [facility] Comment: Interpretive Data Positive results should be confirmed by a molecular method. If positive, a second separately collected sample should be submitted for Hepatitis C Virus (HCV) RNA Detection and Quantitation by Real-Time Reverse Cold Storage Supervisor-PCR (RT-PCR). Current interpretive data was last revised on 2016. Blood specimen (specimen) 03/07/2017 9:12 AM CDT 03/07/2017 11:41 AM CDT Result [facility] Dariana tee MD LAB MICROBIOLOGY - GENERAL ORDERABLES Edited Result - Final [facility] [place] [address] from Last 3 Months or Most Recently Relevant to Health Maintenance [facility] CHOICE PLUS CHOICE [place] [facility] Advance Directives For more information, please contact: [phone] * Full Code (Latest Code Status on File) Date Activated Date Inactivated Comments 06/30/2019 5:36 PM 07/01/2019 11:48 PM Care Teams Office Machine Punch Operator Relationship Specialty Start Date End Date Unknown, Notinfile PCP - General 10/21/24 Felice Schmitt MD [address] [facility] [address] [place] [address] Consulting Physician Urology 09/19/24 Jesse Griggs MD [address] [facility] [address] DIV IM MEDICAL ONCOLOGY, [address]A, [address]B, [address] [place] [address] Medical Oncology 09/19/24
--- OUTSIDE RECORDS SUMMARY | 2024-12-06 09:39 | XMS_ITS | Clinical Summary ---
Author Organization [facility] Mulugeta Cazares Address [address] [place] [address] Care Team Providers Care Senior Naval Parachutist Name Role Phone Eneida Kelly MD Primary Care Provider [phone] Allergies No known active allergies Medications amLODIPine (NORVASC) 10 mg tablet daily. Active lisinopriL (PRINIVIL) 20 mg tablet TAKE 1/2 TABLET BY MOUTH EVERY DAY 1 Active nadoloL (CORGARD) 20 mg tablet Take 20 mg by mouth. 1 Active oxyCODONE (ROXICODONE) 5 mg tablet Take 5 mg by mouth. 9 Active oxyCODONE-aceta minophen (PERCOCET) 5-325 mg tablet Take by mouth. 1 Active pantoprazole (PROTONIX) 40 mg Tablet, Delayed Release (E.C.) Take 40 mg by mouth. 1 Active calcium carbonate-vitam in D3 (CALTRATE 600 + D) 600 mg-20 mcg (800 unit) Tablet daily. Active cyanocobalamin 1,000 mcg Tablet Sustained Release daily. Active cetirizine (ZyrTEC) 10 mg tablet Take 10 mg by mouth. Active fluticasone propionate (FLONASE) 50 mcg/spray [place], Suspension nasal inhaler SHAKE LIQUID AND USE 1 SPRAY IN EACH NOSTRIL DAILY 1 Active hydroCHLOROthia zide 25 mg tablet daily. Active risankizumab-rz aa (Skyrizi) 150 mg/mL Pen Injector Inject by subcutaneous injection. Active Active Problems Problem Noted Date Diagnosed Date History of prostate cancer 05/04/2022 Iron deficiency anemia 11/14/2021 Encounters Date Type Department Care Team Description 11/11/2024 External Device Data STL ABSTRACTION Provider, Abstract from Last 3 Months Family History Relation Name Status Comments Brother Alive Daughter Alive Father Alive Mother Alive Social History Tobacco Use Types Packs/Day Years Used Date Smoking Tobacco: Former Smokeless Tobacco: Current Chew Tobacco Cessation:Ready to Q uit: Not Asked; Counseling Given: Not Answered Alcohol Use Standard Drinks/Week Comments Never 0 (1 standard drink = 0.6 oz pur e alcohol) Sex and Gender Information Value Date Recorded Sex Assigned at Not on file Legal Sex Male 10:39 AM TABLE RUNNER Gender Identity Not on file Sexual Orientation Not on file Last Filed Vital Signs Vital Sign Reading Time Taken Comments Blood Pressure 120/73 11/30/2023 11:29 AM TABLE RUNNER Pulse 92 11/30/2023 11:29 AM TABLE RUNNER Temperature 36.4 ??C (97.6 ??F) 07/24/2023 11:58 AM C DT Respiratory Rate 18 11/30/2023 11:29 AM TABLE RUNNER Oxygen Saturation 97% 11/30/2023 11:29 AM TABLE RUNNER Inhaled Oxygen Concentration - - Weight 105 kg (231 lb 6.4 oz) 11/30/2023 11:29 A M TABLE RUNNER Height 185.4 cm (6' 1 ) 05/04/2022 3:59 PM CDT Body Mass Index 30.53 05/04/2022 3:59 PM CDT Plan of Treatment Health Maintenance Due Date Last Done Comments Pre-Diabetes and Diabetes Screening 1971 DTAP/TDAP/TD VACCINES (1 - Tdap) 1990 HEPATITIS B VACCINES (1 of 3 - 19+ 3-dose series) 1990 COLORECTAL SCREENING 02/24/2016 Colorectal Cancer Screening 02/24/2016 FIT-DNA Q 3 years 02/24/2016 FIT/FOBT Q 1 year 02/24/2016 Flex Sig/CT Colonography Q 5 years 02/24/2016 ZOSTER VACCINE (1 of 2) 2021 INFLUENZA VACCINE (#1) 2024 COVID-19 Vaccine (2 - 2023-2 5 season) 2024 01/11/2021 PNEUMOCOCCAL VACCINE 0-64 YEARS Aged Out No longer eligible based on patient's age to complete this topic Insurance [employer] CHOICE POS Care Teams Senior Naval Parachutist Relationship Specialty Start Date End Date Eneida Kelly MD PCP - General Family Practice 11/14/21
--- OUTSIDE RECORDS SUMMARY | 2024-12-06 09:39 | XMS_ITS | Encounter Summary ---
Author Organization [facility] Address [address] [place] [address] Phone Care Team Providers Care Residential Real Estate Appraiser Name Role Phone Felice Schmitt MD Unavailable Jeses Griggs MD Unavailable [phone] Unknown, Notinfile Primary Care Provider Unavail able Encounter Details Date Type Department Care Team (Late st Contact Info) Description 12/04/2024 Orders Only [facility] Urology [address] [facility] [address] [place] [address] Felice Schmitt MD [address] [facility] [address] [facility] [place] [address] Gross hematuria (Primary Dx); Prostate cancer (HCC) Social History Tobacco Use Types Packs/Day Years Used Date Smoking Tobacco: Former Cigarettes Q uit: 06/24/2012 Passive Smoke Exposure: Past Smokeless Tobacco: Current Snuff Alcohol Use Standard Drinks/Week Comments Not Currently 0 (1 standard drink = 0.6 oz pur e alcohol) Sex and Gender Information Value Date Recorded Sex Assigned at Not on file Legal Sex Male 1:35 PM CDT Gender Identity Not on file Sexual Orientation Not on file documented as of this encounter Plan of Treatment Upcoming Encounters Date Type Department Care Team (Late st Contact Info) Description 12/23/2024 7:30 AM ABSTRACT MANAGER Hospital Encounter [facility] Operating Room [address] [place] [id number] Felice Schmitt MD [address] [facility] [id number] [place] [address] 12/23/2024 7:30 AM ABSTRACT MANAGER - 12/23/2024 12:25 PM ABSTRACT MANAGER Surgery [facility] Operating Room [address] [place] [id number] Felice Schmitt MD [address] [facility] [id number] [place] [address] XI PARTIAL NEPHRECTOMY - LAPAROSCOPIC ROBOTIC ASSISTED-RETROPERITO JONG Scheduled Orders Name Type Priority Associated Diagnoses Orde r Schedule Urine culture Urine, clean voided Microbiology Routine Prostate cancer (HCC) Gross hematuria Expected: 12/07/2024, Expires: 12/04/2025 Scheduled Procedures Name Priority Associated Diagnoses Date/Ti me XI PARTIAL NEPHRECTOMY - LAPAROSCOPIC ROBOTIC ASSISTED Renal mass 12/23/2024 7:30 AM ABSTRACT MANAGER documented as of this encounter Visit Diagnoses Diagnosis Renal mass- Primary Unspecified disorder of kidney and ureter Gross hematuria- Primary Prostate cancer (HCC) Malignant neoplasm of prostate Renal mass Unspecified disorder of kidney and ureter documented in this encounter Care Teams Residential Real Estate Appraiser Relationship Specialty Start Date End Date Unknown, Notinfile PCP - General 10/21/24 Felice Schmitt MD [address] [facility] [address] [place] [address] Consulting Physician Urology 09/19/24 Jesse Griggs MD [address] [facility] DIV IM MEDICAL ONCOLOGY, [address] 7A, 7B, [address] [place] [address] Medical Oncology 09/19/24 documented as of this encounter
--- OUTSIDE RECORDS SUMMARY | 2024-12-06 09:40 | XMS_ITS | Clinical Summary ---
Author Organization [facility] Address [address] [place] [address] Care Team Providers Care Mysql Dba Name Role Phone Eneida Kelly MD Primary Care Provider U reubenailable Source Comments [facility],non-owned Affiliates and Associated Physician Practices is amultiple site organization consisting of ambulatory clinics and hospital sitesin [place], [place], [place] and [place]. This disclosure is being madepursuant to the Care Everywhere program and may not contain all informatio navailable regarding this patient. Last updated 18.[facility] Allergies No known active allergies Medications * Be aware that medications may not be up to date on this document. Alwaysverify current medications with the patient. Medication Sig Dispensed Refills Start Date End Date Status amLODIPine (Norvasc) 10 MG tablet Take 1 (one) tablet by mouth once daily 04/20/2023 Active lisinopril (Prinivil; Zestril) 10 MG tablet Take 1 (one) tablet by mouth once daily 04/20/2023 Active nadolol (Corgard) 20 MG tablet Take 1 (one) tablet by mouth at bedtime 04/23/2023 Active oxyCODONE, immediate release, (Roxicodone) 5 MG tablet Take 1 (one) tablet by mouth every 6 hours as needed pain 04/17/2023 Active cetirizine (ZyrTEC ALLERGY) 10 MG gel capsule Take 1 (one) capsule by mouth once daily Active Bimekizumab-bkzx (Bimzelx) 160 MG/ML SOAJ Inject 1 Pen. 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) from Last 3 Months Family History Medical History Relation Name Comments None Known Brother Hepatitis Mother Cancer - Liver Other Uncle Relation Name Status Comments Brother Alive Father Alive Mother Alive Other Uncle Social History Tobacco Use Types Packs/Day Years Used Date Smoking Tobacco: Former Cigarettes 2011 Smokeless Tobacco: Current Tobacco Cessation:Ready to [...] Mass Index 30.87 08/29/2024 8:49 AM CDT Plan of Treatment Upcoming Encounters Date Type Department Care Team (Late st Contact Info) Description 02/06/2025 10:15 AM CDT Appointment [facility] [address] [place] [phone] Iman Fry, SENIOR PRODUCT ANALYST-AIR MOTOR REPAIRER [address] [facility] [address] [place] [address] 02/06/2025 11:00 AM CDT Office Visit [facility] - GI [address] [facility] [place] [address] Iman Fry, SENIOR PRODUCT ANALYST-AIR MOTOR REPAIRER [address] [facility] [address] DIV OF GASTROENTEROLOGY [place], [place] [id number] Health Maintenance Due Date Last Done Comments COLOGUARD (AGES 45-75) - COL ON CA SCREENING 1971 COLON MONITORING 1971 COLONOSCOPY - COLON CA SCREENING 1971 CT COLONOGRAPHY - COLON CA SCREENING 1971 Colorectal Cancer Screening 1971 FIT - COLON CA SCREENING 1971 FLEX SIG - COLON CA SCREENING 1971 LIPID TESTING 1971 HIV SCREENING 1986 DTAP/TDAP/TD VACCINES (1 - Tdap) 1990 HEPATITIS B VACCINE (1 of 3 - 19+ 3-dose series) 1990 PNEUMOCOCCAL VACCINE 50+ (1 of 2 - PCV) 1990 ZOSTER VACCINE (1 of 2) 1990 COVID-19 VACCINE (2023-2 5 season) 2024 09/16/2022, 10/18/2021, 01/11/2021 INFLUENZA VACCINE (#1) 2024 , 07/29/2021 DEPRESSION SCREENING 11/05/2024 SCREENING FOR DIABETES 05/15/2026 05/15/2023 HEPATITIS C SCREENING Completed 05/15/2023 HIB VACCINE Aged Out No longer eligi ble based on patient's age to complete this topic HPV VACCINE Aged Out No longer eligi ble based on patient's age to complete this topic MENINGOCOCCAL (Group B) VACCINE Aged Out No longer eligible b ased on patient's age to complete this topic MENINGOCOCCAL VACCINE Aged Out No keegan miriam eligible based on patient's age to complete this topic Medical Devices Implanted Type Area Medical Staff Coordinator Device Identifier Shelf Expiration Date Model / Serial / Lot Ams 700 Penile Implant- [id number] Implanted:06/06 (Quantity not on file) Prosthesis [employer] - Improved Affordable Healthcare Procedures Procedure Name Priority Date/Time Associated Diagnosis Comments COMPREHENSIVE METABOLIC PANEL Routine 05/15/2023 11:43 AM CDT Hepatic cirrhosis, unspecified hepatic cirrhosis type, unspecified whether ascites present (HCC) History of alcohol use disorder Polyp of colon, unspecified part of colon, unspecified type HEPATITIS C ANTIBODY Routine 05/15/2023 11:43 AM CDT Hepatic cirrhosis, unspecified hepatic cirrhosis type, unspecified whether ascites present (HCC) History of alcohol use disorder Polyp of colon, unspecified part of colon, unspecified type from Last 3 Months or Most Recently Relevant to Health Maintenance Results * (ABNORMAL) COMPREHENSIVE METABOLIC PANEL (05/15/2023 11:43 AM CDT) BUN 11 7 - 26 mg/dL 05/15/2023 12:32 PM [facility] Creatinine 0.74 0.71 - 1.16 mg/dL 05/15/2023 12:32 PM [facility] Sodium 139 136 - 145 mmol/L 05/15/2023 12:32 PM [facility] Potassium 3.3(L) 3.5 - 4.5 mmol/L 05/15/2023 12:32 PM [facility] Chloride 106 98 - 107 mmol/L 05/15/2023 12:32 PM [facility] CO2 26 22 - 29 mmol/L 05/15/2023 12:32 PM [facility] Glucose 104 70 - 115 mg/dL 05/15/2023 12:32 PM [facility] Calcium 9.5 8.4 - 10.2 mg/dL 05/15/2023 12:32 PM [facility] Protein Total 7.0 6.0 - 8.3 g/dL 05/15/2023 12:32 PM [facility] Albumin 3.5 3.4 - 5.0 g/dL 05/15/2023 12:32 PM [facility] Bilirubin Total 0.6 0.2 - 1.2 mg/dL 05/15/2023 12:32 PM [facility] Alkaline Phosphatase 97 40 - 150 U/L 05/15/2023 12:32 PM [facility] ALT 12 5 - 55 U/L 05/15/2023 12:32 PM [facility] AST 41(H) 5 - 34 U/L 05/15/2023 12:32 PM [facility] Anion Gap 10 8 - 18 05/15/2023 12:32 PM [facility] BUN/Creatinine Ratio 15 7 - 23 05/15/2023 12:32 PM [facility] Osmolality Calculated 288 270 - 300 mOsm/kg 05/15/2023 12:32 PM [facility] Albumin/Globulin Ratio 1.0(L) 1.1 - 2.3 05/15/2023 12:32 PM [facility] eGFR by CKD-EPI >90 >=90 mL/min/1.7 3 m2 05/15/2023 12:32 PM [facility] Blood BLOOD SPECIMEN / Unknown Lab Venipuncture / Unknown 05/15/2023 11:43 AM CDT 05/15/2023 12:03 PM CDT Cathryn Zepeda MD LAB - CHEMISTRY [facility] [place] Organization Address City/State/[facility] Co de Phone Number [facility] [address] [place] [address], [facility] [phone] * HEPATITIS C ANTIBODY (05/15/2023 11:43 AM CDT) Hepatitis C Antibody Non-react aleks Non-reac tive 05/15/2023 12:44 PM [facility] Comment:Hepatitis C Antibody screen indicates no serologic [...] Zepeda MD LAB - CHEMISTRY MOHAN VARELA [facility] [address] [place] [address], [facility] [phone] from Last 3 Months or Most Recently Relevant to Health Maintenance Care Teams Mysql Dba Relationship Specialty Start Date End Date Eneida Kelly MD [address] [place] [address] PCP - General Family Medicine 03/28/23
--- OUTSIDE RECORDS SUMMARY | 2024-12-06 09:40 | XMS_ITS | Referral Summary ---
Author Organization [facility] Address [address] [place] [address] Care Team Providers Care Seed Cleaning Manager Name Role Phone Eneida Kelly MD Primary Care Provider U reubenailrosemary Source Comments [facility],non-owned Affiliates and Associated Physician Practices is amultiple site organization consisting of ambulatory clinics and hospital sitesin [place], [place], [place] and [place]. This disclosure is being madepursuant to the Care Everywhere program and may not contain all information available regarding this patient. 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 - GI [address] [place] [phone] Iman Fry, SENIOR MANAGER ASSET PROTECTION-PLEATER [address] [place] [address] Medical Devices Implanted Type Area Immigration Manager Device Identifier Shelf Expiration Date Model / Serial / Lot Ams 700 Penile Implant- [id number] Implanted:06/06 (Quantity not on file) [employer] Procedures Procedure Name Priority Date/Time Associated Diagnosis [...] 7 - 26 mg/dL 05/15/2023 12:32 PM [facility] Creatinine 0.74 0.71 - 1.16 mg/dL 05/15/2023 12:32 PM [facility] Sodium 139 136 - 145 mmol/L 05/15/2023 12:32 PM [facility] Potassium 3.3(L) 3.5 - 4.5 mmol/L 05/15/2023 12:32 PM [facility] Chloride 106 98 - 107 mmol/L 05/15/2023 12:32 PM [facility] CO2 26 22 - 29 mmol/L 05/15/2023 12:32 PM [facility] Glucose 104 70 - 115 mg/dL 05/15/2023 12:32 PM [facility] Calcium 9.5 8.4 - 10.2 mg/dL 05/15/2023 12:32 PM [facility] Protein Total 7.0 6.0 - 8.3 g/dL 05/15/2023 12:32 PM [facility] Albumin 3.5 3.4 - 5.0 g/dL 05/15/2023 12:32 PM [facility] Bilirubin Total 0.6 0.2 - 1.2 mg/dL 05/15/2023 12:32 PM [facility] Alkaline Phosphatase 97 40 - 150 U/L 05/15/2023 12:32 PM [facility] ALT 12 5 - 55 U/L 05/15/2023 12:32 PM [facility] AST 41(H) 5 - 34 U/L 05/15/2023 12:32 PM [facility] Anion Gap 10 8 - 18 05/15/2023 12:32 PM [facility] BUN/Creatinine Ratio 15 7 - 23 05/15/2023 12:32 PM [facility] Osmolality Calculated 288 270 - 300 mOsm/kg 05/15/2023 12:32 PM [facility] Albumin/Globulin Ratio 1.0(L) 1.1 - 2.3 05/15/2023 12:32 PM [facility] eGFR by CKD-EPI >90 >=90 mL/min/1.7 3 m2 05/15/2023 12:32 PM [facility] Blood BLOOD SPECIMEN / Unknown Lab Venipuncture / Unknown 05/15/2023 11:43 AM CDT 05/15/2023 12:03 PM [facility] Cathryn Zepeda MD LAB - CHEMISTRY MOHAN VARELA [facility] Organization Address City/State/ZIP Co de Phone Number [facility] [address] [place] [address], [facility] [phone] * HEPATITIS C ANTIBODY (05/15/2023 11:43 AM CDT) Hepatitis C Antibody Non-react aleksgarima Cordon-reac tive 05/15/2023 12:44 PM CDT [facility] Comment:Hepatitis C Antibody screen indicates no [...] Zepeda MD LAB - CHEMISTRY MOHAN VARELA [facility] [address] [place] [address], [facility] [phone] from Last 3 Months or Most Recently Relevant to Health Maintenance Care Teams Seed Cleaning Manager Relationship Specialty Start Date End Date Eneida Kelly MD [address] [place] [address] PCP - General Family Medicine 03/28/23
== END 2024-12-06 09:33 | disposition home or self-care (01) ==
PROVIDERS: PCP Family Medicine
DX: C61 Malignant neoplasm of prostate (principal); R31.0 Gross hematuria
CPT/HCPCS: 87086

== ENCOUNTER 2024-12-28 16:56 | Emergency (ER) | payer OTHER, SELFPAY ==
--- NOTE | ~2024-12-28 | CT_ITS ---
CLINICAL INDICATION: Hematuria post partial nephrectomy COMPARISON: 11/24/2022. TECHNIQUE: Multiple contiguous axial images of the abdomen and pelvis were performed following the ad ministration of with 100 mL Omnipaque-350 intravenous contrast The dose-length product (DLP) was 4105.08 mGy-cm. Automated exposure control and iterative reconstruction technique were employed. FINDINGS/OBSERVATIONS: Air within the soft tissues of the right flank tracking along the anterior abdominal wall and extendi ng into the mediastinum, consistent with patient's recent surgery Visualized lower thorax: The bilateral lung bases are clear. The heart is of normal size, without pericardial effusion. Liver: The liver enhances homogeneously without enlargement measuring 15 cm in longitudinal dimension Gallbladder and biliary system: The gallbladder is only minimally distended, containing multiple small dependent stones, without surr ounding inflammation. Pancreas: The pancreas enhances homogeneously without ductal dilatation. Spleen: The spleen enhances homogeneously and is enlarged measuring 14 cm in longitudinal dimension. Kidneys: The left kidney is unremarkable, without hydronephrosis or renal calculi. Large retroperitoneal irregular fluid collection demonstrating Hounsfield units consistent with acute hemorrhage as well as multiple punctate foci of air (consistent with recent intervention). Within the left renal pelvis is a fluid/fluid level consistent with Hounsfield units dependently cons istent with acute hemorrhage. Extravasation on delayed imaging within the right renal parenchyma, presumably site of recent surgery . Adrenal glands: Unremarkable. Gastrointestinal tract: Colonic diverticulosis without surrounding inflammatory change. Appendix: The air-filled appendix is of normal caliber (axial series, images 118 through 129) Vasculature: Unremarkable. Lymph nodes: No pathologically enlarged or morphologically suspicious lymph nodes within the retroperitoneum or at the root of the mesentery. Pelvic structures: The bladder is distended, and contains dependent 6.4 x 5.2 cm area of hemorrhagic attenuation, likely clot. The prostate gland is not visualized. Prosthetic device extending into the glans, from the left lower quadrant. Body wall and musculoskeletal: Findings consistent with prior umbilical hernia repair. Degenerative disease within the lumbar spine, most prominent at the levels of L3/L4 and L1/L2. IMPRESSION: Findings consistent with active extravasation of the surgical site of the right kidney with a large r ight-sided retroperitoneal hematoma, blood within the right renal pelvis with a large clot in the wilfrido dder, as detailed above. These findings were given to ANASTACIO Barraza at 9:20 PM on 12/28/2024. Additional findings: Cholelithiasis. Splenomegaly. Pneumomediastinum. Reviewed, dictated and finalized at location A. [employer] CR[employer] COUN[employer] COACH IMPRESSION: Findings consistent with active extravasation of the surgical site of the right kidney with a large right-sided retroperitoneal hematoma, blood within the rig ht renal pelvis with a large clot in the bladder, as detailed above. These findings were given to ANASTACIO Barraza at 9:20 PM on 12/28/2024. Additional findings: Cholelithiasis. Splenomegaly. Pneumomediastinum.
--- OUTSIDE RECORDS SUMMARY | 2024-12-28 16:58 | XMS_ITS | Referral Summary ---
Author Organization [facility] al Address [address] [place] [address] Care Team Providers Care Rerolling Machine Operator Name Role Phone Felice Schmitt MD Unavailable [phone] Jesse Griggs MD Unavailable [phone] Carlitos Gardner MD Primary Care Provider Encounters Date Type Department Care Team Description 12/23/2024 5:03 AM KEG INSPECTOR - 12/24/2024 2:48 PM KEG INSPECTOR Hospital Encounter [facility] 1 [place] [address] Felice Schmitt MD Acute postoperative pain (Primary Dx); Renal mass Discharge Disposition: Discharge to home or self care 12/23/2024 7:30 AM KEG INSPECTOR - 12/23/2024 12:25 PM KEG INSPECTOR Surgery [facility] Operating Room 1 [place] [phone] Felice Schmitt MD XI PARTIAL NEPHRECTOMY - LAPAROSCOPIC ROBOTIC ASSISTED-RETROPERITO JONG 12/23/2024 7:25 AM KEG INSPECTOR Anesthesia Event [facility] Operating Room 1 [place] [phone] Ximena Smith MD Sousa, Claira J., REFLECTOR DRILLER AND DEBURRER 12/12/2024 9:00 AM KEG INSPECTOR Pre-Admission Testing [facility] Center for Preoperative Assessment and [facility] ([facility]) [address] [place] [address] Preoperative testing (Primary Dx) 12/04/2024 Orders Only [facility] Urology [address] [facility] Medical Office Building [address] [place] [address] Felice Schmitt MD Gross hematuria (Primary Dx); Prostate cancer (HCC) 11/18/2024 Telephone [facility] Urology [facility] Medical Office Building [address] [place] [phone] Analisa Peyton J. 11/13/2024 1:15 PM KEG INSPECTOR Lab [facility] - Lab Collection [address] [facility] [address] [place] [address] Primary malignant neoplasm of prostate (HCC); Prostate cancer (HCC) 11/13/2024 1:00 PM KEG INSPECTOR Lab [facility] Oncology Lab [address] [facility] Floor 5 [place] [address] Primary malignant neoplasm of prostate (HCC); Prostate cancer (HCC) 11/13/2024 2:00 PM KEG INSPECTOR Office Visit [facility] Oncology [facility] Floor 5 [place] [address] eJsse Griggs MD Primary malignant neoplasm of prostate (HCC); Prostate cancer (HCC) 11/11/2024 Telephone [facility] Oncology [address] [place] [phone] Jany Powell RMA 11/06/2024 Telephone [facility] - Infusion Pharmacy [address] [facility] [address] [place] [address] Deya Powell CPhT 11/04/2024 Orders Only [facility] Oncology [address] [place] [phone] Jerri Jones Primary malignant neoplasm of prostate (HCC) (Primary Dx) 11/03/2024 Orders Only [facility] Oncology [address] [place] [phone] Jesse Griggs MD 10/23/2024 2:00 PM KEG INSPECTOR Infusion [facility] - Infusion [address] [facility] Floor 5 [place] [address] Primary malignant neoplasm of prostate (HCC) (Primary Dx) 10/17/2024 Orders Only [facility] Oncology [address] [place] [phone] Jesse Griggs MD 10/07/2024 12:39 PM KEG INSPECTOR - 10/07/2024 11:59 PM KEG INSPECTOR Hospital Encounter [facility] Radiology [facility]) [address] [place] [address] Discharge Disposition: Discharge to home or self care 10/07/2024 12:39 PM KEG INSPECTOR - 10/07/2024 11:59 PM KEG INSPECTOR Hospital Encounter [facility] Radiology [facility] [address] [place] [address] Prostate cancer (HCC) Discharge Disposition: Discharge to home or self care 09/30/2024 2:00 PM KEG INSPECTOR Lab [address] [address] Primary malignant neoplasm of prostate (HCC); Prostate cancer (HCC) 09/30/2024 1:00 PM KEG INSPECTOR Office Visit [facility] Oncology [address] [place] [phone] Jesse Griggs MD Primary malignant neoplasm of prostate (HCC) (Primary Dx); Prostate cancer (HCC) from Last 3 Months Allergies No known active allergies Medications amLODIPine (NORVASC) 10 mg tabletIndicati ons:hypertensi on Take 1 tablet (10 mg total) by mouth human services supervisor before breakfast Active lisinopril (PRINIVIL,ZEST RIL) 40 mg tabletIndicati ons:hypertensi on Take 1 tablet (40 mg total) by mouth human services supervisor before breakfast Active cetirizine (ZyrTEC) 10 mg tabletIndicati ons:Seasonal Allergic Rhinitis Take 1 tablet (10 mg total) by mouth as needed for allergies Active oxyCODONE (ROXICODONE) 5 mg immediate release tabletIndicati ons:Pain Take 1 tablet (5 mg total) by mouth every 4 (four) hours as needed for pain 20 tablet 07/09/20 19 Active nadoloL (CORGARD) 20 mg tabletIndicati ons:hypertensi on Take 1 tablet (20 mg total) by mouth every morning 01/09/20 Active bimekizumab-bk zx (BIMZELX SUBQ)Indicatio ns:psoriasis Inject 150 mg under the skin every 8 (eight) weeks January 2025 next dose Active enzalutamide (XTANDI) 80 mg tabletIndicati ons:Primary malignant neoplasm of prostate (HCC) Take 2 tablets (160 mg total) by mouth daily Take with or without food at the same time each day. Do not crush, break, or dissolve. Swallow tablet whole. 60 tablet 5 11/06/19 25 Active Additional Information Patient taking differently:160 mg oralDaily (early AM), Take with or without food at the same time each day. Do not crush, break, or dissolve. Swallow tablet whole.,Indications: supress ca tumors, Informant: Self, Reported on 12/23/2024 cholecalcifero l, vitamin D3, (VITAMIN D3 ORAL)Indicatio ns:supplement Take 1 tablet by mouth human services supervisor before breakfast Active oxyCODONE (ROXICODONE) 5 mg immediate release tabletIndicati ons:Pain Take 1 tablet (5 mg total) by mouth every 4 (four) hours as needed for pain 10 tablet 12/24/19 Active senna-docusate (PERICOLACE) 8.6-50 mgIndications: constipation Take 1 tablet by mouth 2 (two) times a day as needed for constipation 30 tablet 12/24/19 25 025 Active polyethylene glycol (MIRALAX) 17 gram/dose bulk powder Take 17 g by mouth daily 510 g 12/24/19 25 025 Active calcium carbonate-janine min D3 1,500 mg (600mg elemental) -800 unit per tabletIndicati ons:Prevention of Vitamin D Deficiency Take 1 tablet by mouth daily 025 Discontin ued(Thera py completed ) cyanocobalamin , vitamin B-12, 1,000 mcg tablet extended release daily 025 Discontin ued(Thera py completed ) vitamin E (AQUASOL E) 400 unit capsule daily 025 Discontin ued(Thera py completed ) metoprolol (LOPRESSOR) 50 mg tablet Take 1 tablet (50 mg total) by mouth daily 04/30/20 19 025 Discontin ued(Alter richie therapy) COSENTYX PEN, 2 PENS, pen injector INJECT TWO PENS SUBCUTANEOUSLY EVERY 4 WEEKS. REFRIGERATE. ALLOW 15 TO30 MINUTES AT ROOM TEMP PRIOR TO ADMINISTRATION. 2 pen 3 07/28/20 19 025 Discontin ued(Thera py completed ) risankizumab-r zaa (Skyrizi) 150 mg/mL pen injector Inject under the skin 025 Discontin ued(Thera py completed ) Active Problems Problem Noted Date Diagnosed Date Acute postoperative pain 12/23/2024 Renal mass 11/18/2024 Iron deficiency anemia 11/14/2021 Umbilical hernia without obstruction and without gangrene 05/10/2019 Meningioma 05/06/2019 Brain mass 05/06/2019 Sudden left hearing loss 01/31/2019 Assessment & Plan (01/31/2019 10:49 AM CDT): Check MRI to r/o retrocochlear pathology. IT dex done once- just outside typical window. RTC 2 mos with repeat audio- briefly discussed VALERIA OLMOS, ТАТЬЯНА. Gross hematuria 04/29/2018 Hypertension 03/21/2017 ED (erectile dysfunction) of organic origin 03/05 Primary malignant neoplasm of prostate 7 Cancer Staging:Pathologic stage from 09/30/2024:Stage IV(T3b, N1, cM0, PSA: 20 or greater, [place] 8-10) - Signed by Jesse Griggs MD on 09/30/2024 Psoriatic arthritis 03/07/2017 Resolved Problems Problem Noted Date Diagnosed Date Resolved Date Post-operative state 07/22/2019 019 Erectile dysfunction due to diseases classified elsewhere 05/26/2019 09/09/2019 Overview (05/26/2019): Added automatically from request for surgery [id number] IRINEO (acute kidney injury) 10/23/2018 Acute renal failure superimp osed on chronic kidney disease 04/29/2018 09/09/2019 Immunizations Immunization Administration Dates Next Due Hep A, Adult 04/15/2007,06/02/2006 Homero (J&J) SARS-CoV-2 Vaccination 01/11/2021 Social History Tobacco Use Types Packs/Day Years Used Date Smoking Tobacco: Former Cigarettes 1 20 0 06/24/1992 - 06/24/2012 Passive Smoke Exposure: Past Smokeless Tobacco: Current Snuff Tobacco Cessation:Ready to Q uit: Not Asked; Counseling Given: Not Answered Alcohol Use Standard Drinks/Week Comments Not Currently 0 (1 standard drink = 0.6 oz pur e alcohol) AUDIT-C Answer Date Recorded Q1: How often do you have a drink containing alcohol? Never 12/12/2024 Q2: How many drinks containi ng alcohol do you have on a typical day when you are drinking? Patient does not drink Q3: How often do you have si x or more drinks on one occasion? Never 12/12/2024 Personal Safety Answer Date Recorded Have you ever been in or are you currently in a harmful physical or emotional relationship or is someone making you feel afraid or unsafe? Denies 12/23/2024 Sex and Gender Information Value Date Recorded Sex Assigned at Not on file Legal Sex Male 1:35 PM CDT Gender Identity Not on file Sexual Orientation Not on file Last Filed Vital Signs Vital Sign Reading Time Taken Comments Blood Pressure 107/57 12/24/2024 11:45 AM KEG INSPECTOR Pulse 77 12/24/2024 11:45 AM KEG INSPECTOR Temperature 36.5 C (97.7 F) 12/24/2024 11:45 AM KEG INSPECTOR Respiratory Rate 19 12/24/2024 11:45 AM KEG INSPECTOR Oxygen Saturation 94% 12/24/2024 11:45 AM KEG INSPECTOR Inhaled Oxygen Concentration - - Weight 104.3 kg (230 lb) 12/23/2024 1:15 PM KEG INSPECTOR Height 180.3 cm (5' 11 ) 12/23/2024 1:15 PM KEG INSPECTOR Body Mass Index 32.08 12/23/2024 1:15 PM KEG INSPECTOR Plan of Treatment Not on file Medical Devices Implanted Type Area Rear Load Truck Driver Device Identifier Shelf Expiration Date Model / Serial / Lot [employer] Inc/C R Bard [id number] Ventralight St Sepra 4.5in Uncoated Monofilament Lightweight - [id number] Implanted:Qty: 1 on 06/30/2019 by Carlos Lucero MD at [facility] Mesh N/A: Umbilical [employer] Inc/C R Bard 12/02/2020 [id number] / / [id number] [employer] [id number] Ams 700 Kit Accessory Penile Prosthesis - [id number] Implanted:Qty: 1 on 06/30/2019 by Carlos Lucero MD at [facility] N/A: Penis [employer] Nam [id number] 04/12/2024 [id number] / / [id number] [employer] [id number] Ams Spectra 1.5cm Concealable Rear Tip Regional Agronomist Snapcone - [id number] Implanted:Qty: 1 on 06/30/2019 by Carlos Lucero MD at [facility] N/A: Penis [employer] Nam [id number] 01/22/2024 [id number] / / [id number] [employer] [id number] Ams 700 Lgx Ms Pump 18cm 3 Piece Inflatable Preconnect Infrapubic - [id number] Implanted:Qty: 1 on 06/30/2019 by Carlos Lucero MD at [facility] N/A: Penis [employer] Nam [id number] 09/10/2020 [id number] / / [id number] [employer] [id number] Ams 700 Ms Pump Preconnect Inflatable Elcho Prosthesis 65ml - [id number] Implanted:Qty: 1 on 06/30/2019 by Carlos Lucero MD at [facility] N/A: Abdomen [employer] Nam [id number] 05/14/2021 [id number] / / [id number] Procedures Procedure Name Priority Date/Time Associated Diagnosis Comments POCT GLUCOSE DEVICE Routine 12/24/2024 1 1:44 AM KEG INSPECTOR POCT GLUCOSE DEVICE Routine 12/24/2024 8 :04 AM KEG INSPECTOR EGFR Timed 12/23/2024 8:30 PM KEG INSPECTOR CBC WITHOUT DIFFERENTIAL Timed 12/23/2024 8:30 PM KEG INSPECTOR BASIC METABOLIC PANEL Timed 12/23/2024 8:30 PM KEG INSPECTOR SURGICAL PATHOLOGY Routine 12/23/2024 10 :23 AM KEG INSPECTOR Renal mass PERIPHERAL LINE Routine 12/23/2024 8:15 AM KEG INSPECTOR ANESTHESIA INTUBATION Routine 12/23/2024 8:12 AM KEG INSPECTOR XI PARTIAL NEPHRECTOMY - LAPAROSCOPIC ROBOTIC ASSISTED 12/23/2024 7:30 AM KEG INSPECTOR Renal mass B CHECK SAMPLE STAT 12/23/2024 6:32 AM KEG INSPECTOR TYPE AND SCREEN 14 DAY Routine 12/12/2024 10:51 AM KEG INSPECTOR Preoperative testing URINE CULTURE Routine 12/12/2024 10:51 AM KEG INSPECTOR Preoperative testing EGFR Routine 11/13/2024 1:20 PM KEG INSPECTOR Primary malignant neoplasm of prostate (HCC) Prostate cancer (HCC) DIFFERENTIAL AUTO Routine 11/13/2024 1:2 0 PM KEG INSPECTOR Primary malignant neoplasm of prostate (HCC) Prostate cancer (HCC) COMPREHENSIVE METABOLIC PANEL Routine 11/13/2024 1:20 PM KEG INSPECTOR Primary malignant neoplasm of prostate (HCC) Prostate cancer (HCC) PSA DIAGNOSTIC Routine 11/13/2024 1:20 PM KEG INSPECTOR Primary malignant neoplasm of prostate (HCC) Prostate cancer (HCC) TOTAL TESTOSTERONE Routine 11/13/2024 1: 20 PM KEG INSPECTOR Primary malignant neoplasm of prostate (HCC) Prostate cancer (HCC) CBC WITH AUTO DIFFERENTIAL Routine 11/13/2024 1:20 PM KEG INSPECTOR Primary malignant neoplasm of prostate (HCC) Prostate cancer (HCC) PET/CT PROSTATE CANCER PSMA SKULL TO THIGH Schedule Routine, Read Routine (OP Routine) 10/07/2024 4:24 PM KEG INSPECTOR Prostate cancer (HCC) EGFR Routine 09/30/2024 2:27 PM KEG INSPECTOR Primary malignant neoplasm of prostate (HCC) Prostate cancer (HCC) DIFFERENTIAL AUTO Routine 09/30/2024 2:2 7 PM KEG INSPECTOR Primary malignant neoplasm of prostate (HCC) Prostate cancer (HCC) PSA DIAGNOSTIC Routine 09/30/2024 2:27 PM KEG INSPECTOR Primary malignant neoplasm of prostate (HCC) Prostate cancer (HCC) TOTAL TESTOSTERONE Routine 09/30/2024 2: 27 PM KEG INSPECTOR Primary malignant neoplasm of prostate (HCC) Prostate cancer (HCC) CBC WITH AUTO DIFFERENTIAL Routine 09/30/2024 2:27 PM KEG INSPECTOR Primary malignant neoplasm of prostate (HCC) Prostate cancer (HCC) COMPREHENSIVE METABOLIC PANEL Routine 09/30/2024 2:27 PM KEG INSPECTOR Primary malignant neoplasm of prostate (HCC) Prostate cancer (HCC) TEMPUS XG HEREDITARY CANCER NGS PANEL Routine 09/30/2024 2:18 PM KEG INSPECTOR Primary malignant neoplasm of prostate (HCC) Prostate cancer (HCC) HEPATITIS C ANTIBODY Routine Gen Lab 03/07/2017 9:12 AM CDT from Last 3 Months or Most Recently Relevant to Health Maintenance Results * POCT glucose (12/24/2024 11:44 AM KEG INSPECTOR) Glucose, POC 114 70 - 199 mg/dL Blood 12/24/2024 11:4 4 AM KEG INSPECTOR 12/24/2024 11:44 AM KEG INSPECTOR us Felice Schmitt MD LAB POCT ORDERABLES - DEV ICE Final Result [facility] Department [place] [address] * POCT glucose (12/24/2024 8:04 AM KEG INSPECTOR) Glucose, POC 129 70 - 199 mg/dL Blood 12/24/2024 8:04 AM KEG INSPECTOR 12/24/2024 8:04 AM KEG INSPECTOR Felice Schmitt MD LAB POCT ORDERABLES - DEV ICE Final Result Performing Organization Address [facility] Co de Phone Number [facility] Department [place] [address] * eGFR (12/23/2024 8:30 PM KEG INSPECTOR) Pathologist [facility] eGFR >90 >=60 mL/min/1. 73 m2 Comment: Interpretive Data Reference Interval Normal >/= 90 mL/min/1.73m2 Mildly decreased* 60 - 89 mL/min/1.73m2 Mildly to moderately decreased 45 - 59 mL/min/1.73m2 Moderately to severely decreased 30 - 44 mL/min/1.73m2 Severely decreased 15 - 29 mL/min/1.73m2 Kidney Failure < 15 mL/min/1.73m2 *Relative to young adult level Estimated glomerular [...] interpretive data was last reviewed 2021. Blood 12/23/2024 8:30 PM KEG INSPECTOR 12/23/2024 8:51 PM KEG INSPECTOR Felice Schmitt MD LAB BLOOD ORDERABLES Yamila l Result Performing Organization Address [facility] Co de Phone Number [facility] Department [place] [address] * (ABNORMAL) CBC without differential (12/23/2024 8:30 PM KEG INSPECTOR) [facility] WBC 11.0(H) 3.8 - 9.9 K/cumm Hgb 13.5 13.0 - 17.5 g/dL [facility] Hct 38.4(L) 38.9 - 50.3 % [facility] Plt 185 150 - 400 K/cumm [facility] MPV 9.5 9.1 - 12.3 fL [facility] RBC 4.42 4.30 - 5.80 M/cumm [facility] MCV 86.9 81.3 - 96.4 fL [facility] MCH 30.5 27.1 - 33.3 pg [facility] MCHC 35.2 32.3 - 35.7 g/dL [facility] RDW CV 14.6 11.1 - 14.9 % [facility] RDW SD 46.1 35.7 - 48.1 fL [facility] NRBC abs 0.00 0.00 - 0.01 K/cumm [facility] Blood 12/23/2024 8:30 PM KEG INSPECTOR 12/23/2024 8:51 PM KEG INSPECTOR Felice Schmitt MD LAB BLOOD ORDERABLES Yamila mccullough Result [facility] Department [place] [address] * (ABNORMAL) Basic metabolic panel (12/23/2024 8:30 PM KEG INSPECTOR) Sodium 142 135 - 145 mmol/L Potassium, pl 4.4 3.3 - 4.9 mmol/L [facility] Chloride 110 97 - 110 mmol/L [facility] CO2 21(L) 22 - 32 mmol/L [facility] Anion gap 11 2 - 15 mmol/L [facility] BUN 13 6 - 25 mg/dL [facility] Creatinine 0.75(L) 0.80 - 1.30 mg/dL [facility] Glucose 111 70 - 199 mg/dL [facility] Comment: Interpretive Data Fasting glucose >/= 126 mg/dl is diagnostic for diabetes. Fasting is defined as no caloric intake [...] interpretive data was last revised 2022. Calcium 9.1 8.5 - 10.3 mg/dL [facility] Blood 12/23/2024 8:30 PM KEG INSPECTOR 12/23/2024 8:51 PM KEG INSPECTOR us Felice Schmitt MD LAB BLOOD ORDERABLES Yamila mccullough Result [facility] Department [place] [address] * Surgical pathology (12/23/2024 10:23 AM KEG INSPECTOR) Tissue (Kidney, partial nephrectomy) 12/23/2024 10:23 AM KEG INSPECTOR Narrative PATHOLOGY [facility] - 12/26/2024 9:20 AM KEG INSPECTOR EPIC results best viewed via link to PDF [facility] [place] [address] Note to Patients: This report may contain a detailed description of human tissue sent by a health care provider to the laboratory for pathologic evaluation. The content of this report is essential for diagnosis and may provide important critical findings. This information may be unfamiliar to patients to review without a medical professional present. It is advised that the patient review this report in the presence of a health care provider who can answer questions and explain the details. SURGICAL PATHOLOGY REPORT FINAL Patient Name: KEN ENNIS Gender: M : 1970 (Age: 54) Address: [address] [place], [place] [address] Hospital #: [id number] Taken:12/23/2024 Received:12/23/2024 Reported: 12/26/2024 Patient Type: [facility] OP In Bed Service: Urology Location: [facility] 7378 Physician(s): Felice Schmitt M.D. Carlitos Gardner M.D. 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 Kimani Olvera M.D., PH.D. Report Electronically Reviewed and Signed Out By Kimani Olvera M.D., PH.D. 12/26/2024 09:20:14 Microscopic Description and Comment: The carcinoma is morphologically consistent with clear cell renal cell carcinoma but contains some fibromuscular stroma. The immunohistochemical stains demonstrate that the neoplastic cells are positive for CAIX (box-like), variably positive for CK7 but negative for TFE3. The tumor histology and variable CK7 positivity raise the possibility of a recently described TCEB1 mutated renal cell carcinoma. Molecular characterization can be attempted to confirm the histologic impression. Carlitos Morgan M.D. History: The patient is a 54-year-old man with a renal mass. Operative Procedure: partial nephrectomy, laparoscopic robotic assisted, retroperitoneal Specimen(s) Received: A: Right renal mass Gross Description: Received in formalin labeled with patient identifiers and right renal mass is a partial nephrectomy specimen (32.7 g, 4.2 x 4.2 x 3.9 cm). The intact renal capsule is inked blue and the deep and peripheral margins are inked black. Serial sections show an encapsulated spherical orange mass with scattered areas of purple congestion (3.5 x 3.4 x 2.9 cm). The mass comes to within 0.2 cm of the inked deep margin and pushes against the renal capsule but does not extend to the external surface. A pharmaceutical service representative section from the mass was submitted for research. Reed Polisher sections from the remaining specimen are submitted as follows: A1-A3 Mass and closest approach to the inked deep margin A4-A5 Mass including the peripheral margin and renal capsule Jar 1. 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, unclassified/NOS Sarcomatoid features: Sarcomatoid or rhabdoid features not identified Tumor necrosis: Not identified Histologic Grade (WHO / ISUP Grade): G2: Nucleoli conspicuous and eosinophilic at 400x magnification, visible but not prominent at 100x magnification Anatomic extent of tumor: Tumor limited to kidney Margins: All margins negative for invasive carcinoma Lymphvascular invasion: Not identified Regional Lymph Nodes: No lymph nodes submitted or found Pathologic Stage Classification (pTNM, AJCC 8th Edition): Primary tumor: pT1a: Tumor 4 cm or less in greatest dimension, limited to the kidney Regional lymph nodes (pN): pNX: Regional lymph nodes cannot be assessed Pathologic findings in nonneoplastic kidney: Significant pathologic alterations None identified The pathologic stage assigned here should be regarded as provisional, and may change after integration of clinical data not provided with this specimen. CAP VERSION: Kidney 4.2.0.0 By this signature, I attest that the above diagnosis is based upon my personal examination of the slides(and/or other material). Addenda/Procedures The performance characteristics of some immunohistochemical stains, fluorescence in-situ hybridization tests and immunophenotyping by flow cytometry cited in this report (if any) were determined by the Surgical Pathology and Flow Cytometry Departments at [facility] as part of an ongoing supplier quality program and in compliance with federally mandated regulations drawn from the Clinical Laboratory Improvement Act of 1988 (CLIA '88). Some of these tests rely on the use of analyte specific reagents and are subject to specific labeling requirements by the US Food and Drug Administration. Such diagnostic tests may only be performed in a facility that is certified by the Department of Health and Human Services as a high complexity laboratory under CLIA '88. The FDA has determined that such clearance or approval is not necessary. This test is used for clinical purposes. It should not be regarded as investigational or for research. Nevertheless, federal rules concerning the medical use of analyte specific reagents require that the following disclaimer be attached to the report: This test was developed and its performance characteristics determined by the Surgical Pathology and Flow Cytometry Departments of [facility]. It has not been cleared or approved by the U. S. Food and Drug Administration. IMAGES AND SCANNED DOCUMENTS, IF INCLUDED, ONLY VIEWABLE IN PDF VERSION OF REPORT us Felice Schmitt MD LAB PATHOLOGY ORDERABLES Final Result PATHOLOGY [facility] 3rd Floor [place], [place] [phone] * Peripheral IV Catheter (12/23/2024 8:15 AM KEG INSPECTOR) Damian Willis MD - 12/23/2024 8:15 AM KEG INSPECTOR Damian Verduzco MD 12/23/2024 8:15 AM Peripheral IV Catheter Patient location: OR Staff: Supervising provider: Ximena Smith MD Placed by: Resident: Damian Verduzco MD Preprocedure prep: Prep solution: chlorhexadine PPE: gloves and provider hat/mask PIV line: Laterality: right Site: hand Catheter size: 18 g Technique: direct visualization Procedure details: occlusive dressing applied and good blood return Number of attempts: 1 Assessment: Events: patient tolerated procedure well with no complications us Ximena Smith MD ANESTHESIA ORDERABLES Final Result * Airway (12/23/2024 8:12 AM KEG INSPECTOR) Damian Willis MD - 12/23/2024 8:12 AM KEG INSPECTOR Damian Verduzco MD 12/23/2024 8:15 AM Airway Patient location: OR Urgency: elective Indications for airway management: anesthesia Difficult airway: no Staff: Supervising provider: Ximena Smith MD Placed by: Resident: Damian Verduzco MD Emergent airway documentation: Risks and benefits discussed: yes Consent obtained: yes Consent given by: patient Airway prep: Preoxygenated: yes Patient position: sniffing Mask difficulty assessment: 2 - vent by mask + OA or adjuvant Spontaneous ventilation during airway: absent Sedation level during airway: GA Final airway details: Final airway type: endotracheal airway Tube type: ETT ETT size: 8.0 mm Cuffed: yes Technique used for successful ETT placement: video laryngoscopy Devices/Methods used in placement: stylet Insertion site: oral Blade type: Tiffany Video blade type: Acosta Blade size: 4 Cormack-Lehane (direct): grade IV - neither glottis nor epiglottis seen Cormack-Lehane (video): grade I - full view of glottis Initial cuff pressure: 33 cm H2O Cuff volume: 8 mL Cuff inflated with: air ETT to lips: 25 cm Placement verified by: auscultation and CO2 detection Airway secured with: silk tape Number of attempts: 1 Planned trial extubation: yes Additional comments: Pt stated that he had a EMT inform him that he was the most difficult 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 Extra equipment and precautions were taken prior to induction. Pt was able to be mask ventilated with one strap, oral airway, and one provider. Macgrath with 4 size blade showed a grade 4 view on DL and a grade 1 view on videoscope. us Ximena Smith MD ANESTHESIA ORDERABLES Final Result * Check Sample (12/23/2024 6:32 AM KEG INSPECTOR) ABO Rh A Positive [facility] HCLL OTHER 12/23/2024 6:32 AM KEG INSPECTOR 12/23/2024 11:15 AM KEG INSPECTOR us Felice Schmitt MD LAB BLOOD ORDERABLES Yamila l Result [facility] Department [place] [address] [facility] * TYPE AND SCREEN 14 DAY (12/12/2024 10:51 AM KEG INSPECTOR) Nam, indirect Negative ABO Rh A Positive [facility] Blood 12/12/2024 10:5 1 AM KEG INSPECTOR 12/12/2024 11:20 AM KEG INSPECTOR Narrative [facility] - 12/12/2024 12:30 PM KEG INSPECTOR Is this test being ordered in advance for a procedure?->Yes Expected date of procedure:->12/23/24 Has the patient been transfused in the past 3 months?->No us Karly Norris NP LAB BLOOD BANK VALDO T ORDERABLES Final Result [facility] [place] [address] * Urine culture Urine, clean voided (12/12/2024 10:51 AM KEG INSPECTOR) Report Final Report: No growth Urine, clean voided 12/12/2024 10:51 AM KEG INSPECTOR 12/12/2024 11:25 AM KEG INSPECTOR Narrative ALY TRAN - 12/13/2024 12:34 PM KEG INSPECTOR Testing performed by [facility] Microbiology Laboratory ([phone]) us Karly Norris NP LAB MICROBIOLOGY - GENERAL ORDERABLES Final Result Performing Organization Address City/[facility] Co de Phone Number ALY [facility] Department [place] [address] * eGFR (11/13/2024 1:20 PM KEG INSPECTOR) eGFR >90 >=60 mL/min/1. 73 m2 Comment: Interpretive Data Reference Interval Normal >/= 90 mL/min/1.73m2 Mildly decreased* 60 - 89 mL/min/1.73m2 Mildly to moderately decreased 45 - 59 mL/min/1.73m2 Moderately to severely decreased 30 - 44 mL/min/1.73m2 Severely decreased 15 - 29 mL/min/1.73m2 Kidney Failure < 15 mL/min/1.73m2 *Relative to young adult level Estimated glomerular [...] last reviewed 2021. Blood 11/13/2024 1:20 PM KEG INSPECTOR 11/13/2024 1:23 PM KEG INSPECTOR us Jesse Griggs MD LAB BLOOD ORDERABLES Fin al Result [facility] Department [place] [address] * Differential, auto (11/13/2024 1:20 PM KEG INSPECTOR) Neutrophil abs 4.1 1.5 - 6.5 K/cumm Comment:Testing performed by : [facility], [address] [place] [phone] Lymphocyte abs 1.0 0.8 - 3.3 K/cumm CERNER BJ Comment:Testing performed by : [facility], [address] [place] [phone] Monocyte abs 0.5 0.2 - 0.8 K/cumm CERNER BJ Comment:Testing performed by : [facility], [address] [place] [phone] Eosinophil abs 0.2 0.0 - 0.5 K/cumm CERNER BJ Comment:Testing performed by : [facility], [address] [place] [phone] Basophil abs 0.0 0.0 - 0.1 K/cumm CERNER BJ Comment:Testing performed by : [facility], [address] [place] [phone] Neutrophil pct 71.2 % CERNER BJ Comment: Interpretive Data Percent cell count reference ranges are not reported, since discordance with absolute values may lead to misinterpretation of CBC data. Current Interpretive Data was last revised on 2018. Testing performed by: [facility], [address] [place] [phone] Lymphocyte pct 17.1 % CERNER BJ Comment: Interpretive Data Percent cell count reference ranges are not reported, since discordance with absolute values may lead to misinterpretation of CBC data. Current Interpretive Data was last revised on 2018. Testing performed by: [facility], [address] [place] [phone] Monocyte pct 8.3 % ALY TRAN Comment: Interpretive Data Percent cell count reference ranges are not reported, since discordance with absolute values may lead to misinterpretation of CBC data. Current Interpretive Data was last revised on 2018. Testing performed by: [facility], [address] [place] [phone] Eosinophil pct 2.8 % ALY TRAN Comment: Interpretive Data Percent cell count reference ranges are not reported, since discordance with absolute values may lead to misinterpretation of CBC data. Current Interpretive Data was last revised on 2018. Testing performed by: [facility], [address] [place] [phone] Basophil pct 0.6 % ALY TRAN Comment: Interpretive Data Percent cell count reference ranges are not reported, since discordance with absolute values may lead to misinterpretation of CBC data. Current Interpretive Data was last revised on 2018. Testing performed by: [facility], [address] [place] [phone] Blood 11/13/2024 1:20 PM KEG INSPECTOR 11/13/2024 1:21 PM KEG INSPECTOR us Jesse Griggs MD LAB BLOOD ORDERABLES Fin al Result ALY TRAN [facility] Department [place] [address] * CBC with auto differential (11/13/2024 1:20 PM KEG INSPECTOR) WBC 5.8 3.8 - 9.9 K/cumm Comment:Testing performed by : [facility], [address] [place] [phone] Hgb 15.2 13.0 - 17.5 g/dL ALY DAVIES Comment:Testing performed by : [facility], [address] [place] [phone] Hct 44.6 38.9 - 50.3 % CERNER BJ Comment:Testing performed by : [facility], [address] [place] [address] Plt 189 150 - 400 K/cumm CERNER BJ Comment:Testing performed by : [facility], [address] [place] [address] MPV 8.3 6.8 - 10.4 fL CERNER BJ Comment:Testing performed by : [facility], [address] [place] [address] RBC 5.18 4.30 - 5.80 M/cumm CERNER BJ Comment:Testing performed by : [facility], [address] [place] [address] MCV 86.2 81.3 - 96.4 fL CERNER BJ Comment:Testing performed by : [facility], [address] [place] [address] MCH 29.5 27.1 - 33.3 pg CERLICHA BJ Comment:Testing performed by : [facility], [address] [place] [address] MCHC 34.2 32.3 - 35.7 g/dL CERNER BJ Comment:Testing performed by : [facility], [address] [place] [address] RDW CV 14.8 11.1 - 14.9 % CERNER BJ Comment:Testing performed by : [facility], [address] [place] [address] NRBC abs 0.00 0.00 - 0.01 K/cumm CERNER BJ Comment:Testing performed by : [facility], [address] [place] [address] Blood 11/13/2024 1:20 PM KEG INSPECTOR 11/13/2024 1:21 PM KEG INSPECTOR us Jesse Griggs MD LAB BLOOD ORDERABLES Fin al Result ALY [facility] Department [place] [address] * (ABNORMAL) Total testosterone (11/13/2024 1:20 PM KEG INSPECTOR) Pathologist [facility] Testosterone 188.0(L) 193.0 - 740.0 ng/dL Blood 11/13/2024 1:20 PM KEG INSPECTOR 11/13/2024 1:50 PM KEG INSPECTOR Jesse Griggs MD LAB BLOOD ORDERABLES Fin al Result Performing Organization Address [facility] de Phone Number [facility] [place] [place] [address] * PSA diagnostic (11/13/2024 1:20 PM KEG INSPECTOR) Pathologist [facility] PSA-Total 1.88 <=3.90 ng/mL Comment: Interpretive Data AGE SEX REFERENCE INTERVAL 0 minutes-150 years Female None 0 minutes-49 years Male None 50-59 years Male 0-3.90 60-69 years Male 0-5.40 70-79 years Male 0-6.20 80-150 years Male 0-6.20 The Gilbert PSA Total assay procedure was used. Results from different manufacturers or methods may not be comparable. Serial testing should be performed using the same method. Current interpretive data last revised 22. Blood 11/13/2024 1:20 PM KEG INSPECTOR 11/13/2024 1:23 PM KEG INSPECTOR Jesse Griggs MD LAB BLOOD ORDERABLES Fin al Result Performing Organization Address [facility] de Phone Number [facility] [place] [address] * (ABNORMAL) Comprehensive metabolic panel (11/13/2024 1:20 PM KEG INSPECTOR) Pathologist [facility] Sodium 144 135 - 145 mmol/L Potassium, pl 4.5 3.3 - 4.9 mmol/L [facility] Comment:Hemolyzed; Potassium value may be falsely elevated by as much as 0.3-0.5 mmol/L. Suggest redraw and reanalysis. Chloride 107 97 - 110 mmol/L [facility] CO2 29 22 - 32 mmol/L [facility] Anion gap 8 2 - 15 mmol/L [facility] BUN 14 6 - 25 mg/dL [facility] Creatinine 0.69(L) 0.80 - 1.30 mg/dL [facility] Glucose 97 70 - 199 mg/dL [facility] Comment: Interpretive Data Fasting glucose >/= 126 mg/dl is diagnostic for diabetes. Fasting is defined as no caloric intake [...] 2022. Calcium 10.0 8.5 - 10.3 mg/dL [facility] Bilirubin, total 1.2 0.1 - 1.2 mg/dL [facility] Protein, pl 7.6 6.5 - 8.5 g/dL [facility] Albumin 4.0 3.5 - 5.0 g/dL [facility] Alk phos 125 40 - 130 Units/L [facility] ALT 13 7 - 55 Units/L [facility] AST 51(H) 10 - 50 Units/L [facility] Comment:Hemolyzed; result ma y be falsely elevated Blood 11/13/2024 1:20 PM KEG INSPECTOR 11/13/2024 1:23 PM KEG INSPECTOR us Jesse Griggs MD LAB BLOOD ORDERABLES Fin al Result [facility] Department [place] [address] * PET/CT Prostate Cancer PSMA Skull to Thigh (10/07/2024 4:24 PM KEG INSPECTOR) Anatomical Region Laterality Modality N/A Positron Emissio n Tomography (PET) 10/08/2024 11:4 2 AM KEG INSPECTOR Impressions 10/08/2024 12:24 PM KEG INSPECTOR 1. Widespread regional and distant tom and [...] Dariana Eaton M.D. Narrative 10/08/2024 12:24 PM KEG INSPECTOR EXAMINATION: PSMA-PET/CT DATE OF STUDY: 10/07/2024 SCANNER: [facility] [employer] (NV1). This is a high-resolution scanner, which [...] obtained. The study was interpreted on the [employer] workstation. The total scanned area was mid [...] EXAMINATION: PSMA-PET/CT DATE OF STUDY: 10/07/2024 SCANNER: [facility] [employer] (NV1). This is a high-resolution scanner, which can result in higher SUVs (and even detection of new small lesions) compared to older scanners. RADIOPHARMACEUTICAL: 9.94 mCi F-18 DCFPyL (Piflufolastat) i.v. Injection site: Right antecubital HISTORY: 54-year-old man with prostate cancer diagnosed in 2011. The patient underwent radical prostatectomy with tom dissection on 08/02/2012, with pathology demonstrating Jia 4+5 disease and 12 lymph nodes involved. The patient received adjuvant [...] obtained. The study was interpreted on the [employer] workstation. The total scanned area was mid [...] Dariana Eaton M.D. us Felice Schmitt MD IMG PET PROCEDURES Final Result * eGFR (09/30/2024 2:27 PM KEG INSPECTOR) Pathologist [facility] eGFR >90 >=60 mL/min/1. 73 m2 Comment: Interpretive Data Reference Interval Normal >/= 90 mL/min/1.73m2 Mildly decreased* 60 - 89 mL/min/1.73m2 Mildly to moderately decreased 45 - 59 mL/min/1.73m2 Moderately to severely decreased 30 - 44 mL/min/1.73m2 Severely decreased 15 - 29 mL/min/1.73m2 Kidney Failure < 15 mL/min/1.73m2 *Relative to young adult level Estimated glomerular [...] last reviewed 2021. Blood 09/30/2024 2:27 PM KEG INSPECTOR 09/30/2024 2:30 PM KEG INSPECTOR us Jesse Griggs MD LAB BLOOD ORDERABLES Fin al Result [facility] Department of Laboratories [place], [place] [id number] * Differential, auto (09/30/2024 2:27 PM KEG INSPECTOR) Pathologist [facility] Neutrophil abs 3.8 1.5 - 6.5 K/cumm Comment:Testing performed by : [facility], [address] [place] [phone] Imm gran abs 0.0 0.0 - 0.1 K/cumm ALY [facility] Lymphocyte abs 1.0 0.8 - 3.3 K/cumm ALY [facility] Monocyte abs 0.6 0.2 - 0.8 K/cumm [facility] Eosinophil abs 0.1 0.0 - 0.5 K/cumm [facility] Basophil abs 0.0 0.0 - 0.1 K/cumm [facility] Neutrophil pct 68.9 % [facility] Comment: Interpretive Data Percent cell count reference ranges are not reported, since discordance with absolute values may lead to misinterpretation of CBC data. Current Interpretive Data was last revised on 2018. Imm gran pct 0.2 % [facility] Comment: Interpretive Data Percent cell count reference ranges are not reported, since discordance with absolute values may lead to misinterpretation of CBC data. Current Interpretive Data was last revised on 2018. Lymphocyte pct 18.2 % [facility] Comment: Interpretive Data Percent cell count reference ranges are not reported, since discordance with absolute values may lead to misinterpretation of CBC data. Current Interpretive Data was last revised on 2018. Monocyte pct 9.9 % [facility] Comment: Interpretive Data Percent cell count reference ranges are not reported, since discordance with absolute values may lead to misinterpretation of CBC data. Current Interpretive Data was last revised on 2018. Eosinophil pct 2.3 % [facility] Comment: Interpretive Data Percent cell count reference ranges are not reported, since discordance with absolute values may lead to misinterpretation of CBC data. Current Interpretive Data was last revised on 2018. Basophil pct 0.5 % [facility] Comment: Interpretive Data Percent cell count reference ranges are not reported, since discordance with absolute values may lead to misinterpretation of CBC data. Current Interpretive Data was last revised on 2018. Blood 09/30/2024 2:27 PM KEG INSPECTOR 09/30/2024 2:30 PM KEG INSPECTOR us Jesse Griggs MD LAB BLOOD ORDERABLES Fin al Result [facility] Department [place] [address] * (ABNORMAL) CBC with auto differential (09/30/2024 2:27 PM KEG INSPECTOR) WBC 5.6 3.8 - 9.9 K/cumm Comment:Testing performed by : [facility], [address] [place] [phone] Hgb 14.2 13.0 - 17.5 g/dL [facility] Comment:Testing performed by : [facility], [address] [place] [phone] Hct 40.6 38.9 - 50.3 % [facility] Comment:Testing performed by : [facility], [address] [place] [phone] Plt 144(L) 150 - 400 K/cumm [facility] Comment:Testing performed by : [facility], [address] [place] [phone] MPV 9.6 9.1 - 12.3 fL [facility] RBC 4.90 4.30 - 5.80 M/cumm [facility] MCV 82.9 81.3 - 96.4 fL [facility] MCH 29.0 27.1 - 33.3 pg [facility] MCHC 35.0 32.3 - 35.7 g/dL [facility] RDW CV 13.5 11.1 - 14.9 % [facility] RDW SD 40.6 35.7 - 48.1 fL [facility] NRBC abs 0.00 0.00 - 0.01 K/cumm [facility] Blood 09/30/2024 2:27 PM KEG INSPECTOR 09/30/2024 2:30 PM KEG INSPECTOR Jesse Griggs MD LAB BLOOD ORDERABLES Fin al Result [facility] Department [place] [address] * Total testosterone (09/30/2024 2:27 PM KEG INSPECTOR) [facility] Signature Testosterone 520.0 193.0 - 740.0 ng/dL Blood 09/30/2024 2:27 PM KEG INSPECTOR 09/30/2024 6:31 PM KEG INSPECTOR Jesse Griggs MD LAB BLOOD ORDERABLES Fin al Result Performing Organization Address [facility] Co de Phone Number ALY [facility] [place] [place] [address] * (ABNORMAL) PSA diagnostic (09/30/2024 2:27 PM KEG INSPECTOR) PSA-Total 64.70(H) <=3.90 ng/mL Comment: Interpretive Data AGE SEX REFERENCE INTERVAL 0 minutes-150 years Female None 0 minutes-49 years Male None 50-59 years Male 0-3.90 60-69 years Male 0-5.40 70-79 years Male 0-6.20 80-150 years Male 0-6.20 The Gilbert PSA Total assay procedure was used. Results from different manufacturers or methods may not be comparable. Serial testing should be performed using the same method. Current interpretive data last revised 22. Blood 09/30/2024 2:27 PM KEG INSPECTOR 09/30/2024 6:31 PM KEG INSPECTOR Jesse Griggs MD LAB BLOOD ORDERABLES Fin al Result Performing Organization Address [facility] Co de Phone Number ALY [facility] Department [place] [place] [address] * (ABNORMAL) Comprehensive metabolic panel (09/30/2024 2:27 PM KEG INSPECTOR) Pathologist [facility] Sodium 141 135 - 145 mmol/L Comment:Testing performed by : [facility], [address] [place] [phone] Potassium, pl 3.9 3.3 - 4.9 mmol/L [facility] Chloride 109 97 - 110 mmol/L [facility] CO2 27 22 - 32 mmol/L [facility] Anion gap 5 2 - 15 mmol/L [facility] BUN 11 6 - 25 mg/dL [facility] Creatinine 0.65(L) 0.80 - 1.30 mg/dL [facility] Glucose 96 70 - 199 mg/dL [facility] Comment: Interpretive Data Fasting glucose >/= 126 mg/dl is diagnostic for diabetes. Fasting is defined as no caloric intake [...] Calcium 9.4 8.5 - 10.3 mg/dL CERNER [facility] Bilirubin, total 0.6 0.1 - 1.2 mg/dL [facility] Protein, pl 6.7 6.5 - 8.5 g/dL [facility] Albumin 3.8 3.5 - 5.0 g/dL CERNER [facility] Alk phos 96 40 - 130 Units/L [facility] ALT 14 7 - 55 Units/L [facility] AST 40 10 - 50 Units/L C[facility] Blood 09/30/2024 2:27 PM KEG INSPECTOR 09/30/2024 2:30 PM KEG INSPECTOR Jesse Griggs MD LAB BLOOD ORDERABLES Fin al Result ALY [facility] Department [place] [address] * [employer] [facility] Hereditary Cancer NGS Panel, Blood (09/30/2024 2:18 PM KEG INSPECTOR) Pathologist [facility] Please review the PDF for results. 10/14/2024 9:34 PM KEG INSPECTOR [facility] Comment:[facility] Portal link Blood specimen (specimen) 09/30/2024 2:18 PM KEG INSPECTOR 10/14/2024 9:36 PM KEG INSPECTOR us Jesse Griggs MD LAB GENETIC TESTING Yamila l Result [facility] [address], [address] [place], [place] [id number] [place] [address] [employer] [employer] [facility] [address], [address] [place] [address] * Hepatitis C antibody (03/07/2017 9:12 AM CDT) Hep C Ab Nonreactive Nonreactive ALY TRAN Comment: Interpretive Data Positive results should be confirmed by a molecular method. If positive, a second separately collected sample should be submitted for Hepatitis C Virus (HCV) RNA Detection and Quantitation by Real-Time Reverse Public Service Administrator-PCR (RT-PCR). Current interpretive data was last revised on 2016. Blood specimen (specimen) 03/07/2017 9:12 AM CDT 03/07/2017 11:41 AM CDT Dariana tee MD LAB MICROBIOLOGY - GENERAL ORDERABLES Edited Result - Final ALY [facility] Department [place] [address] from Last 3 Months or Most Recently Relevant to Health Maintenance Insurance [facility] HMO [facility] CHOICE PLUS CHOICE [facility] [place] [facility] HMO Advance Directives For more information, please contact: [phone] Documents on File Type Date Recorded Patient Reed Polisher Expl anation ADVANCE DIRECTIVE 12/26/2024 11:08 PM RUTH ONOFRE WILL ADVANCE DIRECTIVE 12/26/2024 11:08 PM SATHISH R OF [employer] SUPERVISOR-MEDICAL * Full Code (Latest Code Status on File) Date Activated Date Inactivated Comments 12/23/2024 1:12 PM 12/24/2024 6:53 PM * Full Code Date Activated Date Inactivated Comments 06/30/2019 5:36 PM 07/01/2019 11:48 PM Care Teams Rerolling Machine Operator Relationship Specialty Start Date End Date Carlitos Gardner MD [address] [place] [address] PCP - General Family Medicine 12/10/24 Felice Schmitt MD [address] [place] [address] Consulting Physician Urology 09/19/24 Jesse Griggs MD [address] IM MEDICAL ONCOLOGY, [address], [address], [address] [place] [address] Medical Oncology 09/19/24
--- OUTSIDE RECORDS SUMMARY | 2024-12-28 16:58 | XMS_ITS | Referral Summary ---
Author Organization [facility] Address [address] [place] [address] Care Team Providers Care Tube Building Machine Operator Name Role Phone Eneida Kelly MD Primary Care Provider U reubenailrosemary Source Comments [facility],non-owned Affiliates and Associated Physician Practices is amultiple site organization consisting of ambulatory clinics and hospital sitesin [place], [place], [place] and [place]. This disclosure is being madepursuant to the Care Everywhere program and may not contain all information available regarding this patient. Last updated 18.[facility] Allergies No known active allergies Medications * [...] 73 08/29/2024 8:49 AM CDT Temperature 36.7 C (98.1 F) 08/29/2024 8:49 AM CDT Respiratory Rate 18 01/24/2024 1:30 PM CDT [...] Info) Description 02/06/2025 10:15 AM CDT Appointment [facility] [address] [place] [phone] Iman Fry INSIDE SALES EXECUTIVE-ENVELOPE MAKER [address] [place] [address] [address] [place] [address] 02/06/2025 11:00 AM CDT Office Visit [facility] - [address] [place] [phone] Iman Fry INSIDE SALES EXECUTIVE-ENVELOPE MAKER [address] [place] [address] [address] DIV OF GASTROENTEROLOGY [place], [place] [id number] Medical Devices Implanted Type Area Rope Tier Device Identifier Shelf Expiration Date Model / Serial / Lot Ams 700 Penile Implant- [id number] Implanted:06/06 (Quantity not on file) Prosthesis [employer] Procedures Procedure Name Priority Date/Time Associated Diagnosis [...] 7 - 26 mg/dL 05/15/2023 12:32 PM [facility] Creatinine 0.74 0.71 - 1.16 mg/dL 05/15/2023 12:32 PM [facility] Sodium 139 136 - 145 mmol/L 05/15/2023 12:32 PM [facility] Potassium 3.3(L) 3.5 - 4.5 mmol/L 05/15/2023 12:32 PM [facility] Chloride 106 98 - 107 mmol/L 05/15/2023 12:32 PM [facility] CO2 26 22 - 29 mmol/L 05/15/2023 12:32 PM [facility] Glucose 104 70 - 115 mg/dL 05/15/2023 12:32 PM [facility] Calcium 9.5 8.4 - 10.2 mg/dL 05/15/2023 12:32 PM [facility] Protein Total 7.0 6.0 - 8.3 g/dL 05/15/2023 12:32 PM [facility] Albumin 3.5 3.4 - 5.0 g/dL 05/15/2023 12:32 PM [facility] Bilirubin Total 0.6 0.2 - 1.2 mg/dL 05/15/2023 12:32 PM [facility] Alkaline Phosphatase 97 40 - 150 U/L 05/15/2023 12:32 PM [facility] ALT 12 5 - 55 U/L 05/15/2023 12:32 PM [facility] AST 41(H) 5 - 34 U/L 05/15/2023 12:32 PM [facility] Anion Gap 10 8 - 18 05/15/2023 12:32 PM [facility] BUN/Creatinine Ratio 15 7 - 23 05/15/2023 12:32 PM [facility] Osmolality Calculated 288 270 - 300 mOsm/kg 05/15/2023 12:32 PM [facility] Albumin/Globulin Ratio 1.0(L) 1.1 - 2.3 05/15/2023 12:32 PM [facility] eGFR by CKD-EPI >90 >=90 mL/min/1.7 3 m2 05/15/2023 12:32 PM [facility] Blood BLOOD SPECIMEN / Unknown Lab Venipuncture / Unknown 05/15/2023 11:43 AM CDT 05/15/2023 12:03 PM CDT Cathryn Zepeda MD LAB - CHEMISTRY MOHAN VARELA [facility] Organization Address City/State/ZIP Co de Phone Number [facility] [address] [place] [address], [facility] [phone] * HEPATITIS C ANTIBODY (05/15/2023 11:43 AM CDT) Hepatitis C Antibody Non-react aleks Non-reac tive 05/15/2023 12:44 PM [facility] Comment:Hepatitis C Antibody screen indicates no serologic [...] Zepeda MD LAB - CHEMISTRY MOHAN VARELA [facility] [address] [place] [address], [facility] [phone] from Last 3 Months or Most Recently Relevant to Health Maintenance Care Teams Tube Building Machine Operator Relationship Specialty Start Date End Date Eneida Kelly MD [address] [place] [address] PCP - General Family Medicine 03/28/23
--- OUTSIDE RECORDS SUMMARY | 2024-12-28 16:58 | XMS_ITS | Clinical Summary ---
Author Organization [facility] [employer] Address [address] [place] [address] Care Team Providers Care Pharmacist Assistant Name Role Phone Eneida Kelly MD Primary Care Provider U reubenailable Source Comments [facility] [employer],non-owned Affiliates and Associated Physician Practices is amultiple site organization consisting of ambulatory clinics and hospital sitesin [place], [place], [place] and [place]. This disclosure is being madepursuant to the Care Everywhere program and may not contain all informatio navailable regarding this patient. Last updated 18.[facility] [employer] Allergies No known active allergies Medications * [...] prostate cancer 05/04/202205/15 Iron deficiency anemia 11/14/2021 Family History Medical History Relation Name Comments [...] Info) Description 02/06/2025 10:15 AM CDT Appointment [facility] [address] [place] [phone] Iman Fry, YARD DRIVER-[address] [facility] [place] [address] 02/06/2025 11:00 AM CDT Office Visit [facility] [address] [facility], [place] [phone] Iman Fry, YARD DRIVER-SENIOR SAFETY SUPPORT MANAGER [address] [place] [address] Health Maintenance Due Date Last Done Comments [...] VACCINE (1 of 2) 1990 COVID-19 VACCINE (4 - 2023-2 5 season) 2024 09/16/2022, 10/18/2021, 01/11/2021 INFLUENZA VACCINE (#1) 2024 2, 07/29/2021 DEPRESSION SCREENING 11/05/2024 SCREENING FOR DIABETES [...] this topic Medical Devices Implanted Type Area Crab Fisher Device Identifier Shelf Expiration Date Model / Serial / Lot Ams 700 Penile Implant- [id number] Implanted:06/06 (Quantity not on file) Prosthesis Calester Procedures Procedure Name Priority Date/Time Associated Diagnosis [...] 7 - 26 mg/dL 05/15/2023 12:32 PM [facility] Creatinine 0.74 0.71 - 1.16 mg/dL 05/15/2023 12:32 PM [facility] Sodium 139 136 - 145 mmol/L 05/15/2023 12:32 PM [facility] Potassium 3.3(L) 3.5 - 4.5 mmol/L 05/15/2023 12:32 PM [facility] Chloride 106 98 - 107 mmol/L 05/15/2023 12:32 PM [facility] CO2 26 22 - 29 mmol/L 05/15/2023 12:32 PM [facility] Glucose 104 70 - 115 mg/dL 05/15/2023 12:32 PM [facility] Calcium 9.5 8.4 - 10.2 mg/dL 05/15/2023 12:32 PM [facility] Protein Total 7.0 6.0 - 8.3 g/dL 05/15/2023 12:32 PM [facility] Albumin 3.5 3.4 - 5.0 g/dL 05/15/2023 12:32 PM [facility] Bilirubin Total 0.6 0.2 - 1.2 mg/dL 05/15/2023 12:32 PM [facility] Alkaline Phosphatase 97 40 - 150 U/L 05/15/2023 12:32 PM [facility] ALT 12 5 - 55 U/L 05/15/2023 12:32 PM [facility] AST 41(H) 5 - 34 U/L 05/15/2023 12:32 PM [facility] Anion Gap 10 8 - 18 05/15/2023 12:32 PM [facility] BUN/Creatinine Ratio 15 7 - 23 05/15/2023 12:32 PM [facility] Osmolality Calculated 288 270 - 300 mOsm/kg 05/15/2023 12:32 PM [facility] Albumin/Globulin Ratio 1.0(L) 1.1 - 2.3 05/15/2023 12:32 PM [facility] eGFR by CKD-EPI >90 >=90 mL/min/1.7 3 m2 05/15/2023 12:32 PM [facility] Blood BLOOD SPECIMEN / Unknown Lab Venipuncture / Unknown 05/15/2023 11:43 AM CDT 05/15/2023 12:03 PM CDT Cathryn Zepeda MD LAB - CHEMISTRY MOHAN VARELA Performing Organization Address City/[facility]/ZIP Co de Phone Number [address] [address], [place] [phone] * HEPATITIS C ANTIBODY (05/15/2023 11:43 AM CDT) Hepatitis C Antibody Non-react aleks Cordonreac timercy 05/15/2023 12:44 PM [facility] Comment:Hepatitis C Antibody screen indicates no [...] Zepeda MD LAB - CHEMISTRY MOHAN VARELA [address] [address], [place] [phone] from Last 3 Months or Most Recently Relevant to Health Maintenance Care Teams Pharmacist Assistant Relationship Specialty Start Date End Date Eneida Kelly MD [address] [place] [address] PCP - General Family Medicine 03/28/23
--- OUTSIDE RECORDS SUMMARY | 2024-12-28 16:58 | XMS_ITS | Clinical Summary ---
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 Name Role Phone Felice Schmitt MD Unavailable [phone] Jesse Griggs MD Unavailable [phone] Carlitos Gardner MD Primary Care Provider Allergies No known active allergies Medications amLODIPine (NORVASC) 10 mg tabletIndicati ons:hypertensi on Take 1 tablet (10 mg total) by mouth specifications writer before breakfast Active lisinopril (PRINIVIL,ZEST RIL) 40 mg tabletIndicati ons:hypertensi on Take 1 tablet (40 mg total) by mouth specifications writer before breakfast Active cetirizine (ZyrTEC) 10 mg [...] mg total) by mouth every morning 01/09/20 21 Active bimekizumab-bk zx (BIMZELX SUBQ)Indicatio ns:psoriasis Inject [...] tablet whole. 60 tablet 5 11/06/19 25 025 Active Additional Information Patient taking differently:160 mg oralDaily (early AM), Take with or without food at the same time each day. Do not crush, break, or dissolve. Swallow tablet whole.,Indications: supress ca tumors, Informant: Self, Reported on 12/23/2024 cholecalcifero l, vitamin D3, (VITAMIN D3 ORAL)Indicatio ns:supplement Take 1 tablet by mouth specifications writer before breakfast Active oxyCODONE (ROXICODONE) 5 mg immediate release tabletIndicati ons:Pain Take 1 tablet (5 mg total) by mouth every 4 (four) hours as needed for pain 10 tablet 12/24/19 25 Active senna-docusate (PERICOLACE) 8.6-50 mgIndications: constipation Take [...] (05/26/2019): Added automatically from request for surgery [id number] IRINEO (acute kidney injury) 10/23/2018 Acute renal failure superimp osed on chronic kidney disease 04/29/2018 09/09/2019 Encounters Date Type Department Care Team Description 12/23/2024 7:30 AM MEDICAL CODING SPECIALIST - 12/23/2024 12:25 PM MEDICAL CODING SPECIALIST Surgery [facility] Operating Room [address] [place] [address] Felice Schmitt MD XI PARTIAL NEPHRECTOMY - LAPAROSCOPIC ROBOTIC ASSISTED-RETROPERITO JONG 12/23/2024 7:25 AM MEDICAL CODING SPECIALIST Anesthesia Event [facility] Operating Room [address] [place] [address] Ximena Smith MD Sousa, Claira J., CRNA 12/23/2024 5:03 AM MEDICAL CODING SPECIALIST - 12/24/2024 2:48 PM MEDICAL CODING SPECIALIST Hospital Encounter [facility] 1 [place] [address] Felice Schmitt MD Acute postoperative pain (Primary Dx); Renal mass Discharge Disposition: Discharge to home or self care 12/12/2024 9:00 AM MEDICAL CODING SPECIALIST Pre-Admission Testing [facility] Center for Preoperative Assessment [facility] ([facility]) [address] [place] [address] Preoperative testing (Primary Dx) 12/04/2024 Orders Only [facility] Urology [address] [place] [address] Office Building [address] [place] [phone] eFlice Schmitt MD Gross hematuria (Primary Dx); Prostate cancer (HCC) 11/18/2024 Telephone [facility] Urology [address] [place] [address] Office [address] [place] [phone] Peyton Hauser 11/13/2024 2:00 PM MEDICAL CODING SPECIALIST Office Visit [facility] Oncology [address] [place] [address] 5 [place] [phone] Jesse Griggs MD Primary malignant neoplasm of prostate (HCC); Prostate cancer (HCC) 11/13/2024 1:15 PM MEDICAL CODING SPECIALIST Lab [facility] - Lab Collection [facility] Floor 5 [place] [address] Primary malignant neoplasm of prostate (HCC); Prostate cancer (HCC) 11/13/2024 1:00 PM MEDICAL CODING SPECIALIST Lab [facility] Lab [address] [place] [address] Floor 5 [place] [address] Primary malignant neoplasm of prostate (HCC); Prostate cancer (HCC) 11/11/2024 Telephone [facility] Oncology [address] [place] [address] Jany Powell RMA 11/06/2024 Telephone [facility] [address] [facility] Floor 6 [place] [address] Deya Powell CPhT 11/04/2024 Orders Only [facility] Oncology [address] [place] [phone] Jerri Jones Primary malignant neoplasm of prostate (HCC) (Primary Dx) 11/03/2024 Orders Only [facility] Oncology [address] [place] [phone] Jesse Griggs MD 10/23/2024 2:00 PM MEDICAL CODING SPECIALIST Infusion [facility] [address] Floor 5 [place] [address] Primary malignant neoplasm of prostate (HCC) (Primary Dx) 10/17/2024 Orders Only [facility] Oncology [address] [place] [phone] Jesse Grgigs MD 10/07/2024 12:39 PM MEDICAL CODING SPECIALIST - 10/07/2024 11:59 PM MEDICAL CODING SPECIALIST Hospital Encounter [facility] Radiology [facility] [address] [place] [address] Discharge Disposition: Discharge to home or self care 10/07/2024 12:39 PM MEDICAL CODING SPECIALIST - 10/07/2024 11:59 PM MEDICAL CODING SPECIALIST Hospital Encounter [facility] Radiology [facility]) [address] [place] [address] Prostate cancer (HCC) Discharge Disposition: Discharge to home or self care 09/30/2024 2:00 PM MEDICAL CODING SPECIALIST Lab [address] [address] Primary malignant neoplasm of prostate (HCC); Prostate cancer (HCC) 09/30/2024 1:00 PM MEDICAL CODING SPECIALIST Office Visit [facility] Oncology [address] [place] [phone] Jesse Griggs MD Primary malignant neoplasm of prostate (HCC) (Primary Dx); Prostate cancer (HCC) from Last 3 Months Immunizations Immunization Administration Dates Next Due Hep A, Adult 04/15/2007,06/02/2006 Homero (J&J) SARS-CoV-2 Vaccination 01/11/2021 Surgical History Surgery [...] Comments Blood Pressure 107/57 12/24/2024 11:45 AM MEDICAL CODING SPECIALIST Pulse 77 12/24/2024 11:45 AM MEDICAL CODING SPECIALIST Temperature 36.5 C (97.7 F) 12/24/2024 11:45 AM MEDICAL CODING SPECIALIST Respiratory Rate 19 12/24/2024 11:45 AM MEDICAL CODING SPECIALIST Oxygen Saturation 94% 12/24/2024 11:45 AM MEDICAL CODING SPECIALIST Inhaled Oxygen Concentration - - Weight 104.3 kg (230 lb) 12/23/2024 1:15 PM MEDICAL CODING SPECIALIST Height 180.3 cm (5' 11 ) 12/23/2024 1:15 PM MEDICAL CODING SPECIALIST Body Mass Index 32.08 12/23/2024 1:15 PM MEDICAL CODING SPECIALIST Plan of Treatment Health Maintenance Due Date Last Done Comments Colon Cancer Screening-Colonoscopy 1970 Depression Screening 1971 DTaP/Tdap/Td Vaccine (1 - Tdap) 1982 Hepatitis B Screening 1989 Regular Well Visit/Exam 18-64 1989 Pneumococcal vaccine <65 (1 of 2 - PCV) 1990 Zoster Vaccine (1 of 2) 1990 Covid-19 Vaccine (2 - Homero risk series) 02/08/2021 01/11/2021 Lung Cancer Screening 2021 Influenza Vaccine (#1) 2024 Prostate Cancer Screening-PSA 11/13/2026 11/13/2024, 09/30/2024 Hepatitis C Screening Completed 03/07/2017 Medical Devices Implanted Type Area Room Attendant Device Identifier Shelf Expiration Date Model / Serial / Lot Davol Inc/C R Bard [id number] Ventralight St Sepra 4.5in Uncoated Monofilament Lightweight - [id number] Implanted:Qty: 1 on 06/30/2019 by Carlos Lucero MD at [facility] Mesh N/A: Umbilical [employer] Inc/C R Bard 12/02/2020 [id number] / / [id number] [employer] [id number] Ams 700 Kit Accessory Penile Prosthesis - [id number] Implanted:Qty: 1 on 06/30/2019 by Carlos Lucero MD at [facility] N/A: Penis [employer] Nam [id number] 04/12/2024 [id number] / / [id number] [employer] [id number] Ams Spectra 1.5cm Concealable Rear Tip Flight Kitchen Manager Snapcone - [id number] Implanted:Qty: 1 on 06/30/2019 by Carlos Lucero MD at [facility] N/A: Penis [employer] Nam [id number] 01/22/2024 [id number] / / [id number] [employer] [id number] Ams 700 Lgx Ms Pump 18cm 3 Piece Inflatable Preconnect Infrapubic - [id number] Implanted:Qty: 1 on 06/30/2019 by Carlos Lucero MD at [facility] N/A: Penis [employer] Nam [id number] 09/10/2020 [id number] / / [id number] W[employer] [id number] Ams 700 Ms Pump Preconnect Inflatable [place] Prosthesis 65ml - [id number] Implanted:Qty: 1 on 06/30/2019 by Carlos Lucero MD at [facility] N/A: Abdomen Octapoly [id number] 05/14/2021 [id number] / / [id number] Procedures Procedure Name Priority Date/Time Associated Diagnosis Comments POCT GLUCOSE DEVICE Routine 12/24/2024 1 1:44 AM MEDICAL CODING SPECIALIST POCT GLUCOSE DEVICE Routine 12/24/2024 8 :04 AM MEDICAL CODING SPECIALIST EGFR Timed 12/23/2024 8:30 PM MEDICAL CODING SPECIALIST CBC WITHOUT DIFFERENTIAL Timed 12/23/2024 8:30 PM MEDICAL CODING SPECIALIST BASIC METABOLIC PANEL Timed 12/23/2024 8:30 PM MEDICAL CODING SPECIALIST SURGICAL PATHOLOGY Routine 12/23/2024 10 :23 AM MEDICAL CODING SPECIALIST Renal mass PERIPHERAL LINE Routine 12/23/2024 8:15 AM MEDICAL CODING SPECIALIST ANESTHESIA INTUBATION Routine 12/23/2024 8:12 AM MEDICAL CODING SPECIALIST XI PARTIAL NEPHRECTOMY - LAPAROSCOPIC ROBOTIC ASSISTED 12/23/2024 7:30 AM MEDICAL CODING SPECIALIST Renal mass B CHECK SAMPLE STAT 12/23/2024 6:32 AM MEDICAL CODING SPECIALIST TYPE AND SCREEN 14 DAY Routine 12/12/2024 10:51 AM MEDICAL CODING SPECIALIST Preoperative testing URINE CULTURE Routine 12/12/2024 10:51 AM MEDICAL CODING SPECIALIST Preoperative testing EGFR Routine 11/13/2024 1:20 PM MEDICAL CODING SPECIALIST Primary malignant neoplasm of prostate (HCC) Prostate cancer (HCC) DIFFERENTIAL AUTO Routine 11/13/2024 1:2 0 PM MEDICAL CODING SPECIALIST Primary malignant neoplasm of prostate (HCC) Prostate cancer (HCC) COMPREHENSIVE METABOLIC PANEL Routine 11/13/2024 1:20 PM MEDICAL CODING SPECIALIST Primary malignant neoplasm of prostate (HCC) Prostate cancer (HCC) PSA DIAGNOSTIC Routine 11/13/2024 1:20 PM MEDICAL CODING SPECIALIST Primary malignant neoplasm of prostate (HCC) Prostate cancer (HCC) TOTAL TESTOSTERONE Routine 11/13/2024 1: 20 PM MEDICAL CODING SPECIALIST Primary malignant neoplasm of prostate (HCC) Prostate cancer (HCC) CBC WITH AUTO DIFFERENTIAL Routine 11/13/2024 1:20 PM MEDICAL CODING SPECIALIST Primary malignant neoplasm of prostate (HCC) Prostate cancer (HCC) PET/CT PROSTATE CANCER PSMA SKULL TO THIGH Schedule Routine, Read Routine (OP Routine) 10/07/2024 4:24 PM MEDICAL CODING SPECIALIST Prostate cancer (HCC) EGFR Routine 09/30/2024 2:27 PM MEDICAL CODING SPECIALIST Primary malignant neoplasm of prostate (HCC) Prostate cancer (HCC) DIFFERENTIAL AUTO Routine 09/30/2024 2:2 7 PM MEDICAL CODING SPECIALIST Primary malignant neoplasm of prostate (HCC) Prostate cancer (HCC) PSA DIAGNOSTIC Routine 09/30/2024 2:27 PM MEDICAL CODING SPECIALIST Primary malignant neoplasm of prostate (HCC) Prostate cancer (HCC) TOTAL TESTOSTERONE Routine 09/30/2024 2: 27 PM MEDICAL CODING SPECIALIST Primary malignant neoplasm of prostate (HCC) Prostate cancer (HCC) CBC WITH AUTO DIFFERENTIAL Routine 09/30/2024 2:27 PM MEDICAL CODING SPECIALIST Primary malignant neoplasm of prostate (HCC) Prostate cancer (HCC) COMPREHENSIVE METABOLIC PANEL Routine 09/30/2024 2:27 PM MEDICAL CODING SPECIALIST Primary malignant neoplasm of prostate (HCC) Prostate cancer (HCC) TEMPUS XG HEREDITARY CANCER NGS PANEL Routine 09/30/2024 2:18 PM MEDICAL CODING SPECIALIST Primary malignant neoplasm of prostate (HCC) Prostate cancer (HCC) HEPATITIS C ANTIBODY Routine Gen Lab 03/07/2017 9:12 AM CDT from Last 3 Months or Most Recently Relevant to Health Maintenance Results * POCT glucose (12/24/2024 11:44 AM MEDICAL CODING SPECIALIST) Glucose, POC 114 70 - 199 mg/dL Blood 12/24/2024 11:4 4 AM MEDICAL CODING SPECIALIST 12/24/2024 11:44 AM MEDICAL CODING SPECIALIST Felice Schmitt MD LAB POCT ORDERABLES - DEV ICE Final Result [facility] Department [place] [address] * POCT glucose (12/24/2024 8:04 AM MEDICAL CODING SPECIALIST) Glucose, POC 129 70 - 199 mg/dL Blood 12/24/2024 8:04 AM MEDICAL CODING SPECIALIST 12/24/2024 8:04 AM MEDICAL CODING SPECIALIST Felice Schmitt MD LAB POCT ORDERABLES - DEV ICE Final Result [facility] Department [place] [address] * eGFR (12/23/2024 8:30 PM MEDICAL CODING SPECIALIST) eGFR >90 >=60 mL/min/1. 73 m2 Comment: [...] last reviewed 2021. Blood 12/23/2024 8:30 PM MEDICAL CODING SPECIALIST 12/23/2024 8:51 PM MEDICAL CODING SPECIALIST us Feliec Schmitt MD LAB BLOOD ORDERABLES Yamila mccullough Result [facility] Department [place] [address] * (ABNORMAL) CBC without differential (12/23/2024 8:30 PM MEDICAL CODING SPECIALIST) Pathologist [facility] WBC 11.0(H) 3.8 - 9.9 K/cumm Hgb 13.5 13.0 - 17.5 g/dL [facility] Hct 38.4(L) 38.9 - 50.3 % [facility] Plt 185 150 - 400 K/cumm [facility] MPV 9.5 9.1 - 12.3 fL [facility] RBC 4.42 4.30 - 5.80 M/cumm [facility] MCV 86.9 81.3 - 96.4 fL [facility] MCH 30.5 27.1 - 33.3 pg [facility] MCHC 35.2 32.3 - 35.7 g/dL [facility] RDW CV 14.6 11.1 - 14.9 % [facility] RDW SD 46.1 35.7 - 48.1 fL [facility] NRBC abs 0.00 0.00 - 0.01 K/cumm [facility] Blood 12/23/2024 8:30 PM MEDICAL CODING SPECIALIST 12/23/2024 8:51 PM MEDICAL CODING SPECIALIST us Felice Schmitt MD LAB BLOOD ORDERABLES Yamila l Result [facility] Department [place] [address] * (ABNORMAL) Basic metabolic panel (12/23/2024 8:30 PM MEDICAL CODING SPECIALIST) Sodium 142 135 - 145 mmol/L Potassium, pl 4.4 3.3 - 4.9 mmol/L [facility] Chloride 110 97 - 110 mmol/L [facility] CO2 21(L) 22 - 32 mmol/L [facility] Anion gap 11 2 - 15 mmol/L [facility] BUN 13 6 - 25 mg/dL [facility] Creatinine 0.75(L) 0.80 - 1.30 mg/dL [facility] Glucose 111 70 - 199 mg/dL [facility] Comment: Interpretive Data Fasting glucose >/= [...] 2022. Calcium 9.1 8.5 - 10.3 mg/dL [facility] Blood 12/23/2024 8:30 PM MEDICAL CODING SPECIALIST 12/23/2024 8:51 PM MEDICAL CODING SPECIALIST Felice Schmitt MD LAB BLOOD ORDERABLES Yamila l Result Performing Organization Address [facility]/ZIP Co de Phone Number [facility] Department [place] [employer] [address] * Surgical pathology (12/23/2024 10:23 AM MEDICAL CODING SPECIALIST) Tissue (Kidney, partial nephrectomy) 12/23/2024 10:23 AM MEDICAL CODING SPECIALIST Narrative PATHOLOGY [facility] - 12/26/2024 9:20 AM MEDICAL CODING SPECIALIST EPIC results best viewed via link to PDF [facility] [place] [address] Note to Patients: This report may contain [...] Gender: M : 1970 (Age: 54) Address: [address] [place], [place] [address] Hospital #: [id number] Taken:12/23/2024 Received:12/23/2024 Reported: 12/26/2024 Patient Type: [facility] OP In Bed Service: Urology Location: [place] [address] Physician(s): Hiwot Mckenna M.D. Diagnosis: Kidney, right, mass, partial nephrectomy [...] Electronically Reviewed and Signed Out By Kimani Olevra M.D., PH.D. 12/26/2024 09:20:14 Microscopic Description and [...] not extend to the external surface. A sales representative sales manager section from the mass was submitted for research. Middleware Developer sections from the remaining specimen are submitted as follows: A1-A3 Mass and closest approach to the inked deep margin A4-A5 Mass including the peripheral margin and renal capsule Jar 1. ba12/07/1712/23/2024 14:10 PA(s): ANASTACIO Peace ([facility])CM CANCER CASE SUMMARY FOR INVASIVE CARCINOMA OF [...] Surgical Pathology and Flow Cytometry Departments at [facility] as part of an ongoing quality assurance/r&d lab technician program and in compliance with federally mandated [...] Surgical Pathology and Flow Cytometry Departments of [facility]. It has not been cleared or approved by the U. S. Food and Drug Administration. IMAGES AND SCANNED DOCUMENTS, IF INCLUDED, ONLY VIEWABLE IN PDF VERSION OF REPORT Felice Schmitt MD LAB PATHOLOGY ORDERABLES Final Result PATHOLOGY [facility] 3rd Floor [place], [place] [phone] * Peripheral IV Catheter (12/23/2024 8:15 AM MEDICAL CODING SPECIALIST) Damian Willis MD - 12/23/2024 8:15 AM MEDICAL CODING SPECIALIST Damian Verduzco MD 12/23/2024 8:15 AM Peripheral [...] patient tolerated procedure well with no complications Ximena Smith MD ANESTHESIA ORDERABLES Final Result * Airway (12/23/2024 8:12 AM MEDICAL CODING SPECIALIST) Narrative Damian Verduzco MD - 12/23/2024 8:12 AM MEDICAL CODING SPECIALIST Damian Verduzco MD 12/23/2024 8:15 AM Airway [...] and a grade 1 view on videoscope. Ximena Smith MD ANESTHESIA ORDERABLES Final Result * Check Sample (12/23/2024 6:32 AM MEDICAL CODING SPECIALIST) ABO Rh A Positive [facility] HCLL OTHER 12/23/2024 6:32 AM MEDICAL CODING SPECIALIST 12/23/2024 11:15 AM MEDICAL CODING SPECIALIST Felice Schmitt MD LAB BLOOD ORDERABLES Yamila l Result Performing Organization Address [facility] Co de Phone Number [facility] Department [place] [address] BJ * TYPE AND SCREEN 14 DAY (12/12/2024 10:51 AM MEDICAL CODING SPECIALIST) Nam, indirect Negative ABO Rh A Positive [facility] Blood 12/12/2024 10:5 1 AM MEDICAL CODING SPECIALIST 12/12/2024 11:20 AM MEDICAL CODING SPECIALIST Narrative [facility] - 12/12/2024 12:30 PM MEDICAL CODING SPECIALIST Is this test being ordered in advance for a procedure?->Yes Expected date of procedure:->12/23/24 Has the patient been transfused in the past 3 months?->No Karly Norris NP LAB BLOOD BANK VALDO T ORDERABLES Final Result Performing Organization Address [facility] de Phone Number [facility] Department [place] [address] * Urine culture Urine, clean voided (12/12/2024 10:51 AM MEDICAL CODING SPECIALIST) Report Final Report: No growth Urine, clean voided 12/12/2024 10:51 AM MEDICAL CODING SPECIALIST 12/12/2024 11:25 AM MEDICAL CODING SPECIALIST Narrative [facility] - 12/13/2024 12:34 PM MEDICAL CODING SPECIALIST Testing performed by [facility] Microbiology Laboratory ([phone]) Karly Norris NP LAB MICROBIOLOGY - GENERAL ORDERABLES Final Result Performing Organization Address [facility] Co de Phone Number ALY TRAN [facility] Department [place] [address] * eGFR (11/13/2024 1:20 PM MEDICAL CODING SPECIALIST) Pathologist [facility] eGFR >90 >=60 mL/min/1. 73 m2 Comment: [...] last reviewed 2021. Blood 11/13/2024 1:20 PM MEDICAL CODING SPECIALIST 11/13/2024 1:23 PM MEDICAL CODING SPECIALIST us Jesse Griggs MD LAB BLOOD ORDERABLES Fin al Result Performing Organization Address [facility] Co de Phone Number [facility] TRAN [facility] Department [place] [address] * Differential, auto (11/13/2024 1:20 PM MEDICAL CODING SPECIALIST) Pathologist [facility] Neutrophil abs 4.1 1.5 - 6.5 K/cumm Comment:Testing performed by : [facility], [address] [place] [phone] Lymphocyte abs 1.0 0.8 - 3.3 K/cumm ALY [facility] Comment:Testing performed by : [facility], [address] [place] [phone] Monocyte abs 0.5 0.2 - 0.8 K/cumm [facility] Comment:Testing performed by : [facility], [facility] [place] [address] Eosinophil abs 0.2 0.0 - 0.5 K/cumm [facility] Comment:Testing performed by : [facility], [address] [place] [phone] Basophil abs 0.0 0.0 - 0.1 K/cumm [facility] Comment:Testing performed by : [facility], [address] [place] [phone] Neutrophil pct 71.2 % [facility] Comment: Interpretive Data Percent cell count reference ranges are not reported, since discordance with absolute values may lead to misinterpretation of CBC data. Current Interpretive Data was last revised on 2018. Testing performed by: [facility], [address] [place] [phone] Lymphocyte pct 17.1 % [facility] Comment: Interpretive Data Percent cell count reference ranges are not reported, since discordance with absolute values may lead to misinterpretation of CBC data. Current Interpretive Data was last revised on 2018. Testing performed by: [facility], [address] [place] [phone] Monocyte pct 8.3 % [facility] Comment: Interpretive Data Percent cell count reference ranges are not reported, since discordance with absolute values may lead to misinterpretation of CBC data. Current Interpretive Data was last revised on 2018. Testing performed by: [facility], [address] [place] [phone] Eosinophil pct 2.8 % [facility] Comment: Interpretive Data Percent cell count reference ranges are not reported, since discordance with absolute values may lead to misinterpretation of CBC data. Current Interpretive Data was last revised on 2018. Testing performed by: [facility], [address] [place] [phone] Basophil pct 0.6 % [facility] Comment: Interpretive Data Percent cell count reference ranges are not reported, since discordance with absolute values may lead to misinterpretation of CBC data. Current Interpretive Data was last revised on 2018. Testing performed by: [facility], [address] [place] [address] Blood 11/13/2024 1:20 PM MEDICAL CODING SPECIALIST 11/13/2024 1:21 PM MEDICAL CODING SPECIALIST us Jesse Griggs MD LAB BLOOD ORDERABLES Fin al Result [facility] Department [place] [address] * CBC with auto differential (11/13/2024 1:20 PM MEDICAL CODING SPECIALIST) WBC 5.8 3.8 - 9.9 K/cumm Comment:Testing performed by : [facility], [address] [place] [address] Hgb 15.2 13.0 - 17.5 g/dL [facility] Comment:Testing performed by : [facility], [address] [place] [address] Hct 44.6 38.9 - 50.3 % [facility] Comment:Testing performed by : [facility], [address] [place] [address] Plt 189 150 - 400 K/cumm [facility] Comment:Testing performed by : [facility], [address] [place] [address] MPV 8.3 6.8 - 10.4 fL [facility] Comment:Testing performed by : [facility], [address] [place] [address] RBC 5.18 4.30 - 5.80 M/cumm [facility] Comment:Testing performed by : [facility], [address] [place] [address] MCV 86.2 81.3 - 96.4 fL [facility] Comment:Testing performed by : [facility], [address] [place] [address] MCH 29.5 27.1 - 33.3 pg [facility] Comment:Testing performed by : [facility], [address] [place] [address] MCHC 34.2 32.3 - 35.7 g/dL [facility] Comment:Testing performed by : [facility], [address] [place] [address] RDW CV 14.8 11.1 - 14.9 % [facility] Comment:Testing performed by : [facility], [address] [place] [address] NRBC abs 0.00 0.00 - 0.01 K/cumm [facility] Comment:Testing performed by : [facility], [address] [place] [address] Blood 11/13/2024 1:20 PM MEDICAL CODING SPECIALIST 11/13/2024 1:21 PM MEDICAL CODING SPECIALIST Jesse Griggs MD LAB BLOOD ORDERABLES Fin al Result Performing Organization Address [facility] Co de Phone Number [facility] Department [place] [employer] [place] [address] * (ABNORMAL) Total testosterone (11/13/2024 1:20 PM MEDICAL CODING SPECIALIST) Testosterone 188.0(L) 193.0 - 740.0 ng/dL Blood 11/13/2024 1:20 PM MEDICAL CODING SPECIALIST 11/13/2024 1:50 PM MEDICAL CODING SPECIALIST Jesse Griggs MD LAB BLOOD ORDERABLES Fin al Result Performing Organization Address [facility] Co de Phone Number [facility] Department [place] [employer] [address] * PSA diagnostic (11/13/2024 1:20 PM MEDICAL CODING SPECIALIST) PSA-Total 1.88 <=3.90 ng/mL Comment: Interpretive Data [...] last revised 22. Blood 11/13/2024 1:20 PM MEDICAL CODING SPECIALIST 11/13/2024 1:23 PM MEDICAL CODING SPECIALIST us Jesse Griggs MD LAB BLOOD ORDERABLES Fin al Result [facility] Department [place] [address] * (ABNORMAL) Comprehensive metabolic panel (11/13/2024 1:20 PM MEDICAL CODING SPECIALIST) Sodium 144 135 - 145 mmol/L Potassium, pl 4.5 3.3 - 4.9 mmol/L [facility] Comment:Hemolyzed; Potassium value may be falsely elevated by as much as 0.3-0.5 mmol/L. Suggest redraw and reanalysis. Chloride 107 97 - 110 mmol/L [facility] CO2 29 22 - 32 mmol/L [facility] Anion gap 8 2 - 15 mmol/L [facility] BUN 14 6 - 25 mg/dL [facility] Creatinine 0.69(L) 0.80 - 1.30 mg/dL [facility] Glucose 97 70 - 199 mg/dL [facility] Comment: Interpretive Data Fasting glucose >/= [...] Calcium 10.0 8.5 - 10.3 mg/dL [facility] Bilirubin, total 1.2 0.1 - 1.2 mg/dL [facility] Protein, pl 7.6 6.5 - 8.5 g/dL [facility] Albumin 4.0 3.5 - 5.0 g/dL [facility] Alk phos 125 40 - 130 Units/L [facility] ALT 13 7 - 55 Units/L [facility] AST 51(H) 10 - 50 Units/L [facility] Comment:Hemolyzed; result ma y be falsely elevated Blood 11/13/2024 1:20 PM MEDICAL CODING SPECIALIST 11/13/2024 1:23 PM MEDICAL CODING SPECIALIST us Jesse Griggs MD LAB BLOOD ORDERABLES Fin al Result [facility] Department [place] [address] * PET/CT Prostate Cancer PSMA Skull to Thigh (10/07/2024 4:24 PM MEDICAL CODING SPECIALIST) Anatomical Region Laterality Modality N/A Positron Emissio n Tomography (PET) 10/08/2024 11:4 2 AM MEDICAL CODING SPECIALIST Impressions 10/08/2024 12:24 PM MEDICAL CODING SPECIALIST 1. Widespread regional and distant tom and [...] Dariana Eaton M.D. Narrative 10/08/2024 12:24 PM MEDICAL CODING SPECIALIST EXAMINATION: PSMA-PET/CT DATE OF STUDY: 10/07/2024 SCANNER: [facility] PET Vision (NV1). This is a high-resolution scanner, which [...] obtained. The study was interpreted on the [employer] workstation. The total scanned area was mid [...] EXAMINATION: PSMA-PET/CT DATE OF STUDY: 10/07/2024 SCANNER: [facility] Apttus (NV1). This is a high-resolution scanner, which [...] obtained. The study was interpreted on the [employer] workstation. The total scanned area was mid [...] Final Result * eGFR (09/30/2024 2:27 PM MEDICAL CODING SPECIALIST) eGFR >90 >=60 mL/min/1. 73 m2 Comment: [...] last reviewed 2021. Blood 09/30/2024 2:27 PM MEDICAL CODING SPECIALIST 09/30/2024 2:30 PM MEDICAL CODING SPECIALIST us Jesse Griggs MD LAB BLOOD ORDERABLES Fin al Result [facility] Department [place] [address] * Differential, auto (09/30/2024 2:27 PM MEDICAL CODING SPECIALIST) Pathologist [facility] Neutrophil abs 3.8 1.5 - 6.5 K/cumm Comment:Testing performed by : [facility], [address] [place] [id number] Imm gran abs 0.0 0.0 - 0.1 K/cumm [facility] Lymphocyte abs 1.0 0.8 - 3.3 K/cumm [facility] Monocyte abs 0.6 0.2 - 0.8 K/cumm [facility] Eosinophil abs 0.1 0.0 - 0.5 K/cumm [facility] Basophil abs 0.0 0.0 - 0.1 K/cumm [facility] Neutrophil pct 68.9 % [facility] Comment: Interpretive Data Percent cell count reference ranges are not reported, since discordance with absolute values may lead to misinterpretation of CBC data. Current Interpretive Data was last revised on 2018. Imm gran pct 0.2 % [facility] Comment: Interpretive Data Percent cell count reference ranges are not reported, since discordance with absolute values may lead to misinterpretation of CBC data. Current Interpretive Data was last revised on 2018. Lymphocyte pct 18.2 % [facility] Comment: Interpretive Data Percent cell count reference ranges are not reported, since discordance with absolute values may lead to misinterpretation of CBC data. Current Interpretive Data was last revised on 2018. Monocyte pct 9.9 % [facility] Comment: Interpretive Data Percent cell count reference ranges are not reported, since discordance with absolute values may lead to misinterpretation of CBC data. Current Interpretive Data was last revised on 2018. Eosinophil pct 2.3 % [facility] Comment: Interpretive Data Percent cell count reference ranges are not reported, since discordance with absolute values may lead to misinterpretation of CBC data. Current Interpretive Data was last revised on 2018. Basophil pct 0.5 % [facility] Comment: Interpretive Data Percent cell count reference ranges are not reported, since discordance with absolute values may lead to misinterpretation of CBC data. Current Interpretive Data was last revised on 2018. Blood 09/30/2024 2:27 PM MEDICAL CODING SPECIALIST 09/30/2024 2:30 PM MEDICAL CODING SPECIALIST us Jesse Griggs MD LAB BLOOD ORDERABLES Fin al Result [facility] Department [place] [address] * (ABNORMAL) CBC with auto differential (09/30/2024 2:27 PM MEDICAL CODING SPECIALIST) WBC 5.6 3.8 - 9.9 K/cumm Comment:Testing performed by : [address] [address] Hgb 14.2 13.0 - 17.5 g/dL [facility] Comment:Testing performed by : [address] [address] Hct 40.6 38.9 - 50.3 % [facility] Comment:Testing performed by : [address] [address] Plt 144(L) 150 - 400 K/cumm [facility] Comment:Testing performed by : [address] [address] MPV 9.6 9.1 - 12.3 fL [facility] RBC 4.90 4.30 - 5.80 M/cumm [facility] MCV 82.9 81.3 - 96.4 fL [facility] MCH 29.0 27.1 - 33.3 pg [facility] MCHC 35.0 32.3 - 35.7 g/dL [facility] RDW CV 13.5 11.1 - 14.9 % [facility] RDW SD 40.6 35.7 - 48.1 fL [facility] NRBC abs 0.00 0.00 - 0.01 K/cumm [facility] Blood 09/30/2024 2:27 PM MEDICAL CODING SPECIALIST 09/30/2024 2:30 PM MEDICAL CODING SPECIALIST Jesse Griggs MD LAB BLOOD ORDERABLES Fin al Result [facility] Department [place] [address] * Total testosterone (09/30/2024 2:27 PM MEDICAL CODING SPECIALIST) Testosterone 520.0 193.0 - 740.0 ng/dL Blood 09/30/2024 2:27 PM MEDICAL CODING SPECIALIST 09/30/2024 6:31 PM MEDICAL CODING SPECIALIST Jesse Griggs MD LAB BLOOD ORDERABLES Fin al Result Performing Organization Address [facility] Co de Phone Number [facility] [place] [employer] [address] * (ABNORMAL) PSA diagnostic (09/30/2024 2:27 PM MEDICAL CODING SPECIALIST) PSA-Total 64.70(H) <=3.90 ng/mL Comment: Interpretive Data [...] last revised 22. Blood 09/30/2024 2:27 PM MEDICAL CODING SPECIALIST 09/30/2024 6:31 PM MEDICAL CODING SPECIALIST us Jesse Griggs MD LAB BLOOD ORDERABLES Fin al Result [facility] Department [place] [address] * (ABNORMAL) Comprehensive metabolic panel (09/30/2024 2:27 PM MEDICAL CODING SPECIALIST) Pathologist [facility] Sodium 141 135 - 145 mmol/L Comment:Testing performed by : [facility], [address] [place] [address] Potassium, pl 3.9 3.3 - 4.9 mmol/L [facility] Chloride 109 97 - 110 mmol/L [facility] CO2 27 22 - 32 mmol/L [facility] Anion gap 5 2 - 15 mmol/L [facility] BUN 11 6 - 25 mg/dL [facility] Creatinine 0.65(L) 0.80 - 1.30 mg/dL [facility] Glucose 96 70 - 199 mg/dL [facility] Comment: Interpretive Data Fasting glucose >/= [...] Calcium 9.4 8.5 - 10.3 mg/dL [facility] Bilirubin, total 0.6 0.1 - 1.2 mg/dL [facility] Protein, pl 6.7 6.5 - 8.5 g/dL [facility] Albumin 3.8 3.5 - 5.0 g/dL [facility] Alk phos 96 40 - 130 Units/L [facility] ALT 14 7 - 55 Units/L [facility] AST 40 10 - 50 Units/L [facility] Blood 09/30/2024 2:27 PM MEDICAL CODING SPECIALIST 09/30/2024 2:30 PM MEDICAL CODING SPECIALIST Jesse Griggs MD LAB BLOOD ORDERABLES Fin al Result Performing Organization Address [facility]/ZIP Co de Phone Number [facility] Department [place] [address] * [facility] Hereditary Cancer NGS Panel, Blood (09/30/2024 2:18 PM MEDICAL CODING SPECIALIST) [facility] Please review the PDF for results. 10/14/2024 9:34 PM MEDICAL CODING SPECIALIST [facility] Comment:[facility] link Blood specimen (specimen) 09/30/2024 2:18 PM MEDICAL CODING SPECIALIST 10/14/2024 9:36 PM MEDICAL CODING SPECIALIST Jesse Griggs MD LAB GENETIC TESTING Yamila l Result Performing Organization Address [facility] de Phone Number [facility], [address] [phone] [facility] [address] [facility], [place] [address] * Hepatitis C antibody (03/07/2017 9:12 AM CDT) Pathologist [facility] Hep C Ab Nonreactive Nonreactive [facility] Comment: Interpretive Data Positive results should be confirmed by a molecular method. If positive, a second separately collected sample should be submitted for Hepatitis C Virus (HCV) RNA Detection and Quantitation by Real-Time Reverse Hvac Estimator-PCR (RT-PCR). Current interpretive data was last revised on 2016. Blood specimen (specimen) 03/07/2017 9:12 AM CDT 03/07/2017 11:41 AM CDT Dariana tee MD LAB MICROBIOLOGY - GENERAL ORDERABLES Edited Result - Final Performing Organization Address City/[facility]/ZIP Co de Phone Number [facility] Department [place] [address] from Last 3 Months or Most Recently Relevant to Health Maintenance Insurance [facility] HMO [facility] CHOICE PLUS [facility] HMO/PPO Address: [address] [address] [place] [address] CHOICE [place] [facility] HMO Advance Directives For more information, please contact: [phone] Documents on File Type Date Recorded Patient Middleware Developer Expl anation ADVANCE DIRECTIVE 12/26/2024 11:08 PM RUTH NG WILL ADVANCE DIRECTIVE 12/26/2024 11:08 PM SATHISH R OF STEAM SHOVEL OPERATING ENGINEER-MEDICAL * Full Code (Latest Code Status on File) Date Activated Date Inactivated Comments 12/23/2024 1:12 PM 12/24/2024 6:53 PM * Full Code Date Activated Date Inactivated Comments 06/30/2019 5:36 PM 07/01/2019 11:48 PM Care Teams Coal Chute Worker Relationship Specialty Start Date End Date Carlitos Gardner MD [address] [place] [address] PCP - General Family Medicine 12/10/24 Felice Schmitt MD [address] [place] [address] Consulting Physician Urology 09/19/24 Jesse Griggs MD [address] DIV IM MEDICAL ONCOLOGY, [address] [place] [address] Medical Oncology 09/19/24
--- OUTSIDE RECORDS SUMMARY | 2024-12-28 16:58 | XMS_ITS | Clinical Summary ---
Author Organization [facility] Mulugeta Cazares Address [address] [place] [address] Care Team Providers Care Supervisor Coremaker Name Role Phone Eneida Kelly MD Primary Care Provider [phone] Allergies No known active allergies Medications amLODIPine [...] mouth. Active fluticasone propionate (FLONASE) 50 mcg/spray Reform, Suspension nasal inhaler SHAKE LIQUID AND USE 1 SPRAY IN EACH NOSTRIL DAILY 1 Active hydroCHLOROthia zide 25 mg tablet daily. Active risankizumab-rz aa (Skyrizi) 150 mg/mL Pen Injector Inject by subcutaneous injection. 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 Gender Identity Not on file Sexual Orientation Not on file Last Filed Vital Signs Vital Sign Reading Time Taken Comments Blood Pressure 120/73 11/30/2023 11:29 AM MOTOR VEHICLE ASSEMBLER Pulse 92 11/30/2023 11:29 AM MOTOR VEHICLE ASSEMBLER Temperature 36.4 C (97.6 F) 07/24/2023 11:58 AM CDT Respiratory Rate 18 11/30/2023 11:29 AM MOTOR VEHICLE ASSEMBLER Oxygen Saturation 97% 11/30/2023 11:29 AM MOTOR VEHICLE ASSEMBLER Inhaled Oxygen Concentration - - Weight 105 kg (231 lb 6.4 oz) 11/30/2023 11:29 A M MOTOR VEHICLE ASSEMBLER Height 185.4 cm (6' 1 ) 05/04/2022 3:59 PM CDT Body Mass Index 30.53 05/04/2022 3:59 PM CDT Plan of Treatment Health Maintenance Due Date Last Done Comments DTAP/TDAP/TD VACCINES (1 - Tdap) 1990 HEPATITIS B VACCINES (1 of 3 - 19+ 3-dose series) 02/04 COLORECTAL SCREENING 02/24/2016 Colorectal Cancer Screening 02/24/2016 FIT-DNA Q 3 years 02/24/2016 FIT/FOBT Q 1 year 02/24/2016 Flex Sig/CT Colonography Q 5 years 02/24/2016 ZOSTER VACCINE (1 of 2) 2021 INFLUENZA VACCINE (#1) 2024 COVID-19 Vaccine (2 - season) 07/06/202407/2021 Insurance [employer] CHOICE POS Care Teams Supervisor Coremaker Relationship Specialty Start Date End Date Eneida Kelly MD PCP - General Family Practice 11/14/21
--- OUTSIDE RECORDS SUMMARY | 2024-12-28 16:58 | XMS_ITS ---
Author Organization [facility] al Address [address] [place] [address] Care Team Providers Care Propulsion Machinery Service Engineer Name Role Phone Felice Schmitt MD Unavailable [phone] Jesse Griggs MD Unavailable [phone] Carlitos Gardner MD Primary Care Provider Active Problems Problem Noted Date Diagnosed Date [...] MD on 09/30/2024 Psoriatic arthritis 03/07/2017 Current Treatment and Therapy Plans Enzalutamide PO 28 Day Cycles - [...] month) (ELIGARD) subcutaneous injection 22.5 mg Past Treatment and Therapy Plans No past plan information found. Lifetime Dose Tracking * Chemical Lifetime Dose [...] (05/26/2019): Added automatically from request for surgery [id number] IRINEO (acute kidney injury) 10/23/2018 Acute renal failure superimp osed on chronic kidney disease 04/29/2018 09/09/2019
--- OUTSIDE RECORDS SUMMARY | 2024-12-28 16:58 | XMS_ITS | Patient Health Summary ---
Author Organization [facility] Address [address] [place] [address] Care Team Providers Care Plastic Top Assembler Name Role Phone Eneida Kelly MD Primary Care Provider U reubenailrosemary Note from [facility],non-owned Affiliates and Associated Physician Practices is amultiple site organization consisting of ambulatory clinics and hospital sitesin [place], [place], [place] and [place]. This disclosure is being madepursuant to the Care Everywhere program and may not contain all information available regarding this patient. Last updated 18.[facility] Allergies No known active allergies Medications * [...] AM CDT Medical Devices Implanted Type Area Film Editor Device Identifier Shelf Expiration Date Model / Serial / Lot Ams 700 Penile Implant- [id number] Implanted:06/06 (Quantity not on file) Prosthesis [employer] Procedures * MRI ABDOMEN WWO CONTRAST(Performed 08/22/2024) [...] colon, unspecified part of colon, unspecifiedtype * BMYOT-4-BJVNCOZMVWO BLOOD PHENOTYPING PANEL(Performed 05/15/2023) Performed for Hepatic [...] AM Narrative 08/24/2024 10:55 AM CDT PROCEDURE: MRI ABDOMEN WWO CONTRAST, DATE/TIME OF EXAM: 08/22/2024 5:19 PM, LOCATION [facility] INDICATION: N28.89: Right kidney mass ADDITIONAL CLINICAL [...] CONTRAST, DATE/TIME OF EXAM: :19 PM, LOCATION [facility] INDICATION: N28.89: Right kidney mass ADDITIONAL CLINICAL [...] - 1.30 mg/dL 08/22/2024 4:47 PM CDT [facility] Comment:Range ok for MRI eGFR >90 >=90 mL/min/1.7 3 m2 08/22/2024 4:47 PM CDT [facility] Blood BLOOD SPECIMEN / Unknown 08/22/2024 4:45 PM CDT 08/22/2024 4:47 PM CDT Iman Fry APRN-SPOOL FIXER LAB - POINT OF CARE ORDERABLES [facility] [address] [place] [address], [facility] [phone] * US ABDOMEN LIMITED (08/08/2024 10:08 AM [...] cholecystitis. > Dictated by Dante Bland MD, (radiology administrator). I, Nighat Ortiz MD have personally reviewed and interpreted this examination/study. > Interpreting Provider: Nighat Ortiz MD on 08/08/2024 11:52 AM Narrative 08/08/2024 11:52 AM CDT PROCEDURE: US ABDOMEN LIMITED, DATE/TIME OF EXAM: 08/08/2024 10:08 AM, LOCATION [facility] INDICATION: K74.60: Hepatic cirrhosis, unspecified hepatic cirrhosis [...] DATE/TIME OF EXAM: 08/08/2024 10:08 AM, LOCATION [facility] INDICATION: K74.60: Hepatic cirrhosis, unspecified hepatic cirrhosis [...] cholecystitis. > Dictated by Dante Bland MD, (radiology administrator). I, Nighat Ortiz MD have personally reviewed and interpreted this examination/study. > Interpreting Provider: Nighat Ortiz MD on 1:52 AM Iman Fry WOOD CUT ENGRAVER-SPOOL FIXER US ORDERABL ES * (ABNORMAL) PT-INR [facility] (05/15/2023 11:43 AM CDT) PT 16.1(H) 12.1 - 14.8 Seconds 05/15/2023 12:27 PM CDT [facility] INR 1.3 See Comment 05/15/2023 12:27 PM CDT [facility] Comment:The suggested therap eutic range for standard coumadin (warfarin) therapy is an INR of 2.0-3.0. For high-risk patients (Mechanical Mitral Valve Prosthesis, etc.), the suggested prophylactic therapeutic range is an INR of 2.5-3.5. Blood BLOOD SPECIMEN / Unknown Lab Venipuncture / Unknown 05/15/2023 11:43 AM CDT 05/15/2023 11:56 AM CDT Cathryn Zepeda MD LAB - COAGULATION OR DERABLES Performing Organization Address City/State/[facility] Co de Phone Number [facility] [address] [place] [address], [facility] [phone] * PHOSPHATIDYLETHANOL (PETH) (05/15/2023 11:43 AM CDT) Pathologist [facility] PEth 16:0/18.1 (POPEth) 19 ng/mL 05/17/2023 5:34 PM CDT [facility] ([facility]) Comment: INTERPRETIVE INFORMATION:Phosphatidylethanol (PEth), Whole Blood Phosphatidylethanol (PEth) homologues Result Interpretation PEth 16:0/18:1 (POPEth) Less than 10 ng/mL............Not detected Less than 20 ng/mL............Abstinence or light alcohol consumption 20 - 200 ng/mL................Moderate alcohol consumption Greater than 200 ng/mL........Heavy alcohol consumption or chronic alcohol use PEth 16:0/18:2 (PLPEth).......Reference ranges are not well established. (Reference: Fabio Forrest and Donna Chisholm 2018 [...] developed and its performance characteristics determined by [facility]. It has not been cleared or approved by the U.S. Food and Drug Administration. This test was performed in a CLIA-certified laboratory and is intended for clinical purposes. PEth 16:0/18.2 (PLPEth) <10 ng/mL 05/17/2023 5:34 PM CDT [facility] ([facility]) EER Peth See Note 05/17/2023 5:34 PM CDT [facility] ([facility]) Comment: Authorized individuals can access the Blockchain Enhanced Report using the following link: [email or web address] Performed By: [facility] [address] [place] [id number] Full Stack Web Developer: Kurt Grant MD, PhD Blood BLOOD SPECIMEN / Unknown Lab Venipuncture / Unknown 05/15/2023 11:43 AM CDT 05/15/2023 11:58 AM CDT Cathryn Zepeda MD LAB - CHEMISTRY MOHAN VARELA [facility]) [address] * SMOOTH MUSCLE ANTIBODY W REFLEX TITER (05/15/2023 11:43 AM CDT) F-Actin Antibody IgG 14 0 - 19 Units 05/17/2023 3:36 AM CDT [facility] [employer] ([facility]) Comment: If F-Actin (Smooth Muscle) Antibody, IgG is negative, the Smooth Muscle Antibody titer by IFA is not performed. REFERENCE INTERVAL: F-Actin (Smooth Muscle) Antibody, IgG by GORGE 19 Units or less ....... Negative 20 - 30 Units .......... Weak Positive-Suggest repeat testing in two to three weeks with fresh specimen. 31 Units or greater..... Positive-Suggestive of autoimmune hepatitis type 1 or chronic active hepatitis. F-actin IgG antibodies [...] suspicion for AIH is strong. Performed By: [facility] [address] [place] [address] Full Stack Web Developer: Kurt Grant MD, PhD Blood BLOOD SPECIMEN / Unknown Lab Venipuncture / Unknown 05/15/2023 11:43 AM CDT 05/15/2023 11:56 AM CDT Cathryn Zepeda MD LAB - SEROLOGY ORDER [facility] [employer] ([facility]) [address] * MITOCHONDRIAL ANTIBODY SCREEN (05/15/2023 11:43 AM CDT) Mitochondrial M2 Antibody 19.4 0.0 - 24.9 Units 05/17/2023 3:36 AM CDT [facility] [employer] ([facility]) Comment: REFERENCE INTERVAL: Mitochondrial (M2) Antibody, IgG 20.0 Units or less ......... Negative 20.1 - 24.9 Units........... Equivocal 25.0 Units or greater....... Positive Anti-mitochondrial antibodies (AMA) [...] does not rule out PBC. Performed By: [facility] [address] [place] [address] Full Stack Web Developer: Kurt Grant MD, PhD Blood BLOOD SPECIMEN / Unknown Lab Venipuncture / Unknown 05/15/2023 11:43 AM CDT 05/15/2023 11:56 AM CDT Cathryn Zepeda MD LAB - CHEMISTRY MOHAN [facility] Organization Address City/State/ZIP Co de Phone Number [facility]) [address] [place] [address] * VXKBS-5-VBOFXNVLRVY BLOOD PHENOTYPING PANEL (05/15/2023 11:43 AM CDT) Yncoh-3-Jetegvapwy n Phenotype M1M2 05/18/2023 6:20 AM CDT [facility] ([facility]) Comment: The patient appears to have a normal phenotype. All M alleles (including subtypes M1, M2, and M3) produce normal serum concentrations of ttxlj-9-uwxpdtsg inhibitor and are not associated with clinical disease. Caution in interpretation is advised if the patient has been transfused within the previous 21 days. Performed By: [facility] [address] [place] [address] Full Stack Web Developer: Kurt Grant MD, PhD Ebrpu-8-Wyvgsnukei n 169 90 - 200 mg/dL 05/18/2023 6:20 AM CDT [facility] ([facility]) Comment:To convert to umol/L , multiply mg/dL by 0.185 Blood BLOOD SPECIMEN / Unknown Lab Venipuncture / Unknown 05/15/2023 11:43 AM CDT 05/15/2023 11:56 AM CDT Cathryn Zepeda MD LAB - CHEMISTRY MOHAN VARELA [facility] [employer] [facility]) [address] * CHANCE BLOOD SCREEN W/REFLEX TITER (05/15/2023 11:43 AM CDT) CHANCE IgG None Detected None Detected 05/17/2023 2:40 AM CDT [facility] [employer] ([facility]) Comment: If suspicion of connective tissue disease is strong and CHANCE EIA is negative, consider testing for CHANCE by IFA ([id number]). INTERPRETIVE INFORMATION: Anti-Nuclear Antibodies (CHANCE), IgG by GORGE Antinuclear Antibodies (CHANCE), IgG by GORGE: CHANCE specimens are screened using enzyme-linked immunosorbent assay (GORGE) methodology. All GORGE results reported as Detected are further tested by indirect fluorescent assay (IFA) using HEp-2 substrate with an IgG-specific conjugate. The CHANCE GORGE screen is designed to detect antibodies against dsDNA, histones, SS-A (Ro), SS-B (La), Chisholm, Chisholm/JOB PUTTER UP AND TICKET PREPARER, Scl-70, Yamilex-1, centromeric proteins, other antigens extracted from the HEp-2 cell nucleus. CHANCE GORGE assays have been reported to have lower sensitivities than CHANCE IFA for systemic autoimmune rheumatic diseases (SARD). Negative results do not necessarily rule out SARD. Performed By: [facility] [address] [place] [address] Full Stack Web Developer: Kurt Grant MD, PhD Blood BLOOD SPECIMEN / Unknown Lab Venipuncture / Unknown 05/15/2023 11:43 AM CDT 05/15/2023 11:57 AM CDT Cathryn Zepeda MD LAB - CHEMISTRY MOHAN VARELA [place]) [address] * CERULOPLASMIN (05/15/2023 11:43 AM CDT) Ceruloplasmin 24 20 - 60 mg/dL 05/15/2023 12:48 PM CDT [facility] Blood BLOOD SPECIMEN / Unknown Lab Venipuncture / Unknown 05/15/2023 11:43 AM CDT 05/15/2023 11:56 AM CDT Cathryn Zepeda MD LAB - CHEMISTRY MOHAN VARELA Performing Organization Address City/[facility]/ZIP Co de Phone Number [address] [address], [facility] [phone] * ALPHA FETOPROTEIN BLOOD TUMOR MARKER (05/15/2023 11:43 AM CDT) [facility] Alpha-Fetoprote in Tumor Marker 3.3 <=8.3 ng/mL 05/15/2023 12:49 PM CDT [facility] Comment: AFP values will vary depending on testing procedure used. Results are not comparable across different methods. AFP values obtained by [facility] using an [employer] Alinity Immunoassay. Blood BLOOD SPECIMEN / Unknown Lab Venipuncture / Unknown 05/15/2023 11:43 AM CDT 05/15/2023 12:02 PM CDT Cathryn Zepeda MD LAB - CHEMISTRY MOHAN VARELA Performing Organization Address City/[facility]/ZIP Co de Phone Number [address] [address], [place] [phone] * (ABNORMAL) CBC W/O DIFFERENTIAL (05/15/2023 11:43 AM CDT) [facility] WBC 5.3 3.5 - 10.5 10 3/uL 05/15/2023 12:15 PM CDT [facility] RBC 4.50 4.30 - 5.70 10 6/uL 05/15/2023 12:15 PM CDT [facility] Hemoglobin 9.7(L) 12.0 - 17.6 g/dL 05/15/2023 12:15 PM CDT [facility] Hematocrit 32.1(L) 35.2 - 51.7 % 05/15/2023 12:15 PM CDT [facility] MCV 71.3(L) 80.7 - 98.3 fL 05/15/2023 12:15 PM [facility] MCH 21.6(L) 26.7 - 34.0 pg 05/15/2023 12:15 PM [facility] MCHC 30.2(L) 30.8 - 35.9 g/dL 05/15/2023 12:15 PM [facility] RDW-SD 47.4 36.0 - 50.0 fL 05/15/2023 12:15 PM [facility] RDW-CV 18.6(H) 11.2 - 14.8 % 05/15/2023 12:15 PM [facility] Platelet Count 212 150 - 400 10 3/uL 05/15/2023 12:15 PM [facility] MPV 9.3(L) 9.4 - 12.9 fL 05/15/2023 12:15 PM [facility] nRBC Absolute 0.00 0 10 3/uL 05/15/2023 12:15 PM [facility] nRBC Auto 0.0 0 /100 WBC 05/15/2023 12:15 PM [facility] Blood BLOOD SPECIMEN / Unknown Lab Venipuncture / Unknown 05/15/2023 11:43 AM CDT 05/15/2023 12:00 PM CDT Cathryn Zepeda MD LAB - HEMATOLOGY ORD ERABLES [facility] [address] [place] [address], [facility] [phone] * (ABNORMAL) COMPREHENSIVE METABOLIC PANEL (05/15/2023 11:43 AM CDT) BUN 11 7 - 26 mg/dL 05/15/2023 12:32 PM [facility] Creatinine 0.74 0.71 - 1.16 mg/dL 05/15/2023 12:32 PM [facility] Sodium 139 136 - 145 mmol/L 05/15/2023 12:32 PM [facility] Potassium 3.3(L) 3.5 - 4.5 mmol/L 05/15/2023 12:32 PM [facility] Chloride 106 98 - 107 mmol/L 05/15/2023 12:32 PM [facility] CO2 26 22 - 29 mmol/L 05/15/2023 12:32 PM [facility] Glucose 104 70 - 115 mg/dL 05/15/2023 12:32 PM [facility] Calcium 9.5 8.4 - 10.2 mg/dL 05/15/2023 12:32 PM [facility] Protein Total 7.0 6.0 - 8.3 g/dL 05/15/2023 12:32 PM [facility] Albumin 3.5 3.4 - 5.0 g/dL 05/15/2023 12:32 PM [facility] Bilirubin Total 0.6 0.2 - 1.2 mg/dL 05/15/2023 12:32 PM [facility] Alkaline Phosphatase 97 40 - 150 U/L 05/15/2023 12:32 PM [facility] ALT 12 5 - 55 U/L 05/15/2023 12:32 PM [facility] AST 41(H) 5 - 34 U/L 05/15/2023 12:32 PM [facility] Anion Gap 10 8 - 18 05/15/2023 12:32 PM [facility] BUN/Creatinine Ratio 15 7 - 23 05/15/2023 12:32 PM [facility] Osmolality Calculated 288 270 - 300 mOsm/kg 05/15/2023 12:32 PM [facility] Albumin/Globulin Ratio 1.0(L) 1.1 - 2.3 05/15/2023 12:32 PM [facility] eGFR by CKD-EPI >90 >=90 mL/min/1.7 3 m2 05/15/2023 12:32 PM [facility] Blood BLOOD SPECIMEN / Unknown Lab Venipuncture / Unknown 05/15/2023 11:43 AM CDT 05/15/2023 12:03 PM T Cathryn Zepeda MD LAB - CHEMISTRY ORDE NICHOLE [facility] [address] [place] [address], [facility] [phone] * HEPATITIS B SURFACE ANTIBODY (05/15/2023 11:43 AM CDT) Hepatitis B Virus Surface Antibody Non-react aleks Non-react aleks 05/15/2023 12:44 PM CDT [facility] Comment: < 8 mIU/mL Hepatitis B surface Antibody (HBsAb). Nonreactive for HBsAb - individual is considered not immune to Hepatitis B Virus infection. Hepatitis B Surface Antibody Quantitative 0.3 <8.0 mIU/mL 05/15/2023 12:44 PM CDT [facility] Comment: Hepatitis B Surface Antibody Numeric Result Interpretation: Nonreactive: <8.0 mIU/mL Indeterminate: 8.0 - 12.0 mIU/mL Reactive: >12.0 mIU/mL Blood BLOOD SPECIMEN / Unknown Lab Venipuncture / Unknown 05/15/2023 11:43 AM CDT 05/15/2023 11:56 AM CDT Cathryn Zepeda MD LAB - CHEMISTRY MOHAN VARELA Performing Organization Address [facility]/ZIP Co de Phone Number [address] [address], [facility] [phone] * HEPATITIS B CORE ANTIBODY TOTAL (05/15/2023 11:43 AM CDT) HBc Antibody Total Non-reacti ve Non-reacti ve 05/15/2023 12:44 PM CDT [facility] Blood BLOOD SPECIMEN / Unknown Lab Venipuncture / Unknown 05/15/2023 11:43 AM CDT 05/15/2023 11:56 AM CDT Cathryn Zepeda MD LAB - CHEMISTRY MOHAN VARELA [address] [address], [facility] [phone] * HEPATITIS B SURFACE ANTIGEN W RFLX CONFIRMATION (05/15/2023 11:43 AM CDT) [facility] Hepatitis B Virus Surface Antigen Non-reacti ve Non-reacti ve 05/15/2023 12:44 PM CDT [facility] Blood BLOOD SPECIMEN / Unknown Lab Venipuncture / Unknown 05/15/2023 11:43 AM CDT 05/15/2023 11:56 AM CDT Cathryn Zepeda MD LAB - CHEMISTRY MOAHN VARELA [facility] [address] [place] [address], [place] [phone] * (ABNORMAL) IRON + TRANSFERRIN PANEL (05/15/2023 11:43 AM CDT) [facility] Iron 27(L) 50 - 175 ug/dL 05/15/2023 12:27 PM CDT [facility] Transferrin 314 174 - 382 mg/dL 05/15/2023 12:27 PM CDT [facility] Transferrin Saturation % 7(L) 16 - 50 % 05/15/2023 12:27 PM CDT [facility] TIBC Calculated 393 240 - 450 ug/dL 05/15/2023 12:27 PM CDT [facility] Blood BLOOD SPECIMEN / Unknown Lab Venipuncture / Unknown 05/15/2023 11:43 AM CDT 05/15/2023 11:56 AM CDT Cathryn Zepeda MD LAB - CHEMISTRY MOHAN VARELA [facility] [address] [place] [address], [place] [phone] * (ABNORMAL) IGM BLOOD (05/15/2023 11:43 AM CDT) [facility] IgM 321(H) 37 - 286 mg/dL 05/15/2023 12:27 PM CDT [facility] Comment:Result obtained by morenita ballard. Blood BLOOD SPECIMEN / Unknown Lab Venipuncture / Unknown 05/15/2023 11:43 AM CDT 05/15/2023 11:56 AM CDT Cathryn Zepeda MD LAB - CHEMISTRY MOHAN VARELA [address] [address], [place] [phone] * IGG BLOOD (05/15/2023 11:43 AM CDT) [facility] IgG 1,153 767 - 1,590 mg/dL 05/15/2023 12:27 PM CDT [facility] Blood BLOOD SPECIMEN / Unknown Lab Venipuncture / Unknown 05/15/2023 11:43 AM CDT 05/15/2023 11:56 AM CDT Cathryn Zepeda MD LAB - CHEMISTRY MOHAN VARELA Performing Organization Address [facility] Co de Phone Number [address] [address], [place] [phone] * HEPATITIS C ANTIBODY (05/15/2023 11:43 AM CDT) [facility] Hepatitis C Antibody Non-react aleks Non-reac tive 05/15/2023 12:44 PM CDT [facility] Comment:Hepatitis C Antibody screen indicates no [...] Zepeda MD LAB - CHEMISTRY MOHAN VARELA [address] [address], [place] [phone] * (ABNORMAL) HEPATITIS A ANTIBODY (05/15/2023 11:43 AM CDT) [facility] Hepatitis A Virus Antibody Total Positive( A) Negative 05/17/2023 5:51 PM CDT [facility] ([facility]) Comment: The positive anti-HAV is consistent with recent or remote Hepatitis A infection or antibody response to HAV vaccination. False positive anti-HAV can occur. Performed by [facility] [employer], [address] [place] [address] [email or web address], Kurt Grant MD, PHD, Lab. Director Blood BLOOD SPECIMEN / Unknown Lab Venipuncture / Unknown 05/15/2023 11:43 AM CDT 05/15/2023 11:57 AM CDT Cathryn Zepeda MD LAB - CHEMISTRY MOHAN VARELA [facility] ([facility]) [address] * (ABNORMAL) FERRITIN (05/15/2023 11:43 AM CDT) [facility] Ferritin 9(L) 22 - 275 ng/mL 05/15/2023 12:44 PM CDT [facility] Blood BLOOD SPECIMEN / Unknown Lab Venipuncture / Unknown 05/15/2023 11:43 AM CDT 05/15/2023 11:56 AM CDT Cathryn Zepeda MD LAB - CHEMISTRY MOHAN VARELA [facility] [address] [place] [address], [facility] [phone] Care Teams Plastic Top Assembler Relationship Specialty Start Date End Date Eneida Kelly MD [address] [facility] [address] [place] [address] PCP - General Family Medicine 03/28/23
[2024-12-28 17:30] VITALS: BP 97/58; PULSE 94; RESP 16; TEMP 36.6; O2SAT 99
--- OUTSIDE RECORDS SUMMARY | 2024-12-28 18:15 | XMS_ITS | Referral Summary ---
Author Organization [facility] Address [address] [place] [address] Care Team Providers Care Concrete Carpenter Name Role Phone Eneida Kelly MD Primary Care Provider U reubenailrosemary Source Comments [facility],non-owned Affiliates and Associated Physician Practices is amultiple site organization consisting of ambulatory clinics and hospital sitesin [place], [place], [place] and [place]. This disclosure is being madepursuant to the Care Everywhere program and may not contain all information available regarding this patient. Last updated 18.[facility] Allergies No known active allergies Medications * [...] Info) Description 02/06/2025 10:15 AM CDT Appointment [facility] [address] [place] [phone] Iman Fry CONSULTING PSYCHOLOGIST-DRONE PILOT [address] [place] [address] [address] [place] [address] 02/06/2025 11:00 AM CDT Office Visit [facility] - [address] [place] [phone] Iman Fry CONSULTING PSYCHOLOGIST-DRONE PILOT [address] [place] [address] [address] DIV OF GASTROENTEROLOGY [place], [place] [id number] Medical Devices Implanted Type Area Brass Roller Device Identifier Shelf Expiration Date Model / Serial / Lot Ams 700 Penile Implant- [id number] Implanted:06/06 (Quantity not on file) Prosthesis [employer] Procedures Procedure Name Priority Date/Time Associated Diagnosis [...] 26 mg/dL 05/15/2023 12:32 PM [facility] Creatinine 0.74 0.71 - 1.16 mg/dL 05/15/2023 12:32 PM [facility] Sodium 139 136 - 145 mmol/L 05/15/2023 12:32 PM [facility] Potassium 3.3(L) 3.5 - 4.5 mmol/L 05/15/2023 12:32 PM [facility] Chloride 106 98 - 107 mmol/L 05/15/2023 12:32 PM [facility] CO2 26 22 - 29 mmol/L 05/15/2023 12:32 PM [facility] Glucose 104 70 - 115 mg/dL 05/15/2023 12:32 PM [facility] Calcium 9.5 8.4 - 10.2 mg/dL 05/15/2023 12:32 PM [facility] Protein Total 7.0 6.0 - 8.3 g/dL 05/15/2023 12:32 PM [facility] Albumin 3.5 3.4 - 5.0 g/dL 05/15/2023 12:32 PM [facility] Bilirubin Total 0.6 0.2 - 1.2 mg/dL 05/15/2023 12:32 PM [facility] Alkaline Phosphatase 97 40 - 150 U/L 05/15/2023 12:32 PM [facility] ALT 12 5 - 55 U/L 05/15/2023 12:32 PM [facility] AST 41(H) 5 - 34 U/L 05/15/2023 12:32 PM [facility] Anion Gap 10 8 - 18 05/15/2023 12:32 PM [facility] BUN/Creatinine Ratio 15 7 - 23 05/15/2023 12:32 PM [facility] Osmolality Calculated 288 270 - 300 mOsm/kg 05/15/2023 12:32 PM [facility] Albumin/Globulin Ratio 1.0(L) 1.1 - 2.3 05/15/2023 12:32 PM [facility] eGFR by CKD-EPI >90 >=90 mL/min/1.7 3 m2 05/15/2023 12:32 PM [facility] Blood BLOOD SPECIMEN / Unknown Lab Venipuncture / Unknown 05/15/2023 11:43 AM CDT 05/15/2023 12:03 PM CDT Cathryn Zepeda MD LAB - CHEMISTRY MOHAN VARELA [facility] Organization Address City/State/ZIP Co de Phone Number [facility] [address] [place] [address], [facility] [phone] * HEPATITIS C ANTIBODY (05/15/2023 11:43 AM CDT) Hepatitis C Antibody Non-react aleks Non-reac tive 05/15/2023 12:44 PM [facility] Comment:Hepatitis C Antibody screen indicates no [...] Zepeda MD LAB - CHEMISTRY MOHAN VARELA [facility] [address] [place] [address], [facility] [phone] from Last 3 Months or Most Recently Relevant to Health Maintenance Care Teams Concrete Carpenter Relationship Specialty Start Date End Date Eneida Kelly MD [address] [place] [address] PCP - General Family Medicine 03/28/23
--- OUTSIDE RECORDS SUMMARY | 2024-12-28 18:15 | XMS_ITS ---
Author Organization [facility] Address [address] [place] [address] Care Team Providers Care Network Account Manager Name Role Phone Felice Schmitt MD Unavailable [phone] Jesse Griggs MD Unavailable [phone] Carlitos Gardner MD Primary Care Provider Active [...] (05/26/2019): Added automatically from request for surgery [id number] IRINEO (acute kidney injury) 10/23/2018 Acute renal failure superimp osed on chronic kidney disease 04/29/2018 09/09/2019
--- OUTSIDE RECORDS SUMMARY | 2024-12-28 18:15 | XMS_ITS | Clinical Summary ---
Author Organization [facility] Address [address] [place] [address] Care Team Providers Care Asset Analyst Name Role Phone Eneida Kelly MD Primary Care Provider U reubenailable Source Comments [facility],non-owned Affiliates and Associated Physician Practices is amultiple site organization consisting of ambulatory clinics and hospital sitesin [place], [place], [place] and [place]. This disclosure is being madepursuant to the Care Everywhere program and may not contain all informatio navailable regarding this patient. Last updated 18.[facility] Allergies No known active allergies Medications * [...] Info) Description 02/06/2025 10:15 AM CDT Appointment [facility] [address] [place] [phone] Iman Fry, LIQUID LOADER-[address] [place] [address] 02/06/2025 11:00 AM CDT Office Visit [facility] [address] [facility], [place] [phone] Iman Fry, LIQUID LOADER-[employer]INE [address] [place] [address] Health Maintenance Due Date Last Done Comments [...] this topic Medical Devices Implanted Type Area Management Information Systems Director Device Identifier Shelf Expiration Date Model / Serial / Lot Ams 700 Penile Implant- [id number] Implanted:06/06 (Quantity not on file) Prosthesis V[employer] Procedures Procedure Name Priority Date/Time Associated Diagnosis [...] 7 - 26 mg/dL 05/15/2023 12:32 PM [facility] Creatinine 0.74 0.71 - 1.16 mg/dL 05/15/2023 12:32 PM [facility] Sodium 139 136 - 145 mmol/L 05/15/2023 12:32 PM [facility] Potassium 3.3(L) 3.5 - 4.5 mmol/L 05/15/2023 12:32 PM [facility] Chloride 106 98 - 107 mmol/L 05/15/2023 12:32 PM [facility] CO2 26 22 - 29 mmol/L 05/15/2023 12:32 PM [facility] Glucose 104 70 - 115 mg/dL 05/15/2023 12:32 PM [facility] Calcium 9.5 8.4 - 10.2 mg/dL 05/15/2023 12:32 PM [facility] Protein Total 7.0 6.0 - 8.3 g/dL 05/15/2023 12:32 PM [facility] Albumin 3.5 3.4 - 5.0 g/dL 05/15/2023 12:32 PM [facility] Bilirubin Total 0.6 0.2 - 1.2 mg/dL 05/15/2023 12:32 PM [facility] Alkaline Phosphatase 97 40 - 150 U/L 05/15/2023 12:32 PM [facility] ALT 12 5 - 55 U/L 05/15/2023 12:32 PM [facility] AST 41(H) 5 - 34 U/L 05/15/2023 12:32 PM [facility] Anion Gap 10 8 - 18 05/15/2023 12:32 PM [facility] BUN/Creatinine Ratio 15 7 - 23 05/15/2023 12:32 PM [facility] Osmolality Calculated 288 270 - 300 mOsm/kg 05/15/2023 12:32 PM [facility] Albumin/Globulin Ratio 1.0(L) 1.1 - 2.3 05/15/2023 12:32 PM [facility] eGFR by CKD-EPI >90 >=90 mL/min/1.7 3 m2 05/15/2023 12:32 PM [facility] Blood BLOOD SPECIMEN / Unknown Lab Venipuncture / Unknown 05/15/2023 11:43 AM CDT 05/15/2023 12:03 PM CDT Cathryn Zepeda MD LAB - CHEMISTRY MOHAN VARELA Performing Organization Address City/[facility]/ZIP Co de Phone Number [address] [address], [place] [phone] * HEPATITIS C ANTIBODY (05/15/2023 11:43 AM CDT) Hepatitis C Antibody Non-react aleks Cordonreac timercy 05/15/2023 12:44 PM [facility] Comment:Hepatitis C Antibody screen indicates no [...] Zepeda MD LAB - CHEMISTRY MOHAN VARELA [address] [address], [place] [phone] from Last 3 Months or Most Recently Relevant to Health Maintenance Care Teams Asset Analyst Relationship Specialty Start Date End Date Eneida Kelly MD [address] [place] [address] PCP - General Family Medicine 03/28/23
--- OUTSIDE RECORDS SUMMARY | 2024-12-28 18:15 | XMS_ITS | Patient Health Summary ---
Author Organization [facility] Address [address] [place] [address] Care Team Providers Care Software Security Consultant Name Role Phone Eneida Kelly MD Primary Care Provider U reubenailrosemary Note from [facility],non-owned Affiliates and Associated Physician Practices is amultiple site organization consisting of ambulatory clinics and hospital sitesin [place], [place], [place] and [place]. This disclosure is being madepursuant to the Care Everywhere program and may not contain all information available regarding this patient. Last updated 18.[facility] Allergies No known active allergies Medications * [...] AM CDT Medical Devices Implanted Type Area Shrimp Peeler Device Identifier Shelf Expiration Date Model / Serial / Lot Ams 700 Penile Implant- [id number] Implanted:06/06 (Quantity not on file) Prosthesis [employer] Procedures * MRI ABDOMEN WWO CONTRAST(Performed 08/22/2024) [...] colon, unspecified part of colon, unspecifiedtype * [id number] BLOOD PHENOTYPING PANEL(Performed 05/15/2023) Performed for Hepatic [...] DATE/TIME OF EXAM: 08/22/2024 5:19 PM, LOCATION [facility] INDICATION: N28.89: Right kidney mass ADDITIONAL CLINICAL [...] CONTRAST, DATE/TIME OF EXAM: :19 PM, LOCATION [facility] INDICATION: N28.89: Right kidney mass ADDITIONAL CLINICAL [...] - 1.30 mg/dL 08/22/2024 4:47 PM CDT [facility] Comment:Range ok for MRI eGFR >90 >=90 mL/min/1.7 3 m2 08/22/2024 4:47 PM CDT [facility] Blood BLOOD SPECIMEN / Unknown 08/22/2024 4:45 PM CDT 08/22/2024 4:47 PM CDT Iman Fry APRN-INTEGRATED SPECIALIST LAB - POINT OF CARE ORDERABLES [facility] [address] [place] [address], [facility] [phone] * US ABDOMEN LIMITED (08/08/2024 10:08 AM [...] cholecystitis. > Dictated by Dante Bland MD, (student life vice president). I, Nighat Ortiz MD have personally reviewed and interpreted this examination/study. > Interpreting Provider: Nighat Ortiz MD on 08/08/2024 11:52 AM Narrative 08/08/2024 11:52 AM CDT PROCEDURE: US ABDOMEN LIMITED, DATE/TIME OF EXAM: 08/08/2024 10:08 AM, LOCATION [facility] INDICATION: K74.60: Hepatic cirrhosis, unspecified hepatic cirrhosis [...] DATE/TIME OF EXAM: 08/08/2024 10:08 AM, LOCATION [facility] INDICATION: K74.60: Hepatic cirrhosis, unspecified hepatic cirrhosis [...] cholecystitis. > Dictated by Dante Bland MD, (student life vice president). I, Nighat Ortiz MD have personally reviewed and interpreted this examination/study. > Interpreting Provider: Nighat Ortiz MD on 1:52 AM Iman Fry FLOORS BUFFER-INTEGRATED SPECIALIST US ORDERABL ES * (ABNORMAL) PT-INR [facility] (05/15/2023 11:43 AM CDT) PT 16.1(H) 12.1 - 14.8 Seconds 05/15/2023 12:27 PM CDT [facility] INR 1.3 See Comment 05/15/2023 12:27 PM CDT [facility] Comment:The suggested therap eutic [...] - COAGULATION OR DERABLES Performing Organization Address City/State/[facility] Co de Phone Number [facility] [address] [place] [address], [facility] [phone] * PHOSPHATIDYLETHANOL (PETH) (05/15/2023 11:43 AM CDT) Pathologist [facility] PEth 16:0/18.1 (POPEth) 19 ng/mL 05/17/2023 5:34 PM CDT [facility] ([facility]) Comment: INTERPRETIVE INFORMATION:Phosphatidylethanol (PEth), Whole Blood [...] disease may have falsely elevated PEth concentrations (Lamxi MERA et al 2018, Alcoholism Clinical & Experimental Research). This test was developed and its performance characteristics determined by [facility]. It has not been cleared or approved by the U.S. Food and Drug Administration. This test was performed in a CLIA-certified laboratory and is intended for clinical purposes. PEth 16:0/18.2 (PLPEth) <10 ng/mL 05/17/2023 5:34 PM CDT [employer] ([facility]) EER Peth See Note 05/17/2023 5:34 PM CDT [employer] ([facility]) Comment: Authorized individuals can access the Talking Layers Enhanced Report using the following link: [email or web address] Performed By: [facility] [address] [place] [id number] Junior Mechanical Engineer: Kurt Grant MD, PhD Blood BLOOD SPECIMEN / Unknown Lab Venipuncture / Unknown 05/15/2023 11:43 AM CDT 05/15/2023 11:58 AM CDT Cathryn Zepeda MD LAB - CHEMISTRY MOHAN VARELA [employer] [facility]) [address] * SMOOTH MUSCLE ANTIBODY W REFLEX TITER (05/15/2023 11:43 AM CDT) F-Actin Antibody IgG 14 0 - 19 Units 05/17/2023 3:36 AM CDT [facility] [employer] ([facility]) Comment: If F-Actin (Smooth Muscle) Antibody, [...] suspicion for AIH is strong. Performed By: [facility] [address] [place] [address] Junior Mechanical Engineer: Kurt Grant MD, PhD Blood BLOOD SPECIMEN / Unknown Lab Venipuncture / Unknown 05/15/2023 11:43 AM CDT 05/15/2023 11:56 AM CDT Cathryn Zepeda MD LAB - SEROLOGY ORDER [employer] ([facility]) [address] * MITOCHONDRIAL ANTIBODY SCREEN (05/15/2023 11:43 AM CDT) Mitochondrial M2 Antibody 19.4 0.0 - 24.9 Units 05/17/2023 3:36 AM CDT [facility] [employer] ([facility]) Comment: REFERENCE INTERVAL: Mitochondrial (M2) Antibody, [...] does not rule out PBC. Performed By: [facility] [address] [place] [address] Junior Mechanical Engineer: Kurt Grant MD, PhD Blood BLOOD SPECIMEN / Unknown Lab Venipuncture / Unknown 05/15/2023 11:43 AM CDT 05/15/2023 11:56 AM CDT Cathryn Zepeda MD LAB - CHEMISTRY MOHAN [facility] Organization Address City/State/ZIP Co de Phone Number [employer] [facility]) [address] [place] [address] * XTLYB-9-PFGENKCQACA BLOOD PHENOTYPING PANEL (05/15/2023 11:43 AM CDT) Edumt-3-Lugxygeorj n Phenotype M1M2 05/18/2023 6:20 AM CDT [employer] ([facility]) Comment: The patient appears to have a normal phenotype. All M alleles (including subtypes M1, M2, and M3) produce normal serum concentrations of wctpt-9-dwcqwwgj inhibitor and are not associated with clinical disease. Caution in interpretation is advised if the patient has been transfused within the previous 21 days. Performed By: [facility] [address] [place] [address] Junior Mechanical Engineer: Kurt Grant MD, PhD Huecb-7-Idypfsvenf n 169 90 - 200 mg/dL 05/18/2023 6:20 AM CDT [employer] ([facility]) Comment:To convert to umol/L , multiply mg/dL by 0.185 Blood BLOOD SPECIMEN / Unknown Lab Venipuncture / Unknown 05/15/2023 11:43 AM CDT 05/15/2023 11:56 AM CDT Cathryn Zepeda MD LAB - CHEMISTRY MOHAN VARELA [facility] [employer] [facility]) [address] * CHANCE BLOOD SCREEN W/REFLEX TITER (05/15/2023 11:43 AM CDT) CHANCE IgG None Detected None Detected 05/17/2023 2:40 AM CDT [facility] [employer] ([facility]) Comment: If suspicion of connective tissue disease is strong and CHANCE EIA is negative, consider testing for CHANCE by IFA ([id number]). INTERPRETIVE INFORMATION: Anti-Nuclear Antibodies (CHANCE), IgG by GORGE Antinuclear Antibodies (CHANCE), IgG by GORGE: CHANCE specimens are screened using enzyme-linked immunosorbent assay (GORGE) methodology. All GORGE results reported as Detected are further tested by indirect fluorescent assay (IFA) using HEp-2 substrate with an IgG-specific conjugate. The CHANCE GORGE screen is designed to detect antibodies against dsDNA, histones, SS-A (Ro), SS-B (La), Chisholm, Chisholm/FILLING STATION ATTENDANT, Scl-70, Yamilex-1, centromeric proteins, other antigens extracted from the HEp-2 cell nucleus. CHANCE GORGE assays have been reported to have lower sensitivities than CHANCE IFA for systemic autoimmune rheumatic diseases (SARD). Negative results do not necessarily rule out SARD. Performed By: [facility] [address] [place] [address] Junior Mechanical Engineer: Kurt Grant MD, PhD Blood BLOOD SPECIMEN / Unknown Lab Venipuncture / Unknown 05/15/2023 11:43 AM CDT 05/15/2023 11:57 AM CDT Cathryn Zepeda MD LAB - CHEMISTRY MOHAN VARELA [facility]) [address] * CERULOPLASMIN (05/15/2023 11:43 AM CDT) Ceruloplasmin 24 20 - 60 mg/dL 05/15/2023 12:48 PM CDT [facility] Blood BLOOD SPECIMEN / Unknown Lab Venipuncture / Unknown 05/15/2023 11:43 AM CDT 05/15/2023 11:56 AM CDT Cathryn Zepeda MD LAB - CHEMISTRY MOHAN VARELA Performing Organization Address City/[facility]/ZIP Co de Phone Number [address] [address], [facility] [phone] * ALPHA FETOPROTEIN BLOOD TUMOR MARKER (05/15/2023 11:43 AM CDT) [facility] Alpha-Fetoprote in Tumor Marker 3.3 <=8.3 ng/mL 05/15/2023 12:49 PM CDT [facility] Comment: AFP values will vary depending on testing procedure used. Results are not comparable across different methods. AFP values obtained by [facility] using an [employer] Alinity Immunoassay. Blood BLOOD SPECIMEN / Unknown Lab Venipuncture / Unknown 05/15/2023 11:43 AM CDT 05/15/2023 12:02 PM CDT Cathryn Zepeda MD LAB - CHEMISTRY MOHAN VARELA Performing Organization Address City/[facility]/ZIP Co de Phone Number [address] [address], [place] [phone] * (ABNORMAL) CBC W/O DIFFERENTIAL (05/15/2023 11:43 AM CDT) [facility] WBC 5.3 3.5 - 10.5 10 3/uL 05/15/2023 12:15 PM CDT [facility] RBC 4.50 4.30 - 5.70 10 6/uL 05/15/2023 12:15 PM CDT [facility] Hemoglobin 9.7(L) 12.0 - 17.6 g/dL 05/15/2023 12:15 PM CDT [facility] Hematocrit 32.1(L) 35.2 - 51.7 % 05/15/2023 12:15 PM CDT [facility] MCV 71.3(L) 80.7 - 98.3 fL 05/15/2023 12:15 PM [facility] MCH 21.6(L) 26.7 - 34.0 pg 05/15/2023 12:15 PM [facility] MCHC 30.2(L) 30.8 - 35.9 g/dL 05/15/2023 12:15 PM [facility] RDW-SD 47.4 36.0 - 50.0 fL 05/15/2023 12:15 PM [facility] RDW-CV 18.6(H) 11.2 - 14.8 % 05/15/2023 12:15 PM [facility] Platelet Count 212 150 - 400 10 3/uL 05/15/2023 12:15 PM [facility] MPV 9.3(L) 9.4 - 12.9 fL 05/15/2023 12:15 PM [facility] nRBC Absolute 0.00 0 10 3/uL 05/15/2023 12:15 PM [facility] nRBC Auto 0.0 0 /100 WBC 05/15/2023 12:15 PM [facility] Blood BLOOD SPECIMEN / Unknown Lab Venipuncture / Unknown 05/15/2023 11:43 AM CDT 05/15/2023 12:00 PM CDT Cathryn Zepeda MD LAB - HEMATOLOGY ORD ERABLES [facility] [address] [place] [address], [facility] [phone] * (ABNORMAL) COMPREHENSIVE METABOLIC PANEL (05/15/2023 11:43 AM CDT) BUN 11 7 - 26 mg/dL 05/15/2023 12:32 PM [facility] Creatinine 0.74 0.71 - 1.16 mg/dL 05/15/2023 12:32 PM [facility] Sodium 139 136 - 145 mmol/L 05/15/2023 12:32 PM [facility] Potassium 3.3(L) 3.5 - 4.5 mmol/L 05/15/2023 12:32 PM [facility] Chloride 106 98 - 107 mmol/L 05/15/2023 12:32 PM [facility] CO2 26 22 - 29 mmol/L 05/15/2023 12:32 PM [facility] Glucose 104 70 - 115 mg/dL 05/15/2023 12:32 PM [facility] Calcium 9.5 8.4 - 10.2 mg/dL 05/15/2023 12:32 PM [facility] Protein Total 7.0 6.0 - 8.3 g/dL 05/15/2023 12:32 PM [facility] Albumin 3.5 3.4 - 5.0 g/dL 05/15/2023 12:32 PM [facility] Bilirubin Total 0.6 0.2 - 1.2 mg/dL 05/15/2023 12:32 PM [facility] Alkaline Phosphatase 97 40 - 150 U/L 05/15/2023 12:32 PM [facility] ALT 12 5 - 55 U/L 05/15/2023 12:32 PM [facility] AST 41(H) 5 - 34 U/L 05/15/2023 12:32 PM [facility] Anion Gap 10 8 - 18 05/15/2023 12:32 PM [facility] BUN/Creatinine Ratio 15 7 - 23 05/15/2023 12:32 PM [facility] Osmolality Calculated 288 270 - 300 mOsm/kg 05/15/2023 12:32 PM [facility] Albumin/Globulin Ratio 1.0(L) 1.1 - 2.3 05/15/2023 12:32 PM [facility] eGFR by CKD-EPI >90 >=90 mL/min/1.7 3 m2 05/15/2023 12:32 PM [facility] Blood BLOOD SPECIMEN / Unknown Lab Venipuncture / Unknown 05/15/2023 11:43 AM CDT 05/15/2023 12:03 PM T Cathryn Zepeda MD LAB - CHEMISTRY ORDE NICHOLE [facility] [address] [place] [address], [facility] [phone] * HEPATITIS B SURFACE ANTIBODY (05/15/2023 11:43 AM CDT) Hepatitis B Virus Surface Antibody Non-react aleks Non-react aleks 05/15/2023 12:44 PM CDT [facility] Comment: < 8 mIU/mL Hepatitis B surface Antibody (HBsAb). Nonreactive for HBsAb - individual is considered not immune to Hepatitis B Virus infection. Hepatitis B Surface Antibody Quantitative 0.3 <8.0 mIU/mL 05/15/2023 12:44 PM CDT [facility] Comment: Hepatitis B Surface Antibody Numeric Result Interpretation: Nonreactive: <8.0 mIU/mL Indeterminate: 8.0 - 12.0 mIU/mL Reactive: >12.0 mIU/mL Blood BLOOD SPECIMEN / Unknown Lab Venipuncture / Unknown 05/15/2023 11:43 AM CDT 05/15/2023 11:56 AM CDT Cathryn Zepeda MD LAB - CHEMISTRY MOHAN VARELA Performing Organization Address [facility]/ZIP Co de Phone Number [address] [address], [facility] [phone] * HEPATITIS B CORE ANTIBODY TOTAL (05/15/2023 11:43 AM CDT) HBc Antibody Total Non-reacti ve Non-reacti ve 05/15/2023 12:44 PM CDT [facility] Blood BLOOD SPECIMEN / Unknown Lab Venipuncture / Unknown 05/15/2023 11:43 AM CDT 05/15/2023 11:56 AM CDT Cathryn Zepeda MD LAB - CHEMISTRY MOHAN VARELA [address] [address], [facility] [phone] * HEPATITIS B SURFACE ANTIGEN W RFLX CONFIRMATION (05/15/2023 11:43 AM CDT) [facility] Hepatitis B Virus Surface Antigen Non-reacti ve Non-reacti ve 05/15/2023 12:44 PM CDT [facility] Blood BLOOD SPECIMEN / Unknown Lab Venipuncture / Unknown 05/15/2023 11:43 AM CDT 05/15/2023 11:56 AM CDT Cathryn Zepeda MD LAB - CHEMISTRY MOHAN VARELA [facility] [address] [place] [address], [place] [phone] * (ABNORMAL) IRON + TRANSFERRIN PANEL (05/15/2023 11:43 AM CDT) [facility] Iron 27(L) 50 - 175 ug/dL 05/15/2023 12:27 PM CDT [facility] Transferrin 314 174 - 382 mg/dL 05/15/2023 12:27 PM CDT [facility] Transferrin Saturation % 7(L) 16 - 50 % 05/15/2023 12:27 PM CDT [facility] TIBC Calculated 393 240 - 450 ug/dL 05/15/2023 12:27 PM CDT [facility] Blood BLOOD SPECIMEN / Unknown Lab Venipuncture / Unknown 05/15/2023 11:43 AM CDT 05/15/2023 11:56 AM CDT Cathryn Zepeda MD LAB - CHEMISTRY MOHAN VARELA [facility] [address] [place] [address], [place] [phone] * (ABNORMAL) IGM BLOOD (05/15/2023 11:43 AM CDT) [facility] IgM 321(H) 37 - 286 mg/dL 05/15/2023 12:27 PM CDT [facility] Comment:Result obtained by morenita ballard. Blood BLOOD SPECIMEN / Unknown Lab Venipuncture / Unknown 05/15/2023 11:43 AM CDT 05/15/2023 11:56 AM CDT Cathryn Zepeda MD LAB - CHEMISTRY MOHAN VARELA [address] [address], [place] [phone] * IGG BLOOD (05/15/2023 11:43 AM CDT) [facility] IgG 1,153 767 - 1,590 mg/dL 05/15/2023 12:27 PM CDT [facility] Blood BLOOD SPECIMEN / Unknown Lab Venipuncture / Unknown 05/15/2023 11:43 AM CDT 05/15/2023 11:56 AM CDT Cathryn Zepeda MD LAB - CHEMISTRY MOHAN VARELA Performing Organization Address [facility] Co de Phone Number [address] [address], [place] [phone] * HEPATITIS C ANTIBODY (05/15/2023 11:43 AM CDT) [facility] Hepatitis C Antibody Non-react aleks Non-reac tive 05/15/2023 12:44 PM CDT [facility] Comment:Hepatitis C Antibody screen indicates no [...] Zepeda MD LAB - CHEMISTRY MOHAN VARELA [address] [address], [place] [phone] * (ABNORMAL) HEPATITIS A ANTIBODY (05/15/2023 11:43 AM CDT) [facility] Hepatitis A Virus Antibody Total Positive( A) Negative 05/17/2023 5:51 PM CDT [facility] ([facility]) Comment: The positive anti-HAV is consistent with recent or remote Hepatitis A infection or antibody response to HAV vaccination. False positive anti-HAV can occur. Performed by [facility] [employer], [address] [place] [address] [email or web address], Kurt Grant MD, PHD, Lab. Director Blood BLOOD SPECIMEN / Unknown Lab Venipuncture / Unknown 05/15/2023 11:43 AM CDT 05/15/2023 11:57 AM CDT Cathryn Zepeda MD LAB - CHEMISTRY MOHAN VARELA [facility] ([facility]) [address] * (ABNORMAL) FERRITIN (05/15/2023 11:43 AM CDT) [facility] Ferritin 9(L) 22 - 275 ng/mL 05/15/2023 12:44 PM CDT [facility] Blood BLOOD SPECIMEN / Unknown Lab Venipuncture / Unknown 05/15/2023 11:43 AM CDT 05/15/2023 11:56 AM CDT Cathryn Zepeda MD LAB - CHEMISTRY MOHAN VARELA [facility] [address] [place] [phone], [facility] [phone] Care Teams Software Security Consultant Relationship Specialty Start Date End Date Eneida Kelly MD [address] [facility] [address] [place] [address] PCP - General Family Medicine 03/28/23
--- OUTSIDE RECORDS SUMMARY | 2024-12-28 18:15 | XMS_ITS | Clinical Summary ---
Author Organization [facility] Address [address] [place] [address] Care Team Providers Care Broadcast Systems Engineer Name Role Phone Eneida Kelly MD Primary Care Provider [phone] Allergies No known active allergies Medications amLODIPine [...] mouth. Active fluticasone propionate (FLONASE) 50 mcg/spray [place], Suspension nasal inhaler SHAKE LIQUID AND USE [...] on file Legal Sex Male 10:39 AM POWER SYSTEM ENGINEER Gender Identity Not on file Sexual Orientation Not on file Last Filed Vital Signs Vital Sign Reading Time Taken Comments Blood Pressure 120/73 11/30/2023 11:29 AM POWER SYSTEM ENGINEER Pulse 92 11/30/2023 11:29 AM POWER SYSTEM ENGINEER Temperature 36.4 C (97.6 F) 07/24/2023 11:58 AM CDT Respiratory Rate 18 11/30/2023 11:29 AM POWER SYSTEM ENGINEER Oxygen Saturation 97% 11/30/2023 11:29 AM POWER SYSTEM ENGINEER Inhaled Oxygen Concentration - - Weight 105 kg (231 lb 6.4 oz) 11/30/2023 11:29 A M POWER SYSTEM ENGINEER Height 185.4 cm (6' 1 ) 05/04/2022 [...] 07/06/202407/2021 Insurance [employer] CHOICE POS Care Teams Broadcast Systems Engineer Relationship Specialty Start Date End Date Eneida Kelly MD PCP - General Family Practice 11/14/21
--- OUTSIDE RECORDS SUMMARY | 2024-12-28 18:15 | XMS_ITS | Referral Summary ---
Author Organization [facility] al Address [address] [place] [address] Care Team Providers Care Pot Tender Name Role Phone Felice Schmitt MD Unavailable [phone] Jesse Griggs MD Unavailable [phone] Carlitos Gardner MD Primary Care Provider Encounters Date Type Department Care Team Description 12/23/2024 5:03 AM WIRELESS TECHNICIAN - 12/24/2024 2:48 PM WIRELESS TECHNICIAN Hospital Encounter [facility] 1 [place] [address] Felice Schmitt MD Acute postoperative pain (Primary Dx); Renal mass Discharge Disposition: Discharge to home or self care 12/23/2024 7:30 AM WIRELESS TECHNICIAN - 12/23/2024 12:25 PM WIRELESS TECHNICIAN Surgery [facility] Operating Room [address] [place] [phone] Felice Schmitt MD XI PARTIAL NEPHRECTOMY - LAPAROSCOPIC ROBOTIC ASSISTED-RETROPERITO JONG 12/23/2024 7:25 AM WIRELESS TECHNICIAN Anesthesia Event [facility] Operating Room [address] [place] [phone] Ximena Smith MD Sousa, Claira J., LINK WIRE FABRIC MACHINE TENDER 12/12/2024 9:00 AM WIRELESS TECHNICIAN Pre-Admission Testing [facility] for Preoperative Assessment [facility] ([facility]) [address] [place] [id number] Preoperative testing (Primary Dx) 12/04/2024 Orders Only [facility] Urology [address] [facility] Medical Office Building [address] [place] [address] Felice Schmitt MD Gross hematuria (Primary Dx); Prostate cancer (HCC) 11/18/2024 Telephone [facility] Urology [facility] Medical Office Building [address] [place] [phone] Analisa Peyton J. 11/13/2024 1:15 PM WIRELESS TECHNICIAN Lab [facility] - Lab Collection [address] [facility] Floor 5 [place] [address] Primary malignant neoplasm of prostate (HCC); Prostate cancer (HCC) 11/13/2024 1:00 PM WIRELESS TECHNICIAN Lab [facility] Oncology Lab [address] [facility] Floor 5 [place] [address] Primary malignant neoplasm of prostate (HCC); Prostate cancer (HCC) 11/13/2024 2:00 PM WIRELESS TECHNICIAN Office Visit [facility] Oncology [facility] Floor 5 [place] [address] Jesse Griggs MD Primary malignant neoplasm of prostate (HCC); Prostate cancer (HCC) 11/11/2024 Telephone [facility] Oncology [address] [place] [phone] Jany Powell RMA 11/06/2024 Telephone [facility] - Infusion Pharmacy [address] [facility] Floor 6 [place] [address] Deya Powell CPhT 11/04/2024 Orders Only [facility] Oncology [address] [place] [phone] Jerri Jones Primary malignant neoplasm of prostate (HCC) (Primary Dx) 11/03/2024 Orders Only [facility] Oncology [address] [place] [phone] Jesse Griggs MD 10/23/2024 2:00 PM WIRELESS TECHNICIAN Infusion [facility] - Infusion [address] [facility] Floor 5 [place] [address] Primary malignant neoplasm of prostate (HCC) (Primary Dx) 10/17/2024 Orders Only [facility] Oncology [address] [place] [phone] Jesse Griggs MD 10/07/2024 12:39 PM WIRELESS TECHNICIAN - 10/07/2024 11:59 PM WIRELESS TECHNICIAN Hospital Encounter [facility] Radiology [facility] ([facility]) [address] [place] [address] Discharge Disposition: Discharge to home or self care 10/07/2024 12:39 PM WIRELESS TECHNICIAN - 10/07/2024 11:59 PM WIRELESS TECHNICIAN Hospital Encounter [facility] Radiology [facility]) [address] [place] [address] Prostate cancer (HCC) Discharge Disposition: Discharge to home or self care 09/30/2024 2:00 PM WIRELESS TECHNICIAN Lab [address] [address] Primary malignant neoplasm of prostate (HCC); Prostate cancer (HCC) 09/30/2024 1:00 PM WIRELESS TECHNICIAN Office Visit [facility] Oncology [address] [place] [phone] Jesse Griggs MD Primary malignant neoplasm of prostate (HCC) (Primary Dx); Prostate cancer (HCC) from Last 3 Months Allergies No known active allergies Medications amLODIPine (NORVASC) 10 mg tabletIndicati ons:hypertensi on Take 1 tablet (10 mg total) by mouth administrative services director before breakfast Active lisinopril (PRINIVIL,ZEST RIL) 40 mg tabletIndicati ons:hypertensi on Take 1 tablet (40 mg total) by mouth administrative services director before breakfast Active cetirizine (ZyrTEC) 10 mg [...] ORAL)Indicatio ns:supplement Take 1 tablet by mouth administrative services director before breakfast Active oxyCODONE (ROXICODONE) 5 mg [...] IV(T3b, N1, cM0, PSA: 20 or greater, Darwin 8-10) - Signed by Jesse Griggs MD on 09/30/2024 Psoriatic arthritis 03/07/2017 Resolved Problems Problem Noted Date Diagnosed Date Resolved Date Post-operative state 07/22/2019 019 Erectile dysfunction due to diseases classified elsewhere 05/26/2019 09/09/2019 Overview (05/26/2019): Added automatically from request for surgery [id number] IRINEO (acute kidney injury) 10/23/2018 Acute renal [...] Comments Blood Pressure 107/57 12/24/2024 11:45 AM WIRELESS TECHNICIAN Pulse 77 12/24/2024 11:45 AM WIRELESS TECHNICIAN Temperature 36.5 C (97.7 F) 12/24/2024 11:45 AM WIRELESS TECHNICIAN Respiratory Rate 19 12/24/2024 11:45 AM WIRELESS TECHNICIAN Oxygen Saturation 94% 12/24/2024 11:45 AM WIRELESS TECHNICIAN Inhaled Oxygen Concentration - - Weight 104.3 kg (230 lb) 12/23/2024 1:15 PM WIRELESS TECHNICIAN Height 180.3 cm (5' 11 ) 12/23/2024 1:15 PM WIRELESS TECHNICIAN Body Mass Index 32.08 12/23/2024 1:15 PM WIRELESS TECHNICIAN Plan of Treatment Not on file Medical Devices Implanted Type Area Bible Reader Device Identifier Shelf Expiration Date Model / Serial / Lot [employer] Inc/C R Bard [id number] Ventralight St Sepra 4.5in Uncoated Monofilament Lightweight - [id number] Implanted:Qty: 1 on 06/30/2019 by Carlos Lucero MD at [facility] Mesh N/A: Umbilical [employer]/C R Bard 12/02/2020 [id number] / / [id number] [employer] [id number] Ams 700 Kit Accessory Penile Prosthesis - [id number] Implanted:Qty: 1 on 06/30/2019 by Carlos Lucero MD at [facility] N/A: Penis [place] [employer] [id number] 04/12/2024 [id number] / / [id number] [employer] [id number] Ams Spectra 1.5cm Concealable Rear Tip Account Retention Representative Snapcone - [id number] Implanted:Qty: 1 on 06/30/2019 by Carlos Lucero MD at [facility] N/A: Penis [place] [employer] Nam [id number] 01/22/2024 [id number] / / [id number] [employer] [id number] Ams 700 Lgx Ms Pump 18cm 3 Piece Inflatable Preconnect Infrapubic - [id number] Implanted:Qty: 1 on 06/30/2019 by Carlos Lucero MD at [facility] N/A: Penis [place] [employer] Nam [id number] 09/10/2020 [id number] / / [id number] [employer] [id number] Ams 700 Ms Pump Preconnect Inflatable [place] Prosthesis 65ml - [id number] Implanted:Qty: 1 on 06/30/2019 by Carlos Lucero MD at [facility] N/A: Abdomen [place] [employer] Nam [id number] 05/14/2021 [id number] / / [id number] Procedures Procedure Name Priority Date/Time Associated Diagnosis Comments POCT GLUCOSE DEVICE Routine 12/24/2024 1 1:44 AM WIRELESS TECHNICIAN POCT GLUCOSE DEVICE Routine 12/24/2024 8 :04 AM WIRELESS TECHNICIAN EGFR Timed 12/23/2024 8:30 PM WIRELESS TECHNICIAN CBC WITHOUT DIFFERENTIAL Timed 12/23/2024 8:30 PM WIRELESS TECHNICIAN BASIC METABOLIC PANEL Timed 12/23/2024 8:30 PM WIRELESS TECHNICIAN SURGICAL PATHOLOGY Routine 12/23/2024 10 :23 AM WIRELESS TECHNICIAN Renal mass PERIPHERAL LINE Routine 12/23/2024 8:15 AM WIRELESS TECHNICIAN ANESTHESIA INTUBATION Routine 12/23/2024 8:12 AM WIRELESS TECHNICIAN XI PARTIAL NEPHRECTOMY - LAPAROSCOPIC ROBOTIC ASSISTED 12/23/2024 7:30 AM WIRELESS TECHNICIAN Renal mass B CHECK SAMPLE STAT 12/23/2024 6:32 AM WIRELESS TECHNICIAN TYPE AND SCREEN 14 DAY Routine 12/12/2024 10:51 AM WIRELESS TECHNICIAN Preoperative testing URINE CULTURE Routine 12/12/2024 10:51 AM WIRELESS TECHNICIAN Preoperative testing EGFR Routine 11/13/2024 1:20 PM WIRELESS TECHNICIAN Primary malignant neoplasm of prostate (HCC) Prostate cancer (HCC) DIFFERENTIAL AUTO Routine 11/13/2024 1:2 0 PM WIRELESS TECHNICIAN Primary malignant neoplasm of prostate (HCC) Prostate cancer (HCC) COMPREHENSIVE METABOLIC PANEL Routine 11/13/2024 1:20 PM WIRELESS TECHNICIAN Primary malignant neoplasm of prostate (HCC) Prostate cancer (HCC) PSA DIAGNOSTIC Routine 11/13/2024 1:20 PM WIRELESS TECHNICIAN Primary malignant neoplasm of prostate (HCC) Prostate cancer (HCC) TOTAL TESTOSTERONE Routine 11/13/2024 1: 20 PM WIRELESS TECHNICIAN Primary malignant neoplasm of prostate (HCC) Prostate cancer (HCC) CBC WITH AUTO DIFFERENTIAL Routine 11/13/2024 1:20 PM WIRELESS TECHNICIAN Primary malignant neoplasm of prostate (HCC) Prostate cancer (HCC) PET/CT PROSTATE CANCER PSMA SKULL TO THIGH Schedule Routine, Read Routine (OP Routine) 10/07/2024 4:24 PM WIRELESS TECHNICIAN Prostate cancer (HCC) EGFR Routine 09/30/2024 2:27 PM WIRELESS TECHNICIAN Primary malignant neoplasm of prostate (HCC) Prostate cancer (HCC) DIFFERENTIAL AUTO Routine 09/30/2024 2:2 7 PM WIRELESS TECHNICIAN Primary malignant neoplasm of prostate (HCC) Prostate cancer (HCC) PSA DIAGNOSTIC Routine 09/30/2024 2:27 PM WIRELESS TECHNICIAN Primary malignant neoplasm of prostate (HCC) Prostate cancer (HCC) TOTAL TESTOSTERONE Routine 09/30/2024 2: 27 PM WIRELESS TECHNICIAN Primary malignant neoplasm of prostate (HCC) Prostate cancer (HCC) CBC WITH AUTO DIFFERENTIAL Routine 09/30/2024 2:27 PM WIRELESS TECHNICIAN Primary malignant neoplasm of prostate (HCC) Prostate cancer (HCC) COMPREHENSIVE METABOLIC PANEL Routine 09/30/2024 2:27 PM WIRELESS TECHNICIAN Primary malignant neoplasm of prostate (HCC) Prostate cancer (HCC) TEMPUS XG HEREDITARY CANCER NGS PANEL Routine 09/30/2024 2:18 PM WIRELESS TECHNICIAN Primary malignant neoplasm of prostate (HCC) Prostate cancer (HCC) HEPATITIS C ANTIBODY Routine Gen Lab 03/07/2017 9:12 AM CDT from Last 3 Months or Most Recently Relevant to Health Maintenance Results * POCT glucose (12/24/2024 11:44 AM WIRELESS TECHNICIAN) Glucose, POC 114 70 - 199 mg/dL Blood 12/24/2024 11:4 4 AM WIRELESS TECHNICIAN 12/24/2024 11:44 AM WIRELESS TECHNICIAN us Felice Schmitt MD LAB POCT ORDERABLES - DEV ICE Final Result ALY [facility] One [facility] Department [place] [address] * POCT glucose (12/24/2024 8:04 AM WIRELESS TECHNICIAN) Glucose, POC 129 70 - 199 mg/dL Blood 12/24/2024 8:04 AM WIRELESS TECHNICIAN 12/24/2024 8:04 AM WIRELESS TECHNICIAN Felice Schmitt MD LAB POCT ORDERABLES - DEV ICE Final Result Performing Organization Address [facility] Co de Phone Number [facility] Department [place] [address] * eGFR (12/23/2024 8:30 PM WIRELESS TECHNICIAN) Pathologist [facility] eGFR >90 >=60 mL/min/1. 73 m2 Comment: [...] last reviewed 2021. Blood 12/23/2024 8:30 PM WIRELESS TECHNICIAN 12/23/2024 8:51 PM WIRELESS TECHNICIAN Felice Schmitt MD LAB BLOOD ORDERABLES Yamila l Result Performing Organization Address [facility] Co de Phone Number [facility] Department [place] [address] * (ABNORMAL) CBC without differential (12/23/2024 8:30 PM WIRELESS TECHNICIAN) [facility] WBC 11.0(H) 3.8 - 9.9 K/cumm Hgb 13.5 13.0 - 17.5 g/dL [facility] Hct 38.4(L) 38.9 - 50.3 % [facility] Plt 185 150 - 400 K/cumm [facility] MPV 9.5 9.1 - 12.3 fL [facility] RBC 4.42 4.30 - 5.80 M/cumm [facility] MCV 86.9 81.3 - 96.4 fL [facility] MCH 30.5 27.1 - 33.3 pg [facility] MCHC 35.2 32.3 - 35.7 g/dL [facility] RDW CV 14.6 11.1 - 14.9 % [facility] RDW SD 46.1 35.7 - 48.1 fL [facility] NRBC abs 0.00 0.00 - 0.01 K/cumm [facility] Blood 12/23/2024 8:30 PM WIRELESS TECHNICIAN 12/23/2024 8:51 PM WIRELESS TECHNICIAN Felice Schmitt MD LAB BLOOD ORDERABLES Yamila mccullough Result [facility] One [facility] Department [place] [address] * (ABNORMAL) Basic metabolic panel (12/23/2024 8:30 PM WIRELESS TECHNICIAN) Sodium 142 135 - 145 mmol/L Potassium, pl 4.4 3.3 - 4.9 mmol/L [facility] Chloride 110 97 - 110 mmol/L [facility] CO2 21(L) 22 - 32 mmol/L [facility] Anion gap 11 2 - 15 mmol/L [facility] BUN 13 6 - 25 mg/dL [facility] Creatinine 0.75(L) 0.80 - 1.30 mg/dL [facility] Glucose 111 70 - 199 mg/dL [facility] Comment: Interpretive Data Fasting glucose >/= 126 [...] Calcium 9.1 8.5 - 10.3 mg/dL ALY [facility] Blood 12/23/2024 8:30 PM WIRELESS TECHNICIAN 12/23/2024 8:51 PM WIRELESS TECHNICIAN us Felice Schmitt MD LAB BLOOD ORDERABLES Yamila mccullough Result [facility] Department [place] [address] * Surgical pathology (12/23/2024 10:23 AM WIRELESS TECHNICIAN) Tissue (Kidney, partial nephrectomy) 12/23/2024 10:23 AM WIRELESS TECHNICIAN Narrative PATHOLOGY [facility] - 12/26/2024 9:20 AM WIRELESS TECHNICIAN EPIC results best viewed via link to PDF [facility] [place] [address] Note to Patients: This report may contain [...] Gender: M : 1970 (Age: 54) Address: [address] [place], [place] [phone] Hospital #: [id number] Taken:12/23/2024 Received:12/23/2024 Reported: 12/26/2024 Patient Type: [facility] OP In Bed Service: Urology Location: [facility] 9301 Physician(s): Felice Schmitt M.D. Carlitos Gardner M.D. [...] not extend to the external surface. A media sales representative section from the mass was submitted for research. Banana Grader sections from the remaining specimen are submitted as follows: A1-A3 Mass and closest approach to the inked deep margin A4-A5 Mass including the peripheral margin and renal capsule Jar 1. bao2/12/23/2024 14:10 PA(s): ANASTACIO Peace ([facility])CM CANCER CASE SUMMARY FOR INVASIVE CARCINOMA OF [...] Surgical Pathology and Flow Cytometry Departments at [facility] as part of an ongoing clinical quality assurance specialist program and in compliance with federally mandated [...] Surgical Pathology and Flow Cytometry Departments of [facility]. It has not been cleared or approved by the U. S. Food and Drug Administration. IMAGES AND SCANNED DOCUMENTS, IF INCLUDED, ONLY VIEWABLE IN PDF VERSION OF REPORT us Felice Schmitt MD LAB PATHOLOGY ORDERABLES Final Result PATHOLOGY [facility] 3rd Floor [place], [place] [phone] * Peripheral IV Catheter (12/23/2024 8:15 AM WIRELESS TECHNICIAN) Damian Willis MD - 12/23/2024 8:15 AM WIRELESS TECHNICIAN Damian Verduzco MD 12/23/2024 8:15 AM Peripheral [...] Final Result * Airway (12/23/2024 8:12 AM WIRELESS TECHNICIAN) Damian Willis MD - 12/23/2024 8:12 AM WIRELESS TECHNICIAN Damian Verduzco MD 12/23/2024 8:15 AM Airway [...] Result * Check Sample (12/23/2024 6:32 AM WIRELESS TECHNICIAN) ABO Rh A Positive [facility] HCLL OTHER 12/23/2024 6:32 AM WIRELESS TECHNICIAN 12/23/2024 11:15 AM WIRELESS TECHNICIAN us Felice Schmitt MD LAB BLOOD ORDERABLES Yamila l Result [facility] One [facility] Department [place] [address] [facility] * TYPE AND SCREEN 14 DAY (12/12/2024 10:51 AM WIRELESS TECHNICIAN) Nam, indirect Negative ABO Rh A Positive [facility] Blood 12/12/2024 10:5 1 AM WIRELESS TECHNICIAN 12/12/2024 11:20 AM WIRELESS TECHNICIAN Narrative [facility] - 12/12/2024 12:30 PM WIRELESS TECHNICIAN Is this test being ordered in advance for a procedure?->Yes Expected date of procedure:->12/23/24 Has the patient been transfused in the past 3 months?->No us Karly Norris NP LAB BLOOD BANK VALDO T ORDERABLES Final Result [facility] [place] [address] * Urine culture Urine, clean voided (12/12/2024 10:51 AM WIRELESS TECHNICIAN) Report Final Report: No growth Urine, clean voided 12/12/2024 10:51 AM WIRELESS TECHNICIAN 12/12/2024 11:25 AM WIRELESS TECHNICIAN Narrative [facility] TRAN - 12/13/2024 12:34 PM WIRELESS TECHNICIAN Testing performed by [facility] Microbiology Laboratory ([phone]) us Karly Norris NP LAB MICROBIOLOGY - GENERAL ORDERABLES Final Result Performing Organization Address [facility] Co de Phone Number ALY [facility] Department [place] [address] * eGFR (11/13/2024 1:20 PM WIRELESS TECHNICIAN) eGFR >90 >=60 mL/min/1. 73 m2 Comment: [...] last reviewed 2021. Blood 11/13/2024 1:20 PM WIRELESS TECHNICIAN 11/13/2024 1:23 PM WIRELESS TECHNICIAN us Jesse Griggs MD LAB BLOOD ORDERABLES Fin al Result [facility] One [facility] Department [place] [address] * Differential, auto (11/13/2024 1:20 PM WIRELESS TECHNICIAN) Neutrophil abs 4.1 1.5 - 6.5 K/cumm Comment:Testing performed by : [facility], [address] [place] [phone] Lymphocyte abs 1.0 0.8 - 3.3 K/cumm CERNER BJ Comment:Testing performed by : [facility], [address] [place] [phone] Monocyte abs 0.5 0.2 - 0.8 K/cumm CERNER BJ Comment:Testing performed by : [facility], [address] [place] [phone] Eosinophil abs 0.2 0.0 - 0.5 K/cumm CERNER BJ Comment:Testing performed by : [facility], [address] [place] [phone] Basophil abs 0.0 0.0 - 0.1 K/cumm CERNER BJ Comment:Testing performed by : [facility], [address] [place] [phone] Neutrophil pct 71.2 % CERNER BJ Comment: Interpretive Data Percent cell count reference ranges are not reported, since discordance with absolute values may lead to misinterpretation of CBC data. Current Interpretive Data was last revised on 2018. Testing performed by: [facility], [address] [place] [phone] Lymphocyte pct 17.1 % CERNER BJ Comment: Interpretive Data Percent cell count reference ranges are not reported, since discordance with absolute values may lead to misinterpretation of CBC data. Current Interpretive Data was last revised on 2018. Testing performed by: [facility], [address] [place] [phone] Monocyte pct 8.3 % ALY TRAN Comment: Interpretive Data Percent cell count reference ranges are not reported, since discordance with absolute values may lead to misinterpretation of CBC data. Current Interpretive Data was last revised on 2018. Testing performed by: [facility], [address] [place] [phone] Eosinophil pct 2.8 % ALY TRAN Comment: Interpretive Data Percent cell count reference ranges are not reported, since discordance with absolute values may lead to misinterpretation of CBC data. Current Interpretive Data was last revised on 2018. Testing performed by: [facility], [address] [place] [phone] Basophil pct 0.6 % ALY TRAN Comment: Interpretive Data Percent cell count reference ranges are not reported, since discordance with absolute values may lead to misinterpretation of CBC data. Current Interpretive Data was last revised on 2018. Testing performed by: [facility], [address] [place] [phone] Blood 11/13/2024 1:20 PM WIRELESS TECHNICIAN 11/13/2024 1:21 PM WIRELESS TECHNICIAN us Jesse Griggs MD LAB BLOOD ORDERABLES Fin al Result [facility] One [facility] [place] [address] * CBC with auto differential (11/13/2024 1:20 PM WIRELESS TECHNICIAN) WBC 5.8 3.8 - 9.9 K/cumm Comment:Testing performed by : [facility], [address] [place] [phone] Hgb 15.2 13.0 - 17.5 g/dL ALY DAVIES Comment:Testing performed by : [facility], [address] [place] [phone] Hct 44.6 38.9 - 50.3 % CERNER BJ Comment:Testing performed by : [facility], [address] [place] [address] Plt 189 150 - 400 K/cumm CERNER BJ Comment:Testing performed by : [facility], [address] [place] [address] MPV 8.3 6.8 - 10.4 fL CERNER BJ Comment:Testing performed by : [facility], [address] [place] [address] RBC 5.18 4.30 - 5.80 M/cumm CERNER BJ Comment:Testing performed by : [facility], [address] [place] [address] MCV 86.2 81.3 - 96.4 fL CERNER BJ Comment:Testing performed by : [facility], [address] [place] [address] MCH 29.5 27.1 - 33.3 pg CERLICHA BJ Comment:Testing performed by : [facility], [address] [place] [address] MCHC 34.2 32.3 - 35.7 g/dL CERNER BJ Comment:Testing performed by : [facility], [address] [place] [address] RDW CV 14.8 11.1 - 14.9 % CERNER BJ Comment:Testing performed by : [facility], [address] [place] [address] NRBC abs 0.00 0.00 - 0.01 K/cumm CERNER BJ Comment:Testing performed by : [facility], [address] [place] [address] Blood 11/13/2024 1:20 PM WIRELESS TECHNICIAN 11/13/2024 1:21 PM WIRELESS TECHNICIAN us Jesse Griggs MD LAB BLOOD ORDERABLES Fin al Result ALY [facility] One [facility] [place] [address] * (ABNORMAL) Total testosterone (11/13/2024 1:20 PM WIRELESS TECHNICIAN) Pathologist [facility] Testosterone 188.0(L) 193.0 - 740.0 ng/dL Blood 11/13/2024 1:20 PM WIRELESS TECHNICIAN 11/13/2024 1:50 PM WIRELESS TECHNICIAN Jesse Griggs MD LAB BLOOD ORDERABLES Fin al Result Performing Organization Address [facility] de Phone Number [facility] [place] [address] * PSA diagnostic (11/13/2024 1:20 PM WIRELESS TECHNICIAN) Pathologist [facility] PSA-Total 1.88 <=3.90 ng/mL Comment: Interpretive Data [...] last revised 22. Blood 11/13/2024 1:20 PM WIRELESS TECHNICIAN 11/13/2024 1:23 PM WIRELESS TECHNICIAN Jesse Griggs MD LAB BLOOD ORDERABLES Fin al Result Performing Organization Address [facility] de Phone Number [facility] [place] [address] * (ABNORMAL) Comprehensive metabolic panel (11/13/2024 1:20 PM WIRELESS TECHNICIAN) Pathologist [facility] Sodium 144 135 - 145 mmol/L Potassium, pl 4.5 3.3 - 4.9 mmol/L [facility] Comment:Hemolyzed; Potassium value may be falsely elevated by as much as 0.3-0.5 mmol/L. Suggest redraw and reanalysis. Chloride 107 97 - 110 mmol/L [facility] CO2 29 22 - 32 mmol/L [facility] Anion gap 8 2 - 15 mmol/L [facility] BUN 14 6 - 25 mg/dL [facility] Creatinine 0.69(L) 0.80 - 1.30 mg/dL [facility] Glucose 97 70 - 199 mg/dL [facility] Comment: Interpretive Data Fasting glucose >/= 126 [...] 2022. Calcium 10.0 8.5 - 10.3 mg/dL [facility] Bilirubin, total 1.2 0.1 - 1.2 mg/dL [facility] Protein, pl 7.6 6.5 - 8.5 g/dL [facility] Albumin 4.0 3.5 - 5.0 g/dL [facility] Alk phos 125 40 - 130 Units/L [facility] ALT 13 7 - 55 Units/L [facility] AST 51(H) 10 - 50 Units/L [facility] Comment:Hemolyzed; result ma y be falsely elevated Blood 11/13/2024 1:20 PM WIRELESS TECHNICIAN 11/13/2024 1:23 PM WIRELESS TECHNICIAN us Jesse Griggs MD LAB BLOOD ORDERABLES Fin al Result [facility] One [facility] Department [place] [address] * PET/CT Prostate Cancer PSMA Skull to Thigh (10/07/2024 4:24 PM WIRELESS TECHNICIAN) Anatomical Region Laterality Modality N/A Positron Emissio n Tomography (PET) 10/08/2024 11:4 2 AM WIRELESS TECHNICIAN Impressions 10/08/2024 12:24 PM WIRELESS TECHNICIAN 1. Widespread regional and distant tom and [...] Dariana Eaton M.D. Narrative 10/08/2024 12:24 PM WIRELESS TECHNICIAN EXAMINATION: PSMA-PET/CT DATE OF STUDY: 10/07/2024 SCANNER: [facility] [employer] (NV1). This is a high-resolution scanner, which [...] obtained. The study was interpreted on the Tier 3 workstation. The total scanned area was mid [...] changes of the spine. Procedure Note Dariana aEton MD - 10/08/2024 EXAMINATION: PSMA-PET/CT DATE OF STUDY: 10/07/2024 SCANNER: [facility] [employer] (NV1). This is a high-resolution scanner, which [...] obtained. The study was interpreted on the Tier 3 workstation. The total scanned area was mid [...] signed by: Dariana Eaton M.D. us Felice Schimtt MD IMG PET PROCEDURES Final Result * eGFR (09/30/2024 2:27 PM WIRELESS TECHNICIAN) Pathologist [facility] eGFR >90 >=60 mL/min/1. 73 m2 Comment: [...] last reviewed 2021. Blood 09/30/2024 2:27 PM WIRELESS TECHNICIAN 09/30/2024 2:30 PM WIRELESS TECHNICIAN us Jesse Griggs MD LAB BLOOD ORDERABLES Fin al Result [facility] One [facility] Department of Laboratories [place], [place] [id number] * Differential, auto (09/30/2024 2:27 PM WIRELESS TECHNICIAN) Pathologist [facility] Neutrophil abs 3.8 1.5 - 6.5 K/cumm Comment:Testing performed by : [facility], [address] [place] [id number] Imm gran abs 0.0 0.0 - 0.1 K/cumm [facility] Lymphocyte abs 1.0 0.8 - 3.3 K/cumm [facility] Monocyte abs 0.6 0.2 - 0.8 K/cumm [facility] Eosinophil abs 0.1 0.0 - 0.5 K/cumm [facility] Basophil abs 0.0 0.0 - 0.1 K/cumm [facility] Neutrophil pct 68.9 % [facility] Comment: Interpretive Data Percent cell count reference ranges are not reported, since discordance with absolute values may lead to misinterpretation of CBC data. Current Interpretive Data was last revised on 2018. Imm gran pct 0.2 % [facility] Comment: Interpretive Data Percent cell count reference ranges are not reported, since discordance with absolute values may lead to misinterpretation of CBC data. Current Interpretive Data was last revised on 2018. Lymphocyte pct 18.2 % [facility] Comment: Interpretive Data Percent cell count reference ranges are not reported, since discordance with absolute values may lead to misinterpretation of CBC data. Current Interpretive Data was last revised on 2018. Monocyte pct 9.9 % [facility] Comment: Interpretive Data Percent cell count reference ranges are not reported, since discordance with absolute values may lead to misinterpretation of CBC data. Current Interpretive Data was last revised on 2018. Eosinophil pct 2.3 % [facility] Comment: Interpretive Data Percent cell count reference ranges are not reported, since discordance with absolute values may lead to misinterpretation of CBC data. Current Interpretive Data was last revised on 2018. Basophil pct 0.5 % [facility] Comment: Interpretive Data Percent cell count reference ranges are not reported, since discordance with absolute values may lead to misinterpretation of CBC data. Current Interpretive Data was last revised on 2018. Blood 09/30/2024 2:27 PM WIRELESS TECHNICIAN 09/30/2024 2:30 PM WIRELESS TECHNICIAN us Jesse Griggs MD LAB BLOOD ORDERABLES Fin al Result [facility] One [facility] Department [place] [address] * (ABNORMAL) CBC with auto differential (09/30/2024 2:27 PM WIRELESS TECHNICIAN) WBC 5.6 3.8 - 9.9 K/cumm Comment:Testing performed by : [facility], [address] [place] [id number] Hgb 14.2 13.0 - 17.5 g/dL [facility] Comment:Testing performed by : [facility], [address] [place] [id number] Hct 40.6 38.9 - 50.3 % [facility] Comment:Testing performed by : [facility], [address] [place] [id number] Plt 144(L) 150 - 400 K/cumm [facility] Comment:Testing performed by : [facility], [address] [place] [id number] MPV 9.6 9.1 - 12.3 fL [facility] RBC 4.90 4.30 - 5.80 M/cumm [facility] MCV 82.9 81.3 - 96.4 fL [facility] MCH 29.0 27.1 - 33.3 pg [facility] MCHC 35.0 32.3 - 35.7 g/dL [facility] RDW CV 13.5 11.1 - 14.9 % [facility] RDW SD 40.6 35.7 - 48.1 fL [facility] NRBC abs 0.00 0.00 - 0.01 K/cumm [facility] Blood 09/30/2024 2:27 PM WIRELESS TECHNICIAN 09/30/2024 2:30 PM WIRELESS TECHNICIAN Jesse Griggs MD LAB BLOOD ORDERABLES Fin al Result [facility] One [facility] Department [place] [address] * Total testosterone (09/30/2024 2:27 PM WIRELESS TECHNICIAN) [facility] Signature Testosterone 520.0 193.0 - 740.0 ng/dL Blood 09/30/2024 2:27 PM WIRELESS TECHNICIAN 09/30/2024 6:31 PM WIRELESS TECHNICIAN Jesse Griggs MD LAB BLOOD ORDERABLES Fin al Result Performing Organization Address [facility] Co de Phone Number ALY [facility] [place] [address] * (ABNORMAL) PSA diagnostic (09/30/2024 2:27 PM WIRELESS TECHNICIAN) PSA-Total 64.70(H) <=3.90 ng/mL Comment: Interpretive Data [...] last revised 22. Blood 09/30/2024 2:27 PM WIRELESS TECHNICIAN 09/30/2024 6:31 PM WIRELESS TECHNICIAN Jesse Griggs MD LAB BLOOD ORDERABLES Fin al Result Performing Organization Address [facility] Co de Phone Number ALY [facility] [place] [address] * (ABNORMAL) Comprehensive metabolic panel (09/30/2024 2:27 PM WIRELESS TECHNICIAN) Pathologist [facility] Sodium 141 135 - 145 mmol/L Comment:Testing performed by : [facility], [address] [place] [id number] Potassium, pl 3.9 3.3 - 4.9 mmol/L [facility] Chloride 109 97 - 110 mmol/L [facility] CO2 27 22 - 32 mmol/L [facility] Anion gap 5 2 - 15 mmol/L [facility] BUN 11 6 - 25 mg/dL [facility] Creatinine 0.65(L) 0.80 - 1.30 mg/dL [facility] Glucose 96 70 - 199 mg/dL [facility] Comment: Interpretive Data Fasting glucose >/= 126 [...] Calcium 9.4 8.5 - 10.3 mg/dL [facility] Bilirubin, total 0.6 0.1 - 1.2 mg/dL [facility] Protein, pl 6.7 6.5 - 8.5 g/dL [facility] Albumin 3.8 3.5 - 5.0 g/dL [facility] Alk phos 96 40 - 130 Units/L [facility] ALT 14 7 - 55 Units/L [facility] AST 40 10 - 50 Units/L [facility] Blood 09/30/2024 2:27 PM WIRELESS TECHNICIAN 09/30/2024 2:30 PM WIRELESS TECHNICIAN Jesse Griggs MD LAB BLOOD ORDERABLES Fin al Result [facility] One [facility] [place] [address] * [employer] Hereditary Cancer NGS Panel, Blood (09/30/2024 2:18 PM WIRELESS TECHNICIAN) [facility] Please review the PDF for results. 10/14/2024 9:34 PM WIRELESS TECHNICIAN [facility] Comment:[facility] Portal link Blood specimen (specimen) 09/30/2024 2:18 PM WIRELESS TECHNICIAN 10/14/2024 9:36 PM WIRELESS TECHNICIAN us Jesse Griggs MD LAB GENETIC TESTING Yamila l Result [facility] [address] [facility], [address] [place], [place] [id number] [place] [address] [employer] [address], [address] [place] [address] * Hepatitis C antibody (03/07/2017 9:12 AM CDT) Hep C Ab Nonreactive Nonreactive [facility] Comment: Interpretive Data Positive results should be confirmed by a molecular method. If positive, a second separately collected sample should be submitted for Hepatitis C Virus (HCV) RNA Detection and Quantitation by Real-Time Reverse Allergist Immunologist-PCR (RT-PCR). Current interpretive data was last revised on 2016. Blood specimen (specimen) 03/07/2017 9:12 AM CDT 03/07/2017 11:41 AM CDT Dariana tee MD LAB MICROBIOLOGY - GENERAL ORDERABLES Edited Result - Final [facility] One [facility] [place] [address] from Last 3 Months or Most Recently Relevant to Health Maintenance Insurance [facility] HMO [facility] CHOICE PLUS [facility] HMO/PPO Address: [address] [address] [place] [address] CHOICE [facility] [place] [facility] HMO Advance Directives For more information, please contact: [phone] Documents on File Type Date Recorded Patient Banana Grader Expl anation ADVANCE DIRECTIVE 12/26/2024 11:08 PM RUTH ONOFRE WILL ADVANCE DIRECTIVE 12/26/2024 11:08 PM SATHISH R OF CLERK CHECKER-MEDICAL * Full Code (Latest Code Status on File) Date Activated Date Inactivated Comments 12/23/2024 1:12 PM 12/24/2024 6:53 PM * Full Code Date Activated Date Inactivated Comments 06/30/2019 5:36 PM 07/01/2019 11:48 PM Care Teams Pot Tender Relationship Specialty Start Date End Date aCrlitos Gardner MD [address] [place] [address] PCP - General Family Medicine 12/10/24 Felice Schmitt MD [address] [place] [address] Consulting Physician Urology 09/19/24 Jesse Griggs MD [address] DIV IM MEDICAL ONCOLOGY, [address] [place] [address] Medical Oncology 09/19/24
--- OUTSIDE RECORDS SUMMARY | 2024-12-28 18:15 | XMS_ITS | Clinical Summary ---
Author Organization [facility] Address [address] [place] [address] Care Team Providers Care Survey Superintendent Name Role Phone Felice Schmitt MD Unavailable [phone] Jesse Griggs MD Unavailable [phone] Carlitos Gardner MD Primary Care Provider Allergies No known active allergies Medications amLODIPine (NORVASC) 10 mg tabletIndicati ons:hypertensi on Take 1 tablet (10 mg total) by mouth client experience consultant before breakfast Active lisinopril (PRINIVIL,ZEST RIL) 40 mg tabletIndicati ons:hypertensi on Take 1 tablet (40 mg total) by mouth client experience consultant before breakfast Active cetirizine (ZyrTEC) 10 mg [...] ORAL)Indicatio ns:supplement Take 1 tablet by mouth client experience consultant before breakfast Active oxyCODONE (ROXICODONE) 5 mg [...] (05/26/2019): Added automatically from request for surgery [id number] IRINEO (acute kidney injury) 10/23/2018 Acute renal failure superimp osed on chronic kidney disease 04/29/2018 09/09/2019 Encounters Date Type Department Care Team Description 12/23/2024 7:30 AM BLOCK ENGRAVER - 12/23/2024 12:25 PM BLOCK ENGRAVER Surgery [facility] Operating Room [address] [place] [address] Felice Schmitt MD XI PARTIAL NEPHRECTOMY - LAPAROSCOPIC ROBOTIC ASSISTED-RETROPERITO JONG 12/23/2024 7:25 AM BLOCK ENGRAVER Anesthesia Event [facility] Operating Room [address] [place] [address] Ximena Smith MD Sousa, Claira J., CRNA 12/23/2024 5:03 AM BLOCK ENGRAVER - 12/24/2024 2:48 PM BLOCK ENGRAVER Hospital Encounter [facility] 1 [place] [address] Felice Schmitt MD Acute postoperative pain (Primary Dx); Renal mass Discharge Disposition: Discharge to home or self care 12/12/2024 9:00 AM BLOCK ENGRAVER Pre-Admission Testing [facility] Center for Preoperative Assessment and [facility] ([facility]) [address] [place] [address] Preoperative testing (Primary Dx) 12/04/2024 Orders Only [facility] Urology [address] [place] [address] Office Building [address] [place] [phone] Felice Schmitt MD Gross hematuria (Primary Dx); Prostate cancer (HCC) 11/18/2024 Telephone [facility] Urology [address] [place] [address] Office Building [address] [place] [phone] Peyton Hauser 11/13/2024 2:00 PM BLOCK ENGRAVER Office Visit [facility] Oncology [address] [place] [address] 5 [place] [phone] Jesse Griggs MD Primary malignant neoplasm of prostate (HCC); Prostate cancer (HCC) 11/13/2024 1:15 PM BLOCK ENGRAVER Lab [facility] - Lab Collection [facility] Floor 5 [place] [address] Primary malignant neoplasm of prostate (HCC); Prostate cancer (HCC) 11/13/2024 1:00 PM BLOCK ENGRAVER Lab [facility] On[facility] Lab [address] [place] [address] Floor 5 [place] [address] Primary malignant neoplasm of prostate (HCC); Prostate cancer (HCC) 11/11/2024 Telephone [facility] Oncology [address] [place] [address] Jany Powell RMA 11/06/2024 Telephone [facility] [address] [facility] Floor 6 [place] [address] Deya Powell CPhT 11/04/2024 Orders Only [facility] Oncology [address] [place] [phone] Jerri Jones Primary malignant neoplasm of prostate (HCC) (Primary Dx) 11/03/2024 Orders Only [facility] Oncology [address] [place] [phone] Jesse Griggs MD 10/23/2024 2:00 PM BLOCK ENGRAVER Infusion [facility]fusion [address] Floor 5 [place] [address] Primary malignant neoplasm of prostate (HCC) (Primary Dx) 10/17/2024 Orders Only [facility] Oncology [address] [place] [phone] Jesse Griggs MD 10/07/2024 12:39 PM BLOCK ENGRAVER - 10/07/2024 11:59 PM BLOCK ENGRAVER Hospital Encounter [facility] Radiology [facility] [address] [place] [address] Discharge Disposition: Discharge to home or self care 10/07/2024 12:39 PM BLOCK ENGRAVER - 10/07/2024 11:59 PM BLOCK ENGRAVER Hospital Encounter [facility] Radiology [facility]) [address] [place] [address] Prostate cancer (HCC) Discharge Disposition: Discharge to home or self care 09/30/2024 2:00 PM BLOCK ENGRAVER Lab [address] [address] Primary malignant neoplasm of prostate (HCC); Prostate cancer (HCC) 09/30/2024 1:00 PM BLOCK ENGRAVER Office Visit [facility] Oncology [address] [place] [phone] Jesse Griggs MD Primary malignant neoplasm of [...] Comments Blood Pressure 107/57 12/24/2024 11:45 AM BLOCK ENGRAVER Pulse 77 12/24/2024 11:45 AM BLOCK ENGRAVER Temperature 36.5 C (97.7 F) 12/24/2024 11:45 AM BLOCK ENGRAVER Respiratory Rate 19 12/24/2024 11:45 AM BLOCK ENGRAVER Oxygen Saturation 94% 12/24/2024 11:45 AM BLOCK ENGRAVER Inhaled Oxygen Concentration - - Weight 104.3 kg (230 lb) 12/23/2024 1:15 PM BLOCK ENGRAVER Height 180.3 cm (5' 11 ) 12/23/2024 1:15 PM BLOCK ENGRAVER Body Mass Index 32.08 12/23/2024 1:15 PM BLOCK ENGRAVER Plan of Treatment Health Maintenance Due Date [...] Completed 03/07/2017 Medical Devices Implanted Type Area Inseam Trimming Machine Operator Device Identifier Shelf Expiration Date Model / Serial / Lot Davol Inc/C R Bard [id number] Ventralight St Sepra 4.5in Uncoated Monofilament Lightweight - [id number] Implanted:Qty: 1 on 06/30/2019 by Carlos Lucero MD at [facility] Mesh N/A: Umbilical Davol Inc/C R Bard 12/02/2020 [id number] / / [id number] [employer] [id number] Ams 700 Kit Accessory Penile Prosthesis - [id number] Implanted:Qty: 1 on 06/30/2019 by Carlos Lucero MD at [facility] N/A: Penis [place] [employer] Nam [id number] 04/12/2024 [id number] / / [id number] [employer] [id number] Ams Spectra 1.5cm Concealable Rear Tip Mixer Foam Rubber Snapcone - [id number] Implanted:Qty: 1 on 06/30/2019 by Carlos Lucero MD at [facility] N/A: Penis [place] [employer] Nam [id number] 01/22/2024 [id number] / / [id number] [employer] [id number] Ams 700 Lgx Ms Pump 18cm 3 Piece Inflatable Preconnect Infrapubic - [id number] Implanted:Qty: 1 on 06/30/2019 by Carlos Lucero MD at [facility] N/A: Penis [employer] Nam [id number] 09/10/2020 [id number] / / [id number] Anser Innovation [id number] Ams 700 Ms Pump Preconnect Inflatable [place] Prosthesis 65ml - [id number] Implanted:Qty: 1 on 06/30/2019 by Carlos Lucero MD at [facility] N/A: Abdomen Ecwid [id number] 05/14/2021 [id number] / / [id number] Procedures Procedure Name Priority Date/Time Associated Diagnosis Comments POCT GLUCOSE DEVICE Routine 12/24/2024 1 1:44 AM BLOCK ENGRAVER POCT GLUCOSE DEVICE Routine 12/24/2024 8 :04 AM BLOCK ENGRAVER EGFR Timed 12/23/2024 8:30 PM BLOCK ENGRAVER CBC WITHOUT DIFFERENTIAL Timed 12/23/2024 8:30 PM BLOCK ENGRAVER BASIC METABOLIC PANEL Timed 12/23/2024 8:30 PM BLOCK ENGRAVER SURGICAL PATHOLOGY Routine 12/23/2024 10 :23 AM BLOCK ENGRAVER Renal mass PERIPHERAL LINE Routine 12/23/2024 8:15 AM BLOCK ENGRAVER ANESTHESIA INTUBATION Routine 12/23/2024 8:12 AM BLOCK ENGRAVER XI PARTIAL NEPHRECTOMY - LAPAROSCOPIC ROBOTIC ASSISTED 12/23/2024 7:30 AM BLOCK ENGRAVER Renal mass B CHECK SAMPLE STAT 12/23/2024 6:32 AM BLOCK ENGRAVER TYPE AND SCREEN 14 DAY Routine 12/12/2024 10:51 AM BLOCK ENGRAVER Preoperative testing URINE CULTURE Routine 12/12/2024 10:51 AM BLOCK ENGRAVER Preoperative testing EGFR Routine 11/13/2024 1:20 PM BLOCK ENGRAVER Primary malignant neoplasm of prostate (HCC) Prostate cancer (HCC) DIFFERENTIAL AUTO Routine 11/13/2024 1:2 0 PM BLOCK ENGRAVER Primary malignant neoplasm of prostate (HCC) Prostate cancer (HCC) COMPREHENSIVE METABOLIC PANEL Routine 11/13/2024 1:20 PM BLOCK ENGRAVER Primary malignant neoplasm of prostate (HCC) Prostate cancer (HCC) PSA DIAGNOSTIC Routine 11/13/2024 1:20 PM BLOCK ENGRAVER Primary malignant neoplasm of prostate (HCC) Prostate cancer (HCC) TOTAL TESTOSTERONE Routine 11/13/2024 1: 20 PM BLOCK ENGRAVER Primary malignant neoplasm of prostate (HCC) Prostate cancer (HCC) CBC WITH AUTO DIFFERENTIAL Routine 11/13/2024 1:20 PM BLOCK ENGRAVER Primary malignant neoplasm of prostate (HCC) Prostate cancer (HCC) PET/CT PROSTATE CANCER PSMA SKULL TO THIGH Schedule Routine, Read Routine (OP Routine) 10/07/2024 4:24 PM BLOCK ENGRAVER Prostate cancer (HCC) EGFR Routine 09/30/2024 2:27 PM BLOCK ENGRAVER Primary malignant neoplasm of prostate (HCC) Prostate cancer (HCC) DIFFERENTIAL AUTO Routine 09/30/2024 2:2 7 PM BLOCK ENGRAVER Primary malignant neoplasm of prostate (HCC) Prostate cancer (HCC) PSA DIAGNOSTIC Routine 09/30/2024 2:27 PM BLOCK ENGRAVER Primary malignant neoplasm of prostate (HCC) Prostate cancer (HCC) TOTAL TESTOSTERONE Routine 09/30/2024 2: 27 PM BLOCK ENGRAVER Primary malignant neoplasm of prostate (HCC) Prostate cancer (HCC) CBC WITH AUTO DIFFERENTIAL Routine 09/30/2024 2:27 PM BLOCK ENGRAVER Primary malignant neoplasm of prostate (HCC) Prostate cancer (HCC) COMPREHENSIVE METABOLIC PANEL Routine 09/30/2024 2:27 PM BLOCK ENGRAVER Primary malignant neoplasm of prostate (HCC) Prostate cancer (HCC) TEMPUS XG HEREDITARY CANCER NGS PANEL Routine 09/30/2024 2:18 PM BLOCK ENGRAVER Primary malignant neoplasm of prostate (HCC) Prostate cancer (HCC) HEPATITIS C ANTIBODY Routine Gen Lab 03/07/2017 9:12 AM CDT from Last 3 Months or Most Recently Relevant to Health Maintenance Results * POCT glucose (12/24/2024 11:44 AM BLOCK ENGRAVER) Glucose, POC 114 70 - 199 mg/dL Blood 12/24/2024 11:4 4 AM BLOCK ENGRAVER 12/24/2024 11:44 AM BLOCK ENGRAVER Felice Schmitt MD LAB POCT ORDERABLES - DEV ICE Final [facility] [place] [place] [address] * POCT glucose (12/24/2024 8:04 AM BLOCK ENGRAVER) Glucose, POC 129 70 - 199 mg/dL Blood 12/24/2024 8:04 AM BLOCK ENGRAVER 12/24/2024 8:04 AM BLOCK ENGRAVER Felice Schmitt MD LAB POCT ORDERABLES - DEV ICE Final Result [facility] [place] [address] * eGFR (12/23/2024 8:30 PM BLOCK ENGRAVER) eGFR >90 >=60 mL/min/1. 73 m2 Comment: [...] last reviewed 2021. Blood 12/23/2024 8:30 PM BLOCK ENGRAVER 12/23/2024 8:51 PM BLOCK ENGRAVER us Felice Schmitt MD LAB BLOOD ORDERABLES Yamila mccullough Result [facility] One [facility] [place] [address] * (ABNORMAL) CBC without differential (12/23/2024 8:30 PM BLOCK ENGRAVER) Pathologist [facility] WBC 11.0(H) 3.8 - 9.9 K/cumm Hgb 13.5 13.0 - 17.5 g/dL [facility] Hct 38.4(L) 38.9 - 50.3 % [facility] Plt 185 150 - 400 K/cumm [facility] MPV 9.5 9.1 - 12.3 fL [facility] RBC 4.42 4.30 - 5.80 M/cumm [facility] MCV 86.9 81.3 - 96.4 fL [facility] MCH 30.5 27.1 - 33.3 pg [facility] MCHC 35.2 32.3 - 35.7 g/dL [facility] RDW CV 14.6 11.1 - 14.9 % [facility] RDW SD 46.1 35.7 - 48.1 fL [facility] NRBC abs 0.00 0.00 - 0.01 K/cumm [facility] Blood 12/23/2024 8:30 PM BLOCK ENGRAVER 12/23/2024 8:51 PM BLOCK ENGRAVER us Felice Schmitt MD LAB BLOOD ORDERABLES Yamila l Result [facility] [place] [address] * (ABNORMAL) Basic metabolic panel (12/23/2024 8:30 PM BLOCK ENGRAVER) Sodium 142 135 - 145 mmol/L Potassium, pl 4.4 3.3 - 4.9 mmol/L [facility] Chloride 110 97 - 110 mmol/L [facility] CO2 21(L) 22 - 32 mmol/L [facility] Anion gap 11 2 - 15 mmol/L [facility] BUN 13 6 - 25 mg/dL [facility] Creatinine 0.75(L) 0.80 - 1.30 mg/dL [facility] Glucose 111 70 - 199 mg/dL [facility] Comment: Interpretive Data Fasting glucose >/= [...] 2022. Calcium 9.1 8.5 - 10.3 mg/dL [facility] Blood 12/23/2024 8:30 PM BLOCK ENGRAVER 12/23/2024 8:51 PM BLOCK ENGRAVER Felice Schmitt MD LAB BLOOD ORDERABLES Yamila l Result Performing Organization Address [facility]/ZIP Co de Phone Number [facility] [place] [place] [address] * Surgical pathology (12/23/2024 10:23 AM BLOCK ENGRAVER) Tissue (Kidney, partial nephrectomy) 12/23/2024 10:23 AM BLOCK ENGRAVER Narrative PATHOLOGY [facility] - 12/26/2024 9:20 AM BLOCK ENGRAVER EPIC results best viewed via link to PDF [facility] [place] [address] Note to Patients: This report may contain [...] Gender: M : 1970 (Age: 54) Address: [address] [place], [place] [id number] Hospital #: [id number] Taken:12/23/2024 Received:12/23/2024 Reported: 12/26/2024 Patient Type: [facility] OP In Bed Service: Urology Location: [place] [address] Physician(s): Hiwot Mckenna M.D. Diagnosis: Kidney, right, [...] not extend to the external surface. A regional sales representative section from the mass was submitted for research. Dynamite Packing Machine Operator sections from the remaining specimen are submitted as follows: A1-A3 Mass and closest approach to the inked deep margin A4-A5 Mass including the peripheral margin and renal capsule Jar 1. ba12/07/1712/23/2024 14:10 PA(s): ANASTACIO Peace ([facility])CM CANCER CASE SUMMARY FOR INVASIVE CARCINOMA [...] Surgical Pathology and Flow Cytometry Departments at [facility] as part of an ongoing quality auditor program and in compliance with federally mandated [...] Surgical Pathology and Flow Cytometry Departments of [facility]. It has not been cleared or approved by the U. S. Food and Drug Administration. IMAGES AND SCANNED DOCUMENTS, IF INCLUDED, ONLY VIEWABLE IN PDF VERSION OF REPORT Felice Schmitt MD LAB PATHOLOGY ORDERABLES Final Result PATHOLOGY [facility] 3rd Floor [place], [place] [phone] * Peripheral IV Catheter (12/23/2024 8:15 AM BLOCK ENGRAVER) Damian Willis MD - 12/23/2024 8:15 AM BLOCK ENGRAVER Damian Verduzco MD 12/23/2024 8:15 AM Peripheral [...] Final Result * Airway (12/23/2024 8:12 AM BLOCK ENGRAVER) Narrative Damian Verduzco MD - 12/23/2024 8:12 AM BLOCK ENGRAVER Damian Verduzco MD 12/23/2024 8:15 AM Airway [...] Result * Check Sample (12/23/2024 6:32 AM BLOCK ENGRAVER) ABO Rh A Positive [facility] HCLL OTHER 12/23/2024 6:32 AM BLOCK ENGRAVER 12/23/2024 11:15 AM BLOCK ENGRAVER Felice Schmitt MD LAB BLOOD ORDERABLES Yamila l Result Performing Organization Address [facility] Co de Phone Number [facility] [place] [address] BJ * TYPE AND SCREEN 14 DAY (12/12/2024 10:51 AM BLOCK ENGRAVER) Nam, indirect Negative ABO Rh A Positive [facility] Blood 12/12/2024 10:5 1 AM BLOCK ENGRAVER 12/12/2024 11:20 AM BLOCK ENGRAVER Narrative [facility] - 12/12/2024 12:30 PM BLOCK ENGRAVER Is this test being ordered in advance for a procedure?->Yes Expected date of procedure:->12/23/24 Has the patient been transfused in the past 3 months?->No Karly Norris NP LAB BLOOD BANK VALDO T ORDERABLES Final Result Performing Organization Address [facility] de Phone Number [facility] [place] [address] * Urine culture Urine, clean voided (12/12/2024 10:51 AM BLOCK ENGRAVER) Report Final Report: No growth Urine, clean voided 12/12/2024 10:51 AM BLOCK ENGRAVER 12/12/2024 11:25 AM BLOCK ENGRAVER Narrative [facility] - 12/13/2024 12:34 PM BLOCK ENGRAVER Testing performed by [facility] Microbiology Laboratory ([phone]) Karly Norris NP LAB MICROBIOLOGY - GENERAL ORDERABLES Final Result Performing Organization Address [facility] Co de Phone Number ALY TRAN [facility] [place] [address] * eGFR (11/13/2024 1:20 PM BLOCK ENGRAVER) Pathologist [facility] eGFR >90 >=60 mL/min/1. 73 m2 Comment: [...] last reviewed 2021. Blood 11/13/2024 1:20 PM BLOCK ENGRAVER 11/13/2024 1:23 PM BLOCK ENGRAVER us Jesse Griggs MD LAB BLOOD ORDERABLES Fin al Result Performing Organization Address [facility] Co de Phone Number ALY TRAN [facility] [place] [address] * Differential, auto (11/13/2024 1:20 PM BLOCK ENGRAVER) Pathologist [facility] Neutrophil abs 4.1 1.5 - 6.5 K/cumm Comment:Testing performed by : [facility] Heme Lab, [address] [place] [phone] Lymphocyte abs 1.0 0.8 - 3.3 K/cumm [facility] Comment:Testing performed by : [facility]e [facility], [address] [place] [phone] Monocyte abs 0.5 0.2 - 0.8 K/cumm [facility] Comment:Testing performed by : [facility], [facility] [place] [address] Eosinophil abs 0.2 0.0 - 0.5 K/cumm [facility] Comment:Testing performed by : [facility], [address] [place] [phone] Basophil abs 0.0 0.0 - 0.1 K/cumm [facility] Comment:Testing performed by : [facility], [address] [place] [phone] Neutrophil pct 71.2 % [facility] Comment: Interpretive Data Percent cell count reference ranges are not reported, since discordance with absolute values may lead to misinterpretation of CBC data. Current Interpretive Data was last revised on 2018. Testing performed by: [facility], [address] [place] [phone] Lymphocyte pct 17.1 % [facility] Comment: Interpretive Data Percent cell count reference ranges are not reported, since discordance with absolute values may lead to misinterpretation of CBC data. Current Interpretive Data was last revised on 2018. Testing performed by: [facility], [address] [place] [phone] Monocyte pct 8.3 % [facility] Comment: Interpretive Data Percent cell count reference ranges are not reported, since discordance with absolute values may lead to misinterpretation of CBC data. Current Interpretive Data was last revised on 2018. Testing performed by: [facility], [address] [place] [phone] Eosinophil pct 2.8 % [facility] Comment: Interpretive Data Percent cell count reference ranges are not reported, since discordance with absolute values may lead to misinterpretation of CBC data. Current Interpretive Data was last revised on 2018. Testing performed by: [facility], [address] [place] [phone] Basophil pct 0.6 % [facility] Comment: Interpretive Data Percent cell count reference ranges are not reported, since discordance with absolute values may lead to misinterpretation of CBC data. Current Interpretive Data was last revised on 2018. Testing performed by: [facility], [address] [place] [address] Blood 11/13/2024 1:20 PM BLOCK ENGRAVER 11/13/2024 1:21 PM BLOCK ENGRAVER us Jesse Griggs MD LAB BLOOD ORDERABLES Fin al Result [facility] One [facility] [place] [address] * CBC with auto differential (11/13/2024 1:20 PM BLOCK ENGRAVER) WBC 5.8 3.8 - 9.9 K/cumm Comment:Testing performed by : [facility], [address] [place] [address] Hgb 15.2 13.0 - 17.5 g/dL [facility] Comment:Testing performed by : [facility], [address] [place] [address] Hct 44.6 38.9 - 50.3 % [facility] Comment:Testing performed by : [facility], [address] [place] [address] Plt 189 150 - 400 K/cumm [facility] Comment:Testing performed by : [facility], [address] [place] [address] MPV 8.3 6.8 - 10.4 fL [facility] Comment:Testing performed by : [facility], [address] [place] [address] RBC 5.18 4.30 - 5.80 M/cumm [facility] Comment:Testing performed by : [facility], [address] [place] [address] MCV 86.2 81.3 - 96.4 fL [facility] Comment:Testing performed by : [facility], [address] [place] [address] MCH 29.5 27.1 - 33.[address] [facility] Comment:Testing performed by : [facility], [address] [place] [address] MCHC 34.2 32.3 - 35.7 g/dL [facility] Comment:Testing performed by : [facility], [address] [place] [address] RDW CV 14.8 11.1 - 14.9 % [facility] Comment:Testing performed by : [facility], [address] [place] [address] NRBC abs 0.00 0.00 - 0.01 K/cumm [facility] Comment:Testing performed by : [facility], [address] [place] [address] Blood 11/13/2024 1:20 PM BLOCK ENGRAVER 11/13/2024 1:21 PM BLOCK ENGRAVER Jesse Griggs MD LAB BLOOD ORDERABLES Fin al Result Performing Organization Address [facility] Co de Phone Number [facility] [place] [address] * (ABNORMAL) Total testosterone (11/13/2024 1:20 PM BLOCK ENGRAVER) Testosterone 188.0(L) 193.0 - 740.0 ng/dL Blood 11/13/2024 1:20 PM BLOCK ENGRAVER 11/13/2024 1:50 PM BLOCK ENGRAVER Jesse Griggs MD LAB BLOOD ORDERABLES Fin al Result Performing Organization Address City/[facility] Co de Phone Number [facility] [place] [address] * PSA diagnostic (11/13/2024 1:20 PM BLOCK ENGRAVER) PSA-Total 1.88 <=3.90 ng/mL Comment: Interpretive Data [...] last revised 22. Blood 11/13/2024 1:20 PM BLOCK ENGRAVER 11/13/2024 1:23 PM BLOCK ENGRAVER us Jesse Griggs MD LAB BLOOD ORDERABLES Fin al Result [facility] [place] [address] * (ABNORMAL) Comprehensive metabolic panel (11/13/2024 1:20 PM BLOCK ENGRAVER) Sodium 144 135 - 145 mmol/L Potassium, pl 4.5 3.3 - 4.9 mmol/L [facility] Comment:Hemolyzed; Potassium value may be falsely elevated by as much as 0.3-0.5 mmol/L. Suggest redraw and reanalysis. Chloride 107 97 - 110 mmol/L [facility] CO2 29 22 - 32 mmol/L [facility] Anion gap 8 2 - 15 mmol/L [facility] BUN 14 6 - 25 mg/dL [facility] Creatinine 0.69(L) 0.80 - 1.30 mg/dL [facility] Glucose 97 70 - 199 mg/dL [facility] Comment: Interpretive Data Fasting glucose >/= [...] Calcium 10.0 8.5 - 10.3 mg/dL [facility] Bilirubin, total 1.2 0.1 - 1.2 mg/dL [facility] Protein, pl 7.6 6.5 - 8.5 g/dL [facility] Albumin 4.0 3.5 - 5.0 g/dL [facility] Alk phos 125 40 - 130 Units/L [facility] ALT 13 7 - 55 Units/L [facility] AST 51(H) 10 - 50 Units/L [facility] Comment:Hemolyzed; result ma y be falsely elevated Blood 11/13/2024 1:20 PM BLOCK ENGRAVER 11/13/2024 1:23 PM BLOCK ENGRAVER us Jesse Griggs MD LAB BLOOD ORDERABLES Fin al Result [facility] [place] [address] * PET/CT Prostate Cancer PSMA Skull to Thigh (10/07/2024 4:24 PM BLOCK ENGRAVER) Anatomical Region Laterality Modality N/A Positron Emissio n Tomography (PET) 10/08/2024 11:4 2 AM BLOCK ENGRAVER Impressions 10/08/2024 12:24 PM BLOCK ENGRAVER 1. Widespread regional and distant tom and [...] Dariana Eaton M.D. Narrative 10/08/2024 12:24 PM BLOCK ENGRAVER EXAMINATION: PSMA-PET/CT DATE OF STUDY: 10/07/2024 SCANNER: [facility] PET Vision (NV1). This is a high-resolution [...] obtained. The study was interpreted on the [employer] workstation. The total scanned area was mid [...] EXAMINATION: PSMA-PET/CT DATE OF STUDY: 10/07/2024 SCANNER: [facility] MediaTrust (NV1). This is a high-resolution scanner, which [...] obtained. The study was interpreted on the [employer] workstation. The total scanned area was mid [...] Final Result * eGFR (09/30/2024 2:27 PM BLOCK ENGRAVER) eGFR >90 >=60 mL/min/1. 73 m2 Comment: [...] last reviewed 2021. Blood 09/30/2024 2:27 PM BLOCK ENGRAVER 09/30/2024 2:30 PM BLOCK ENGRAVER us Jesse Griggs MD LAB BLOOD ORDERABLES Fin al Result [facility] [place] [address] * Differential, auto (09/30/2024 2:27 PM BLOCK ENGRAVER) Pathologist [facility] Neutrophil abs 3.8 1.5 - 6.5 K/cumm Comment:Testing performed by : [facility], [address] [place] [id number] Imm gran abs 0.0 0.0 - 0.1 K/cumm [facility] Lymphocyte abs 1.0 0.8 - 3.3 K/cumm [facility] Monocyte abs 0.6 0.2 - 0.8 K/cumm [facility] Eosinophil abs 0.1 0.0 - 0.5 K/cumm [facility] Basophil abs 0.0 0.0 - 0.1 K/cumm [facility] Neutrophil pct 68.9 % [facility] Comment: Interpretive Data Percent cell count reference ranges are not reported, since discordance with absolute values may lead to misinterpretation of CBC data. Current Interpretive Data was last revised on 2018. Imm gran pct 0.2 % [facility] Comment: Interpretive Data Percent cell count reference ranges are not reported, since discordance with absolute values may lead to misinterpretation of CBC data. Current Interpretive Data was last revised on 2018. Lymphocyte pct 18.2 % [facility] Comment: Interpretive Data Percent cell count reference ranges are not reported, since discordance with absolute values may lead to misinterpretation of CBC data. Current Interpretive Data was last revised on 2018. Monocyte pct 9.9 % [facility] Comment: Interpretive Data Percent cell count reference ranges are not reported, since discordance with absolute values may lead to misinterpretation of CBC data. Current Interpretive Data was last revised on 2018. Eosinophil pct 2.3 % [facility] Comment: Interpretive Data Percent cell count reference ranges are not reported, since discordance with absolute values may lead to misinterpretation of CBC data. Current Interpretive Data was last revised on 2018. Basophil pct 0.5 % [facility] Comment: Interpretive Data Percent cell count reference ranges are not reported, since discordance with absolute values may lead to misinterpretation of CBC data. Current Interpretive Data was last revised on 2018. Blood 09/30/2024 2:27 PM BLOCK ENGRAVER 09/30/2024 2:30 PM BLOCK ENGRAVER us Jesse Griggs MD LAB BLOOD ORDERABLES Fin al Result [facility] [place] [address] * (ABNORMAL) CBC with auto differential (09/30/2024 2:27 PM BLOCK ENGRAVER) WBC 5.6 3.8 - 9.9 K/cumm Comment:Testing performed by : [address] [address] Hgb 14.2 13.0 - 17.5 g/dL [facility] Comment:Testing performed by : [address] [address] Hct 40.6 38.9 - 50.3 % [facility] Comment:Testing performed by : [address] [address] Plt 144(L) 150 - 400 K/cumm [facility] Comment:Testing performed by : [address] [address] MPV 9.6 9.1 - 12.3 fL [facility] RBC 4.90 4.30 - 5.80 M/cumm [facility] MCV 82.9 81.3 - 96.4 fL [facility] MCH 29.0 27.1 - 33.3 pg [facility] MCHC 35.0 32.3 - 35.7 g/dL [facility] RDW CV 13.5 11.1 - 14.9 % [facility] RDW SD 40.6 35.7 - 48.1 fL [facility] NRBC abs 0.00 0.00 - 0.01 K/cumm [facility] Blood 09/30/2024 2:27 PM BLOCK ENGRAVER 09/30/2024 2:30 PM BLOCK ENGRAVER Jesse Griggs MD LAB BLOOD ORDERABLES Fin al Result [facility] [place] [address] * Total testosterone (09/30/2024 2:27 PM BLOCK ENGRAVER) Testosterone 520.0 193.0 - 740.0 ng/dL Blood 09/30/2024 2:27 PM BLOCK ENGRAVER 09/30/2024 6:31 PM BLOCK ENGRAVER Jesse Griggs MD LAB BLOOD ORDERABLES Fin al Result Performing Organization Address City/[facility] Co de Phone Number [facility] [place] [employer] [place] [address] * (ABNORMAL) PSA diagnostic (09/30/2024 2:27 PM BLOCK ENGRAVER) PSA-Total 64.70(H) <=3.90 ng/mL Comment: Interpretive Data [...] last revised 22. Blood 09/30/2024 2:27 PM BLOCK ENGRAVER 09/30/2024 6:31 PM BLOCK ENGRAVER us Jesse Griggs MD LAB BLOOD ORDERABLES Fin al Result [facility] [place] [address] * (ABNORMAL) Comprehensive metabolic panel (09/30/2024 2:27 PM BLOCK ENGRAVER) Pathologist [facility] Sodium 141 135 - 145 mmol/L Comment:Testing performed by : [facility], [address] [place] [address] Potassium, pl 3.9 3.3 - 4.9 mmol/L [facility] Chloride 109 97 - 110 mmol/L [facility] CO2 27 22 - 32 mmol/L [facility] Anion gap 5 2 - 15 mmol/L [facility] BUN 11 6 - 25 mg/dL [facility] Creatinine 0.65(L) 0.80 - 1.30 mg/dL [facility] Glucose 96 70 - 199 mg/dL [facility] Comment: Interpretive Data Fasting glucose >/= [...] Calcium 9.4 8.5 - 10.3 mg/dL [facility] Bilirubin, total 0.6 0.1 - 1.2 mg/dL [facility] Protein, pl 6.7 6.5 - 8.5 g/dL [facility] Albumin 3.8 3.5 - 5.0 g/dL [facility] Alk phos 96 40 - 130 Units/L [facility] ALT 14 7 - 55 Units/L [facility] AST 40 10 - 50 Units/L [facility] Blood 09/30/2024 2:27 PM BLOCK ENGRAVER 09/30/2024 2:30 PM BLOCK ENGRAVER Jesse Griggs MD LAB BLOOD ORDERABLES Fin al Result Performing Organization Address [facility]/ZIP Co de Phone Number [facility] [place] [address] * [employer] Hereditary Cancer NGS Panel, Blood (09/30/2024 2:18 PM BLOCK ENGRAVER) [facility] Please review the PDF for results. 10/14/2024 9:34 PM BLOCK ENGRAVER [facility] Comment:[facility] link Blood specimen (specimen) 09/30/2024 2:18 PM BLOCK ENGRAVER 10/14/2024 9:36 PM BLOCK ENGRAVER Jesse Griggs MD LAB GENETIC TESTING Yamila l Result Performing Organization Address [facility] de Phone Number [facility], [address] [phone] [facility] [address] [facility], [place] [address] * Hepatitis C antibody (03/07/2017 9:12 AM CDT) Pathologist [facility] Hep C Ab Nonreactive Nonreactive [facility] Comment: Interpretive Data Positive results should be confirmed by a molecular method. If positive, a second separately collected sample should be submitted for Hepatitis C Virus (HCV) RNA Detection and Quantitation by [employer] Coordinator-PCR (RT-PCR). Current interpretive data was last revised on 2016. Blood specimen (specimen) 03/07/2017 9:12 AM CDT 03/07/2017 11:41 AM CDT Dariana tee MD LAB MICROBIOLOGY - GENERAL ORDERABLES Edited Result - Final Performing Organization Address City/[facility]/ZIP Co de Phone Number [facility] [place] [address] from Last 3 Months or Most Recently Relevant to Health Maintenance Insurance [facility] HMO [facility] CHOICE [facility] HMO/PPO Address: [address] [address] [place] [address] CHOICE PRF [place] [facility] HMO Advance Directives For more information, please contact: [phone] Documents on File Type Date Recorded 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 12/26/2024 11:08 PM RUTH NG WILL ADVANCE DIRECTIVE 12/26/2024 11:08 PM SATHISH R OF [employer] BPC ARCHITECT-MEDICAL * Full Code (Latest Code Status on File) Date Activated Date Inactivated Comments 12/23/2024 1:12 PM 12/24/2024 6:53 PM * Full Code Date Activated Date Inactivated Comments 06/30/2019 5:36 PM 07/01/2019 11:48 PM Care Teams Survey Superintendent Relationship Specialty Start Date End Date Carlitos [place] MD [address] [place] [address] PCP - General Family Medicine 12/10/24 Felice Schmitt MD [address] [place] [address] Consulting Physician Urology 09/19/24 Jesse Griggs MD [address] DIV IM MEDICAL ONCOLOGY, [address] [place] [address] Medical Oncology 09/19/24
[2024-12-28 18:44] LABS: Basophils Percent Auto 0.4 % (0.2-1.2); Eosinophils Absolute Auto 0.2 K/mm3 (0-0.3); Eosinophils Percent Auto 1.9 % (0-4.4); Hematocrit 28.5 % (42.0-52.0); Immature Granulocyte Absolute 0.06 K/mm3 (0.00-0.031); Immature Granulocyte Percent A 0.6 % (0-0.5); Mean Corpuscular HGB Conc 35.1 g/dl (32-36); Mean Corpuscular Hemoglobin 31.3 pg (26-34); Mean Corpuscular Volume 89.3 fl (80-100); Mean Platelet Volume 9.5 fl (7.4-10.4); Monocytes Absolute Auto 1.2 K/mm3 (0.1-0.6); Monocytes Percent Auto 12.4 % (2.6-8.5); Neutrophils Absolute Auto 7.3 K/mm3 (1.3-6.7); Neutrophils Percent Auto 72.7 % (45.5-73.1); Nucleated Red Blood Cells Perc 0.4 % (0.0-0.2); Platelet Count Result 250 k/mm3 (150-375); Red Blood Count 3.19 M/mm3 (4.6-6.20); Red Cell Distribution Width 16.3 % (11.5-14.5)
[2024-12-28 18:49] LABS: Alanine Aminotransferase 18 U/L (6-50); Alkaline Phosphatase 98 U/L (38-126); Anion Gap 13 mmol/L (4-12); Aspartate Amino Transferase 38 U/L (17-59); Bilirubin,Total 2.9 mg/dL (0.2-1.3); Blood Urea Nitrogen 20 mg/dL (9-20); Calcium 9.3 mg/dL (8.4-10.2); Carbon Dioxide 22 mmol/L (22-30); Chloride 105 mmol/L (98-107); Estimated CRCL calculation 74 ml/min; Estimated Glomerular Filt Rate > 60; Glucose 103 mg/dL (65-110); Potassium 3.5 mmol/L (3.4-5.0); Sodium 140 mmol/L (137-145)
[2024-12-28 18:55] VITALS: BP 107/67; PULSE 88; RESP 20; O2SAT 100
--- NOTE | 2024-12-28 19:24 | ED_ITS ---
HPI - Male Genitourinary General Chief complaint: Urogenital-Male <Lennie Pulido PA-C - Last Filed: 12/29/24 02:36> Stated complaint: gross hematuria, retention <STEPHANIE Quezada Last Filed: 12/29/24 02:36> Time Seen by Provider: 12/28/24 18:03 <Lennie Pulido PA-C - Last Filed: 12/29/24 02:36> Source: patient <STEPHANIE Quezada Last Filed: 12/29/24 02:36> Mode of arrival: ambulatory <STEPHANIE Quezada Last Filed: 12/29/24 02:36> Limitations: no limitations <STEPHANIE Quezada Last Filed: 12/29/24 02:36> History of Present Illness HPI Narrative: This is a 54 year old male that presents to the ER for hematuria, difficulty urinating. Reports he had a partial nephrectomy at [place] last week. He has been passing blood clots and having difficulty urinating intermittently since. His surgeon is Dr. Schmitt. Denies fever, vomiting. <Lennie Pulido PA-C - Last Filed: 12/29/24 02:36> Related Data Home medications: Home Medications ?Medication ?Instructions ?Recorded ?Confirmed ?Last Taken ?Type cetirizine 10 mg tablet (Zyrtec) 10 mg PO DAILY 09/12/23 10/16/24 10/01/23 History bimekizumab-bkzx 160 mg/mL 320 mg subcut MONTHLY 07/15/24 10/16/24 Unknown History subcutaneous syringe (Bimzelx) <STEPHANIE Quezada Last Filed: 12/29/24 02:36> Allergies/Adverse reactions: Allergies Allergy/AdvReac Type Severity Reaction Status Date / Time No Known Allergies Allergy Verified 12/28/24 17:39 <STEPHANIE Quezada Last Filed: 12/29/24 02:36> Review of Systems 2 Review of Systems: CONSTITUTIONAL: Denies fever GASTROINTESTINAL: Denies abdominal pain, nausea, vomiting GENITOURINARY: Reports hematuria. 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 Psoriatic arthritis Watermelon stomach Gastric antral vascular ectasia (watermelon stomach) Portal hypertensive gastropathy DEBRA (obstructive sleep apnea) HLD (hyperlipidemia) NSAID long-term use Melena Psoriatic arthritis Hearing loss Left ear started December 2018 Gastritis History of colon polyps Alcohol abuse Alcoholic liver disease Peptic ulcer disease Prostate cancer Hypertension Psoriasis <Lennie Pulido PA-C - Last Filed: 12/29/24 02:36> Surgical History Surgical History: Surgical History (Updated 12/25/24 @ 09:01 by Carlitos Gardner MD) History of nephrectomy, right partial due to renal CA H/O inguinal hernia repair open RIH repair w mesh 03/17/24 Dr Ruel Platt H/O rectal polypectomy History of radical prostatectomy July 2012 in [place] due to prostate cancer with positive pelvic lymph nodes followed by radiation therapy and 3 years of Lupron completed in 2014 History of esophagogastroduodenoscopy (EGD) Performed by Dr. Vigil 05/2020 demonstrated, NO VARICES History of colonoscopy 05/2020 internal external hemorrhoids noted History of penile implant Performed by Dr. Lucero June 2019 History of hernia repair <Lennie Pulido PA-C - Last Filed: 12/29/24 02:36> Family History Family History: Family History Mother In good health Hepatitis A Hypertension Father In good health Dementia Sibling In good health <Lennie Pulido PA-C - Last Filed: 12/29/24 02:36> Social History Social History: Social History Social History: He is . He has 1 daughter. He has a 20 pack per year smoking history and quit smoking at age 42. He lives in a multi generation home with his mother father and brother. 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 the patient does not have a durable power patent attorney for healthcare. code status full code Smoking packs per day: 1 Smoking cigarettes per day: 20.0 Years smoked: 20 Smoking pack-years: 20.00 Smoking status: Former smoker Tobacco type: cigarettes and e-cigarettes/vaping Second hand tobacco smoke exposure: No Smoking end date: 03/14/12 Alcohol intake: current Drinks per week: 7 Substance use: never Substance use type: marijuana Other substance usage details: gummies cbd to sleep Do You Feel Safe in your Home?: Yes Lack of Transportation: No Lack of Food: Never True Current Housing: I Have Housing Concerned About Future Housing: No Difficulty Paying Gas/Electric Bills: No Difficulty Paying for Meds: No Currently Unemployed: No Education: Bachelor's Degree Difficulty w/ Childcare or Family Care: No Living arrangements: with family Occupation/Education: occupation Additional occupation/education comments: [employer] Gender identity (if verbalized by the patient): Male Sexual Orientation (if Verbalized by the Patient): Straight or Heterosexual Spiritual care concerns: No <Lennie Pulido PA-C - Last Filed: 12/29/24 02:36> Exam 2 Narrative: GENERAL: Well-appearing, well-nourished, and in no acute distress. HEAD: Normocephalic, atraumatic. EYES: EOMI. CHEST: Clear to auscultation. No respiratory distress. No wheezes rales or rhonchi HEART: Regular rate and rhythm. No murmur heard. Normal peripheral pulses. ABDOMEN: Soft, nontender, nondistended, normal active bowel sounds. Incisions to the abdomen and right flank are clean, dry, intact EXTREMITIES: Normal range of motion. No edema. SKIN: Warm, dry, no rash. NEURO: No focal deficits. Alert and oriented x3. PSYCH: Normal mood and affect <Lennie Pulido PA-C - Last Filed: 12/29/24 02:36> Course Course Emergency Course: Patient updated on his workup and need for transfer <Lennie Pulido PA-C - Last Filed: 12/29/24 02:36> FUNCTIONAL SUPPORT ANALYST/PA Physician Supervision Patient's HPI, Exam, and MDM were reviewed and I agreed with the workup and disposition done in the emergency department by the MLP. I was available for consultation, but was not directly involved with patient's care nor did I evaluate the patient. <Agustin Munoz MD - Last Filed: 12/29/24 07:27> Consultations Consultation #1: Spoke with Dr. Starks, urology at [facility] [place], about patient and workup. Patient accepted as transfer. No antibiotics recommended at this time. If he is urinating we do not need to put in a Smith at this time. They will place 1 over there <Lennie Pulido PA-C - Last Filed: 12/29/24 02:36> Date: 12/28/24 <Lennie Pulido PA-C - Last Filed: 12/29/24 02:36> Vital Signs Vital signs: Vital Signs Temperature 36.6 C 12/28/24 17:30 Pulse Rate 94 12/28/24 17:30 Respiratory Rate 16 12/28/24 17:30 Blood Pressure 97/58 L 12/28/24 17:30 Pulse Oximetry 99 12/28/24 17:30 Oxygen Delivery Room Air 12/28/24 17:30 Temperature 36.6 C 12/28/24 17:30 Pulse Rate 107 H 12/29/24 01:04 Respiratory Rate 21 H 12/29/24 01:04 Blood Pressure 114/68 12/29/24 01:04 Pulse Oximetry 95 12/29/24 01:04 Oxygen Delivery Room Air 12/28/24 17:30 <Lennie Pulido PA-C - Last Filed: 12/29/24 02:36> Vital Signs Temperature 36.6 C 12/28/24 17:30 Pulse Rate 94 12/28/24 17:30 Respiratory Rate 16 12/28/24 17:30 Blood Pressure 97/58 L 12/28/24 17:30 Pulse Oximetry 99 12/28/24 17:30 Oxygen Delivery Room Air 12/28/24 17:30 Temperature 36.6 C 12/28/24 17:30 Pulse Rate 107 H 12/29/24 01:04 Respiratory Rate 21 H 12/29/24 01:04 Blood Pressure 114/68 12/29/24 01:04 Pulse Oximetry 95 12/29/24 01:04 Oxygen Delivery Room Air 12/28/24 17:30 <Agustin Munoz MD - Last Filed: 12/29/24 07:27> MDM - Male Genitourinary MDM Narrative Medical decision making narrative: Patient presents the emergency department for hematuria, difficulty urinating. Recent partial nephrectomy at [place]. Patient is afebrile and nontoxic appearing. Vitals are stable. Cbc without leukocytosis. Hemoglobin is 10. Metabolic panel with normal kidney function. Urine nitrate positive, 1+ leuk esterase, greater than 100 red blood cells. No white blood cells or bacteria. CT abdomen and pelvis shows active extravasation at surgical site of the right kidney with a large right-sided retroperitoneal hematoma, blood within the right renal pelvis with a large clot in the bladder. Patient updated on his workup and need for transfer. Spoke with Dr. Starks, urology at [place], about patient and workup. Patient accepted as transfer. No antibiotics recommended at this time. If he is urinating we do not need to put in a Smith at this time. They will place 1 over there. Patient awaiting bed placement <Lennie Pulido PA-C - Last Filed: 12/29/24 02:36> Differential Diagnosis Differential diagnosis: Likely other (retroperitoneal hematoma, bladder hematoma, kidney stone, UTI) <Lennie Pulido PA-C - Last Filed: 12/29/24 02:36> Lab Data Attestation: I reviewed the patient's lab results. <Lennie Pulido PA-C - Last Filed: 12/29/24 02:36> Result diagrams: 12/28/24 18:27 12/28/24 18:27 <Lennie Pulido PA-C - Last Filed: 12/29/24 02:36> Labs: Lab Results 12/28/24 12/28/24 12/28/24 Range/Units 18:27 18:54 21:42 WBC 10.0 (4.5-10.0) K/mm3 RBC 3.19 L (4.6-6.20) M/mm3 Hgb 10.0 L D (14.0-18.0) g/dL Hct 28.5 L (42.0-52.0) % MCV 89.3 (80-100) fl MCH 31.3 (26-34) pg MCHC 35.1 (32-36) g/dl RDW 16.3 H (11.5-14.5) % Plt Count 250 D (150-375) k/mm3 MPV 9.5 (7.4-10.4) fl Immature Gran % (Auto) 0.6 H (0-0.5) % Neut % (Auto) 72.7 (45.5-73.1) % Lymph % (Auto) 12.0 L (18.3-44.2) % [place] % (Auto) 12.4 H (2.6-8.5) % Eos % (Auto) 1.9 (0-4.4) % Baso % (Auto) 0.4 (0.2-1.2) % Lymph # (Auto) 1.20 (0.9-3.2) K/mm3 [place] # (Auto) 1.2 H (0.1-0.6) K/mm3 Eos # (Auto) 0.2 (0-0.3) K/mm3 Baso # (Auto) 0.0 (0.0-0.1) K/mm3 Abs Immat Gran (auto) 0.06 H (0.00-0.031) K/mm3 Absolute Neuts (auto) 7.3 H (1.3-6.7) K/mm3 Absolute Nucleated RBC 0.040 H (0.0-0.012) K/mm3 Nucleated RBC % 0.4 H (0.0-0.2) % Sodium 140 (137-145) mmol/L Potassium 3.5 (3.4-5.0) mmol/L Chloride 105 (98-107) mmol/L Carbon Dioxide 22 (22-30) mmol/L Anion Gap 13 H (4-12) mmol/L BUN 20 (9-20) mg/dL Creatinine 1.17 (0.7-1.3) mg/dL Estim Creat Clear Calc 74 ml/min Estimated GFR > 60 (59 - ) Glucose 103 (65-110) mg/dL Calcium 9.3 (8.4-10.2) mg/dL Total Bilirubin 2.9 H (0.2-1.3) mg/dL AST 38 (17-59) U/L ALT 18 (6-50) U/L Alkaline Phosphatase 98 (38-126) U/L Total Protein 8.0 (6.3-8.2) g/dL Albumin 4.0 (3.5-5.1) g/dL Urine Color Red H (Yellow) Urine Appearance Cloudy H (Clear) Urine pH 7.0 (5.0-9.0) Ur Specific Gaines 1.030 (1.001-1.035) Urine Protein 4+ H (Negative) mg/dL Urine Glucose (UA) Trace H (Negative) mg/dL Urine Ketones Negative (Negative) mg/dL Ur Blood (Man) 3+ H (Negative) Urine Nitrate Positive H (Negative) Urine Bilirubin 2+ H (Negative) Urine Urobilinogen 1.0 (<2.0) mg/dL Add Ur Microanalysis Reviewed Leukocyte Esterase Rfl 1+ H (Negative) APARNA/UL Urine RBC >100 H (0-2) /hpf Urine WBC 0-5 (0-3) /hpf Ur Squamous Epith Cells None seen (Few) /hpf Urine Bacteria None seen /hpf Urine Casts 0-2 Blood Type A Positive Antibody Screen Negative <Lennie Pulido PA-C - Last Filed: 12/29/24 02:36> Lab Results 12/28/24 12/28/24 12/28/24 Range/Units 18:27 18:54 21:42 WBC 10.0 (4.5-10.0) K/mm3 RBC 3.19 L (4.6-6.20) M/mm3 Hgb 10.0 L D (14.0-18.0) g/dL Hct 28.5 L (42.0-52.0) % MCV 89.3 (80-100) fl MCH 31.3 (26-34) pg MCHC 35.1 (32-36) g/dl RDW 16.3 H (11.5-14.5) % Plt Count 250 D (150-375) k/mm3 MPV 9.5 (7.4-10.4) fl Immature Gran % (Auto) 0.6 H (0-0.5) % Neut % (Auto) 72.7 (45.5-73.1) % Lymph % (Auto) 12.0 L (18.3-44.2) % [place] % (Auto) 12.4 H (2.6-8.5) % Eos % (Auto) 1.9 (0-4.4) % Baso % (Auto) 0.4 (0.2-1.2) % Lymph # (Auto) 1.20 (0.9-3.2) K/mm3 [place] # (Auto) 1.2 H (0.1-0.6) K/mm3 Eos # (Auto) 0.2 (0-0.3) K/mm3 Baso # (Auto) 0.0 (0.0-0.1) K/mm3 Abs Immat Gran (auto) 0.06 H (0.00-0.031) K/mm3 Absolute Neuts (auto) 7.3 H (1.3-6.7) K/mm3 Absolute Nucleated RBC 0.040 H (0.0-0.012) K/mm3 Nucleated RBC % 0.4 H (0.0-0.2) % Sodium 140 (137-145) mmol/L Potassium 3.5 (3.4-5.0) mmol/L Chloride 105 (98-107) mmol/L Carbon Dioxide 22 (22-30) mmol/L Anion Gap 13 H (4-12) mmol/L BUN 20 (9-20) mg/dL Creatinine 1.17 (0.7-1.3) mg/dL Estim Creat Clear Calc 74 ml/min Estimated GFR > 60 (59 - ) Glucose 103 (65-110) mg/dL Calcium 9.3 (8.4-10.2) mg/dL Total Bilirubin 2.9 H (0.2-1.3) mg/dL AST 38 (17-59) U/L ALT 18 (6-50) U/L Alkaline Phosphatase 98 (38-126) U/L Total Protein 8.0 (6.3-8.2) g/dL Albumin 4.0 (3.5-5.1) g/dL Urine Color Red H (Yellow) Urine Appearance Cloudy H (Clear) Urine pH 7.0 (5.0-9.0) Ur Specific Gaines 1.030 (1.001-1.035) Urine Protein 4+ H (Negative) mg/dL Urine Glucose (UA) Trace H (Negative) mg/dL Urine Ketones Negative (Negative) mg/dL Ur Blood (Man) 3+ H (Negative) Urine Nitrate Positive H (Negative) Urine Bilirubin 2+ H (Negative) Urine Urobilinogen 1.0 (<2.0) mg/dL Add Ur Microanalysis Reviewed Leukocyte Esterase Rfl 1+ H (Negative) APARNA/UL Urine RBC >100 H (0-2) /hpf Urine WBC 0-5 (0-3) /hpf Ur Squamous Epith Cells None seen (Few) /hpf Urine Bacteria None seen /hpf Urine Casts 0-2 Blood Type A Positive Antibody Screen Negative <Agustin Munoz MD - Last Filed: 12/29/24 07:27> Imaging Data Radiologist's impression: ITS Impressions Abdomen/Pelvis CT 12/28/24 21:04 IMPRESSION: Findings consistent with active extravasation of the surgical site of the right kidney with a large right-sided retroperitoneal hematoma, blood within the right renal pelvis with a large clot in the bladder, as detailed above. These findings were given to ANASTACIO Barraza at 9:20 PM on 12/28/2024. Additional findings: Cholelithiasis. Splenomegaly. Pneumomediastinum. <Lennie Pulido PA-C - Last Filed: 12/29/24 02:36> Critical Care Time Critical Care Time Critical Care Time: No <Lennie Pulido PA-C - Last Filed: 12/29/24 02:36> Discharge Plan Discharge Clinical Impression: Retroperitoneal hematoma Hematuria Qualifiers: Hematuria type: gross Qualified Code(s): R31.0 - Gross hematuria <Lennie Pulido PA-C - Last Filed: 12/29/24 02:36> Patient Disposition: Acute Care Hospital <STEPHANIE Quezada Last Filed: 12/29/24 02:36> Condition: Serious <STEPHANIE Quezada Last Filed: 12/29/24 02:36> Patient Language: Honduran <STEPHANIE Quezada Last Filed: 12/29/24 02:36> Prescriptions: No Action cetirizine [Zyrtec] 10 mg Tablet 10 mg PO DAILY Bimzelx 160 mg/mL syringe 320 mg subcut MONTHLY nadolol 20 mg tablet 20 mg PO DAILY Qty: 90 3RF Rx Instructions: TAKE 1 TABLET BY MOUTH EVERY MORNING oxycodone 5 mg tablet 5 mg PO Q6H PRN (Reason: pain) Qty: 90 0RF Patient Comments: I have them but I don't use them lisinopril 10 mg tablet 10 mg PO DAILY Qty: 90 1RF amlodipine 10 mg tablet 10 mg PO DAILY Qty: 90 2RF <Lennie Pulido PA-C - Last Filed: 12/29/24 02:36> Follow-up/Referrals: Carlitos Gardner MD [Primary Care Provider] - <Lennie Pulido PA-C - Last Filed: 12/29/24 02:36>
[2024-12-28 19:42] LABS: Add Urine Microscopic? YES; Appearance Urine Cloudy (Clear); Bacteria Urine None Seen /hpf; Bilirubin Urine 2+ (Negative); Blood Urine 3+ (Negative); Glucose Urine UA Trace mg/dL (Negative); Ketones Urine Negative (Negative); Leukocyte Esterase Ur 1+ LEU/UL (Negative); Need Manual Microscopic Reviewed; Nitrate Urine Positive (Negative); Non Pathogenic Casts 0-2; Protein Urine 4+ mg/dL (Negative); RBC Urine >100 /hpf (0-2); Squamous Epithelial Cell Urine None Seen /hpf (Few); WBC Urine 0-5 /hpf (0-3)
[2024-12-28 19:43] LABS: Color Urine Red (Yellow)
[2024-12-28 21:53] VITALS: BP 128/70; PULSE 95; RESP 15; O2SAT 97
[2024-12-28] MEDS: ONDANSETRON INJ 4 MG/2 ML VIAL IV PUSH (21:54)
[2024-12-28] MEDS: MORPHINE SULFATE (*CRX) 2 MG/ML INJ IV PUSH (21:54)
[2024-12-29 01:04] VITALS: BP 114/68; PULSE 107; RESP 21; O2SAT 95
[2024-12-29] MEDS: MORPHINE SULFATE (*CRX) 2 MG/ML INJ IV PUSH (02:38)
== END 2024-12-29 03:35 | disposition short-term general hospital (02) ==
PROVIDERS: Emergency Provider Physician Assistant; PCP Family Medicine
DX: K91.871 Postprocedural hematoma of a digestive system organ or structure following other procedure (principal); K68.3 Retroperitoneal hematoma; R31.0 Gross hematuria; C64.1 Malignant neoplasm of right kidney, except renal pelvis; I10 Essential (primary) hypertension; E78.5 Hyperlipidemia, unspecified; K70.9 Alcoholic liver disease, unspecified; L40.9 Psoriasis, unspecified; L40.50 Arthropathic psoriasis, unspecified; G47.33 Obstructive sleep apnea (adult) (pediatric); F10.10 Alcohol abuse, uncomplicated; Z85.46 Personal history of malignant neoplasm of prostate; Z85.79 Personal history of other malignant neoplasms of lymphoid, hematopoietic and related tissues; Z86.0100 Personal history of colon polyps, unspecified; Z87.11 Personal history of peptic ulcer disease; Z87.891 Personal history of nicotine dependence; Z92.3 Personal history of irradiation; Z90.5 Acquired absence of kidney; Z90.79 Acquired absence of other genital organ(s); Z79.899 Other long term (current) drug therapy; Z79.620 Long term (current) use of immunosuppressive biologic; Y83.6 Removal of other organ (partial) (total) as the cause of abnormal reaction of the patient, or of later complication, without mention of misadventure at the time of the procedure; K80.20 Calculus of gallbladder without cholecystitis without obstruction; R16.1 Splenomegaly, not elsewhere classified; J98.2 Interstitial emphysema
CPT/HCPCS: 36415; 74178; 80053; 81001; 85025; 86850; 86900; 86901; 87086; 96374; 96375; 99285; J2270; J2405; Q9967